=== PATIENT | female | born 1950 | race Caucasian/White ===

== ENCOUNTER 2019-04-30 22:06 | Emergency (ER) | payer MEDICARE, SELFPAY ==
--- NOTE | ~2019-04-30 | XR_ITS ---
EXAMINATION: XR chest 2V DATE: 04/30/2019 23:22 INDICATION: Cough, cold and chills. TECHNIQUE: PA and lateral views of the chest were obtained. COMPARISON: None FINDINGS: The lungs are clear with no focal airspace opacities, pulmonary edema, pleural effusion or pneumothor ax. The cardiomediastinal silhouette is normal. Cholecystectomy clips in right upper quadrant. Severe lower thoracic spondylosis. IMPRESSION: 1. No acute cardiopulmonary disease. Reviewed, dictated and finalized at location A. R MENDER
--- NOTE | 2019-04-30 22:17 | ED.GENADULT ---
HPI - General Adult General Chief complaint: Unspecified Stated complaint: Multiple complaints Time Seen by Provider: 04/30/19 22:08 Source: patient and RN notes reviewed Mode of arrival: ambulatory Limitations: no limitations History of Present Illness HPI narrative: Pt is a 69 y/o female who presents to the ED with c/o chills starting several days ago. She notes that she has a Hx of a bladder stimulator and recurrent UTI's. Pt states that she has had a cough and intermittent rhinorrhea for the past 2 weeks. She notes that she then developed bilateral lower ABD pain, hot flashes, chills, and fever several days ago. Pt states that her ABD pain radiates into her bilateral lower back. She notes that she was seen in the ED at [facility] for her symptoms yesterday, and notes that she was diagnosed with bronchitis and a UTI. She states that she received a negative flu swab while in the ED yesterday. Pt notes that she was initially prescribed Ampicillin, but was eventually placed on Augmentin, which she has only taken one dose of thus far. She notes that she had a follow-up appointment with her urologist earlier today, stating that she had urine cultures sent off for testing. She notes that she wanted to be evaluated in the ED this evening due to her hot flashes and chills making her unable to sleep. Pt also reports intermittent nausea, but denies any CP or SOB. complaint: Chills Onset (ago): day(s) (several) Associated symptoms: cough, fever/chills, nausea/vomiting (nausea) and other (hot flashes; bilateral lower ABD pain radiating into bilateral low back; rhinorrhea) Related Data Home Medications Medication Instructions Recorded Confirmed Calcium 1500mg 02/21/19 Imitrex 02/21/19 Nature-Throid 02/21/19 Slow Release Iron 02/21/19 Ultram 02/21/19 Vitamin D 6000 02/21/19 albuterol sulfate 02/21/19 amlodipine 02/21/19 aspirin [Aspirin Low Dose] 81 mg PO DAILY 02/21/19 02/21/19 atorvastatin 02/21/19 cetirizine 02/21/19 cyclobenzaprine mg 02/21/19 diclofenac-misoprostol [Arthrotec tablet PO 02/21/19 75] methscopolamine 02/21/19 montelukast [Singulair] mg 02/21/19 sertraline [Zoloft] mg 02/21/19 tramadol 02/21/19 Allergies Allergy/AdvReac Type Severity Reaction Status Date / Time cephalexin Allergy Severe RASH, Verified 02/21/19 03:02 ITCHING morphine Allergy Severe RASH Verified 02/21/19 03:02 levofloxacin Allergy Mild Rash Verified 02/21/19 03:02 CORTICOSTEROIDS Allergy Intermediate SWELLING Uncoded 02/21/19 03:02 Review of Systems Review of Systems: All systems reviewed & are unremarkable except as noted in HPI and below Constitutional: Constitutional: Reports chills, Reports fever(s) and Reports other (hot flashes) ENT: Reports nasal discharge Cardiovascular: Cardiovascular: Denies chest pain Respiratory: Respiratory: Reports cough and Denies dyspnea Gastrointestinal: Gastrointestinal: Reports abdominal pain (bilateral lower ABD pain radiating into bilateral low back) and Reports nausea PMFSH Past Medical History Medical History (Updated 05/01/19 @ 00:49 by Virgil Borrego MD) Anemia Ankle fracture, right Arthritis Asthma Depression Early cataracts, bilateral Falls GERD (gastroesophageal reflux disease) Headache Hemorrhoids History of recurrent UTIs HTN (hypertension) Hyperlipidemia Hypothyroid IBS (irritable bowel syndrome) Inguinal hernia Kidney stone on left side Migraines Parotid tumor left Pyelonephritis Rectal fistula Seasonal allergies TIA (transient ischemic attack) TMJ (dislocation of temporomandibular joint) Surgical History Surgical History (Updated 04/30/19 @ 22:59 by Yvan Mendez) H/O arthroscopy of shoulder right H/O colonoscopy H/O hemorrhoidectomy H/O inguinal hernia repair History of ankle surgery right History of bladder suspension procedure with InterStim bladder stimulator placement History of hysterectomy Hx of appendectomy S
[2019-04-30 22:19] VITALS: BP 112/74; PULSE 106; RESP 21; TEMP 38.2; O2SAT 98
[2019-04-30] MEDS: ACETAMINOPHEN 500 MG TABLET 1000 MG PO (23:02)
[2019-04-30 23:04] LABS: Basophils Percent Auto 0.3 % (0.2-1.2); Eosinophils Percent Auto 0.2 % (0-4.4); Hematocrit 35.1 % (37.0-47.0); Hemoglobin 11.7 g/dL (12.0-15.0); Immature Granulocyte Absolute 0.05 K/mm3 (0.00-0.031); Immature Granulocyte Percent A 0.3 % (0-0.5); Lymphocytes Absolute Auto 2.07 K/mm3 (0.9-3.2); Lymphocytes Percent Auto 14.2 % (18.3-44.2); Mean Corpuscular HGB Conc 33.3 g/dl (32-36); Mean Corpuscular Hemoglobin 29.8 pg (26-34); Mean Corpuscular Volume 89.5 fl (80-100); Mean Platelet Volume 8.9 fl (7.4-10.4); Monocytes Absolute Auto 1.3 K/mm3 (0.1-0.6); Monocytes Percent Auto 8.8 % (2.6-8.5); Neutrophils Absolute Auto 11.2 K/mm3 (1.3-6.7); Neutrophils Percent Auto 76.2 % (45.5-73.1); Platelet Count Result 270 k/mm3 (150-375); Red Blood Count 3.92 M/mm3 (4.2-5.4); Red Cell Distribution Width 12.3 % (11.5-14.5); White Blood Count 14.6 K/mm3 (4.5-10.0)
[2019-04-30] MEDS: ALBUTEROL SULFATE NEB 2.5 MG/0.5 ML INH 5 MG INHALATION (23:08)
[2019-04-30 23:09] VITALS: PULSE 92; RESP 18
[2019-04-30] MEDS: IPRATROPIUM BR 0.02% INH SOLN 0.5 MG/2.5 ML VIAL INHALATION (23:09)
[2019-04-30 23:16] VITALS: PULSE 94
[2019-04-30 23:16] LABS: Blood Urea Nitrogen 21 mg/dL (7-17); Calcium 8.9 mg/dL (8.4-10.2); Carbon Dioxide 24 mmol/L (22-30); Chloride 100 mmol/L (98-107); Estimated Glomerular Filt Rate > 60; Glucose 140 mg/dL (65-105); Potassium 3.9 mmol/L (3.4-5.0); Sodium 134 mmol/L (137-145)
[2019-04-30 23:30] VITALS: TEMP 36.7
[2019-04-30 23:50] LABS: Add Urine Microscopic? YES; Appearance Urine Clear (Clear); Bilirubin Urine Negative (Negative); Blood Urine 1+ (Negative); Color Urine Yellow (Yellow); Glucose Urine UA Negative (Negative); Ketones Urine Negative (Negative); Leukocyte Esterase Ur 2+ LEU/UL (Negative); Mucus Urine Rare /lpf; Nitrate Urine Negative (Negative); Protein Urine 2+ mg/dL (Negative); RBC Urine 0-2 /hpf (0-2); Specific Grav Ur 1.019 (1.001-1.035); Squamous Epithelial Cell Urine Occasional /hpf (Few); WBC Urine 51-75 /hpf
[2019-05-01 00:02] VITALS: BP 107/58; PULSE 92; RESP 16; TEMP 36.7; O2SAT 98
[2019-05-01 01:23] VITALS: BP 100/58; PULSE 66; RESP 16; TEMP 36.9; O2SAT 97
== END 2019-05-01 00:55 | disposition home or self-care (01) ==
PROVIDERS: Emergency Provider Emergency Medicine
DX: J45.909 Unspecified asthma, uncomplicated (principal); N39.0 Urinary tract infection, site not specified; D64.9 Anemia, unspecified; M19.90 Unspecified osteoarthritis, unspecified site; F32.9 Major depressive disorder, single episode, unspecified; K21.9 Gastro-esophageal reflux disease without esophagitis; I10 Essential (primary) hypertension; E78.5 Hyperlipidemia, unspecified; E03.9 Hypothyroidism, unspecified; K58.9 Irritable bowel syndrome, unspecified; Z87.442 Personal history of urinary calculi; Z86.73 Personal history of transient ischemic attack (TIA), and cerebral infarction without residual deficits; H26.9 Unspecified cataract
CPT/HCPCS: 36415; 71046; 80048; 81001; 85025; 87086; 87088; 94640; 99283; A9270

== ENCOUNTER 2019-08-26 13:27 | Outpatient (CLI) | payer MEDICARE, SELFPAY ==
--- NOTE | ~2019-08-26 | XR_ITS ---
EXAMINATION: XR abdomen/kub 1V EXAM DATE: 08/26/2019 13:50 INDICATION: History kidney stones. TECHNIQUE: Frontal projection(s) of the abdomen for interpretation. Comparison is made to prior exami nation from 06/04/2018. FINDINGS: There is expected amount of colonic stool and gas. No small bowel dilation, nonobstructiv e bowel gas pattern. There are no suspicious calcifications identified. There is no organomegaly suspected. The bones are unremarkable. Sacral neural stimulator. IMPRESSION: No suspicious calcifications identified. Reviewed, dictated and finalized at location A.
== END 2019-08-26 13:28 | disposition home or self-care (01) ==
PROVIDERS: Visit Provider Urology
DX: Z87.442 Personal history of urinary calculi (principal)
CPT/HCPCS: 74018

== ENCOUNTER 2019-10-10 07:48 | Outpatient (CLI) | payer MEDICARE, SELFPAY ==
--- NOTE | ~2019-10-10 | CT_ITS ---
EXAMINATION: CT thoracic lumbar wo con DATE: 10/10/2019 08:26 INDICATION: Back pain with radiculopathy. TECHNIQUE: Computed tomography (CT) of the thoracic and lumbar spine was performed without intravenou s contrast. Automated exposure control and iterative reconstruction technique were employed. The dose -length product was 821.97 mGy-cm. COMPARISON: None FINDINGS: THORACIC SPINE CT: There is 5 degrees levocurvature of thoracic spine. There is mild chronic height l oss of T8-T12 vertebral bodies. There is mildly decreased disc height from T3-T4 through T5-T6, moder ately decreased disc height at T6-T7, and severely decreased disc height from T7-T8 through T11-T12. There is multilevel facet joint osteoarthritis, severe bilaterally at T9-T10 and T10-T11. On the left , there is mild neural foraminal stenosis at T9-T10 and T11-T12. There is mild central canal stenosis at T4-T5, T5-T6, T6-T7, T8-T9, and T11-T12. LUMBAR SPINE CT: There is 7 degrees levocurvature of lumbar spine. There is 5 degrees dextrocurvature of thoracolumbar spine. There is 3 mm anterolisthesis of L4 on L5. Vertebral body heights are normal . Intervertebral disc heights are normal. The following disc levels are specifically discussed: L1-L2: The disc does not extend beyond the endplate margin. There is mild bilateral facet joint osteo arthritis. There is no neural foraminal stenosis. There is no central canal stenosis. L2-L3: The disc is bulging. There is severe bilateral facet joint osteoarthritis. There is mild bilat eral neural foraminal stenosis. There is mild central canal stenosis. L3-L4: The disc is bulging. There is severe bilateral facet joint osteoarthritis. There is mild bilat eral neural foraminal stenosis. There is mild central canal stenosis. L4-L5: The disc is bulging. There is severe bilateral facet joint osteoarthritis. There is moderate b ilateral neural foraminal stenosis. There is mild central canal stenosis. L5-S1: The disc is bulging. There is severe bilateral facet joint osteoarthritis. There is mild bilat eral neural foraminal stenosis. There is mild central canal stenosis. IMPRESSION: 1. Severe thoracic spondylosis and moderate lumbar spondylosis. Reviewed, dictated and finalized at location A.
== END 2019-10-10 07:49 | disposition home or self-care (01) ==
DX: M47.894 Other spondylosis, thoracic region (principal); M47.896 Other spondylosis, lumbar region
CPT/HCPCS: 72128; 72131

== ENCOUNTER 2020-04-13 14:19 | Outpatient (CLI) | payer MEDICARE, SELFPAY ==
--- NOTE | 2020-04-13 14:23 | ECG_ITS ---
Measurements Intervals [place] Rate: 77 P: -14 NC: 291 QRS: 12 QRSD: 78 T: 28 QT: 384 QTc: 435 Interpretive Statements SINUS RHYTHM VOLTAGE CRITERIA FOR LVH MINIMAL Q WAVES- HIGH LATERAL LEADS BASELINE ARTIFACT- I, II, III, AVR, AVL, AVF, V6 BORDERLINE ECG Electronically Signed On 04-13-2020 15:10:41 APPLICATION ANALYST by Adolfo Huizar D.O.
[2020-04-13 14:46] LABS: Hematocrit 36.3 % (37.0-47.0); Hemoglobin 12.7 g/dL (12.0-15.0)
== END 2020-04-13 14:20 | disposition home or self-care (01) ==
PROVIDERS: Anesthesiology; PCP Family Medicine; Visit Provider Urology
DX: Z01.818 Encounter for other preprocedural examination (principal); D64.9 Anemia, unspecified; I10 Essential (primary) hypertension; R94.31 Abnormal electrocardiogram [ECG] [EKG]
CPT/HCPCS: 36415; 85014; 85018; 93005

== ENCOUNTER 2020-04-20 01:53 | Outpatient (CLI) | payer MEDICARE, SELFPAY ==
[2020-04-20 18:13] LABS: SARS-CoV-2 RNA PCR Negative
== END 2020-04-20 01:54 | disposition home or self-care (01) ==
LOC: ANHCOVIDDT 01:53
PROVIDERS: Visit Provider Urology
DX: Z01.812 Encounter for preprocedural laboratory examination (principal); Z20.822 Contact with and (suspected) exposure to COVID-19
CPT/HCPCS: C9803; U0003; U0005

== ENCOUNTER 2020-04-23 02:40 | Day surgery (SDC) | payer MEDICARE, SELFPAY ==
[2020-04-12 15:23] VITALS: BMI 24.4
--- NOTE | 2020-04-18 15:49 | PM.IMHP ---
H&P: HPI History of Present Illness Date/Time: 04/18/20 15:49 Chief Complaint: OAB Narrative: Massiel Jordan is a 70 year old female with OAB well controlled with InterStim. Needs a MRI Review of Systems Review of Systems: All systems reviewed & are unremarkable except as noted in HPI and below PMFSH Past Medical History Medical History (Updated 04/18/20 @ 15:50 by Baldev Page MD) Anemia Ankle fracture, right Arthritis Asthma Depression Early cataracts, bilateral Falls GERD (gastroesophageal reflux disease) Headache Hemorrhoids History of recurrent UTIs HTN (hypertension) Hyperlipidemia Hypothyroid IBS (irritable bowel syndrome) Inguinal hernia Kidney stone on left side Migraines Parotid tumor left Pyelonephritis Rectal fistula Seasonal allergies TIA (transient ischemic attack) TMJ (dislocation of temporomandibular joint) Surgical History Surgical History (Updated 04/30/19 @ 22:59 by Yvan Mendez) H/O arthroscopy of shoulder right H/O colonoscopy H/O hemorrhoidectomy H/O inguinal hernia repair History of ankle surgery right History of bladder suspension procedure with InterStim bladder stimulator placement History of hysterectomy Hx of appendectomy S/P left knee arthroscopy S/P right knee arthroscopy Status post ORIF of fracture of ankle right Social History Social History Smoking status: Never smoker Second hand tobacco smoke exposure: No Alcohol intake: never Substance use: never Substance use type: does not use Gender identity (if verbalized by the patient): Female Spiritual care concerns: No Meds Home Medications and Allergies Home Medications Medication Instructions Recorded Confirmed Type Calcium 1500mg 1,500 mg DAILY 02/21/19 04/12/20 History Imitrex 100 mg PRN 02/21/19 04/12/20 History Slow Release Iron 25 mg DAILY 02/21/19 04/12/20 History amlodipine 5 mg DAILY 02/21/19 04/12/20 History aspirin [Aspirin Low Dose] 81 mg PO DAILY 02/21/19 04/12/20 History atorvastatin 20 mg DAILY 02/21/19 04/12/20 History cetirizine 10 mg HS 02/21/19 04/12/20 History cyclobenzaprine 10 mg BID PRN 02/21/19 04/12/20 History diclofenac-misoprostol [Arthrotec 1 tablet PO DAILY 02/21/19 04/12/20 History 75] methscopolamine 5 mg DAILY 02/21/19 04/12/20 History montelukast [Singulair] 10 mg DAILY 02/21/19 04/12/20 History sertraline [Zoloft] 100 mg DAILY 02/21/19 04/12/20 History albuterol 90 mcg INHALATION PRN PRN 04/12/20 04/12/20 History cholecalciferol (vitamin D3) 125 mcg PO DAILY 04/12/20 04/12/20 History folic acid 1 mg PO DAILY 04/12/20 04/12/20 History golimumab [Simponi ARIA] 100 mg IV ONCE 04/12/20 04/12/20 History hydrocodone-acetaminophen 1 tablet PO Q8H PRN 04/12/20 04/12/20 History methocarbamol 750 mg PO TID PRN 04/12/20 04/12/20 History methotrexate sodium [Methotrexate 2.5 mg PO WEEKLY 04/12/20 04/12/20 History (Anti-Rheumatic)] thyroid 90 mg PO DAILY 04/12/20 04/12/20 History vitamin E 400 unit PO DAILY 04/12/20 04/12/20 History Allergies Allergy/AdvReac Type Severity Reaction Status Date / Time cephalexin Allergy Severe RASH, Verified 04/12/20 15:08 ITCHING morphine Allergy Severe RASH Verified 04/12/20 15:08 levofloxacin Allergy Mild Rash Verified 04/12/20 15:08 CORTICOSTEROIDS Allergy Intermediate SWELLING Uncoded 04/12/20 15:08 Exam Const: General: cooperative, healthy appearing and comfortable HENMT: Head: normal to inspection Eyes: General: appearance normal, both eyes and all related structures Resp: Effort & Inspection: normal respiratory effort and able to speak in complete sentences Skin: General skin exam: normal color Assessment and Plan Assessment and plan (1) Overactive bladder: Code(s): N32.81 - Overactive bladder Status: Acute Assessment and Plan: revision to MRI compatable InterStim. Incomplete removal and inferior efficacy discussed
--- NOTE | 2020-04-22 14:32 | WPDANESEPPF ---
Anes - Initial Pre Proc Eval Procedure: Operation Date: 04/23/20 11:15 Proposed Procedures p Remove And Replace Neurostimulator Implant - Baldev Page MD Date/Time: 04/22/20 14:32 Surgeon: Baldev Page MD Pre Op Diagnosis: Stress Incontinence, Over Active Bladder Patient Data Age: 70 Gender: F Height: 1.63 m Weight: 64.54 kg Allergies Allergy/AdvReac Type Severity Reaction Status Date / Time cephalexin Allergy Severe RASH, Verified 04/23/20 09:51 ITCHING morphine Allergy Severe RASH Verified 04/23/20 09:51 levofloxacin Allergy Mild Rash Verified 04/23/20 09:51 CORTICOSTEROIDS Allergy Intermediate SWELLING Uncoded 04/23/20 09:51 Home Medications Medication Instructions Recorded Confirmed Type Calcium 1500mg 1,500 mg DAILY 02/21/19 04/12/20 History Imitrex 100 mg PRN 02/21/19 04/12/20 History Slow Release Iron 25 mg DAILY 02/21/19 04/12/20 History amlodipine 5 mg DAILY 02/21/19 04/12/20 History aspirin [Aspirin Low Dose] 81 mg PO DAILY 02/21/19 04/12/20 History atorvastatin 20 mg DAILY 02/21/19 04/12/20 History cetirizine 10 mg HS 02/21/19 04/12/20 History cyclobenzaprine 10 mg BID PRN 02/21/19 04/12/20 History diclofenac-misoprostol [Arthrotec 1 tablet PO DAILY 02/21/19 04/12/20 History 75] methscopolamine 5 mg DAILY 02/21/19 04/12/20 History montelukast [Singulair] 10 mg DAILY 02/21/19 04/12/20 History sertraline [Zoloft] 100 mg DAILY 02/21/19 04/12/20 History albuterol 90 mcg INHALATION PRN PRN 04/12/20 04/12/20 History cholecalciferol (vitamin D3) 125 mcg PO DAILY 04/12/20 04/12/20 History folic acid 1 mg PO DAILY 04/12/20 04/12/20 History golimumab [Simponi ARIA] 100 mg IV ONCE 04/12/20 04/12/20 History hydrocodone-acetaminophen 1 tablet PO Q8H PRN 04/12/20 04/12/20 History methocarbamol 750 mg PO TID PRN 04/12/20 04/12/20 History methotrexate sodium [Methotrexate 2.5 mg PO WEEKLY 04/12/20 04/12/20 History (Anti-Rheumatic)] thyroid 90 mg PO DAILY 04/12/20 04/12/20 History vitamin E 400 unit PO DAILY 04/12/20 04/12/20 History Patient hx anesthesia problems: none Family hx anesthesia problems: none PMFSH Past Medical History Medical History (Updated 04/18/20 @ 15:50 by Baldev Page MD) Anemia Ankle fracture, right Arthritis Asthma Depression Early cataracts, bilateral Falls GERD (gastroesophageal reflux disease) Headache Hemorrhoids History of recurrent UTIs HTN (hypertension) Hyperlipidemia Hypothyroid IBS (irritable bowel syndrome) Inguinal hernia Kidney stone on left side Migraines Parotid tumor left Pyelonephritis Rectal fistula Seasonal allergies TIA (transient ischemic attack) TMJ (dislocation of temporomandibular joint) Surgical History Surgical History (Updated 04/30/19 @ 22:59 by Yvan Mendez) H/O arthroscopy of shoulder right H/O colonoscopy H/O hemorrhoidectomy H/O inguinal hernia repair History of ankle surgery right History of bladder suspension procedure with InterStim bladder stimulator placement History of hysterectomy Hx of appendectomy S/P left knee arthroscopy S/P right knee arthroscopy Status post ORIF of fracture of ankle right Social History Social History Smoking status: Never smoker Second hand tobacco smoke exposure: No Alcohol intake: never Substance use: never Substance use type: does not use Living arrangements: with family Gender identity (if verbalized by the patient): Female Spiritual care concerns: No Anes - Eval Final PreProcedure Day of Procedure 04/22/20 14:32 Patient weight: normal Heart: regular rate and rhythm Lungs: clear to auscultation and normal air movement Airway: Mallampati scale class II Neurological: alert and oriented Last oral intake: >/= 8 hours ASA classification: III Emergent: no Anesthetic plan: proceed Anesthesia type and monitoring: general GIVS and LMA Informed Consent: The patient's anesthetic plan and it
--- NOTE | ~2020-04-23 | XR_ITS ---
EXAMINATION: FLUORO NEUROSTIM INSERT < 1HR DATE: 04/23/2020 11:54 INDICATION: Remove and replace neurostimulator InterStim 2 TECHNIQUE: Single frontal fluoroscopic image of the sacrum was obtained during procedure performed by Dr. Page. The amount of fluoroscopy time used during this procedure was 1.9 minutes. Radiologist was not present for the procedure or imaging. COMPARISON: None. FINDINGS/IMPRESSION: An Interstim lead extends projects over the sacrum, unclear which side as marker s are not included on the image. See procedure note for further detail. Reviewed, dictated and finalized at location B. HER CLERK
--- NOTE | 2020-04-23 04:59 | WPDHPUPDATE1 ---
History and Physical Update Update Date/Time: 04/23/20 04:59 History and Physical has been reviewed, including an updated exam of the patient. There are NO changes in the patient's condition. Risks, benefits, and alternatives have been discussed and questions answered. Patient agrees to proceed with procedure.
[2020-04-23] MEDS: LACTATED RINGERS 1,000 ML 30 ML IV CONT ×2 (09:45→12:00)
[2020-04-23] MEDS: CLINDAMYCIN 900 MG/D5W 50 ML 900 MG/50 ML PIGGYBACK 50 MG IVPB (10:39)
[2020-04-23] MEDS: LIDO 1%/EPINEPHRINE 1:100,000 50 ML VIAL 25 ML INFILTRATE (11:50)
--- NOTE | 2020-04-23 11:58 | PM.PROC ---
Procedure Note - Detailed Date of procedure: 04/23/20 Pre-op diagnosis: Stress Incontinence, Over Active Bladder Procedure performed: Postop diagnosis: Same Removal of sacral lead Placement of sacral Fluoroscopic guidance for needle placement Placement of implantable pulse generator Complex neurostimulator programming and impedance check Description of procedure: Anesthesia: Mac, local This patient has undergone a successful InterStim trial. She has a functioning device in place. She needs an MRI. We are are here to remove and replace a new device. She understands risks of bleeding, infection, worse efficacy, incomplete removal. She agrees to proceed He presents today for placement of a permanent device. correctly identified and informed consent was obtained. There brought to the operating room. Placed in the prone position. There given appropriate anesthesia. There prepped and draped in a sterile fashion. A time-out performed. I anesthetized the skin over the pulse generator. I incised the skin. I explained the pulse generator. I then identified my sacral lead. I incised the skin after anesthetizing it. I removed the sacral lead in its entirety. I used fluoroscopy to identify my sacral landmarks in the AP and lateral orientation. I anesthetized the skin. I into the sacral foramen on the left and the right. I monitored the needle fluoroscopy. I entered right and left S3 foramen. I stimulated the needle and got appropriate response at low thresholds. I made a skin lex. I placed a stylet and the lead introducer sheath. I then placed and deployed by lead again under fluoroscopy. I marked out the site of the future pulse generator. I anesthetized the skin. I made an incision. I created a subcutaneous pocket. I obtained hemostasis. I irrigated out the wound. I then tunneled the lead towards this pocket. Appropriate connections were made between the lead and battery. The battery was programmed. It was placed in the pocket. Impedances were checked and found to be normal. I once again assured hemostasis. I irrigated out all wounds. I closed the subcu with 2 0 Vicryl. Skin with 4 0 Vicryl. Glue was applied. They were then awakened and transferred to the PACU in stable condition. Implants: Neuromodulation device Anesthesia: MAC and local Surgeon: Baldev Page MD Drains: No Packing: No Pathology: none sent Complications: No immediate complications Condition: stable Disposition: PACU
[2020-04-23 12:00] VITALS: BP 95/57; PULSE 87; RESP 14; O2SAT 100
[2020-04-23] MEDS: ONDANSETRON INJ 4 MG/2 ML VIAL IV PUSH (12:21)
[2020-04-23] MEDS: fentaNYL CITRATE INJ (*CRX) 100 MCG/2 ML VIAL 25 MCG IV PUSH ×3 (12:22→12:46)
[2020-04-23 12:30] VITALS: BP 110/61; PULSE 81; RESP 14; O2SAT 95
[2020-04-23] MEDS: oxyCODONE HCL (*CRX) 5 MG TAB IR PO (12:47)
[2020-04-23 13:00] VITALS: BP 113/59; PULSE 80; RESP 14; O2SAT 93
[2020-04-23 13:30] VITALS: BP 100/50; PULSE 83; RESP 14; O2SAT 95
[2020-04-23 13:45] VITALS: BP 101/53; PULSE 83; RESP 14; O2SAT 93
== END 2020-04-23 14:03 | disposition home or self-care (01) ==
PROVIDERS: Visit Provider Urology
PROC: (CPT 64590; principal; 2020-04-23 11:15)
DX: Z45.42 Encounter for adjustment and management of neurostimulator (principal); N32.81 Overactive bladder; N39.3 Stress incontinence (female) (male); N39.41 Urge incontinence; R15.9 Full incontinence of feces; D64.9 Anemia, unspecified; J45.909 Unspecified asthma, uncomplicated; F32.9 Major depressive disorder, single episode, unspecified; K21.9 Gastro-esophageal reflux disease without esophagitis; I10 Essential (primary) hypertension; Z87.440 Personal history of urinary (tract) infections; Z91.81 History of falling; E78.5 Hyperlipidemia, unspecified; E03.9 Hypothyroidism, unspecified; K58.9 Irritable bowel syndrome, unspecified; K40.90 Unilateral inguinal hernia, without obstruction or gangrene, not specified as recurrent; Z87.442 Personal history of urinary calculi; N12 Tubulo-interstitial nephritis, not specified as acute or chronic; M26.609 Unspecified temporomandibular joint disorder, unspecified side; Z86.73 Personal history of transient ischemic attack (TIA), and cerebral infarction without residual deficits; Z79.82 Long term (current) use of aspirin
CPT/HCPCS: 64590; 64561; A9270; C1767; C1778; C1787; J2405; J2704; J3010; J7120

== ENCOUNTER 2020-05-27 13:15 | Outpatient (CLI) | payer MEDICARE, SELFPAY | END 2020-05-27 13:16 | disposition home or self-care (01) | LOC: ANHCOVIDVC 13:15 | PROVIDERS: PCP Urology | DX: Z23 Encounter for immunization (principal) | CPT/HCPCS: 0001A; 91300 ==

== ENCOUNTER 2020-06-17 13:16 | Outpatient (CLI) | payer MEDICARE, SELFPAY | END 2020-06-17 13:17 | disposition home or self-care (01) | LOC: ANHCOVIDVC 13:16 | PROVIDERS: PCP Urology | DX: Z23 Encounter for immunization (principal) | CPT/HCPCS: 0002A; 91300 ==

== ENCOUNTER 2021-04-03 16:16 | Emergency (ER) | payer MEDICARE, SELFPAY ==
[2021-04-03] VITALS (10 sets, daily range): BP systolic 113–138; BP diastolic 67–113; PULSE 63–85; RESP 13–20; TEMP 36.7; O2SAT 95–100
--- NOTE | ~2021-04-03 | XR_ITS ---
EXAMINATION: XR chest 2V DATE: 04/03/2021 16:56 INDICATION: Right-sided chest pain TECHNIQUE: PA and lateral views of the chest are obtained. COMPARISON: 04/30/2019 FINDINGS: The lungs are free of acute opacities. There is no pleural effusion or pneumothorax. The ca rdiomediastinal silhouette is normal. There is severe thoracic spondylosis. IMPRESSION: 1. No acute cardiopulmonary abnormality. Reviewed, dictated and finalized at location F. L SPRAY OPERATOR
--- NOTE | ~2021-04-03 | CT_ITS ---
EXAMINATION: CTA chest PE protocol DATE: 04/03/2021 22:58 INDICATION: Shortness of breath. TECHNIQUE: Computed tomography angiography (CTA) of the chest was performed with 100 mL Omnipaque-350 intravenous contrast timed to evaluate the pulmonary arteries. Coronal maximum intensity projection 3D-reconstructions were created by the technologist. Automated exposure control and iterative reconst ruction technique were employed. The dose-length product was 191.48 mGy-cm. COMPARISON: CT abdomen and pelvis 02/21/2019 FINDINGS: The lungs demonstrate mild atelectasis. No pleural effusion. The heart size is normal. No p ericardial effusion. There is no pulmonary embolus. There are surgical clips in the upper abdomen. Th ere is severe thoracic spondylosis. There is mild chronic anterior wedging of multiple thoracic verte bral bodies. IMPRESSION: 1. No pulmonary embolus. Reviewed, dictated and finalized at location B. [employer] IMPRESSION: 1. No pulmonary embolus.
--- NOTE | 2021-04-03 16:17 | ECG_ITS ---
Measurements Intervals [place] Rate: 85 P: 53 DC: 147 QRS: 12 QRSD: 82 T: 11 QT: 381 QTc: 455 Interpretive Statements SINUS RHYTHM MINIMAL Q WAVES- HIGH LATERAL LEADS BORDERLINE ST-T WAVE ABNORMALITY- ANT/INF LEADS BASELINE ARTIFACT- I, II, III, AVR, AVL, AVF, V1-V2, V5-V6 BORDERLINE ECG Electronically Signed On 04-03-2021 19:57:23 SENIOR BUSINESS BROKER by Adolfo Huizar D.O.
[2021-04-03 16:33] LABS: Basophils Percent Auto 0.6 % (0.2-1.2); Eosinophils Absolute Auto 0.3 K/mm3 (0-0.3); Hematocrit 35.2 % (37.0-47.0); Hemoglobin 11.8 g/dL (12.0-15.0); Immature Granulocyte Absolute 0.01 K/mm3 (0.00-0.031); Immature Granulocyte Percent A 0.1 % (0-0.5); Lymphocytes Absolute Auto 3.15 K/mm3 (0.9-3.2); Lymphocytes Percent Auto 46.5 % (18.3-44.2); Mean Corpuscular HGB Conc 33.5 g/dl (32-36); Mean Corpuscular Hemoglobin 32.3 pg (26-34); Mean Corpuscular Volume 96.4 fl (80-100); Monocytes Absolute Auto 0.6 K/mm3 (0.1-0.6); Monocytes Percent Auto 8.7 % (2.6-8.5); Neutrophils Absolute Auto 2.7 K/mm3 (1.3-6.7); Neutrophils Percent Auto 40.1 % (45.5-73.1); Platelet Count Result 238 k/mm3 (150-375); Red Blood Count 3.65 M/mm3 (4.2-5.4); White Blood Count 6.8 K/mm3 (4.5-10.0)
[2021-04-03 16:44] LABS: INR 0.9; Prothrombin Time 12.3 Seconds (11.1-14.7)
[2021-04-03 16:45] LABS: Partial Thromboplastin Time 26.9 SECONDS (22.3-36.8)
[2021-04-03 16:49] LABS: Alanine Aminotransferase 26 U/L (4-35); Albumin Level 4.6 g/dL (3.5-5.1); Alkaline Phosphatase 54 U/L (38-126); Anion Gap 9 mmol/L (8-16); Aspartate Amino Transferase 34 U/L (14-36); Bilirubin,Total 0.3 mg/dL (0.2-1.3); Blood Urea Nitrogen 21 mg/dL (7-17); Calcium 9.1 mg/dL (8.4-10.2); Carbon Dioxide 24 mmol/L (22-30); Chloride 105 mmol/L (98-107); Estimated CRCL calculation 42 ml/min; Estimated Glomerular Filt Rate > 60; Glucose 123 mg/dL (65-110); Lipase 161 U/L (23-300); Potassium 3.9 mmol/L (3.4-5.0); Sodium 138 mmol/L (137-145)
[2021-04-03 17:01] LABS: Troponin I < 0.012 ng/mL (0.000-0.034)
--- NOTE | 2021-04-03 18:32 | ED.CHESTPAIN ---
HPI - Chest Pain General Chief Complaint: Chest Pain Stated Complaint: chest pain Time Seen by Provider: 04/03/21 18:26 Source: patient Mode of arrival: ambulatory Limitations: no limitations History of Present Illness HPI narrative: Patient is a 71-year-old female complaining of chest pain, right-sided, sharp, radiating to back worse with deep inspiration, rates the pain 6 out of 10, started 2 hours prior to arrival. Patient denies any shortness of breath, abdominal pain, nausea, vomiting, diaphoresis, fever or chills. Related Data Home Medications Medication Instructions Recorded Confirmed Calcium 1500mg 1,500 mg DAILY 02/21/19 04/12/20 Imitrex 100 mg PRN 02/21/19 04/12/20 Slow Release Iron 25 mg DAILY 02/21/19 04/23/20 amlodipine 5 mg DAILY 02/21/19 04/12/20 aspirin [Aspirin Low Dose] 81 mg PO DAILY 02/21/19 04/12/20 atorvastatin 20 mg DAILY 02/21/19 04/12/20 cetirizine 10 mg HS 02/21/19 04/12/20 cyclobenzaprine 10 mg BID PRN 02/21/19 04/12/20 diclofenac-misoprostol [Arthrotec 1 tablet PO DAILY 02/21/19 04/12/20 75] methscopolamine 5 mg DAILY 02/21/19 04/23/20 montelukast [Singulair] 10 mg DAILY 02/21/19 04/23/20 sertraline [Zoloft] 100 mg DAILY 02/21/19 04/23/20 Simponi ARIA 100 mg IV ONCE 04/12/20 04/23/20 albuterol 90 mcg INHALATION PRN PRN 04/12/20 04/12/20 cholecalciferol (vitamin D3) 125 mcg PO DAILY 04/12/20 04/12/20 folic acid 1 mg PO DAILY 04/12/20 04/12/20 hydrocodone-acetaminophen 1 tablet PO Q8H PRN 04/12/20 04/12/20 methocarbamol 750 mg PO TID PRN 04/12/20 04/23/20 methotrexate sodium 2.5 mg PO WEEKLY 04/12/20 04/12/20 thyroid 90 mg PO DAILY 04/12/20 04/23/20 vitamin E 400 unit PO DAILY 04/12/20 04/23/20 Allergies Allergy/AdvReac Type Severity Reaction Status Date / Time cephalexin Allergy Severe RASH, Verified 04/23/20 09:51 ITCHING morphine Allergy Severe RASH Verified 04/23/20 09:51 levofloxacin Allergy Mild Rash Verified 04/23/20 09:51 CORTICOSTEROIDS Allergy Intermediate SWELLING Uncoded 04/23/20 09:51 Review of Systems Review of Systems: All systems reviewed & are unremarkable except as noted in HPI and below Constitutional: Constitutional: Denies body ache(s), Denies chills, Denies excessive sweating, Denies fatigue, Denies fever(s), Denies headache(s), Denies lethargy, Denies malaise, Denies weakness and Denies weight loss Eyes: Eyes: Denies blurry vision, Denies change in vision and Denies loss of vision ENT: Denies dizziness, Denies ear discharge, Denies headache(s), Denies lip swelling, Denies epistaxis, Denies nasal congestion, Denies neck pain, Denies throat swelling and Denies tongue swelling Cardiovascular: Cardiovascular: Denies diaphoresis, Denies rapid heart rate, Denies edema, Denies irregular heart rhythm, Denies lightheadedness, Denies palpitations, Denies dyspnea and Denies dyspnea on exertion Respiratory: Respiratory: Denies chest congestion, Denies cough, Denies hemoptysis, Denies dyspnea and Denies dyspnea on exertion Gastrointestinal: Gastrointestinal: Denies abdominal pain, Denies melena, Denies hematochezia, Denies diarrhea, Denies nausea, Denies vomiting and Denies hematemesis Musculoskeletal: Musculoskeletal: Denies abnormal gait, Denies deformity, Denies joint swelling, Denies limited range of motion, Denies neck pain and Denies numbness Neurologic: Denies Abnormal speech present, Denies abnormal gait, Denies confusion, Denies dizziness, Denies headache(s), Denies focal weakness, Denies loss of vision, Denies numbness, Denies Other visual disturbances, Denies Sensory deficit (Neuro) and Denies weakness Psychiatric: Psychiatric: Denies confusion, Denies depression, Denies auditory hallucinations, Denies homicidal ideation and Denies suicidal ideation Endocrine: Endocrine: Denies cold intolerance, Denies excessive sweating, Denies fatigue, Denies heat intolerance and Denies palpitations Hematologic/Lymphatic: Hematologic/Lymphatic: Denies easy bleeding and Denies easy bruisi
[2021-04-03 19:33] LABS: D Dimer 0.66 ug/mL (<0.48)
[2021-04-03 19:43] LABS: Troponin I < 0.012 ng/mL (0.000-0.034)
[2021-04-03] MEDS: HYDROmorphone HCL INJ (*CRX) 1 MG/ML SYR 0.5 MG IV PUSH (19:45)
== END 2021-04-03 23:14 | disposition home or self-care (01) ==
PROVIDERS: Emergency Medicine; Emergency Provider Emergency Medicine
DX: R07.89 Other chest pain (principal); R09.1 Pleurisy; J45.909 Unspecified asthma, uncomplicated; E78.5 Hyperlipidemia, unspecified; I10 Essential (primary) hypertension; E03.9 Hypothyroidism, unspecified; D64.9 Anemia, unspecified; M19.90 Unspecified osteoarthritis, unspecified site; F32.A Depression, unspecified; Z87.442 Personal history of urinary calculi; Z86.73 Personal history of transient ischemic attack (TIA), and cerebral infarction without residual deficits; R94.31 Abnormal electrocardiogram [ECG] [EKG]
CPT/HCPCS: 36415; 71046; 71275; 80053; 83690; 84484; 85025; 85380; 85610; 85730; 93005; 96374; 99284; J1170; Q9967

== ENCOUNTER 2021-04-10 20:56 | Inpatient (IN) | payer MEDICARE, SELFPAY ==
[2021-04-10] VITALS (13 sets, daily range): BP systolic 89–100; BP diastolic 52–63; PULSE 83–98; RESP 14–24; TEMP 36.6–38.5; O2SAT 92–98
--- NOTE | ~2021-04-10 | CT_ITS ---
EXAMINATION: CT abdomen pelvis wo con DATE: 04/11/2021 06:14 INDICATION: Sepsis. Urinary tract infection. History of kidney stones TECHNIQUE: Computed tomography (CT) of the abdomen and pelvis was performed without intravenous contr ast. Automated exposure control and iterative reconstruction technique were employed. Exam dose: 277 .43 mGy-cm total exam DLP. COMPARISON: 08/26/2019 KUB 02/21/2019 CT abdomen pelvis FINDINGS: There is mild discoid atelectasis or scarring at the lung bases. Normal heart size. No tessy cardial or pleural effusion. Sludge is noted in the dependent aspect of the gallbladder. No pericholecystic fluid or fat stranding . No bile duct or pancreatic duct dilatation. No hepatic, splenic, pancreatic, and adrenal or renal space-occupying mass lesion is evident on this limited noncontrast examination. No urinary tract calculus is evident. There is mild perinephric stranding and mild asymmetric thicken ing of the posterior pararenal fascia on the right, suggesting right pyelonephritis. The urinary trac ts are otherwise unremarkable, including the urinary bladder. Status post hysterectomy. There is atherosclerotic calcification of the abdominal aorta but no aneurysm. There is atherosclerot ic calcification at the origins of the celiac and superior mesenteric and renal arteries. No intraper itoneal or retroperitoneal or pelvic mass lesion or adenopathy or ascites is evident. Minimal sigmoid diverticulosis. No bowel obstruction, bowel wall thickening, pneumatosis or intraperi toneal free air is detected. Prominent degenerative change in the lower thoracic spine. Degenerative change at the lumbar and lumb osacral apophyseal joints with minimal grade 1 anterolisthesis at L5-S1. IMPRESSION: Right pyelonephritis Gallbladder sludge Minimal sigmoid diverticulosis Reviewed, dictated and finalized at Location A. Reviewed, dictated and finalized at location A. 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
--- NOTE | ~2021-04-10 | XR_ITS ---
XR chest 1V portable DATE: 04/10/2021 23:17 INDICATION: Fever. Fall today. TECHNIQUE: Portable upright AP chest on 04/10/2021 at 2312 hours COMPARISON: 04/13/2021 2 view chest 129 CTA chest FINDINGS: Heart size appears normal. There is mild aortic unfolding. No hilar or mediastinal enlargem ent. No pulmonary infiltrate or consolidation, pleural effusion or pulmonary vascular congestion or p neumothorax is detected. IMPRESSION: No active cardiopulmonary disease Reviewed, dictated and finalized at location A. 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
--- NOTE | ~2021-04-10 | XR_ITS ---
XR chest 2V DATE: 04/14/2021 13:37 INDICATION: Cough, shortness of breath TECHNIQUE: PA and lateral views COMPARISON: 04/10/2021 portable AP chest FINDINGS: Normal heart size. There is mild aortic calcification and unfolding. No pulmonary infiltr ate or consolidation, pulmonary vascular congestion or pleural effusion or pneumothorax. Status post cholecystectomy. IMPRESSION: No active cardiopulmonary disease Reviewed, dictated and finalized at location A. PHONE ENGINEER
--- NOTE | ~2021-04-10 | XR_ITS ---
EXAMINATION: XR knee LT 2V DATE: 04/11/2021 10:31 INDICATION: Left knee pain post fall TECHNIQUE: AP and crosstable lateral views of the left knee were obtained. COMPARISON: None. FINDINGS: Left total knee arthroplasty without patellar resurfacing which appears well seated in near-anatomic alignment. No fracture. Small enthesophyte at the proximal pole of the patella. Small to moderate-siz ed left knee joint effusion without evident layering lipohemarthrosis. IMPRESSION: 1. Expected appearance of a left total knee arthroplasty without evident acute osseous abnormality. 2. Small to moderate left knee joint effusion. Reviewed, dictated and finalized at location A. S CLERK FOOD
--- NOTE | 2021-04-10 22:42 | PC.NURSE ---
Pt's vital signs repeated in wr while awaiting ED bed availability. Pt now febrile @ 101.3F , BP 89/55. Pt currently sitting in wc. No s/s of distress. Reading a book.
[2021-04-10 23:23] LABS: Basophils Percent Auto 0.3 % (0.2-1.2); Hematocrit 34.2 % (37.0-47.0); Hemoglobin 11.5 g/dL (12.0-15.0); Immature Granulocyte Absolute 0.03 K/mm3 (0.00-0.031); Immature Granulocyte Percent A 0.3 % (0-0.5); Lymphocytes Absolute Auto 1.59 K/mm3 (0.9-3.2); Lymphocytes Percent Auto 13.8 % (18.3-44.2); Mean Corpuscular HGB Conc 33.6 g/dl (32-36); Mean Corpuscular Hemoglobin 32.3 pg (26-34); Mean Corpuscular Volume 96.1 fl (80-100); Mean Platelet Volume 9.1 fl (7.4-10.4); Monocytes Absolute Auto 1.2 K/mm3 (0.1-0.6); Monocytes Percent Auto 10.7 % (2.6-8.5); Neutrophils Absolute Auto 8.7 K/mm3 (1.3-6.7); Neutrophils Percent Auto 74.9 % (45.5-73.1); Platelet Count Result 169 k/mm3 (150-375); Red Blood Count 3.56 M/mm3 (4.2-5.4); Red Cell Distribution Width 13.2 % (11.5-14.5); White Blood Count 11.5 K/mm3 (4.5-10.0)
[2021-04-10 23:32] LABS: Partial Thromboplastin Time 26.9 SECONDS (22.3-36.8)
[2021-04-10 23:33] LABS: Lactic Acid Reflex 0.7 mmol/L (0.7-2.1)
[2021-04-10 23:35] LABS: Alanine Aminotransferase 17 U/L (4-35); Albumin Level 4.4 g/dL (3.5-5.1); Alkaline Phosphatase 56 U/L (38-126); Anion Gap 10 mmol/L (8-16); Aspartate Amino Transferase 27 U/L (14-36); Bilirubin,Total 0.9 mg/dL (0.2-1.3); Blood Urea Nitrogen 18 mg/dL (7-17); CRP 6.9 mg/dL (<1.0); Calcium 9.1 mg/dL (8.4-10.2); Carbon Dioxide 23 mmol/L (22-30); Chloride 100 mmol/L (98-107); Estimated CRCL calculation 38 ml/min; Estimated Glomerular Filt Rate 54; Glucose 125 mg/dL (65-110); Potassium 4.1 mmol/L (3.4-5.0); Sodium 133 mmol/L (137-145)
[2021-04-11] VITALS (19 sets, daily range): BP systolic 96–112; BP diastolic 52–94; PULSE 75–113; RESP 14–24; TEMP 36.8–38.7; O2SAT 92–100
[2021-04-11] MEDS: SODIUM CHLORIDE 0.9% IV 1,000 ML 999 ML IV CONT ×3 (00:39→15:29)
[2021-04-11 01:25] LABS: SARS-CoV-2 RNA PCR Negative
[2021-04-11 01:58] LABS: Add Urine Microscopic? YES; Appearance Urine Clear (Clear); Bacteria Urine Trace /hpf; Bilirubin Urine Negative (Negative); Blood Urine 1+ (Negative); Color Urine Yellow (Yellow); Glucose Urine UA Negative (Negative); Ketones Urine Trace mg/dL (Negative); Leukocyte Esterase Ur 2+ LEU/UL (Negative); Mucus Urine Few /lpf; Nitrate Urine Positive (Negative); Protein Urine 1+ mg/dL (Negative); Specific Grav Ur 1.012 (1.001-1.035); Squamous Epithelial Cell Urine Rare /hpf (Few); Urobilinogen Urine Negative mg/dL (<2.0); WBC Urine >75 /hpf
--- NOTE | 2021-04-11 03:42 | ED.FEVER ---
HPI - Fever General Chief Complaint: Fever Stated Complaint: fever, fall knee pain Time Seen by Provider: 04/10/21 23:03 History of Present Illness HPI Narrative: Patient is a 71-year-old female who presents ER with weakness and fever. Worsening over the last 2 days. Was so weak she fell while getting out of bed and developed pain in her knees. She has been able to ambulate. She has body aches. She has some mild pain in her back on the right side laterally over the chest wall without bruising. Denies urinary frequency urgency or dysuria. No runny nose or sore throat or productive cough. No loss of taste or smell. Without dyspnea. No known sick contacts. Reports she has not been eating or drinking due to fatigue and fever. Related Data Home Medications Medication Instructions Recorded Confirmed Calcium 1500mg 1,500 mg DAILY 02/21/19 04/12/20 Imitrex 100 mg PRN 02/21/19 04/12/20 Slow Release Iron 25 mg DAILY 02/21/19 04/23/20 amlodipine 5 mg DAILY 02/21/19 04/12/20 aspirin [Aspirin Low Dose] 81 mg PO DAILY 02/21/19 04/12/20 atorvastatin 20 mg DAILY 02/21/19 04/12/20 cetirizine 10 mg HS 02/21/19 04/12/20 cyclobenzaprine 10 mg BID PRN 02/21/19 04/12/20 diclofenac-misoprostol [Arthrotec 1 tablet PO DAILY 02/21/19 04/12/20 75] methscopolamine 5 mg DAILY 02/21/19 04/23/20 montelukast [Singulair] 10 mg DAILY 02/21/19 04/23/20 sertraline [Zoloft] 100 mg DAILY 02/21/19 04/23/20 Simponi ARIA 100 mg IV ONCE 04/12/20 04/23/20 albuterol 90 mcg INHALATION PRN PRN 04/12/20 04/12/20 cholecalciferol (vitamin D3) 125 mcg PO DAILY 04/12/20 04/12/20 folic acid 1 mg PO DAILY 04/12/20 04/12/20 hydrocodone-acetaminophen 1 tablet PO Q8H PRN 04/12/20 04/12/20 methocarbamol 750 mg PO TID PRN 04/12/20 04/23/20 methotrexate sodium 2.5 mg PO WEEKLY 04/12/20 04/12/20 thyroid 90 mg PO DAILY 04/12/20 04/23/20 vitamin E 400 unit PO DAILY 04/12/20 04/23/20 Allergies Allergy/AdvReac Type Severity Reaction Status Date / Time cephalexin Allergy Severe RASH, Verified 04/10/21 21:37 ITCHING morphine Allergy Severe RASH Verified 04/10/21 21:37 levofloxacin Allergy Mild Rash Verified 04/10/21 21:37 CORTICOSTEROIDS Allergy Intermediate SWELLING Uncoded 04/10/21 21:37 Review of Systems Review of Systems: All systems reviewed & are unremarkable except as noted in HPI and below Constitutional: Constitutional: Reports fatigue and Reports fever(s) ENT: Denies nasal congestion and Denies sore throat Respiratory: Respiratory: Denies cough, Denies dyspnea and Denies wheezing Gastrointestinal: Gastrointestinal: Denies abdominal pain, Denies diarrhea, Denies nausea and Denies vomiting Genitourinary: Genitourinary: Denies hematuria, Denies nocturia, Denies dysuria and Denies flank pain PMFSH Past Medical History Medical History Anemia Ankle fracture, right Arthritis Asthma Depression Early cataracts, bilateral Falls GERD (gastroesophageal reflux disease) Headache Hemorrhoids History of recurrent UTIs HTN (hypertension) Hyperlipidemia Hypothyroid IBS (irritable bowel syndrome) Inguinal hernia Kidney stone on left side Migraines Parotid tumor left Pyelonephritis Rectal fistula Seasonal allergies TIA (transient ischemic attack) TMJ (dislocation of temporomandibular joint) Surgical History Surgical History H/O arthroscopy of shoulder right H/O colonoscopy H/O hemorrhoidectomy H/O inguinal hernia repair History of ankle surgery right History of bladder suspension procedure with InterStim bladder stimulator placement History of hysterectomy Hx of appendectomy S/P left knee arthroscopy S/P right knee arthroscopy Status post ORIF of fracture of ankle right Social History Social History (System 04/05/21 @ 08:20 by Cecilia Rosado) Smoking status: Never smoker Second hand tobacco smoke exposure: No Alcohol intake: n
--- NOTE | 2021-04-11 05:57 | PM.IMHP ---
H&P: HPI History of Present Illness Date/Time: 04/11/21 05:20 Chief Complaint: Fever Narrative: 71-year-old female with a past medical history of rheumatoid arthritis on immunosuppressive therapy, urge urinary incontinence, bladder stimulator, frequent urinary tract infections and kidney stones who presented to the ER with 2 days of fever. In hindsight she realizes that the increased urinary frequency and incontinence that she has been having over the last week is not due to malfunctioning of her bladder stimulator but is likely due to urinary tract infection. She reports that she would have immediate urge to go to the bathroom and S initially was stand up she would not make it to the bathroom. She has also been having associated dysuria. The for the last couple of days she has been having occasional dry heaves without emesis. She has had persistent nausea. She has been having rigors and fevers up to 101.5. She denies any flank pain. She has not noticed any hematuria. Her urologist is Dr. Page. She had come to the ER a few days ago due to chest pain. She reports that she has been under increased stress. Her mother who is 93 years old fell recently and had a hip fracture. Following the hip fracture she was discharged to a skilled nursing and has stopped eating and drinking. She is trying to decide what to do with her mother's care. She thinks that this was causing her significant distress. Her cardiac evaluation in the ER several days ago was negative. She has not had a recurrence of chest pain. She denies any shortness of breath. Her she is vaccinated against COVID-19 and received her booster. Her COVID PCR in the ER was negative. Review of Systems Review of Systems: 12 systems were reviewed with pertinent positives and negatives per HPI. Except as documented in the HPI, all other systems were reviewed and are negative. [facility] Past Medical History Medical History (Updated 04/11/21 @ 08:23 by Alice Patrick DO) Anemia Ankle fracture, right Arthritis Asthma Depression Early cataracts, bilateral Falls GERD (gastroesophageal reflux disease) Headache Hemorrhoids History of recurrent UTIs HTN (hypertension) Hyperlipidemia Hypothyroid IBS (irritable bowel syndrome) Inguinal hernia Kidney stone on left side Migraines Parotid tumor left Pyelonephritis Rectal fistula Seasonal allergies TIA (transient ischemic attack) TMJ (dislocation of temporomandibular joint) Surgical History Surgical History (Updated 04/11/21 @ 08:12 by Alice Patrick DO) H/O arthroscopy of shoulder (~2014) right H/O colonoscopy H/O hemorrhoidectomy (~2007) H/O meniscectomy of right knee History of arthroscopy of left shoulder History of bladder suspension procedure with InterStim bladder stimulator placement July 2016 with subsequent removal and replacement with a MRI safe device March 2020 History of carpal tunnel release (~2013) Right History of hysterectomy (~1976) History of mandibular surgery (~1977) History of meniscectomy of left knee (~05/2015) History of Ofelia fundoplication (~2014) History of sinus surgery (~2015) History of uvulopalatopharyngoplasty (~2013) Hx of appendectomy (~1974) Hx of LASIK (~2005) S/P cubital tunnel release (~2013) S/P right knee arthroscopy S/P ureteral stent placement 11/2017 Status post cataract extraction of both eyes with insertion of intraocular lens (~12/2020) Status post ORIF of fracture of ankle (~06/2015) right with initial surgery in 2008 and additional surgery 2012 surgeries in 2014 and 2015 Family History Family History Mother Age older than 80 years Social History Social History (Updated 04/11/21 @ 08:15 by Alice Patrick DO) Social History: Patient is . Primary care physician: Dr. Harrison, [facility] Code status: Code status and advanced directives were discussed with the patien
[2021-04-11] MEDS: ACETAMINOPHEN 325 MG TABLET 650 MG PO (06:00)
--- NOTE | 2021-04-11 06:45 | ADMGEN ---
This patient, Massiel Jordan, was admitted to 3 [facility] Surg Room 319-01. Patient/family oriented to hospital policies and general routines including ID bracelet, bed and alarms, visiting hours, pain management, procedures, bathroom and other care routines, personal items, smoking policy, room service/diet, and visiting hours. Information on how to activate the Rapid Response Team has been discussed. Patient/Family are encouraged to report perceived risks to care and to ask questions if they do not understand what they are told or what they should do.
[2021-04-11] MEDS: SODIUM CHLORIDE 0.9% IV 1,000 ML 125 ML IV CONT ×2 (08:30→15:30)
--- NOTE | 2021-04-11 09:31 | PM.IMPN ---
Progress Note: A&P Assessment and Plan (1) Acute UTI: Code(s): N39.0 - Urinary tract infection, site not specified Status: Acute Assessment and Plan: Current on IV Zosyn follow culture results may need urology eval pending culture results (2) Sepsis: Qualifiers: Sepsis acute organ dysfunction status: without acute organ dysfunction Sepsis type: sepsis due to unspecified organism Qualified Code(s): A41.9 - Sepsis, unspecified organism Code(s): A41.9 - Sepsis, unspecified organism Status: Acute Assessment and Plan: IV fluid IV antibiotics (3) Overactive bladder: Code(s): N32.81 - Overactive bladder Status: Acute Assessment and Plan: Continue home medication (4) Arthritis: Code(s): M19.90 - Unspecified osteoarthritis, unspecified site Status: Acute Assessment and Plan: Patient has history of rheumatoid arthritis on methotrexate patient methotrexate currently is on hold last dose as recorded on the chart was 04/04/2021 highly recommend to restart methotrexate once infection is under control and culture is finalized (5) Asthma: Code(s): J45.909 - Unspecified asthma, uncomplicated Status: Acute Assessment and Plan: Stable monitor (6) Falls: Code(s): W19.XXXA - Unspecified fall, initial encounter Status: Acute Assessment and Plan: Most likely related to chronic deconditioning PT OT (7) HTN (hypertension): Code(s): I10 - Essential (primary) hypertension Status: Acute Assessment and Plan: Monitor Subjective Date/time seen: 04/11/21 09:31 Interval history: Chief Complaint: Fever Narrative: 71-year-old female with a past medical history of rheumatoid arthritis on immunosuppressive therapy, urge urinary incontinence, bladder stimulator, frequent urinary tract infections and kidney stones who presented to the ER with [address] scan of the abdomen shows diverticulosis and gallbladder sludge, patient was treated with IV Zosyn, patient at home on methotrexate which held as patient has active infection once infection is controlled and final culture is identified highly consider to resume methotrexat. Patient also recently had a fall and complaining of left knee pain Patient feels weak Patient denies fever headache chest pain shortness of breath I am seeing the patient for UTI Exam Narrative: Alert Chest no wheeze crackles Abdomen nontender nondistended CVS S1 + S2 Positive left knee tenderness no redness or hotness Lower negative extremity edema Objective Data Vital Signs Vital Signs: Vital Signs - 24 hr 04/10/21 21:29 04/10/21 22:43 04/10/21 22:52 Temperature 97.8 F 101.3 F H Pulse Rate 98 96 88 Respiratory Rate 14 20 19 Blood Pressure 94/52 L 89/55 L Pulse Oximetry 96 96 95 04/10/21 22:53 04/10/21 22:54 04/10/21 23:00 Temperature Pulse Rate 88 86 85 Respiratory Rate 17 24 H 24 H Blood Pressure 100/62 100/62 97/58 L Pulse Oximetry 94 95 94 04/10/21 23:01 04/10/21 23:15 04/10/21 23:16 Temperature Pulse Rate 86 89 87 Respiratory Rate 18 23 H 20 Blood Pressure 94/54 L Pulse Oximetry 95 96 97 04/10/21 23:30 04/10/21 23:31 04/10/21 23:45 Temperature Pulse Rate 83 86 83 Respiratory Rate 23 H 19 21 H Blood Pressure 95/60 L 93/63 L Pulse Oximetry 97 98 92 04/10/21 23:46 04/11/21 00:00 04/11/21 00:01 Temperature Pulse Rate 85 83 83 Respiratory Rate 21 H 20 20 Blood Pressure 98/62 L Pulse Oximetry 92 92 93 04/11/21 02:03 04/11/21 02:23 04/11/21 02:30 Temperature Pulse Rate 81 83 84 Respiratory Rate 17 15 15 Blood Pressure Pulse Oximetry 95 96 95 04/11/21 02:51 04/11/21 03:19 04/11/21 03:32 Temperature Pulse Rate 78 81 86 Respiratory Rate 14 17 16 Blood Pressure Pulse Oximetry 97 97 100 04/11/21 03:45 04/11/21 04:00 04/11/21 04:15 Temperature Pulse Rate 83 91 88 Respiratory Rate 20 1
[2021-04-11] MEDS: CHOLECALCIFEROL 1,000 UNITS TABLET 5000 UNITS PO (09:50)
[2021-04-11] MEDS: FERROUS SULFATE DRIED 142 MG TABCR PO (09:51)
[2021-04-11] MEDS: THYROID 30 MG TABLET 90 MG PO (09:51)
[2021-04-11] MEDS: SERTRALINE HCL 50 MG TABLET 100 MG PO (09:51)
[2021-04-11] MEDS: ASPIRIN 81 MG ENTERIC TABLET PO (09:51)
[2021-04-11] MEDS: ATORVASTATIN 20 MG TABLET BY MOUTH (09:51)
[2021-04-11] MEDS: FOLIC ACID 1 MG TABLET PO (09:52)
[2021-04-11] MEDS: CALCIUM CARBONATE (OSCAL) 500 MG TABLET 1500 MG PO (09:52)
[2021-04-11] MEDS: MONTELUKAST SODIUM 10 MG TABLET PO (09:52)
[2021-04-11] MEDS: ENOXAPARIN 40 MG/0.4 ML SYRINGE SUB-Q (10:01)
--- NOTE | 2021-04-11 13:21 | PHAR ---
HOME MED VERIFIED METHSCOPOLAMINE 5MG TABLET TAKE 1 TABLET 30 MINUTES BEFORE MEALS AND AT BEDTIME
--- NOTE | 2021-04-11 15:12 | PCNWS ---
Weekly nutritional screen. Pt screened in for MST 3. Per EMR, pt has had unintentional wt loss of 14-23lb and a decreased appetite. Spoke to pt who reports that she has lost about 20lb over the last few months. Pt associated wt loss with eating less and giving up candy. Per EMR, pt weighed approximately 142lb reported on 04/12/2020, current weight is approximately 134lb reported on 04/10/2021, showing an approximately weight loss of 8lbs over the last year. Patient is tolerating current diet with adequate intake. No nutritional needs at this time.
[2021-04-11] MEDS: LORATADINE 10 MG TABLET PO (20:47)
[2021-04-11] MEDS: clonazePAM (*CRX) 0.5 MG TABLET PO (20:48)
[2021-04-11 20:52] LABS: Glucose Point of Care 128 mg/dl (65-105)
[2021-04-11] MEDS: HYDROcodone/acetaminophen (*CRX) 5-325 MG TABLET 1 TAB PO (21:50)
[2021-04-11] MEDS: MAGNESIUM OXIDE 200 MG TABLET PO (21:51)
[2021-04-12 05:05] VITALS: BP 99/54; PULSE 69; RESP 16; TEMP 36; O2SAT 97
[2021-04-12] MEDS: THYROID 30 MG TABLET 90 MG PO (05:42)
[2021-04-12 07:33] LABS: Hematocrit 28.9 % (37.0-47.0); Hemoglobin 9.5 g/dL (12.0-15.0); Mean Corpuscular HGB Conc 32.9 g/dl (32-36); Mean Corpuscular Hemoglobin 31.8 pg (26-34); Mean Corpuscular Volume 96.7 fl (80-100); Mean Platelet Volume 9.5 fl (7.4-10.4); Platelet Count Result 142 k/mm3 (150-375); Red Blood Count 2.99 M/mm3 (4.2-5.4); Red Cell Distribution Width 13.2 % (11.5-14.5); White Blood Count 7.4 K/mm3 (4.5-10.0)
[2021-04-12 07:54] LABS: Alanine Aminotransferase 20 U/L (4-35); Albumin Level 3.2 g/dL (3.5-5.1); Alkaline Phosphatase 47 U/L (38-126); Anion Gap 6 mmol/L (8-16); Aspartate Amino Transferase 29 U/L (14-36); Bilirubin,Total 0.5 mg/dL (0.2-1.3); Blood Urea Nitrogen 14 mg/dL (7-17); Calcium 7.9 mg/dL (8.4-10.2); Carbon Dioxide 23 mmol/L (22-30); Chloride 109 mmol/L (98-107); Estimated CRCL calculation 47 ml/min; Estimated Glomerular Filt Rate > 60; Glucose 95 mg/dL (65-110); Sodium 138 mmol/L (137-145)
[2021-04-12 08:00] VITALS: O2SAT 97
[2021-04-12] MEDS: FERROUS SULFATE DRIED 142 MG TABCR PO (08:02)
[2021-04-12] MEDS: ATORVASTATIN 20 MG TABLET BY MOUTH (08:02)
[2021-04-12] MEDS: SERTRALINE HCL 50 MG TABLET 100 MG PO (08:02)
[2021-04-12] MEDS: CALCIUM CARBONATE (OSCAL) 500 MG TABLET 1500 MG PO (08:02)
[2021-04-12] MEDS: ASPIRIN 81 MG ENTERIC TABLET PO (08:03)
[2021-04-12] MEDS: CHOLECALCIFEROL 1,000 UNITS TABLET 5000 UNITS PO (08:03)
[2021-04-12] MEDS: ENOXAPARIN 40 MG/0.4 ML SYRINGE SUB-Q (08:03)
[2021-04-12] MEDS: FOLIC ACID 1 MG TABLET PO (08:03)
[2021-04-12] MEDS: MONTELUKAST SODIUM 10 MG TABLET PO (08:04)
--- NOTE | 2021-04-12 12:45 | PM.IMPN ---
Progress Note: A&P Assessment and Plan (1) Acute UTI: Code(s): N39.0 - Urinary tract infection, site not specified Status: Acute Assessment and Plan: Current on IV Zosyn follow culture results may need urology eval pending culture results 04/12/2021 interval history: patient with history of recurrent nephrolithiasis and UTI presented emergency depart the fever and suprapubic pain suspicious for UTI to further evaluate patient had a CT scan of the abdomen did not show any kidney stone patient does have a pyelonephritis, patient started on Zosyn, urine culture is growing E coli will follow-up and sensitivity and further recommendation to follow, currently patient states the pain is persisting but no fever, will continue to monitor have a PT OT evaluate the patient. (2) Sepsis: Qualifiers: Sepsis acute organ dysfunction status: without acute organ dysfunction Sepsis type: sepsis due to unspecified organism Qualified Code(s): A41.9 - Sepsis, unspecified organism Code(s): A41.9 - Sepsis, unspecified organism Status: Acute Assessment and Plan: IV fluid IV antibiotics (3) Overactive bladder: Code(s): N32.81 - Overactive bladder Status: Acute Assessment and Plan: Continue home medication (4) Arthritis: Code(s): M19.90 - Unspecified osteoarthritis, unspecified site Status: Acute Assessment and Plan: Patient has history of rheumatoid arthritis on methotrexate patient methotrexate currently is on hold last dose as recorded on the chart was 04/04/2021 highly recommend to restart methotrexate once infection is under control and culture is finalized (5) Asthma: Code(s): J45.909 - Unspecified asthma, uncomplicated Status: Acute Assessment and Plan: Stable monitor (6) Falls: Code(s): W19.XXXA - Unspecified fall, initial encounter Status: Acute Assessment and Plan: Most likely related to chronic deconditioning PT OT (7) HTN (hypertension): Code(s): I10 - Essential (primary) hypertension Status: Acute Assessment and Plan: Monitor Additional Plan Given the patient's history of multiple kidney stones in the past and some microscopic hematuria will check CT to rule out possible infected kidney stone. Will continue empiric antibiotic therapy with Zosyn. Patient received 2 L normal saline bolus in the ER will resume maintenance fluids at 150 mL an hour. Will monitor urine output closely. Will check postvoid residual to ensure patient is not having significant urinary retention. Patient reports she is not post of Tylenol due to her use of methotrexate at home. Given her acute sepsis her methotrexate will be held. I have told the patient that she can have Tylenol as needed for the short term but it should be a medication that she uses long-term given her chronic methotrexate use. Will monitor liver function with a.m. labs. Blood culture and urine culture pending. Ibuprofen has been ordered for intractable fever. Patient was having borderline low blood pressures in the ER. Will hold her home antihypertensive medications. Patient has been admitted as observation status. Subjective Date/time seen: 04/12/21 12:45 Interval history: Chief Complaint: Fever HPI: Narrative: 71-year-old female with a past medical history of rheumatoid arthritis on immunosuppressive therapy, urge urinary incontinence, bladder stimulator, frequent urinary tract infections and kidney stones who presented to the ER with [address] scan of the abdomen shows diverticulosis and gallbladder sludge, patient was treated with IV Zosyn, patient at home on methotrexate which held as patient has active infection once infection is controlled and final culture is identified highly consider to resume methotrexat. Patient also recently had a fall and complaining of left knee pain Patient feels weak Patient denies fever headache chest pa
[2021-04-12] MEDS: VITAMIN E 400 UNIT CAPSULE PO (13:21)
[2021-04-12 14:03] VITALS: BP 110/66; PULSE 87; RESP 24; TEMP 36.5; O2SAT 95
[2021-04-12] MEDS: SODIUM CHLORIDE 0.9% IV 1,000 ML 125 ML IV CONT (16:27)
[2021-04-12 20:00] VITALS: PULSE 87; RESP 24; O2SAT 95
[2021-04-12] MEDS: clonazePAM (*CRX) 0.5 MG TABLET PO (20:50)
[2021-04-12] MEDS: HYDROcodone/acetaminophen (*CRX) 5-325 MG TABLET 1 TAB PO (20:50)
[2021-04-12] MEDS: LORATADINE 10 MG TABLET PO (20:51)
[2021-04-12] MEDS: MAGNESIUM OXIDE 200 MG TABLET PO (20:51)
[2021-04-12 22:00] VITALS: BP 127/71; PULSE 84; RESP 18; TEMP 37.4; O2SAT 94
--- NOTE | 2021-04-13 00:33 | ECG_ITS ---
Measurements Intervals [place] Rate: 71 P: 228 KS: 209 QRS: 22 QRSD: 86 T: 19 QT: 406 QTc: 442 Interpretive Statements SINUS RHYTHM MINIMAL Q WAVES- HIGH LATERAL LEADS BASELINE ARTIFACT- II, III, AVR, AVL, AVF, V1-V3 BORDERLINE ECG Electronically Signed On 04-13-2021 6:44:38 ASSISTANT FACILITY MANAGER by Adolfo Huizar D.O.
[2021-04-13] MEDS: fentaNYL CITRATE INJ (*CRX) 100 MCG/2 ML VIAL 50 MCG IV PUSH (00:55)
[2021-04-13 01:29] LABS: Troponin I < 0.012 ng/mL (0.000-0.034)
[2021-04-13] MEDS: SODIUM CHLORIDE 0.9% IV 1,000 ML 125 ML IV CONT ×2 (03:40→14:41)
--- NOTE | 2021-04-13 03:54 | PC.NURSE ---
[address] Gamino, informed that patient c/o midsternal chest pressure that started yesterday after noon. Pt said she did not tell anyone. Denies chest pain but uncomfortable chest pressure. New orders received
[2021-04-13 05:50] VITALS: BP 120/62; PULSE 70; RESP 18; TEMP 36.4; O2SAT 95
[2021-04-13] MEDS: THYROID 30 MG TABLET 90 MG PO (05:54)
[2021-04-13 07:39] LABS: Troponin I < 0.012 ng/mL (0.000-0.034)
[2021-04-13] MEDS: ASPIRIN 81 MG ENTERIC TABLET PO (07:45)
[2021-04-13] MEDS: ATORVASTATIN 20 MG TABLET BY MOUTH (07:45)
[2021-04-13] MEDS: CALCIUM CARBONATE (OSCAL) 500 MG TABLET 1500 MG PO (07:45)
[2021-04-13] MEDS: CHOLECALCIFEROL 1,000 UNITS TABLET 5000 UNITS PO (07:45)
[2021-04-13] MEDS: FERROUS SULFATE DRIED 142 MG TABCR PO (07:45)
[2021-04-13] MEDS: ENOXAPARIN 40 MG/0.4 ML SYRINGE SUB-Q (07:46)
[2021-04-13] MEDS: SERTRALINE HCL 50 MG TABLET 100 MG PO (07:46)
[2021-04-13] MEDS: MONTELUKAST SODIUM 10 MG TABLET PO (07:46)
[2021-04-13] MEDS: VITAMIN E 400 UNIT CAPSULE PO (07:46)
[2021-04-13] MEDS: FOLIC ACID 1 MG TABLET PO (07:46)
[2021-04-13 13:05] LABS: Troponin I < 0.012 ng/mL (0.000-0.034)
[2021-04-13 14:00] VITALS: BP 123/63; PULSE 76; RESP 14; TEMP 36.6; O2SAT 97
--- NOTE | 2021-04-13 15:35 | PM.IMPN ---
Progress Note: A&P Assessment and Plan (1) Acute UTI: Code(s): N39.0 - Urinary tract infection, site not specified Status: Acute Assessment and Plan: Current on IV Zosyn follow culture results may need urology eval pending culture results 04/12/2021 interval history: patient with history of recurrent nephrolithiasis and UTI presented emergency depart the fever and suprapubic pain suspicious for UTI to further evaluate patient had a CT scan of the abdomen did not show any kidney stone patient does have a pyelonephritis, patient started on Zosyn, urine culture is growing E coli will follow-up and sensitivity and further recommendation to follow, currently patient states the pain is persisting but no fever, will continue to monitor have a PT OT evaluate the patient. 04/13/2021 Interval history: patient with pyelonephritis urine culture is growing E coli sensitive to Rocephin currently patient is on Zosyn will switch, patient with history of recurrent UTI and pyelonephritis will need IV antibiotics total of 7 days, patient remains clinically stable will continue to monitor, will have a PT OT evaluate the patient and further recommendation to follow. (2) Sepsis: Qualifiers: Sepsis acute organ dysfunction status: without acute organ dysfunction Sepsis type: sepsis due to unspecified organism Qualified Code(s): A41.9 - Sepsis, unspecified organism Code(s): A41.9 - Sepsis, unspecified organism Status: Acute Assessment and Plan: IV fluid IV antibiotics (3) Overactive bladder: Code(s): N32.81 - Overactive bladder Status: Acute Assessment and Plan: Continue home medication (4) Arthritis: Code(s): M19.90 - Unspecified osteoarthritis, unspecified site Status: Acute Assessment and Plan: Patient has history of rheumatoid arthritis on methotrexate patient methotrexate currently is on hold last dose as recorded on the chart was 04/04/2021 highly recommend to restart methotrexate once infection is under control and culture is finalized (5) Asthma: Code(s): J45.909 - Unspecified asthma, uncomplicated Status: Acute Assessment and Plan: Stable monitor (6) Falls: Code(s): W19.XXXA - Unspecified fall, initial encounter Status: Acute Assessment and Plan: Most likely related to chronic deconditioning PT OT (7) HTN (hypertension): Code(s): I10 - Essential (primary) hypertension Status: Acute Assessment and Plan: Monitor Additional Plan Given the patient's history of multiple kidney stones in the past and some microscopic hematuria will check CT to rule out possible infected kidney stone. Will continue empiric antibiotic therapy with Zosyn. Patient received 2 L normal saline bolus in the ER will resume maintenance fluids at 150 mL an hour. Will monitor urine output closely. Will check postvoid residual to ensure patient is not having significant urinary retention. Patient reports she is not post of Tylenol due to her use of methotrexate at home. Given her acute sepsis her methotrexate will be held. I have told the patient that she can have Tylenol as needed for the short term but it should be a medication that she uses long-term given her chronic methotrexate use. Will monitor liver function with a.m. labs. Blood culture and urine culture pending. Ibuprofen has been ordered for intractable fever. Patient was having borderline low blood pressures in the ER. Will hold her home antihypertensive medications. Patient has been admitted as observation status. Subjective Date/time seen: 04/13/21 15:35 Interval history: Chief Complaint: Fever HPI: Narrative: 71-year-old female with a past medical history of rheumatoid arthritis on immunosuppressive therapy, urge urinary incontinence, bladder stimulator, frequent urinary tract infections and kidney stones who presented to the ER with [address] scan of
--- NOTE | 2021-04-13 15:57 | PCOTNOTE ---
Canceling orders for OT evaluation, with Dr. Hoffman confirmation. Pt. is Independent in room, and is not appropriate for therapy services at this time.
[2021-04-13] MEDS: cefTRIAXone 2 GM in SODIUM CHLORIDE 0.9% IV 100 ML 200 ML IVPB (16:43)
[2021-04-13 20:10] VITALS: PULSE 77; RESP 16; O2SAT 97
[2021-04-13] MEDS: HYDROcodone/acetaminophen (*CRX) 5-325 MG TABLET 1 TAB PO (21:19)
[2021-04-13] MEDS: clonazePAM (*CRX) 0.5 MG TABLET PO ×2 (21:20→21:21)
[2021-04-13] MEDS: LORATADINE 10 MG TABLET PO (21:25)
[2021-04-13 21:26] VITALS: BP 141/72; PULSE 77; RESP 16; TEMP 37.2; O2SAT 97
[2021-04-13] MEDS: MAGNESIUM OXIDE 200 MG TABLET PO (21:28)
[2021-04-14] VITALS (7 sets, daily range): BP systolic 115–150; BP diastolic 61–72; PULSE 66–84; RESP 16–22; TEMP 36.2–37.1; O2SAT 95–98
[2021-04-14] MEDS: SODIUM CHLORIDE 0.9% IV 1,000 ML 125 ML IV CONT ×2 (02:56→16:29)
[2021-04-14] MEDS: THYROID 30 MG TABLET 90 MG PO (06:47)
[2021-04-14 07:55] LABS: Hematocrit 29.2 % (37.0-47.0); Hemoglobin 9.6 g/dL (12.0-15.0); Mean Corpuscular HGB Conc 32.9 g/dl (32-36); Mean Corpuscular Volume 97.3 fl (80-100); Mean Platelet Volume 9.8 fl (7.4-10.4); Platelet Count Result 180 k/mm3 (150-375); Red Cell Distribution Width 13.2 % (11.5-14.5); White Blood Count 6.1 K/mm3 (4.5-10.0)
[2021-04-14 08:02] LABS: Anion Gap 8 mmol/L (8-16); Blood Urea Nitrogen 6 mg/dL (7-17); Calcium 8.5 mg/dL (8.4-10.2); Carbon Dioxide 23 mmol/L (22-30); Chloride 108 mmol/L (98-107); Estimated CRCL calculation 47 ml/min; Estimated Glomerular Filt Rate > 60; Glucose 91 mg/dL (65-110); Potassium 3.8 mmol/L (3.4-5.0); Sodium 139 mmol/L (137-145)
[2021-04-14] MEDS: ATORVASTATIN 20 MG TABLET BY MOUTH (09:03)
[2021-04-14] MEDS: CHOLECALCIFEROL 1,000 UNITS TABLET 5000 UNITS PO (09:03)
[2021-04-14] MEDS: MONTELUKAST SODIUM 10 MG TABLET PO (09:03)
[2021-04-14] MEDS: FERROUS SULFATE DRIED 142 MG TABCR PO (09:03)
[2021-04-14] MEDS: VITAMIN E 400 UNIT CAPSULE PO (09:03)
[2021-04-14] MEDS: methocarbamoL 750 MG TABLET PO (09:03)
[2021-04-14] MEDS: ASPIRIN 81 MG ENTERIC TABLET PO (09:03)
[2021-04-14] MEDS: FOLIC ACID 1 MG TABLET PO (09:03)
[2021-04-14] MEDS: SERTRALINE HCL 50 MG TABLET 100 MG PO (09:04)
[2021-04-14] MEDS: CALCIUM CARBONATE (OSCAL) 500 MG TABLET 1500 MG PO (09:04)
[2021-04-14] MEDS: ENOXAPARIN 40 MG/0.4 ML SYRINGE SUB-Q (09:04)
[2021-04-14] MEDS: cefTRIAXone 2 GM in SODIUM CHLORIDE 0.9% IV 100 ML 200 ML IVPB (13:11)
--- NOTE | 2021-04-14 14:11 | PM.IMPN ---
Progress Note: A&P Assessment and Plan (1) Acute UTI: Code(s): N39.0 - Urinary tract infection, site not specified Status: Acute Assessment and Plan: Current on IV Zosyn follow culture results may need urology eval pending culture results 04/12/2021 interval history: patient with history of recurrent nephrolithiasis and UTI presented emergency depart the fever and suprapubic pain suspicious for UTI to further evaluate patient had a CT scan of the abdomen did not show any kidney stone patient does have a pyelonephritis, patient started on Zosyn, urine culture is growing E coli will follow-up and sensitivity and further recommendation to follow, currently patient states the pain is persisting but no fever, will continue to monitor have a PT OT evaluate the patient. 04/13/2021 Interval history: patient with pyelonephritis urine culture is growing E coli sensitive to Rocephin currently patient is on Zosyn will switch, patient with history of recurrent UTI and pyelonephritis will need IV antibiotics total of 7 days, patient remains clinically stable will continue to monitor, will have a PT OT evaluate the patient and further recommendation to follow. 04/14/2021 Interval history: patient with pyelonephritis urine culture is growing E coli sensitive to Rocephin was on Zosyn, switched ceftriaxone, patient with history of recurrent UTI and pyelonephritis will need IV antibiotics total of 7 days 06/30, patient with history of asthma states of cough and wheezing, will give the patient neb treat and do the chest x-ray to further evaluate, patient remains clinically stable will continue to monitor, will have a PT OT evaluate the patient and further recommendation to follow (2) Sepsis: Qualifiers: Sepsis acute organ dysfunction status: without acute organ dysfunction Sepsis type: sepsis due to unspecified organism Qualified Code(s): A41.9 - Sepsis, unspecified organism Code(s): A41.9 - Sepsis, unspecified organism Status: Acute Assessment and Plan: IV fluid IV antibiotics (3) Overactive bladder: Code(s): N32.81 - Overactive bladder Status: Acute Assessment and Plan: Continue home medication (4) Arthritis: Code(s): M19.90 - Unspecified osteoarthritis, unspecified site Status: Acute Assessment and Plan: Patient has history of rheumatoid arthritis on methotrexate patient methotrexate currently is on hold last dose as recorded on the chart was 04/04/2021 highly recommend to restart methotrexate once infection is under control and culture is finalized (5) Asthma: Code(s): J45.909 - Unspecified asthma, uncomplicated Status: Acute Assessment and Plan: Stable monitor (6) Falls: Code(s): W19.XXXA - Unspecified fall, initial encounter Status: Acute Assessment and Plan: Most likely related to chronic deconditioning PT OT (7) HTN (hypertension): Code(s): I10 - Essential (primary) hypertension Status: Acute Assessment and Plan: Monitor Additional Plan Given the patient's history of multiple kidney stones in the past and some microscopic hematuria will check CT to rule out possible infected kidney stone. Will continue empiric antibiotic therapy with Zosyn. Patient received 2 L normal saline bolus in the ER will resume maintenance fluids at 150 mL an hour. Will monitor urine output closely. Will check postvoid residual to ensure patient is not having significant urinary retention. Patient reports she is not post of Tylenol due to her use of methotrexate at home. Given her acute sepsis her methotrexate will be held. I have told the patient that she can have Tylenol as needed for the short term but it should be a medication that she uses long-term given her chronic methotrexate use. Will monitor liver function with a.m. labs. Blood culture and urine culture pending. Ibuprofen has been ordered for intractable fev
[2021-04-14] MEDS: HYDROcodone/acetaminophen (*CRX) 5-325 MG TABLET 1 TAB PO (20:49)
[2021-04-14] MEDS: MAGNESIUM OXIDE 200 MG TABLET PO (20:49)
[2021-04-14] MEDS: LORATADINE 10 MG TABLET PO (20:50)
[2021-04-14] MEDS: clonazePAM (*CRX) 0.5 MG TABLET PO (20:54)
[2021-04-15] MEDS: SODIUM CHLORIDE 0.9% IV 1,000 ML 125 ML IV CONT ×4 (02:43→20:39)
[2021-04-15] MEDS: ACETAMINOPHEN 325 MG TABLET 650 MG PO (05:02)
[2021-04-15 05:37] VITALS: PULSE 74; RESP 18
[2021-04-15] MEDS: ALBUTEROL SULFATE NEB 2.5 MG/0.5 ML INH INHALATION (05:37)
[2021-04-15] MEDS: IPRATROPIUM BR 0.02% INH SOLN 0.5 MG/2.5 ML VIAL INHALATION (05:37)
[2021-04-15 05:40] VITALS: BP 139/70; PULSE 57; RESP 16; TEMP 36.6; O2SAT 99
[2021-04-15] MEDS: THYROID 30 MG TABLET 90 MG PO (05:42)
[2021-04-15 05:45] VITALS: PULSE 78; RESP 20
[2021-04-15 06:53] LABS: Hematocrit 29.3 % (37.0-47.0); Hemoglobin 9.9 g/dL (12.0-15.0); Mean Corpuscular HGB Conc 33.8 g/dl (32-36); Mean Corpuscular Volume 94.8 fl (80-100); Mean Platelet Volume 9.5 fl (7.4-10.4); Platelet Count Result 204 k/mm3 (150-375); Red Blood Count 3.09 M/mm3 (4.2-5.4); Red Cell Distribution Width 12.9 % (11.5-14.5); White Blood Count 6.5 K/mm3 (4.5-10.0)
[2021-04-15 07:02] LABS: Anion Gap 8 mmol/L (8-16); Blood Urea Nitrogen 6 mg/dL (7-17); Calcium 8.7 mg/dL (8.4-10.2); Carbon Dioxide 23 mmol/L (22-30); Chloride 107 mmol/L (98-107); Estimated CRCL calculation 53 ml/min; Estimated Glomerular Filt Rate > 60; Glucose 97 mg/dL (65-110); Potassium 3.2 mmol/L (3.4-5.0); Sodium 138 mmol/L (137-145)
[2021-04-15] MEDS: HYDROcodone/acetaminophen (*CRX) 5-325 MG TABLET 1 TAB PO (08:28)
[2021-04-15] MEDS: CHOLECALCIFEROL 1,000 UNITS TABLET 5000 UNITS PO (08:36)
[2021-04-15] MEDS: ENOXAPARIN 40 MG/0.4 ML SYRINGE SUB-Q (08:36)
[2021-04-15] MEDS: SERTRALINE HCL 50 MG TABLET 100 MG PO (08:37)
[2021-04-15] MEDS: ATORVASTATIN 20 MG TABLET BY MOUTH (08:37)
[2021-04-15] MEDS: MONTELUKAST SODIUM 10 MG TABLET PO (08:37)
[2021-04-15] MEDS: ASPIRIN 81 MG ENTERIC TABLET PO (08:37)
[2021-04-15] MEDS: FOLIC ACID 1 MG TABLET PO (08:37)
[2021-04-15] MEDS: VITAMIN E 400 UNIT CAPSULE PO (08:37)
[2021-04-15] MEDS: FERROUS SULFATE DRIED 142 MG TABCR PO (08:37)
[2021-04-15] MEDS: CALCIUM CARBONATE (OSCAL) 500 MG TABLET 1500 MG PO (08:38)
[2021-04-15] MEDS: POTASSIUM CHLORIDE 20 MEQ TABLET 40 MEQ PO (12:38)
[2021-04-15 14:00] VITALS: BP 143/72; PULSE 68; RESP 18; TEMP 36.5; O2SAT 99
--- NOTE | 2021-04-15 14:12 | PM.IMPN ---
Progress Note: A&P Assessment and Plan (1) Acute UTI: Code(s): N39.0 - Urinary tract infection, site not specified Status: Acute Assessment and Plan: Current on IV Zosyn follow culture results may need urology eval pending culture results 04/12/2021 interval history: patient with history of recurrent nephrolithiasis and UTI presented emergency depart the fever and suprapubic pain suspicious for UTI to further evaluate patient had a CT scan of the abdomen did not show any kidney stone patient does have a pyelonephritis, patient started on Zosyn, urine culture is growing E coli will follow-up and sensitivity and further recommendation to follow, currently patient states the pain is persisting but no fever, will continue to monitor have a PT OT evaluate the patient. 04/13/2021 Interval history: patient with pyelonephritis urine culture is growing E coli sensitive to Rocephin currently patient is on Zosyn will switch, patient with history of recurrent UTI and pyelonephritis will need IV antibiotics total of 7 days, patient remains clinically stable will continue to monitor, will have a PT OT evaluate the patient and further recommendation to follow. 04/14/2021 Interval history: patient with pyelonephritis urine culture is growing E coli sensitive to Rocephin was on Zosyn, switched ceftriaxone, patient with history of recurrent UTI and pyelonephritis will need IV antibiotics total of 7 days 06/30, patient with history of asthma states of cough and wheezing, will give the patient neb treat and do the chest x-ray to further evaluate, patient remains clinically stable will continue to monitor, will have a PT OT evaluate the patient and further recommendation to follow 04/15/2021 Interval history: patient with pyelonephritis urine culture is growing E coli sensitive to Rocephin was on Zosyn, switched ceftriaxone, patient with history of recurrent UTI and pyelonephritis will need IV antibiotics total of 7 days 07/30, patient with history of asthma on 04/14 complained of cough and wheezing, started the patient on neb treat and chest x-ray did not show any infiltrate, today patient states feeling better in nebulized treatment, patient remains clinically stable will continue to monitor, will have a PT OT evaluate the patient and further recommendation to follow (2) Sepsis: Qualifiers: Sepsis acute organ dysfunction status: without acute organ dysfunction Sepsis type: sepsis due to unspecified organism Qualified Code(s): A41.9 - Sepsis, unspecified organism Code(s): A41.9 - Sepsis, unspecified organism Status: Acute Assessment and Plan: IV fluid IV antibiotics (3) Overactive bladder: Code(s): N32.81 - Overactive bladder Status: Acute Assessment and Plan: Continue home medication (4) Arthritis: Code(s): M19.90 - Unspecified osteoarthritis, unspecified site Status: Acute Assessment and Plan: Patient has history of rheumatoid arthritis on methotrexate patient methotrexate currently is on hold last dose as recorded on the chart was 04/04/2021 highly recommend to restart methotrexate once infection is under control and culture is finalized (5) Asthma: Code(s): J45.909 - Unspecified asthma, uncomplicated Status: Acute Assessment and Plan: Stable monitor (6) Falls: Code(s): W19.XXXA - Unspecified fall, initial encounter Status: Acute Assessment and Plan: Most likely related to chronic deconditioning PT OT (7) HTN (hypertension): Code(s): I10 - Essential (primary) hypertension Status: Acute Assessment and Plan: Monitor Additional Plan Given the patient's history of multiple kidney stones in the past and some microscopic hematuria will check CT to rule out possible infected kidney stone. Will continue empiric antibiotic therapy with Zosyn. Patient received 2 L normal saline bolus in the ER will resume
[2021-04-15] MEDS: cefTRIAXone 2 GM in SODIUM CHLORIDE 0.9% IV 100 ML 200 ML IVPB (16:00)
[2021-04-15 20:00] VITALS: PULSE 60; RESP 16; O2SAT 98
[2021-04-15] MEDS: MAGNESIUM OXIDE 200 MG TABLET PO (20:37)
[2021-04-15] MEDS: LORATADINE 10 MG TABLET PO (20:37)
[2021-04-15] MEDS: clonazePAM (*CRX) 0.5 MG TABLET PO ×2 (20:37)
[2021-04-15 22:00] VITALS: BP 155/67; PULSE 60; RESP 16; TEMP 36.5; O2SAT 98
[2021-04-16] MEDS: ALBUTEROL SULFATE NEB 2.5 MG/0.5 ML INH INHALATION (01:56)
[2021-04-16] MEDS: IPRATROPIUM BR 0.02% INH SOLN 0.5 MG/2.5 ML VIAL INHALATION (01:56)
[2021-04-16] MEDS: THYROID 30 MG TABLET 90 MG PO (05:32)
[2021-04-16 06:00] VITALS: BP 143/74; PULSE 75; RESP 16; TEMP 36.6; O2SAT 100
[2021-04-16 07:50] LABS: Hematocrit 31.6 % (37.0-47.0); Hemoglobin 10.3 g/dL (12.0-15.0); Mean Corpuscular HGB Conc 32.6 g/dl (32-36); Mean Corpuscular Hemoglobin 31.6 pg (26-34); Mean Corpuscular Volume 96.9 fl (80-100); Mean Platelet Volume 9.6 fl (7.4-10.4); Platelet Count Result 242 k/mm3 (150-375); Red Blood Count 3.26 M/mm3 (4.2-5.4); Red Cell Distribution Width 12.9 % (11.5-14.5); White Blood Count 6.8 K/mm3 (4.5-10.0)
[2021-04-16 07:59] LABS: Anion Gap 11 mmol/L (8-16); Blood Urea Nitrogen 7 mg/dL (7-17); Calcium 9.2 mg/dL (8.4-10.2); Carbon Dioxide 21 mmol/L (22-30); Chloride 108 mmol/L (98-107); Estimated CRCL calculation 53 ml/min; Estimated Glomerular Filt Rate > 60; Glucose 94 mg/dL (65-110); Potassium 3.9 mmol/L (3.4-5.0); Sodium 140 mmol/L (137-145)
[2021-04-16 08:00] VITALS: PULSE 75; RESP 16; O2SAT 100
[2021-04-16] MEDS: SODIUM CHLORIDE 0.9% IV 1,000 ML 125 ML IV CONT ×2 (08:36→17:16)
[2021-04-16] MEDS: HYDROcodone/acetaminophen (*CRX) 5-325 MG TABLET 1 TAB PO (08:37)
[2021-04-16] MEDS: ENOXAPARIN 40 MG/0.4 ML SYRINGE SUB-Q (08:38)
[2021-04-16] MEDS: CHOLECALCIFEROL 1,000 UNITS TABLET 5000 UNITS PO (08:39)
[2021-04-16] MEDS: SERTRALINE HCL 50 MG TABLET 100 MG PO (08:39)
[2021-04-16] MEDS: VITAMIN E 400 UNIT CAPSULE PO (08:39)
[2021-04-16] MEDS: ATORVASTATIN 20 MG TABLET BY MOUTH (08:40)
[2021-04-16] MEDS: FERROUS SULFATE DRIED 142 MG TABCR PO (08:40)
[2021-04-16] MEDS: CALCIUM CARBONATE (OSCAL) 500 MG TABLET 1500 MG PO (08:40)
[2021-04-16] MEDS: ASPIRIN 81 MG ENTERIC TABLET PO (08:41)
[2021-04-16] MEDS: FOLIC ACID 1 MG TABLET PO (08:42)
[2021-04-16] MEDS: MONTELUKAST SODIUM 10 MG TABLET PO (08:42)
--- NOTE | 2021-04-16 10:48 | P.PNIM_ITS ---
Progress Note: A&P Assessment and Plan (1) Acute UTI: Code(s): N39.0 - Urinary tract infection, site not specified Status: Acute Assessment and Plan: Current on IV Zosyn follow culture results may need urology eval pending culture results 04/12/2021 interval history: patient with history of recurrent nephrolithiasis and UTI presented emergency depart the fever and suprapubic pain suspicious for UTI to further evaluate patient had a CT scan of the abdomen did not show any kidney stone patient does have a pyelonephritis, patient started on Zosyn, urine culture is growing E coli will follow-up and sensitivity and further recommendation to follow, currently patient states the pain is persisting but no fever, will continue to monitor have a PT OT evaluate the patient. 04/13/2021 Interval history: patient with pyelonephritis urine culture is growing E coli sensitive to Rocephin currently patient is on Zosyn will switch, patient with history of recurrent UTI and pyelonephritis will need IV antibiotics total of 7 days, patient remains clinically stable will continue to monitor, will have a PT OT evaluate the patient and further recommendation to follow. 04/14/2021 Interval history: patient with pyelonephritis urine culture is growing E coli sensitive to Rocephin was on Zosyn, switched ceftriaxone, patient with history of recurrent UTI and pyelonephritis will need IV antibiotics total of 7 days 06/30, patient with history of asthma states of cough and wheezing, will give the patient neb treat and do the chest x-ray to further evaluate, patient remains clinically stable will continue to monitor, will have a PT OT evaluate the patient and further recommendation to follow 04/15/2021 Interval history: patient with pyelonephritis urine culture is growing E coli sensitive to Rocephin was on Zosyn, switched ceftriaxone, patient with history of recurrent UTI and pyelonephritis will need IV antibiotics total of 7 days 07/30, patient with history of asthma on 04/14 complained of cough and wheezing, started the patient on neb treat and chest x-ray did not show any infiltrate, today patient states feeling better in nebulized treatment, patient remains clinically stable will continue to monitor, will have a PT OT evaluate the patient and further recommendation to follow. 04/16/2021 Interval history: patient remains clinically stable, still complains of cough and wheeze and being treated with DuoNeb, patient is unable to take steroids had severe allergic reaction, patient will complete her IV antibiotics tomorrow and will discharge the patient on 5 days of cefdinir (2) Sepsis: Qualifiers: Sepsis acute organ dysfunction status: without acute organ dysfunction Sepsis type: sepsis due to unspecified organism Qualified Code(s): A41.9 - Sepsis, unspecified organism Code(s): A41.9 - Sepsis, unspecified organism Status: Acute Assessment and Plan: IV fluid IV antibiotics (3) Overactive bladder: Code(s): N32.81 - Overactive bladder Status: Acute Assessment and Plan: Continue home medication (4) Arthritis: Code(s): M19.90 - Unspecified osteoarthritis, unspecified site Status: Acute Assessment and Plan: Patient has history of rheumatoid arthritis on methotrexate patient methotrexate currently is on hold last dose as recorded on the chart was 04/04/2021 highly recommend to restart methotrexate once infection is under control and culture is finalized (5) Asthma: Code(s): J45.909 - Unspecified asthma, uncomplicated Status: Acute Assessment and Plan: Stable monitor (6) Falls:
[2021-04-16 11:50] VITALS: O2SAT 100
[2021-04-16 14:00] VITALS: BP 122/70; PULSE 77; RESP 14; TEMP 36.9; O2SAT 98
[2021-04-16] MEDS: cefTRIAXone 2 GM in SODIUM CHLORIDE 0.9% IV 100 ML 200 ML IVPB (14:48)
[2021-04-16 20:00] VITALS: PULSE 77; RESP 14; O2SAT 98
[2021-04-16] MEDS: clonazePAM (*CRX) 0.5 MG TABLET PO ×2 (20:27)
[2021-04-16] MEDS: MAGNESIUM OXIDE 200 MG TABLET PO (20:28)
[2021-04-16] MEDS: LORATADINE 10 MG TABLET PO (20:28)
[2021-04-16 22:00] VITALS: BP 147/72; PULSE 78; RESP 20; TEMP 37.1; O2SAT 92
[2021-04-17 01:56] VITALS: O2SAT 94
[2021-04-17] MEDS: SODIUM CHLORIDE 0.9% IV 1,000 ML 125 ML IV CONT ×2 (02:40→04:11)
[2021-04-17 06:00] VITALS: BP 145/70; PULSE 71; RESP 16; TEMP 37; O2SAT 97
[2021-04-17] MEDS: THYROID 30 MG TABLET 90 MG PO (06:20)
[2021-04-17] MEDS: CHOLECALCIFEROL 1,000 UNITS TABLET 5000 UNITS PO (07:44)
[2021-04-17] MEDS: VITAMIN E 400 UNIT CAPSULE PO (07:44)
[2021-04-17] MEDS: ENOXAPARIN 40 MG/0.4 ML SYRINGE SUB-Q (07:44)
[2021-04-17] MEDS: MONTELUKAST SODIUM 10 MG TABLET PO (07:45)
[2021-04-17] MEDS: CALCIUM CARBONATE (OSCAL) 500 MG TABLET 1500 MG PO (07:45)
[2021-04-17] MEDS: methocarbamoL 750 MG TABLET PO (07:45)
[2021-04-17] MEDS: SERTRALINE HCL 50 MG TABLET 100 MG PO (07:46)
[2021-04-17] MEDS: ASPIRIN 81 MG ENTERIC TABLET PO (07:46)
[2021-04-17] MEDS: ATORVASTATIN 20 MG TABLET BY MOUTH (07:46)
[2021-04-17] MEDS: FOLIC ACID 1 MG TABLET PO (07:46)
[2021-04-17] MEDS: FERROUS SULFATE DRIED 142 MG TABCR PO (07:46)
[2021-04-17 08:00] VITALS: PULSE 71; RESP 16; O2SAT 97
[2021-04-17 08:08] LABS: Hematocrit 36.6 % (37.0-47.0); Mean Corpuscular HGB Conc 32.8 g/dl (32-36); Mean Corpuscular Hemoglobin 31.5 pg (26-34); Mean Corpuscular Volume 96.1 fl (80-100); Mean Platelet Volume 9.6 fl (7.4-10.4); Platelet Count Result 313 k/mm3 (150-375); Red Blood Count 3.81 M/mm3 (4.2-5.4); Red Cell Distribution Width 12.9 % (11.5-14.5); White Blood Count 6.5 K/mm3 (4.5-10.0)
[2021-04-17 08:26] LABS: Anion Gap 7 mmol/L (8-16); Blood Urea Nitrogen 6 mg/dL (7-17); Calcium 9.4 mg/dL (8.4-10.2); Carbon Dioxide 26 mmol/L (22-30); Chloride 108 mmol/L (98-107); Estimated CRCL calculation 53 ml/min; Estimated Glomerular Filt Rate > 60; Glucose 93 mg/dL (65-110); Potassium 3.9 mmol/L (3.4-5.0); Sodium 141 mmol/L (137-145)
--- NOTE | 2021-04-17 09:33 | PM.DS ---
DS: Admitting Diagnosis Discharge Date 04/17/2022 Admitting Diagnosis Fever DS: Discharge Diagnosis Discharge Diagnosis (1) Acute UTI: Code(s): N39.0 - Urinary tract infection, site not specified Status: Acute Assessment and Plan: Current on IV Zosyn follow culture results may need urology eval pending culture results 04/12/2021 interval history: patient with history of recurrent nephrolithiasis and UTI presented emergency depart the fever and suprapubic pain suspicious for UTI to further evaluate patient had a CT scan of the abdomen did not show any kidney stone patient does have a pyelonephritis, patient started on Zosyn, urine culture is growing E coli will follow-up and sensitivity and further recommendation to follow, currently patient states the pain is persisting but no fever, will continue to monitor have a PT OT evaluate the patient. 04/13/2021 Interval history: patient with pyelonephritis urine culture is growing E coli sensitive to Rocephin currently patient is on Zosyn will switch, patient with history of recurrent UTI and pyelonephritis will need IV antibiotics total of 7 days, patient remains clinically stable will continue to monitor, will have a PT OT evaluate the patient and further recommendation to follow. 04/14/2021 Interval history: patient with pyelonephritis urine culture is growing E coli sensitive to Rocephin was on Zosyn, switched ceftriaxone, patient with history of recurrent UTI and pyelonephritis will need IV antibiotics total of 7 days 06/30, patient with history of asthma states of cough and wheezing, will give the patient neb treat and do the chest x-ray to further evaluate, patient remains clinically stable will continue to monitor, will have a PT OT evaluate the patient and further recommendation to follow 04/15/2021 Interval history: patient with pyelonephritis urine culture is growing E coli sensitive to Rocephin was on Zosyn, switched ceftriaxone, patient with history of recurrent UTI and pyelonephritis will need IV antibiotics total of 7 days 07/30, patient with history of asthma on 04/14 complained of cough and wheezing, started the patient on neb treat and chest x-ray did not show any infiltrate, today patient states feeling better in nebulized treatment, patient remains clinically stable will continue to monitor, will have a PT OT evaluate the patient and further recommendation to follow. 04/16/2021 Interval history: patient remains clinically stable, still complains of cough and wheeze and being treated with DuoNeb, patient is unable to take steroids had severe allergic reaction, patient will complete her IV antibiotics tomorrow and will discharge the patient on 5 days of cefdinir (2) Sepsis: Qualifiers: Sepsis acute organ dysfunction status: without acute organ dysfunction Sepsis type: sepsis due to unspecified organism Qualified Code(s): A41.9 - Sepsis, unspecified organism Code(s): A41.9 - Sepsis, unspecified organism Status: Acute Assessment and Plan: IV fluid IV antibiotics (3) Overactive bladder: Code(s): N32.81 - Overactive bladder Status: Acute Assessment and Plan: Continue home medication (4) Arthritis: Code(s): M19.90 - Unspecified osteoarthritis, unspecified site Status: Acute Assessment and Plan: Patient has history of rheumatoid arthritis on methotrexate patient methotrexate currently is on hold last dose as recorded on the chart was 04/04/2021 highly recommend to restart methotrexate once infection is under control and culture is finalized (5) Asthma: Code(s): J45.909 - Unspecified asthma, uncomplicated Status: Acute Assessment and Plan: Stable monitor (6) Falls: Code(s): W19.XXXA - Unspecified fall, initial encounter Status: Acute Assessment and Plan: Most likely related to chronic deconditioning PT OT (7) HTN (hypertension): Code(
== END 2021-04-17 10:15 | disposition home or self-care (01) | DRG 872 ==
LOC: ANHED 04-11 04:56 → ANH3MEDSUR 04-11 05:53
PROVIDERS: Internal Medicine; Admitting Provider Internal Medicine; Emergency Provider Emergency Medicine; Visit Provider Family Medicine
DX: A41.9 Sepsis, unspecified organism (principal); N10 Acute pyelonephritis; B96.20 Unspecified Escherichia coli [E. coli] as the cause of diseases classified elsewhere; Z20.822 Contact with and (suspected) exposure to COVID-19; N32.81 Overactive bladder; D64.9 Anemia, unspecified; E03.9 Hypothyroidism, unspecified; E78.5 Hyperlipidemia, unspecified; K58.9 Irritable bowel syndrome, unspecified; K21.9 Gastro-esophageal reflux disease without esophagitis; J45.909 Unspecified asthma, uncomplicated; M06.9 Rheumatoid arthritis, unspecified; F32.A Depression, unspecified; N39.41 Urge incontinence; Z86.73 Personal history of transient ischemic attack (TIA), and cerebral infarction without residual deficits; Z90.49 Acquired absence of other specified parts of digestive tract; Z90.710 Acquired absence of both cervix and uterus; Z87.442 Personal history of urinary calculi; W19.XXXA Unspecified fall, initial encounter
CPT/HCPCS: 36415; 71045; 71046; 73560; 74176; 80048; 80053; 81001; 82948; 83605; 84484; 85025; 85027; 85610; 85730; 86140; 87040; 87077; 87086; 87088; 87186; 87804; 93005; 94640; 96361; 96365; 96372; 96376; 99285; A9270; C9803; G0378; J0696; J1650; J2543; J3010; J7030; U0003; U0005

== ENCOUNTER 2021-08-04 14:31 | Outpatient (CLI) | payer MEDICARE, SELFPAY ==
--- NOTE | ~2021-08-04 | CT_ITS ---
EXAMINATION: CT brain wo/w & sinus wo con DATE: 08/04/2021 15:08 INDICATION: Headache, generalized TECHNIQUE: Computed tomography (CT) of the head and sinuses was performed without and subsequently wi th 100 CC Omnipaque 300 intravenous contrast. The mA was adjusted according to patient size. Iterativ e reconstruction technique was employed. Exam dose: 1366.90 mGy-cm total exam DLP. COMPARISON: 04/15/2011 CT brain FINDINGS: Status post bilateral nasal antral windows and partial ethmoidectomies. Resection of both u ncinate processes. Midline nasal septum. The nasal turbinates are moderately prominent in size, right inferior nasal turbinate greater than le ft. Slight mucoperiosteal thickening of right frontal sinus and left sphenoid sinus, minimal soft tissue thickening of right ethmoid air cells. The mastoid air cells are normally developed and aerated. Middle and inner ear apparatus appear sandra l bilaterally. No orbital mass lesion. No intracranial mass lesion or hemorrhage or cerebrovascular accident is detected. The cerebral vascu lature appears unremarkable. There is no midline shift or mass effect. There is mild to moderate cerebral volume loss. No subdural or epidural hematoma. No fracture or bone destruction of the cranial vault.. IMPRESSION: Status post bilateral nasal antral windows and partial ethmoidectomies Midline nasal septum Soft tissue swelling of right inferior nasal turbinate No air-fluid levels or significant mucoperiosteal thickening or mass lesion of the paranasal sinuses. No significant intracranial abnormality Reviewed, dictated and finalized at [facility]. Reviewed, dictated and finalized at [facility]. IMPRESSION: Status post bilateral nasal antral windows and partial ethmoidectom ies Midline nasal septum Soft tissue swelling of right inferior nasal turbinate No air-fluid levels or significant mucoperiosteal thickening or mass lesion of the paranasal sinuses. No significant intracranial abnormality
[2021-08-04 14:56] LABS: Estimated Glomerular Filt Rate > 60
== END 2021-08-04 14:32 | disposition home or self-care (01) ==
DX: R51.9 Headache, unspecified (principal)
CPT/HCPCS: 70470; 70486; Q9967

== ENCOUNTER 2021-10-26 11:36 | Outpatient (CLI) | payer MEDICARE, SELFPAY ==
--- NOTE | ~2021-10-26 | XR_ITS ---
EXAM: XR abdomen/kub 1V DATE: 10/26/2021 12:10 HISTORY: HX OF KIDNEY STONES; no c/o presently . COMPARISON: 08/26/2019. CT abdomen and pelvis 04/11/2021. FINDINGS: Surgical clips over the GE junction. Right lower stimulator pack, lead terminating over the left sacrum. Clear lung bases. Normal bowel gas pattern. No organomegaly. Pelvic phleboliths. Degene rative lumbar change. IMPRESSION: No radiographic evidence of nephrolithiasis. Reviewed, dictated and finalized at [facility].
== END 2021-10-26 11:37 | disposition home or self-care (01) ==
LOC: ANHIMG 11:45
PROVIDERS: Visit Provider Nurse Practitioner Family
DX: Z87.442 Personal history of urinary calculi (principal); M47.816 Spondylosis without myelopathy or radiculopathy, lumbar region
CPT/HCPCS: 74018

== ENCOUNTER 2022-01-24 14:49 | Outpatient (CLI) | payer MEDICARE, SELFPAY ==
--- NOTE | ~2022-01-24 | DEXA_ITS ---
Bone Density Report Name: ASHWINI GONZALEZ Age: 71 Sex: Female Ethnicity: White Date of : 1950 Indication: postmenopausal; screening for osteoporosis; parental hip fracture; height loss; asthma or emphysema; hysterectomy; rheumatoid arthritis; Referring Provider: LANCE ALICIA Study: Bone densitometry was performed. Exam Date: January 24, 2022 Accession number: [id number] Bone Density: Region BMD T-score Z-score Classification AP Spine(L1-L4) 0.980 -0.6 1.7 Normal Femoral Neck (Left) 0.602 -2.2 -0.2 Osteopenia Total Hip (Left) 0.765 -1.5 0.3 Osteopenia Femoral Neck (Right) 0.629 -2.0 0.0 Osteopenia Total Hip (Right) 0.749 -1.6 0.1 Osteopenia Total Hip Mean 0.757 -1.6 0.2 Osteopenia World Health Organization criteria for BMD impression classify patients as: Normal (T-score at or above -1.0), Osteopenia (T-score between -1.0 and -2.5), or Osteoporosis (T-score at or below -2.5). 10-year Fracture Risk(1): Major Osteoporotic Fracture 31% Hip Fracture 17% Reported Risk Factors: [place] (), Neck BMD=0.602, BMI=25.5, parental fracture, rheumatoid arthritis (1) FRAX(R) Version 3.08. Fracture probability calculated for an untreated patient. Fracture probability may be lower if the patient has received treatment. Clinical Information Provided by Patient: Parent has had a hip fracture Has rheumatoid arthritis Has used the following medications: Vitamin D, Calcium Has the following medical conditions: Asthma or Emphysema, Hysterectomy Patient maximum height was 64 Menopause Age: 26 Does not regularly consume dairy products Onset of menses at age 10 Number of children 0 Impression: The patient has low bone mass, based on the Left Femoral Neck T-score. The patient has an estimated ten-year risk of hip fracture of 17% and an estimated ten-year risk of major fracture of 31%, based on the WHO FRAX algorithm. The patient has risk factors, including: parental hip fracture. Discussion: BONE DENSITY IS LOW AT ONE OR MORE SKELETAL SITES. THE PATIENT'S BMD AND CLINICAL RISK FACTORS CONTRIBUTE TO THIS PATIENT'S HIGH RISK OF FRACTURE. This patient's lowest T-score is low at one or more skeletal sites. It meets the World Health Organization's (WHO) criteria for ?low bone mass? (T-score between -1.0 and -2.5). The patient's 10-year risk of hip fracture and 10 year risk of a major osteoporotic fracture as calculated by FRAX exceeds the threshold where pharmacological therapy is recommended by the National Osteoporosis Foundation (NOF). However, all treatment decisions require clinical judgment and consideration of individual patient factors, including patient preferences, comorbidities, previous drug use, risk factors not captured in the FRAX model (e.g., frailty, falls, vitamin D defi
== END 2022-01-24 14:50 | disposition home or self-care (01) ==
DX: M81.0 Age-related osteoporosis without current pathological fracture (principal)
CPT/HCPCS: 77080

== ENCOUNTER 2022-03-13 15:28 | Observation (INO) | payer MEDICARE, SELFPAY ==
[2022-03-13] VITALS (27 sets, daily range): BP systolic 110–138; BP diastolic 63–111; PULSE 59–81; RESP 12–22; TEMP 37.6; O2SAT 92–100
--- NOTE | ~2022-03-13 | CT_ITS ---
EXAMINATION: CT brain wo con DATE: 03/13/2022 17:34 INDICATION: Headache, dizziness. Falls. TECHNIQUE: Computed tomography (CT) of the head was performed without intravenous contrast. The mA wa s adjusted according to patient size. Iterative reconstruction technique was employed. Exam dose: 60 5.33 mGy-cm total exam DLP. COMPARISON: 08/04/2021 CT brain FINDINGS: Mild cerebral artery calcification. There is nonspecific diminished attenuation of the cere bral white matter, likely due to chronic small vessel ischemic changes. No intracranial mass lesion or hemorrhage or cerebrovascular accident is detected. No midline shift o r mass effect effect. No subdural or epidural hematoma. Bilateral nasal antral windows and partial ethmoidectomies. The paranasal sinuses and mastoid air guero ls are normally developed and well aerated with exception of some focal soft tissue swelling in the r ight anterior ethmoid region. No skull fracture or bone destruction is detected. IMPRESSION: Cerebral atherosclerosis and chronic small vessel ischemic changes of the cerebral white matter No acute intracranial abnormality Reviewed, dictated and finalized at [facility]. Reviewed, dictated and finalized at [facility]. TRIC DISTRIBUTION CHECKER
--- NOTE | ~2022-03-13 | CT_ITS ---
EXAMINATION: CTA brain carotid DATE: 03/13/2022 19:49 INDICATION: Dizziness. Headache. Pronator drift. TECHNIQUE: Computed tomographic angiography (CTA) of the head was performed with 100 mL Omnipaque-350 intravenous contrast. CTA of the neck was performed with intravenous contrast. Automated exposure co ntrol and iterative reconstruction technique were employed. The dose-length product was 940.92 mGy-cm . Maximum intensity projection and volume rendered 3D-reconstructions were created by the [employer] t on a separate workstation. COMPARISON: Head CT 03/13/2022 FINDINGS: HEAD CTA: There are scattered areas of low attenuation in the cerebral white matter. There is no intr acranial hemorrhage, acute infarction, or abnormal intracranial mass lesion. The ventricles are sandra l in size. There are likely changes of ocular lens replacement surgeries. There is mild mucosal thick ening in the paranasal sinuses. The mastoid air cells are normal. Right vertebral artery is dominant. There is no significant stenosis of basilar artery or the posterior cerebral arteries. There is no s ignificant stenosis of the intracranial internal carotid arteries or anterior or middle cerebral [place]. Anterior communicating artery is normal. The posterior communicating arteries are normal. There is no aneurysm. NECK CTA: There are no pathologically enlarged lymph nodes. There is no significant stenosis of the v ertebral arteries. There is mild plaque in the proximal internal carotid arteries. There is 0% stenos is of the proximal right internal carotid artery relative to normal distal artery lumen diameter (TAYLOR CET criteria). There is 0% stenosis of the proximal left internal carotid artery relative to normal d istal artery lumen diameter. There is moderate cervical spondylosis. IMPRESSION: 1. Moderate nonspecific cerebral white matter disease, which likely represents chronic small vessel i schemic disease. 2. No aneurysm or significant intracranial internal stenosis. 3. 0% stenosis of the proximal internal carotid arteries relative to normal distal artery lumen diame ters (NASCET criteria). Reviewed, dictated and finalized at [facility]. BILLING CLERK IMPRESSION: 1. Moderate nonspecific cerebral white matter disease, which likely represents chronic small vessel ischemic disease. 2. No aneurysm or significant intracranial internal stenosis. 3. 0% stenosis of the proximal internal carotid arteries relative to normal dis kira artery lumen diameters (NASCET criteria).
--- NOTE | 2022-03-13 15:45 | ECG_ITS ---
Measurements Intervals [place] Rate: 80 P: 48 NH: 139 QRS: 3 QRSD: 78 T: 13 QT: 368 QTc: 426 Interpretive Statements SINUS RHYTHM POSSIBLE LEFT VENTRICULAR HYPERTROPHY [VOLTAGE CRITERIA PLUS LAE OR QRS WIDENING] LOW QRS VOLTAGE IN THE PRECORDIAL COMPARED TO ECG 04/13/2021 00:52:24 LOW VOLTAGE NOTED NO OTHER DIFFERENCE Electronically Signed On 03-13-2022 17:21:09 CAMPAIGN ANALYST by Asif Felder M.D.
[2022-03-13 16:03] LABS: Basophils Percent Auto 0.3 % (0.2-1.2); Eosinophils Absolute Auto 0.3 K/mm3 (0-0.3); Eosinophils Percent Auto 4.2 % (0-4.4); Hematocrit 36.4 % (37.0-47.0); Hemoglobin 12.4 g/dL (12.0-15.0); Immature Granulocyte Absolute 0.01 K/mm3 (0.00-0.031); Immature Granulocyte Percent A 0.2 % (0-0.5); Lymphocytes Absolute Auto 2.53 K/mm3 (0.9-3.2); Lymphocytes Percent Auto 39.8 % (18.3-44.2); Mean Corpuscular HGB Conc 34.1 g/dl (32-36); Mean Corpuscular Hemoglobin 32.5 pg (26-34); Mean Corpuscular Volume 95.3 fl (80-100); Mean Platelet Volume 9.4 fl (7.4-10.4); Monocytes Absolute Auto 0.7 K/mm3 (0.1-0.6); Monocytes Percent Auto 10.2 % (2.6-8.5); Neutrophils Absolute Auto 2.9 K/mm3 (1.3-6.7); Neutrophils Percent Auto 45.3 % (45.5-73.1); Platelet Count Result 230 k/mm3 (150-375); Red Blood Count 3.82 M/mm3 (4.2-5.4); Red Cell Distribution Width 13.2 % (11.5-14.5); White Blood Count 6.4 K/mm3 (4.5-10.0)
[2022-03-13 16:17] LABS: Alanine Aminotransferase 30 U/L (6-35); Albumin Level 4.3 g/dL (3.5-5.1); Alkaline Phosphatase 61 U/L (38-126); Anion Gap 4 mmol/L (8-16); Aspartate Amino Transferase 34 U/L (14-36); Bilirubin,Total 0.4 mg/dL (0.2-1.3); Blood Urea Nitrogen 20 mg/dL (7-17); Calcium 8.3 mg/dL (8.4-10.2); Carbon Dioxide 27 mmol/L (22-30); Chloride 104 mmol/L (98-107); Estimated CRCL calculation 46 ml/min; Estimated Glomerular Filt Rate > 60; Glucose 104 mg/dL (65-110); Potassium 4.2 mmol/L (3.4-5.0); Sodium 135 mmol/L (137-145)
--- NOTE | 2022-03-13 17:03 | ED.DIZZY ---
HPI - Dizziness General Chief Complaint: Dizziness <TROY Lou Last Filed: 03/13/22 21:48> Stated Complaint: headache, dizziness, falls <TROY Lou Last Filed: 03/13/22 21:48> Time Seen by Provider: 03/13/22 16:55 <TROY Lou Last Filed: 03/13/22 21:48> Source: patient <TROY Lou Last Filed: 03/13/22 21:48> Mode of arrival: ambulatory <TROY Lou Last Filed: 03/13/22 21:48> Limitations: no limitations <TROY Lou Last Filed: 03/13/22 21:48> History of Present Illness HPI Narrative: Patient is a 72 y/o female who presents to the ED with c/o dizziness. Patient reports she developed a mild headache this afternoon. She developed dizziness around 3 PM. She describes the dizziness as though everything was spinning around her. She states she fell several times at home due to the dizziness. The dizziness seemed to make her headache worse. Dizziness aggravated with sitting upright, moving head. Patient has never had symptoms like this before. She has not taken anything for her headache. She also reports having some midsternal chest pressure since being in the ED. She states the pain has been fairly constant, but does seem to be alleviated slightly currently. Patient denies any fever, cough or cold symptoms, vision changes, nausea, vomiting, trouble breathing, neck pain, weakness in arm or leg, confusion, slurred speech, dysphagia, dysarthria, otalgia, tinnitus. <TROY Lou Last Filed: 03/13/22 21:48> Related Data Home Medications: Home Medications Medication Instructions Recorded Confirmed Calcium 1500mg 1,500 mg DAILY 02/21/19 04/11/21 Imitrex 100 mg PRN PRN Migraine Headache 02/21/19 04/11/21 Slow Release Iron 45 mg DAILY 02/21/19 04/11/21 amlodipine 5 mg tablet 5 mg DAILY 02/21/19 04/11/21 aspirin 81 mg tablet,delayed 81 mg PO DAILY 02/21/19 04/11/21 release (Eduardo Low Dose Aspirin) atorvastatin 20 mg tablet 20 mg DAILY 02/21/19 04/11/21 cetirizine 10 mg HS 02/21/19 04/11/21 cyclobenzaprine 10 mg tablet 10 mg BID PRN Muscle Spasm 02/21/19 04/11/21 diclofenac 75 mg-misoprostol 200 1 tablet PO BID 02/21/19 04/11/21 mcg tablet,immediate,delayed release (Arthrotec) methscopolamine 5 mg tablet 5 mg ACHS 02/21/19 04/11/21 montelukast 10 mg tablet 10 mg DAILY 02/21/19 04/11/21 (Singulair) sertraline 100 mg tablet (Zoloft) 100 mg DAILY 02/21/19 04/11/21 albuterol 90 mcg/actuation aerosol 90 mcg inhalation PRN PRN Wheezing 04/12/20 04/11/21 inhaler cholecalciferol (vitamin D3) 125 125 mcg PO DAILY 04/12/20 04/11/21 mcg (5,000 unit) capsule folic acid 1 mg tablet 1 mg PO DAILY 04/12/20 04/11/21 golimumab 12.5 mg/mL intravenous 100 mg IV ONCE 04/12/20 04/11/21 solution (Simponi ARIA) hydrocodone 5 mg-acetaminophen 325 1 tablet PO BID PRN Pain 04/12/20 04/11/21 mg tablet methocarbamol 750 mg tablet 750 mg PO TID PRN Muscle Spasm 04/12/20 04/11/21 methotrexate sodium 2.5 mg tablet 15 mg PO WEEKLY 04/12/20 04/11/21 vitamin E 268 mg (400 unit) capsule 400 unit PO DAILY 04/12/20 04/11/21 clonazepam 0.5 mg tablet 0.5 mg PO HS 04/11/21 04/11/21 magnesium 250 mg tablet 250 mg PO DAILY 04/11/21 04/11/21 thyroid (pork) 90 mg tablet 90 mg PO DAILY 04/11/21 04/11/21 ([place] Thyroid) <Kellee Benton PA-C - Last Filed: 03/13/22 21:48> Allergies/Adverse Reactions: Allergies Allergy/AdvReac Type Severity Reaction Status Date / Time cephalexin Allergy Severe RASH, Verified 03/13/22 18:03 ITCHING morphine Allergy Severe RASH Verified 03/13/22 18:03 Corticosteroids Allergy Intermediate Swelling Verified 03/13/22 18:03 (Glucocorticoids) levofloxacin Allergy Mild Rash Verified 03/13/22 18:03 <Kellee Benton PA-C - Last Filed: 03/13/22 21:48> Review of Systems Review of Systems: CONSTITUTIONAL: Denies fever, chills, or sweats.
[2022-03-13] MEDS: MECLIZINE HCL 25 MG TABLET PO (18:04)
[2022-03-13] MEDS: ONDANSETRON INJ 4 MG/2 ML VIAL IV PUSH (18:05)
[2022-03-13] MEDS: SODIUM CHLORIDE 0.9% IV 1,000 ML 999 ML IV CONT (18:05)
[2022-03-13 18:28] LABS: Troponin I 0.057 ng/mL (0.000-0.034)
[2022-03-13] MEDS: diazePAM INJ (*CRX) 10 MG/2 ML SYRINGE 2 MG IV PUSH (19:14)
[2022-03-13 19:59] LABS: Troponin I < 0.012 ng/mL (0.000-0.034)
--- NOTE | 2022-03-13 20:41 | PM.IMHP ---
H&P: HPI History of Present Illness Date/Time: 03/13/22 20:41 Chief Complaint: dizziness Narrative: This is a 72-year-old female with past medical history significant for asthma, gastroesophageal reflux disease, hypertension, dyslipidemia, irritable bowel syndrome, migraine headache, Bladder stimulator implanted. patient presents to the emergency room after she had episode of dizziness with swaying to the sides and fell several times at home with no loss of consciousness. Patient has been in her usual state of health up until this point she denies any vision changes, any headaches, any focal weakness, any focal sensory deficit, no fevers, no rigors, no chills, no headaches. patient was brought to the emergency room for evaluation. In emergency room most workup has been low yielding. Patient is been placed in observation for further evaluation management and treatment. preliminary workup was significant for: CT of the head was reported as: IMPRESSION:? Cerebral atherosclerosis and chronic small vessel ischemic changes of the cerebral white matter No acute intracranial abnormality Review of Systems Review of Systems: dizziness, swaying to the sides, falling Constitutional: Constitutional: Denies chills, Denies fatigue, Denies fever(s), Denies malaise, Denies night sweats, Denies poor appetite and Denies weakness Eyes: Eyes: Denies change in vision ENT: Denies dysphagia, Denies vertigo, Reports dizziness, Denies nasal congestion, Denies nasal discharge and Denies sinus pressure Cardiovascular: Cardiovascular: Denies chest pain, Denies syncope, Denies pedal edema, Denies irregular heart rhythm, Denies leg edema and Denies palpitations Respiratory: Respiratory: Denies cough Gastrointestinal: Gastrointestinal: Denies abdominal pain, Denies dyspepsia, Denies heartburn, Denies nausea and Denies vomiting Genitourinary: Genitourinary: Denies dysuria Musculoskeletal: Musculoskeletal: Denies myalgias, Denies limited range of motion, Denies muscle weakness and Denies neck pain Integumentary/Breasts: Skin/Breast: Denies rash Neurologic: Reports dizziness, Denies focal weakness and Denies Sensory deficit (Neuro) Psychiatric: Psychiatric: Reports no additional psychiatric complaints and Reports as per HPI Endocrine: Endocrine: Denies cold intolerance, Denies flushing, Denies heat intolerance, Denies polyphagia, Denies polydipsia and Denies palpitations Hematologic/Lymphatic: Hematologic/Lymphatic: Reports no additional hematologic/lymphatic complaints and Reports as per HPI Allergic/Immunologic: Allergic/Immunologic: Reports no additional allergic/immunologic complaints and Reports as per HPI [facility] Past Medical History Medical History (Updated 03/14/22 @ 02:58 by César Gamino MD) Anemia Ankle fracture, right Arthritis Asthma Depression Early cataracts, bilateral Falls GERD (gastroesophageal reflux disease) Headache Hemorrhoids History of recurrent UTIs HTN (hypertension) Hyperlipidemia Hypothyroid IBS (irritable bowel syndrome) Inguinal hernia Kidney stone on left side Migraines Parotid tumor left Pyelonephritis Rectal fistula Seasonal allergies TIA (transient ischemic attack) TMJ (dislocation of temporomandibular joint) Surgical History Surgical History H/O arthroscopy of shoulder (~2014) right H/O colonoscopy H/O hemorrhoidectomy (~2007) H/O meniscectomy of right knee History of arthroscopy of left shoulder History of bladder suspension procedure with InterStim bladder stimulator placement July 2016 with subsequent removal and replacement with a MRI safe device March 2020 History of carpal tunnel release (~2013) Right History of hysterectomy (~1976) History of mandibular surgery (~1977) History of meniscectomy of left knee (~05/2015) History of Ofelia fundoplication (~2014) History of sinus surgery (~2015) History of uvulopala
[2022-03-13 21:19] LABS: Influenza A QL RT-PCR Negative (Negative); Influenza B QL RT-PCR Negative (Negative); SARS-CoV-2 RNA PCR Negative
[2022-03-13 23:09] LABS: Troponin I < 0.012 ng/mL (0.000-0.034)
[2022-03-14] VITALS (38 sets, daily range): BP systolic 88–147; BP diastolic 46–76; PULSE 55–80; RESP 12–22; TEMP 36.9; O2SAT 93–100; BMI 23.3
--- NOTE | 2022-03-14 | ECHO_ITS ---
Patient Info Name: Massiel Jordan Age: 72 years : 1950 Gender: Female Ht: 64 in Wt: 136 lbs BSA: 1.68 m2 HR: 64 bpm BP: 101 / 69 mmHg Heart Rhythm: Sinus Rhythm Exam Date: 03/14/2022 11:34 AM Exam Location: [facility] Pulmonary Patient Status: Inpatient Admit Date: 03/13/2022 Staff Ordering Physician: Annika Colorado MD (blaine/faviola) Pharmacognosy Teacher: Karthik Cosby, SONIACS, RT Attending Provider: Shravan Pickens MD Referring Physician: Stanislav BOLDEN; Exam Type: CA echo doppler color flow Study Info Indications R42 - Dizziness and giddiness Complete two-dimensional, color flow and Doppler transthoracic echocardiogram is performed. Strain analysis performed. Summary 1. Complete two-dimensional, color flow and Doppler transthoracic echocardiogram is performed. 2. Strain analysis performed. 3. Left ventricular chamber dimension is normal. 4. Left ventricular systolic function is normal, estimated at 65-70%. 5. There is mildly increased left ventricular wall thickness. 6. The left ventricular diastolic function is grade I diastolic dysfunction. 7. Global longitudinal strain is normal at -22 %. 8. Left atrial chamber dimension is mildly enlarged. 9. There is mild to moderate aortic valve regurgitation. 10. There is mild mitral valve regurgitation. 11. There is mild tricuspid valve regurgitation. 12. There is mild pulmonic regurgitation. Left Ventricle Left ventricular chamber dimension is normal. Left ventricular systolic function is normal, estimated at 65-70%. There is mildly increased left ventricular wall thickness. The left ventricular diastolic function is grade I diastolic dysfunction. Global longitudinal strain is normal at -22 %. Right Ventricle Right ventricular chamber dimension is normal. Right ventricular systolic function is normal. Left Atria Left atrial chamber dimension is mildly enlarged. Right Atria Right atrial chamber dimension is normal. Atrial Septum Intact interatrial septum visualized by color flow imaging. Aortic Valve The aortic valve is trileaflet. There is mild aortic valve sclerosis. There is no aortic valve stenosis. There is mild to moderate aortic valve regurgitation. Pulmonic Valve The pulmonic valve is normal. There is no pulmonic valve stenosis. There is mild pulmonic regurgitation. Mitral Valve The mitral valve has normal leaflets. There is no mitral valve stenosis. There is mild mitral valve regurgitation. Tricuspid Valve The tricuspid valve leaflets are normal. There is no significant tricuspid valve stenosis. There is mild tricuspid valve regurgitation. No pulmonary hypertension, estimated pulmonary arterial systolic pressure is 33 mmHg. Pericardium/Pleural The pericardium appears normal. There is trivial pericardial effusion. Inferior Vena Cava Normal inferior vena cava with >50% collapse upon inspiration consistent with normal right atrial pressure, 5 mmHg. Aorta The aortic root size at the sinus of Valsalva is normal. The prox ascending aorta size is normal. Left Ventricular Outflow Tract Name Value Normal LVOT 2D LVOT Diameter 2.0 cm LVOT Doppler
--- NOTE | 2022-03-14 10:03 | ADMGEN ---
This patient, Massiel Jordan, was admitted to Virtual Bed IMU-1, remains boarded in ED 10 at this time. Patient/family oriented to hospital policies and general routines including ID bracelet, bed and alarms, visiting hours, pain management, procedures, bathroom and other care routines, personal items, smoking policy, room service/diet, and visiting hours. Information on how to activate the Rapid Response Team has been discussed. Patient/Family are encouraged to report perceived risks to care and to ask questions if they do not understand what they are told or what they should do.
--- NOTE | 2022-03-14 14:19 | PM.CNCAR ---
Assessment and Plan Assessment and plan (1) Chest pain: Qualifiers: Chest pain type: unspecified Qualified Code(s): R07.9 - Chest pain, unspecified Code(s): R07.9 - Chest pain, unspecified Status: Acute (2) Elevated troponin I level: Code(s): R77.8 - Other specified abnormalities of plasma proteins Status: Acute (3) Dizziness: Code(s): R42 - Dizziness and giddiness Status: Acute Plan EKG on admission did not show ischemic changes. Her initial troponin here was mildly elevated at 0.05, but the repeat next two troponins were negative. She does have a MSK component to her chest pain that is reproducible on exam, however, there is a component that patient reports her chest pain felt slightly different than the MSK pain. Will obtain a TTE. Further recommendations pending results of TTE. Neuro is going to obtain a brain MRI on the patient. History of Present Illness History of Present Illness Consult date/time: 03/14/22 14:19 Requesting physician: Kellee Benton PA-C Consult reason: chest pain Reason For Visit: Intractable dizziness,RUE pronator drift,CP, eleva Narrative: This is a 72-year-old female with a history of asthma, GERD, hypertension, hyperlipidemia, IBS, migraine headaches, bladder stimulator implantation who presented to the ER yesterday with dizziness. Patient states she developed a headache and then developed dizziness to where she would fall back, but did not lose consciousness. Patient states she still kind of feels dizzy. Feeling some chest pain across her chest. No clear association with exertion. Not pleuritic. EKG on admission did not show ischemic changes. Her initial troponin here was mildly elevated at 0.05, but the repeat next two troponins were negative. CT of the head showed chronic small vessel disease; no acute findings. Review of Systems Review of Systems: 12-point ROS obtained. Negative, unless stated in HPI. [facility] Past Medical History Medical History Anemia Ankle fracture, right Arthritis Asthma Depression Early cataracts, bilateral Falls GERD (gastroesophageal reflux disease) Headache Hemorrhoids History of recurrent UTIs HTN (hypertension) Hyperlipidemia Hypothyroid IBS (irritable bowel syndrome) Inguinal hernia Kidney stone on left side Migraines Parotid tumor left Pyelonephritis Rectal fistula Seasonal allergies TIA (transient ischemic attack) TMJ (dislocation of temporomandibular joint) Surgical History Surgical History H/O arthroscopy of shoulder (~2014) right H/O colonoscopy H/O hemorrhoidectomy (~2007) H/O meniscectomy of right knee History of arthroscopy of left shoulder History of bladder suspension procedure with InterStim bladder stimulator placement July 2016 with subsequent removal and replacement with a MRI safe device March 2020 History of carpal tunnel release (~2013) Right History of hysterectomy (~1976) History of mandibular surgery (~1977) History of meniscectomy of left knee (~05/2015) History of Ofelia fundoplication (~2014) History of sinus surgery (~2015) History of uvulopalatopharyngoplasty (~2013) Hx of appendectomy (~1974) Hx of LASIK (~2005) S/P cubital tunnel release (~2013) S/P right knee arthroscopy S/P ureteral stent placement 11/2017 Status post cataract extraction of both eyes with insertion of intraocular lens (~12/2020) Status post ORIF of fracture of ankle (~06/2015) right with initial surgery in 2008 and additional surgery 2012 surgeries in 2014 and 2015 Family History Family History Mother Age older than 80 years Social History Social History Social History: Patient is . Primary care physician: Dr. Harrison, [facility] Code s
--- NOTE | 2022-03-14 14:36 | WPDNEURCNPN ---
Assessment and Plan Assessment and plan (1) Dizziness: Code(s): R42 - Dizziness and giddiness Status: Acute (2) Chest pain: Qualifiers: Chest pain type: unspecified Qualified Code(s): R07.9 - Chest pain, unspecified Code(s): R07.9 - Chest pain, unspecified Status: Acute (3) Elevated troponin I level: Code(s): R77.8 - Other specified abnormalities of plasma proteins Status: Acute (4) Headache: Code(s): R51.9 - Headache, unspecified Status: Acute Plan Ms. Jordan is a 72 year old female with a history of TIA, migraines, IBS, and RA presenting for evaluation of headache and dizziness. Headache does not feet migraine characteristics, seems likely tension headache. Etiology of dizziness is unclear, could be related to headache and hypotension (orthostatic?). - Patient has bladder stimulater that is reportedly MRI compatible; recommend MRI brain - Can try migraine cocktail for headaches - Cardiology following -- planning on surface echocardiogram - If neuro and cardio work-up is negative and having persistent dizziness despite appropriate BPs, refer to vestibular therapy and ENT Consult date: 03/14/22 Time Seen: 14:36 Reason for consult: Dizziness HPI: Massiel Jordan is a 72 year old female with a history of TIA, migraines, IBS, rheumatoid arthritis presenting for evaluation of dizziness. Patient developed band like headache and dizziness yesterday afternoon. She described the headache as pressure like and constant. There was no associated photophobia, phonophobia, nausea, or vomiting. This headache is very different compared to her migraines. She has also had the sensation of the room spinning around her. The dizziness is worse with sitting up and moving her head. She has never had prior episodes of dizziness like this. She did not take anything for the headache. She cannot have Tylenol due to being on MTX. She expressed chest pain on arrival. Her troponin was initially elevated, but subsequent were normal. She denies any acute change in vision or any other new focal neurological symptoms. She had a CT head and CTA brain and carotid that were done and are both negative. Her BP on arrival was appropriate, but today, was down to 80s/40s.. Review of Systems Constitutional: Constitutional: Reports no additional constitutional complaints Eyes: Eyes: Reports no additional eye complaints ENT: Reports system reviewed and no additional complaints, except as documented Cardiovascular: Cardiovascular: Reports chest pain Respiratory: Respiratory: Reports no additional respiratory complaints Gastrointestinal: Gastrointestinal: Reports no additional gastrointestinal complaints Genitourinary: Genitourinary: Reports no additional female genitourinary complaints Musculoskeletal: Musculoskeletal: Reports arthralgias Integumentary/Breasts: Skin/Breast: Reports system reviewed and no additional complaints, except as docu Neurologic: Reports as per HPI, Reports vertigo and Reports headache(s) Psychiatric: Psychiatric: Reports no additional psychiatric complaints PMFSH Past Medical History Medical History Anemia Ankle fracture, right Arthritis Asthma Depression Early cataracts, bilateral Falls GERD (gastroesophageal reflux disease) Headache Hemorrhoids History of recurrent UTIs HTN (hypertension) Hyperlipidemia Hypothyroid IBS (irritable bowel syndrome) Inguinal hernia Kidney stone on left side Migraines Parotid tumor left Pyelonephritis Rectal fistula Seasonal allergies TIA (transient ischemic attack) TMJ (dislocation of temporomandibular joint) Surgical History Surgical History H/O arthroscopy of shoulder (~2014) right H/O colonoscopy H/O hemorrhoidectomy (~2007) H/O meniscectomy of right knee History of arthroscopy of left shoulder History of bladder
--- NOTE | 2022-03-14 15:52 | PC.NURSE ---
This patient, Massiel Jordan, was admitted to IMU Room 205-01. Patient/family oriented to hospital policies and general routines including ID bracelet, bed and alarms, visiting hours, pain management, procedures, bathroom and other care routines, personal items, smoking policy, room service/diet, and visiting hours. Information on how to activate the Rapid Response Team has been discussed. Patient/Family are encouraged to report perceived risks to care and to ask questions if they do not understand what they are told or what they should do.
--- NOTE | 2022-03-14 16:56 | PC.NURSE ---
Confirmed with patient, and spouse, that patient wishes to be a full code at this time.
[2022-03-14] MEDS: KETOROLAC 15 MG/ML VIAL (*BKC) IV PUSH (17:20)
--- NOTE | 2022-03-14 18:31 | PM.IMPN ---
Progress Note: A&P Assessment and Plan (1) Dizziness: Code(s): R42 - Dizziness and giddiness Status: Acute Assessment and Plan: place in observation patient has implanted bladder stimulator , MRI plan after bladder stimulator turned off which is currently in process of evaluation CTA reviewed CT of the head reviewed possible tension headache versus migraine headache related dizziness. Will give Reglan,Toradol she states she is not able to take Tylenol (2) Elevated troponin I level: Code(s): R77.8 - Other specified abnormalities of plasma proteins Status: Acute Assessment and Plan: repeat troponins x3 were undetectable (3) HTN (hypertension): Code(s): I10 - Essential (primary) hypertension Status: Acute Assessment and Plan: blood pressure within normal limits (4) Falls: Code(s): W19.XXXA - Unspecified fall, initial encounter Status: Acute Assessment and Plan: patient should get a tilt-table test in the outpatient setting Multiple falls TT E planned (5) Asthma: Code(s): J45.909 - Unspecified asthma, uncomplicated Status: Acute Assessment and Plan: a stable (6) GERD (gastroesophageal reflux disease): Code(s): K21.9 - Gastro-esophageal reflux disease without esophagitis Status: Acute Assessment and Plan: PPI as needed (7) Chest pain: Qualifiers: Chest pain type: unspecified Qualified Code(s): R07.9 - Chest pain, unspecified Code(s): R07.9 - Chest pain, unspecified Status: Acute Assessment and Plan: resolved Subjective Date/time seen: 03/14/22 18:31 Interval history: ?This is a 72-year-old female with past medical history significant for asthma, gastroesophageal reflux disease, hypertension, dyslipidemia, irritable bowel syndrome, migraine headache,? Bladder stimulator implanted. patient presents to the emergency room after she had episode of dizziness with swaying to the sides and fell several times at home with no loss of consciousness.? Patient has been in her usual state of health up until this point she denies any vision changes, any headaches, any focal weakness, any focal sensory deficit, no fevers, no rigors, no chills, no headaches. patient was brought to the emergency room for evaluation.? In emergency room most workup has been low yielding.? Patient is been placed in observation for further evaluation management and treatment. preliminary workup was significant for: ?CT of the head was reported as: IMPRESSION:? Cerebral atherosclerosis and chronic small vessel ischemic changes of the cerebral white matter No acute intracranial abnormality 03/14/2022 reports headache like a band sensation. No sinus symptoms no fever chills no earaches. No visual symptoms. Review of Systems Review of Systems: All systems reviewed & are unremarkable except as noted in HPI and below Exam Narrative: GENERAL: The patient is well developed, not in acute distress HEENT: Nonicteric sclerae, PERRLA, EOMI. Oropharynx clear. Moist mucous membranes. Conjunctivae appear well perfused. CHEST: Chest wall is nontender. HEART: Regular rate and rhythm without murmur, rubs, or gallops LUNGS: Clear to auscultation bilaterally. no respiratory distress ABDOMEN: Soft, positive bowel sounds, non-tender, no organomegaly. SKIN: No rash, no excessive bruising, petechiae, or purpura. NEUROLOGIC: Cranial nerves II-XII intact, alert and oriented x 3, no gross motor deficits EXTREMITIES: no edema, cyanosis or clubbing Objective Data Vital Signs Vital Signs: Vital Signs - 24 hr 03/13/22 19:50 03/13/22 19:51 03/13/22 20:00 Temperature Pulse Rate 72 73 74 Respiratory Rate 16 14 21 H Blood Pressure 138/73 Pulse Oximetry 100 98 98 Oxygen Delivery 03/13/22 20:01 03/13/22 20:15 03/13/22 20:31 Temperature Pulse Rate 72 70 69 Respiratory Rate 12 17 17 Blood Pressure 110/8
[2022-03-14] MEDS: METOCLOPRAMIDE HCL INJ 10 MG/2 ML VIAL IV PUSH (19:40)
[2022-03-14] MEDS: LORATADINE 10 MG TABLET PO (21:12)
[2022-03-14] MEDS: MAGNESIUM 13.5 MG TABLET (250 MG MAG GLUCONATE) PO (21:12)
[2022-03-14] MEDS: clonazePAM (*CRX) 0.5 MG TABLET PO (21:13)
[2022-03-15] VITALS (7 sets, daily range): BP systolic 112–126; BP diastolic 50–74; PULSE 58–109; RESP 12–20; TEMP 36.3–36.8; O2SAT 95–100
[2022-03-15 05:10] LABS: Basophils Percent Auto 0.4 % (0.2-1.2); Eosinophils Absolute Auto 0.2 K/mm3 (0-0.3); Eosinophils Percent Auto 3.3 % (0-4.4); Hematocrit 36.3 % (37.0-47.0); Hemoglobin 12.1 g/dL (12.0-15.0); Lymphocytes Absolute Auto 2.64 K/mm3 (0.9-3.2); Mean Corpuscular HGB Conc 33.3 g/dl (32-36); Mean Corpuscular Hemoglobin 30.9 pg (26-34); Mean Corpuscular Volume 92.8 fl (80-100); Mean Platelet Volume 9.5 fl (7.4-10.4); Monocytes Absolute Auto 0.5 K/mm3 (0.1-0.6); Monocytes Percent Auto 9.7 % (2.6-8.5); Neutrophils Absolute Auto 1.9 K/mm3 (1.3-6.7); Neutrophils Percent Auto 35.6 % (45.5-73.1); Platelet Count Result 232 k/mm3 (150-375); Red Blood Count 3.91 M/mm3 (4.2-5.4); White Blood Count 5.2 K/mm3 (4.5-10.0)
[2022-03-15 05:20] LABS: Alanine Aminotransferase 29 U/L (6-35); Alkaline Phosphatase 60 U/L (38-126); Anion Gap 5 mmol/L (8-16); Aspartate Amino Transferase 32 U/L (14-36); Bilirubin,Total 0.5 mg/dL (0.2-1.3); Blood Urea Nitrogen 19 mg/dL (7-17); Calcium 8.5 mg/dL (8.4-10.2); Carbon Dioxide 26 mmol/L (22-30); Chloride 106 mmol/L (98-107); Estimated CRCL calculation 46 ml/min; Estimated Glomerular Filt Rate > 60; Glucose 82 mg/dL (65-110); Magnesium 2.1 mg/dL (1.6-2.3); Potassium 3.8 mmol/L (3.4-5.0); Sodium 137 mmol/L (137-145)
[2022-03-15] MEDS: CHOLECALCIFEROL 1,000 UNITS TABLET 5000 UNITS PO (08:06)
[2022-03-15] MEDS: THYROID 30 MG TABLET 90 MG PO (08:07)
[2022-03-15] MEDS: VITAMIN E 400 UNIT CAPSULE PO (08:07)
[2022-03-15] MEDS: SERTRALINE HCL 50 MG TABLET 150 MG PO (08:07)
[2022-03-15] MEDS: FOLIC ACID 1 MG TABLET PO (08:08)
[2022-03-15] MEDS: ATORVASTATIN 40 MG TABLET PO (08:08)
[2022-03-15] MEDS: MONTELUKAST SODIUM 10 MG TABLET PO (08:08)
[2022-03-15] MEDS: FERROUS SULFATE DRIED 142 MG TABCR 45 MG PO (08:08)
[2022-03-15] MEDS: ASPIRIN 81 MG ENTERIC TABLET PO (08:08)
[2022-03-15] MEDS: CALCIUM CARBONATE (OSCAL) 500 MG TABLET 1500 MG PO (08:09)
[2022-03-15] MEDS: HYDROcodone/acetaminophen (*CRX) 10-325 MG TABLET 1 TAB PO (08:17)
[2022-03-15] MEDS: ONDANSETRON INJ 4 MG/2 ML VIAL IV PUSH (10:26)
--- NOTE | 2022-03-15 16:07 | PM.DS ---
DS: Admitting Diagnosis Discharge Date 03/15/22 Admitting Diagnosis Dizziness DS: Discharge Diagnosis Discharge Diagnosis (1) Dizziness: Code(s): R42 - Dizziness and giddiness Status: Acute (2) Elevated troponin I level: Code(s): R77.8 - Other specified abnormalities of plasma proteins Status: Acute (3) HTN (hypertension): Code(s): I10 - Essential (primary) hypertension Status: Acute (4) Falls: Code(s): W19.XXXA - Unspecified fall, initial encounter Status: Acute (5) Asthma: Code(s): J45.909 - Unspecified asthma, uncomplicated Status: Acute (6) GERD (gastroesophageal reflux disease): Code(s): K21.9 - Gastro-esophageal reflux disease without esophagitis Status: Acute (7) Chest pain: Qualifiers: Chest pain type: unspecified Qualified Code(s): R07.9 - Chest pain, unspecified Code(s): R07.9 - Chest pain, unspecified Status: Acute DS: Summary Hospital Course Reason for hospitalization: Dizziness Hospital Course: Patient presents with complaints of dizziness. Laboratory workup was unrevealing. Exception is at her 1st troponin was mildly elevated but repeat troponins were negative. EKG showed possible LVH and low voltage. No significant change from prior. Echocardiogram showed EF of 65-70% with grade 1 diastolic dysfunction and mild -moderate AI. Head CT shows cerebral atherosclerosis and chronic small-vessel ischemic changes but no acute findings. CTA of the head and neck showed moderate nonspecific cerebral white matter disease but no aneurysm or significant intracranial stenosis. We were unable to obtain a brain MRI because patient has a bladder stimulator in place. Patient worked with therapy. Her nausea and vomiting improved. Her dizziness also improved. She was seen by Cardiology and Neurology. She has been up ambulating with a walker. Patient overall did well and was able to be discharged home on 03/15/2022. Status at Discharge Cognitive/behavioral status at discharge: stable Time Spent with Patient Time attestation: Total time spent providing and/or coordinating discharge services: 35 minutes Time spent: Greater than 30 minutes Exam Narrative: AF 98.1 118/58 78 18 95% ra Gen - NARD Chest - CTA bilaterally, nml RR CV - RRR S1/S2. Tele showing no significant dysrhythmias Abd - Soft, NT/ND, Positive BS Ext - No pedal edema Psych - Nml mood and affect Skin - Warm and dry DS: Data Data Completed and Pending Labs on day of discharge: Labs from last 24 hours 03/15/22 03/15/22 04:24 04:24 WBC 5.2 RBC 3.91 L Hgb 12.1 Hct 36.3 L MCV 92.8 MCH 30.9 MCHC 33.3 RDW 13.0 Plt Count 232 MPV 9.5 Immature Gran % (Auto) 0.0 Neut % (Auto) 35.6 L Lymph % (Auto) 51.0 H [place] % (Auto) 9.7 H Eos % (Auto) 3.3 Baso % (Auto) 0.4 Lymph # (Auto) 2.64 [place] # (Auto) 0.5 Eos # (Auto) 0.2 Baso # (Auto) 0.0 Abs Immat Gran (auto) 0.00 Absolute Neuts (auto) 1.9 Absolute Nucleated RBC 0.0 Nucleated RBC % 0.0 Sodium 137 Potassium 3.8 Chloride 106 Carbon Dioxide 26 Anion Gap 5 L BUN 19 H Creatinine 0.80 Estim Creat Clear Calc 46 Estimated GFR > 60 Glucose 82 Calcium 8.5 Magnesium 2.1 Total Bilirubin 0.5 AST 32 ALT 29 Alkaline Phosphatase 60 Total Protein 7.0 Albumin 4.0 Discharge Plan Discharge Attending physician on discharge: Alfredo Zavaleta Consulting providers: Efra Tomas ; Patience Morgan ; Kellee Benton Discharging Clinician: Alfredo Zavaleta Anticipated Discharge Date/Time: 03/15/22 16:15 Patient Disposition: Home, Self-Care Activity: as tolerated and other - see discharge instructions Diet: heart healthy Discharge Instructions: Walk with walker. Take precautions to avoid falls. Rise slowly from a lying or sitting position. Pause before standing
== END 2022-03-15 17:00 | disposition home or self-care (01) ==
LOC: ANHED 20:14 → ANHIMU 03-14 07:48
PROVIDERS: Emergency Medicine; Physician Assistant; Admitting Provider Internal Medicine; Emergency Provider Emergency Medicine; Visit Provider Internal Medicine
DX: R42 Dizziness and giddiness (principal); R77.8 Other specified abnormalities of plasma proteins; I10 Essential (primary) hypertension; W19.XXXA Unspecified fall, initial encounter; J45.909 Unspecified asthma, uncomplicated; K21.9 Gastro-esophageal reflux disease without esophagitis; R07.9 Chest pain, unspecified; D64.9 Anemia, unspecified; M19.90 Unspecified osteoarthritis, unspecified site; F32.A Depression, unspecified; Z87.440 Personal history of urinary (tract) infections; I67.2 Cerebral atherosclerosis; I67.82 Cerebral ischemia; E78.5 Hyperlipidemia, unspecified; E03.9 Hypothyroidism, unspecified; K58.9 Irritable bowel syndrome, unspecified; I08.3 Combined rheumatic disorders of mitral, aortic and tricuspid valves; Z87.442 Personal history of urinary calculi; Z86.73 Personal history of transient ischemic attack (TIA), and cerebral infarction without residual deficits; Z79.82 Long term (current) use of aspirin; Z79.51 Long term (current) use of inhaled steroids; Z79.891 Long term (current) use of opiate analgesic; Z79.899 Other long term (current) drug therapy
CPT/HCPCS: 36415; 70450; 70496; 70498; 80053; 83735; 84484; 85025; 87636; 93005; 93306; 96361; 96374; 96375; 96376; 97161; 99285; A9270; G0378; J1885; J2405; J2765; J3360; J7030; Q9967

== ENCOUNTER 2022-06-05 13:18 | Outpatient (CLI) | payer MEDICARE, SELFPAY ==
--- NOTE | ~2022-06-05 | XR_ITS ---
EXAM: XR foot LT 2V DATE: 06/05/2022 13:48 HISTORY: RHEUMATOID ARTHRITIS OF MULITPLE SITES W NEGATIVE RHEUMATOID . COMPARISON: X-ray right foot, same date. FINDINGS: Decreased mineralization. No fracture or dislocation. No lytic or blastic lesion. Mild laurent lux valgus. Mild degenerative change at the first MTP joint and multiple midfoot joints. No erosion o r periosteal change. Soft tissues within normal limits. IMPRESSION: Osteopenia. Mild polyarticular osteoarthritic changes. Reviewed, dictated and finalized at location K.
--- NOTE | ~2022-06-05 | XR_ITS ---
Right foot Technique: AP, oblique, and lateral views were obtained. Clinical History: Arthritis Findings: No acute fracture or dislocation is seen. There is orthopedic fusion across the first tarso metatarsal joint, 2V screws present. There is additional orthopedic hardware the hindfoot with fusion across the tibiotalar and subtalar joints. There is severe degenerative changes talonavicular articu lation and at the calcaneocuboid articulation. Soft tissues are unremarkable. Impression: Severe degenerative change at the calcaneocuboid and talonavicular articulations. Orthopedic fusion across the tibiotalar and subtalar joints. Additional orthopedic fusion across the first tarsometatarsal joint. Reviewed, dictated and finalized at location M. Impression: Severe degenerative change at the calcaneocuboid and talonavicular articulation s. Orthopedic fusion across the tibiotalar and subtalar joints. Additional orthopedic fusion across the first tarsometatarsal joint.
== END 2022-06-05 13:19 | disposition home or self-care (01) ==
PROVIDERS: Visit Provider Nurse Practitioner
DX: M06.09 Rheumatoid arthritis without rheumatoid factor, multiple sites (principal); R53.81 Other malaise; M25.50 Pain in unspecified joint; M79.10 Myalgia, unspecified site; M85.872 Other specified disorders of bone density and structure, left ankle and foot; M85.871 Other specified disorders of bone density and structure, right ankle and foot
CPT/HCPCS: 73620

== ENCOUNTER 2022-06-05 18:25 | Emergency (ER) | payer MEDICARE, SELFPAY ==
--- NOTE | ~2022-06-05 | XR_ITS ---
Right Shoulder Technique: AP and scapular Y views were obtained. Clinical History: Pain Findings: No fracture or dislocation is seen. Osseous alignment is anatomic. The glenohumeral and acr omioclavicular joint spaces are preserved. Soft tissues are unremarkable. Impression: Unremarkable right shoulder radiographs. Reviewed, dictated and finalized at [facility]. Impression: Unremarkable right shoulder radiographs.
--- NOTE | ~2022-06-05 | XR_ITS ---
EXAM: XR ankle LT min 3V DATE: 06/05/2022 21:42 HISTORY: LATERAL ANKLE PAIN AFTER FALL TODAY . COMPARISON: None available. FINDINGS: Decreased mineralization. No fracture or dislocation. No lytic or blastic lesion. Scattere d degenerative changes. Achilles enthesopathy. No erosion or periosteal change. Soft tissues within n ormal limits. Small ankle joint effusion IMPRESSION: . Reviewed, dictated and finalized at location K. IMPRESSION: .
--- NOTE | ~2022-06-05 | XR_ITS ---
Right foot Technique: AP, oblique, and lateral views were obtained. Clinical History: Pain COMPARISON: 06/05/2022 Findings: No acute fracture or dislocation is seen. Osseous alignment is unchanged from recent prior exam. There is orthopedic fusion across the tibiotalar and subtalar joints. There is also orthopedic fusion across the first tarsometatarsal joint. There is severe degenerative change at the talonavicul ar, calcaneocuboid, and naviculocuneiform articulations. Soft tissues are unremarkable. Impression: No acute fracture or dislocation. Orthopedic fusion across the tibiotalar and subtalar joints, as well as across the first tarsal metat arsal joint. Severe degenerative change at the talonavicular, calcaneocuboid, and naviculocuneiform articulations. Reviewed, dictated and finalized at [facility]. Impression: No acute fracture or dislocation. Orthopedic fusion across the tibiotalar and subtalar joints, as well as across the first tarsal metatarsal joint. Severe degenerative change at the talonavicular, calcaneocuboid, and naviculocu neiform articulations.
--- NOTE | ~2022-06-05 | CT_ITS ---
Non-contrast Head CT History: Head injury COMPARISON: 03/13/2022 Technique: Axial non-contrast imaging of the brain was performed. Dose reduction technique was used on this scan by utilizing automated exposure control and iterative reconstruction technique. The dose -length product (DLP) was 605.33 mGy-cm. Findings: There is no evidence of intracranial hemorrhage, mass lesion, or acute infarct. Brain par enchyma appears normal. The ventricles and subarachnoid spaces are normal in size. The calvarium ap pears normal. The visualized paranasal sinuses and mastoid air cells are clear. Impression: No significant abnormality seen. Reviewed, dictated and finalized at location . Impression: No significant abnormality seen.
--- NOTE | ~2022-06-05 | XR_ITS ---
Left Knee Technique: AP, lateral, and oblique views were obtained. Clinical History: Pain COMPARISON: 04/11/2021 Findings: No fracture or dislocation is seen. Total knee arthroplasty hardware is in place, unchanged . Soft tissues are unremarkable. No joint effusion is seen. Impression: No acute abnormality. Total knee arthroplasty in place. Reviewed, dictated and finalized at location . Impression: No acute abnormality. Total knee arthroplasty in place.
--- NOTE | ~2022-06-05 | CT_ITS ---
Noncontrast CT scan of the cervical spine Technique: Multiple contiguous axial [address] images of the cervical spine were obtained and rec onstructed in 2D sagittal and coronal planes on the acquisition scanner. Dose reduction technique was used on this scan by utilizing automated exposure control, adjustment of the mA and/or kV according to patient size. Clinical History: Pain Findings: No fractures or dislocations. Scattered mild degenerative disc changes are present. There is probable fusion of the bilateral C2-C3 facet joints. There is scattered facet arthropathy througho ut the cervical spine. Probable mild bilateral neural foraminal narrowing at C4-C5. No prevertebral s oft tissue swelling. Impression: No fracture or subluxation of the cervical spine. Mild degenerative spondylosis. Reviewed, dictated and finalized at location . Impression: No fracture or subluxation of the cervical spine. Mild degenerative spondylosis.
--- NOTE | ~2022-06-05 | XR_ITS ---
Right Knee Technique: AP, lateral, and oblique views were obtained. Clinical History: Pain Findings: No fracture or dislocation is seen. Osseous alignment is anatomic. Joint spaces are preserv ed without degenerative or erosive change. Soft tissues are unremarkable. No joint effusion is seen. Impression: Unremarkable right knee radiographs. Reviewed, dictated and finalized at [facility]. Impression: Unremarkable right knee radiographs.
--- NOTE | ~2022-06-05 | XR_ITS ---
Left Shoulder Technique: AP and scapular Y views were obtained. Clinical History: Pain Findings: No fracture or dislocation is seen. Osseous alignment is anatomic. The glenohumeral and acr omioclavicular joint spaces are preserved. There is a small rectangular metallic density projecting o liliana the proximal humeral shaft. Impression: No acute fracture or dislocation. Small rectangular metallic density projecting over the proximal humeral shaft. Reviewed, dictated and finalized at location M. Impression: No acute fracture or dislocation. Small rectangular metallic density projecting over the proximal humeral shaft.
[2022-06-05 18:40] VITALS: BP 161/70; PULSE 74; RESP 16; TEMP 37.3; O2SAT 100
--- NOTE | 2022-06-05 18:51 | ECG_ITS ---
Measurements Intervals [place] Rate: 70 P: 252 NM: 321 QRS: 4 QRSD: 82 T: 11 QT: 393 QTc: 424 Interpretive Statements SINUS RHYTHM LEFT VENTRICULAR HYPERTROPHY MINIMAL Q WAVES- HIGH LATERAL LEADS BORDERLINE ECG COMPARED TO ECG 03/13/2022 15:54:08 NO SIGNIFICANT CHANGES Electronically Signed On 06-06-2022 8:32:27 CDT by Adolfo Huizar D.O.
[2022-06-05 19:11] LABS: Basophils Percent Auto 0.4 % (0.2-1.2); Eosinophils Absolute Auto 0.2 K/mm3 (0-0.3); Eosinophils Percent Auto 2.7 % (0-4.4); Hematocrit 36.8 % (37.0-47.0); Hemoglobin 12.4 g/dL (12.0-15.0); Immature Granulocyte Absolute 0.01 K/mm3 (0.00-0.031); Immature Granulocyte Percent A 0.1 % (0-0.5); Lymphocytes Absolute Auto 2.85 K/mm3 (0.9-3.2); Lymphocytes Percent Auto 38.4 % (18.3-44.2); Mean Corpuscular HGB Conc 33.7 g/dl (32-36); Mean Corpuscular Volume 94.8 fl (80-100); Mean Platelet Volume 9.1 fl (7.4-10.4); Monocytes Absolute Auto 0.7 K/mm3 (0.1-0.6); Neutrophils Absolute Auto 3.6 K/mm3 (1.3-6.7); Neutrophils Percent Auto 48.4 % (45.5-73.1); Platelet Count Result 262 k/mm3 (150-375); Red Blood Count 3.88 M/mm3 (4.2-5.4); Red Cell Distribution Width 13.2 % (11.5-14.5); White Blood Count 7.4 K/mm3 (4.5-10.0)
[2022-06-05 19:23] LABS: Alanine Aminotransferase 34 U/L (6-35); Albumin Level 4.7 g/dL (3.5-5.1); Alkaline Phosphatase 63 U/L (38-126); Anion Gap 4 mmol/L (8-16); Aspartate Amino Transferase 35 U/L (14-36); Bilirubin,Total 0.4 mg/dL (0.2-1.3); Blood Urea Nitrogen 18 mg/dL (7-17); Calcium 9.1 mg/dL (8.4-10.2); Carbon Dioxide 29 mmol/L (22-30); Chloride 103 mmol/L (98-107); Estimated CRCL calculation 52 ml/min; Estimated Glomerular Filt Rate > 60; Glucose 92 mg/dL (65-110); Lipase 98 U/L (23-300); Potassium 3.7 mmol/L (3.4-5.0); Sodium 136 mmol/L (137-145)
[2022-06-05 19:26] LABS: Partial Thromboplastin Time 25.8 SECONDS (22.3-36.8); Prothrombin Time 12.8 Seconds (11.1-14.7)
[2022-06-05 19:33] LABS: Troponin I < 0.012 ng/mL (0.000-0.034)
[2022-06-05 23:48] VITALS: BP 147/87; PULSE 80; RESP 14; O2SAT 98
[2022-06-06 00:30] VITALS: BP 144/105; PULSE 60; RESP 14; O2SAT 97
[2022-06-06 01:30] VITALS: BP 155/58; PULSE 59; RESP 14; O2SAT 98
--- NOTE | 2022-06-06 01:32 | PC.NURSE ---
pt. to ct
[2022-06-06 02:30] VITALS: BP 131/85; PULSE 54; RESP 14; O2SAT 98
[2022-06-06 03:30] VITALS: BP 134/78; PULSE 61; RESP 20; O2SAT 98
--- NOTE | 2022-06-06 04:21 | ED.GENADULT ---
HPI - General Adult General Chief complaint: Extremity Injury, Lower Stated complaint: fall, L ankle pain, no LOC Time Seen by Provider: 06/06/22 00:36 History of Present Illness HPI narrative: Patient is a 72-year-old female who presents the emergency department with chief complaint of fall. Patient reports she was going from her laundry room in the garage and felt she was a ground-level patient reports that she does not believe she passed out reports that she did not get lightheaded but is unsure. The patient states that she has pain in her left ankle both of her knees and also reports pain in her shoulders and head neck. Patient reports now she just generally hurts all over. Related Data Home Medications Medication Instructions Recorded Confirmed Calcium 1500mg 1,500 mg PO DAILY 02/21/19 03/14/22 Imitrex 100 mg PO PRN PRN Migraine Headache 02/21/19 03/14/22 Slow Release Iron 45 mg PO DAILY 02/21/19 03/14/22 aspirin 81 mg tablet,delayed 81 mg PO DAILY 02/21/19 03/14/22 release (Eduardo Low Dose Aspirin) atorvastatin 20 mg tablet 40 mg PO DAILY 02/21/19 03/14/22 cetirizine 10 mg PO HS 02/21/19 03/14/22 diclofenac 75 mg-misoprostol 200 1 tablet PO BID 02/21/19 03/14/22 mcg tablet,immediate,delayed release (Arthrotec) methscopolamine 5 mg tablet 5 mg PO DAILY 02/21/19 03/14/22 montelukast 10 mg tablet 10 mg PO DAILY 02/21/19 03/14/22 (Singulair) sertraline 100 mg tablet (Zoloft) 150 mg PO DAILY 02/21/19 03/14/22 albuterol 90 mcg/actuation aerosol 90 mcg inhalation PRN PRN Wheezing 04/12/20 03/14/22 inhaler cholecalciferol (vitamin D3) 125 125 mcg PO DAILY 04/12/20 03/14/22 mcg (5,000 unit) capsule folic acid 1 mg tablet 1 mg PO DAILY 04/12/20 03/14/22 golimumab 12.5 mg/mL intravenous See Rx Instructions .Route .COMPLEX 04/12/20 03/14/22 solution (Simponi ARIA) methotrexate sodium 2.5 mg tablet 15 mg PO WEEKLY 04/12/20 03/14/22 vitamin E 268 mg (400 unit) capsule 400 unit PO DAILY 04/12/20 03/14/22 clonazepam 0.5 mg tablet 0.5 mg PO HS 04/11/21 03/14/22 magnesium 250 mg tablet 250 mg PO HS 04/11/21 03/14/22 thyroid (pork) 90 mg tablet 90 mg PO DAILY 04/11/21 03/14/22 ([place] Thyroid) hydrocodone 10 mg-acetaminophen 1 tablet PO Q8H PRN Pain 03/14/22 03/14/22 325 mg tablet Allergies Allergy/AdvReac Type Severity Reaction Status Date / Time cephalexin Allergy Severe RASH, Verified 06/05/22 23:48 ITCHING morphine Allergy Severe RASH Verified 06/05/22 23:48 Corticosteroids Allergy Intermediate Swelling Verified 06/05/22 23:48 (Glucocorticoids) levofloxacin Allergy Mild Rash Verified 06/05/22 23:48 Review of Systems Review of Systems: A 10 system review of systems was completed on the patient and is negative except for what is stated in the HPI. Nursing and ancillary documentation was reviewed. [facility] Past Medical History Medical History Anemia Ankle fracture, right Arthritis Asthma Depression Early cataracts, bilateral Falls GERD (gastroesophageal reflux disease) Headache Hemorrhoids History of recurrent UTIs HTN (hypertension) Hyperlipidemia Hypothyroid IBS (irritable bowel syndrome) Inguinal hernia Kidney stone on left side Migraines Parotid tumor left Pyelonephritis Rectal fistula Seasonal allergies TIA (transient ischemic attack) TMJ (dislocation of temporomandibular joint) Surgical History Surgical History H/O arthroscopy of shoulder (~2014) right H/O colonoscopy H/O hemorrhoidectomy (~2007) H/O meniscectomy of right knee History of arthroscopy of left shoulder History of bladder suspension procedure with InterStim bladder stimulator placement July 2016 with subsequent removal and replacement with a MRI safe device March 2020 History of carpal tunnel release (~2013) Right History of hysterectomy (~1976) History of mandibular surgery (~1977)
[2022-06-06] MEDS: HYDROcodone/acetaminophen (*CRX) 5-325 MG TABLET 1 TAB PO (04:31)
== END 2022-06-06 04:40 | disposition home or self-care (01) ==
PROVIDERS: Emergency Medicine; Emergency Provider Emergency Medicine
DX: S09.90XA Unspecified injury of head, initial encounter (principal); S93.402A Sprain of unspecified ligament of left ankle, initial encounter; S16.1XXA Strain of muscle, fascia and tendon at neck level, initial encounter; J45.909 Unspecified asthma, uncomplicated; I10 Essential (primary) hypertension; E78.5 Hyperlipidemia, unspecified; E03.9 Hypothyroidism, unspecified; D64.9 Anemia, unspecified; K21.9 Gastro-esophageal reflux disease without esophagitis; K58.9 Irritable bowel syndrome, unspecified; M19.90 Unspecified osteoarthritis, unspecified site; F32.A Depression, unspecified; Z96.652 Presence of left artificial knee joint; Z87.442 Personal history of urinary calculi; Z86.73 Personal history of transient ischemic attack (TIA), and cerebral infarction without residual deficits; Z90.710 Acquired absence of both cervix and uterus; Z98.42 Cataract extraction status, left eye; Z98.41 Cataract extraction status, right eye; I51.7 Cardiomegaly; Z79.82 Long term (current) use of aspirin; Z66 Do not resuscitate; W18.30XA Fall on same level, unspecified, initial encounter
CPT/HCPCS: 36415; 70450; 72125; 73030; 73562; 73610; 73620; 73630; 80053; 83690; 84484; 85025; 85610; 85730; 93005; 99284; A9270

== ENCOUNTER 2022-08-17 13:19 | Outpatient (CLI) | payer MEDICARE, SELFPAY ==
--- NOTE | ~2022-08-17 | XR_ITS ---
EXAMINATION: XR finger 2nd RT min 2V DATE: 08/17/2022 13:43 INDICATION: Right second finger pain and bruising post fall TECHNIQUE: Dorsal palmar, lateral and 2 oblique views of the second digit were obtained COMPARISON: None FINDINGS: Nondisplaced intra-articular fracture extending obliquely across the ulnar side of the base of the ri ght second proximal phalanx. There is approximately 1 mm lucent fracture gap without evident incongru ity. No other fractures identified. Severe polyarticular osteoarthritis at the first carpometacarpal and multiple proximal and distal interphalangeal joints. Moderate osteoarthritis at the triscaphe and first, second and fifth carpal phalangeal joints and mild osteoarthritis at the remaining metacarpop halangeal joints. Prominent soft tissue swelling dorsal to the second and third metacarpal phalangeal joints. IMPRESSION: 1. Nondisplaced intra-articular fracture at the base of the right second proximal phalanx. 2. Typical distribution of severe polyarticular osteoarthritis at the right hand. Reviewed, dictated and finalized at location A. IMPRESSION: 1. Nondisplaced intra-articular fracture at the base of the right second proxim al phalanx. 2. Typical distribution of severe polyarticular osteoarthritis at the right brown d.
== END 2022-08-17 13:20 | disposition home or self-care (01) ==
DX: S62.640A Nondisplaced fracture of proximal phalanx of right index finger, initial encounter for closed fracture (principal); M19.041 Primary osteoarthritis, right hand; W19.XXXA Unspecified fall, initial encounter
CPT/HCPCS: 73140

== ENCOUNTER 2022-10-31 11:21 | Outpatient (CLI) | payer MEDICARE, SELFPAY ==
--- NOTE | ~2022-10-31 | XR_ITS ---
Supine and upright views of the abdomen Clinical history: Renal stone COMPARISON: 10/26/2021 Findings: Bowel gas pattern is nonspecific. No evidence for obstruction or free air. No abnormal mass lesion or calcification is seen. Osseous structures are intact. Stable neurostimulator device. Impression: No definite renal stones seen. Reviewed, dictated and finalized at [facility]. Impression: No definite renal stones seen.
== END 2022-10-31 11:22 | disposition home or self-care (01) ==
PROVIDERS: Visit Provider Nurse Practitioner Family
DX: Z87.442 Personal history of urinary calculi (principal)
CPT/HCPCS: 74018

== ENCOUNTER 2022-11-20 10:15 | Outpatient (CLI) | payer MEDICARE, SELFPAY ==
--- NOTE | ~2022-11-20 | US_ITS ---
Ultrasound of the lateral right lower leg CLINICAL HISTORY: Pain, swelling TECHNIQUE: Real-time sonographic imaging performed at the area of clinical concern at the lateral rhonda n. FINDINGS: No mass lesion or fluid collection identified. No sonographic abnormality seen in the regio n scanned. Morphologically normal lymph nodes noted. IMPRESSION: No definite pathologic abnormality seen. Consider MR for further evaluation for soft tissue abnormali ty near lower extremity, as indicated. Reviewed, dictated and finalized at location . IMPRESSION: No definite pathologic abnormality seen. Consider MR for further evaluation for soft tissue abnormality near lower extremity, as indicated.
== END 2022-11-20 10:16 | disposition home or self-care (01) ==
LOC: ANHIMG 10:18
DX: M79.604 Pain in right leg (principal)
CPT/HCPCS: 76882

== ENCOUNTER 2023-02-17 00:51 | Emergency (ER) | payer MEDICARE, SELFPAY ==
--- NOTE | ~2023-02-17 | XR_ITS ---
EXAMINATION: XR chest 1V portable INDICATION: Shortness of breath TECHNIQUE: Portable AP chest at 0126 hours COMPARISON: 04/14/2021 FINDINGS: There are subtle airspace opacities of the upper lung zones and left lower lung zone. No pl eural effusion or pneumothorax. The cardiomediastinal silhouette is normal. Surgical clips are noted in the upper abdomen. IMPRESSION: 1. Patchy opacities of the upper lung zones and left lower lung zone, likely pneumonia. Reviewed, dictated and finalized at location F. ET SPECIALIST IMPRESSION: 1. Patchy opacities of the upper lung zones and left lower lung zone, likely pn eumonia.
[2023-02-17 00:54] VITALS: BP 117/90; PULSE 86; RESP 14; TEMP 36.7; O2SAT 99
[2023-02-17 00:58] VITALS: O2SAT 99
--- NOTE | 2023-02-17 01:04 | ECG_ITS ---
Measurements Intervals [place] Rate: 73 P: 226 ID: [id number] QRS: 11 QRSD: 73 T: 27 QT: 390 QTc: 431 Interpretive Statements SINUS RHYTHM MINIMAL Q WAVES- HIGH LATERAL LEADS BASELINE ARTIFACT- I, II, III, AVR, AVL, AVF, V6 BORDERLINE ECG COMPARED TO ECG 06/05/2022 18:56:56 NO SIGNIFICANT CHANGES Electronically Signed On 02-17-2023 8:29:44 WINDING INSPECTOR by Adolfo Huizar D.O.
--- NOTE | 2023-02-17 01:05 | ED.GENADULT ---
HPI - General Adult General Chief complaint: Upper Respiratory Infection Stated complaint: cough Time Seen by Provider: 02/17/23 00:57 History of Present Illness HPI narrative: This is a 72-year-old female with a history of asthma presenting ED with difficulty breathing. She has had 2 days of URI symptoms including a cough. Her breathing has gotten steadily worse and now she is having a cough with some associated chest pain. Chest pain is sharp, nonradiating and center chest and worse when she coughs. She denies fever chills nausea vomiting or diarrhea. She has been taking her albuterol inhaler with minimal relief. Related Data Home Medications Medication Instructions Recorded Confirmed Calcium 1500mg 1,500 mg PO DAILY 02/21/19 03/14/22 Imitrex 100 mg PO PRN PRN Migraine Headache 02/21/19 03/14/22 Slow Release Iron 45 mg PO DAILY 02/21/19 03/14/22 aspirin 81 mg tablet,delayed 81 mg PO DAILY 02/21/19 03/14/22 release (Eduardo Low Dose Aspirin) atorvastatin 20 mg tablet 40 mg PO DAILY 02/21/19 03/14/22 cetirizine 10 mg PO HS 02/21/19 03/14/22 diclofenac 75 mg-misoprostol 200 1 tablet PO BID 02/21/19 03/14/22 mcg tablet,immediate,delayed release (Arthrotec) methscopolamine 5 mg tablet 5 mg PO DAILY 02/21/19 03/14/22 montelukast 10 mg tablet 10 mg PO DAILY 02/21/19 03/14/22 (Singulair) sertraline 100 mg tablet (Zoloft) 150 mg PO DAILY 02/21/19 03/14/22 albuterol 90 mcg/actuation aerosol 90 mcg inhalation PRN PRN Wheezing 04/12/20 03/14/22 inhaler cholecalciferol (vitamin D3) 125 125 mcg PO DAILY 04/12/20 03/14/22 mcg (5,000 unit) capsule folic acid 1 mg tablet 1 mg PO DAILY 04/12/20 03/14/22 golimumab 12.5 mg/mL intravenous See Rx Instructions .Route .COMPLEX 04/12/20 03/14/22 solution (Simponi ARIA) methotrexate sodium 2.5 mg tablet 15 mg PO WEEKLY 04/12/20 03/14/22 vitamin E 268 mg (400 unit) capsule 400 unit PO DAILY 04/12/20 03/14/22 clonazepam 0.5 mg tablet 0.5 mg PO HS 04/11/21 03/14/22 magnesium 250 mg tablet 250 mg PO HS 04/11/21 03/14/22 thyroid (pork) 90 mg tablet 90 mg PO DAILY 04/11/21 03/14/22 ([place] Thyroid) hydrocodone 10 mg-acetaminophen 1 tablet PO Q8H PRN Pain 03/14/22 03/14/22 325 mg tablet Allergies Allergy/AdvReac Type Severity Reaction Status Date / Time cephalexin Allergy Severe RASH, Verified 02/17/23 01:01 ITCHING morphine Allergy Severe RASH Verified 02/17/23 01:01 Corticosteroids Allergy Intermediate Swelling Verified 02/17/23 01:01 (Glucocorticoids) levofloxacin Allergy Mild Rash Verified 02/17/23 01:01 PMFSH Past Medical History Medical History Anemia Ankle fracture, right Arthritis Asthma Depression Early cataracts, bilateral Falls GERD (gastroesophageal reflux disease) Headache Hemorrhoids History of recurrent UTIs HTN (hypertension) Hyperlipidemia Hypothyroid IBS (irritable bowel syndrome) Inguinal hernia Kidney stone on left side Migraines Parotid tumor left Pyelonephritis Rectal fistula Seasonal allergies TIA (transient ischemic attack) TMJ (dislocation of temporomandibular joint) Surgical History Surgical History H/O arthroscopy of shoulder (~2014) right H/O colonoscopy H/O hemorrhoidectomy (~2007) H/O meniscectomy of right knee History of arthroscopy of left shoulder History of bladder suspension procedure with InterStim bladder stimulator placement July 2016 with subsequent removal and replacement with a MRI safe device March 2020 History of carpal tunnel release (~2013) Right History of hysterectomy (~1976) History of mandibular surgery (~1977) History of meniscectomy of left knee (~05/2015) History of Ofelia fundoplication (~2014) History of sinus surgery (~2015) History of uvulopalatopharyngoplasty (~2013) Hx of appendectomy (~1974) Hx of LASIK (~2005) S/P cubital tunnel release (~2013) S/P right knee arthroscopy S/P ure
[2023-02-17] MEDS: ALBUTEROL SULFATE NEB 2.5 MG/3 ML INH 10 MG INHALATION (01:18)
[2023-02-17] MEDS: IPRATROPIUM BR 0.02% INH SOLN 0.5 MG/2.5 ML VIAL 1 MG INHALATION (01:18)
[2023-02-17 01:27] LABS: Basophils Percent Auto 0.2 % (0.2-1.2); Eosinophils Absolute Auto 0.2 K/mm3 (0-0.3); Eosinophils Percent Auto 3.7 % (0-4.4); Hematocrit 35.6 % (37.0-47.0); Hemoglobin 11.4 g/dL (12.0-15.0); Immature Granulocyte Absolute 0.01 K/mm3 (0.00-0.031); Immature Granulocyte Percent A 0.2 % (0-0.5); Lymphocytes Absolute Auto 2.17 K/mm3 (0.9-3.2); Lymphocytes Percent Auto 40.1 % (18.3-44.2); Mean Corpuscular Hemoglobin 31.7 pg (26-34); Mean Corpuscular Volume 98.9 fl (80-100); Mean Platelet Volume 9.7 fl (7.4-10.4); Monocytes Absolute Auto 0.7 K/mm3 (0.1-0.6); Neutrophils Absolute Auto 2.4 K/mm3 (1.3-6.7); Neutrophils Percent Auto 43.8 % (45.5-73.1); Platelet Count Result 206 k/mm3 (150-375); Red Cell Distribution Width 12.6 % (11.5-14.5); White Blood Count 5.4 K/mm3 (4.5-10.0)
[2023-02-17 01:28] VITALS: PULSE 78; RESP 20
[2023-02-17] MEDS: MAGNESIUM SULF 2 GM/WATER 50ML 2 GM/50 ML BAG IVPB (01:32)
[2023-02-17] MEDS: SODIUM CHLORIDE 0.9% IV 1,000 ML 999 ML IV CONT (01:33)
[2023-02-17] MEDS: guaiFENesin/DEXTROMETHORPHAN 10 ML UDC PO (01:39)
[2023-02-17 01:43] VITALS: PULSE 76; RESP 18; O2SAT 100
[2023-02-17 02:05] LABS: Influenza A QL RT-PCR Positive (Negative); Influenza B QL RT-PCR Negative (Negative); RSV RNA, RT-PCR Negative (Negative); SARS-CoV-2 RNA PCR Negative (Negative)
[2023-02-17 02:23] LABS: Anion Gap 7 mmol/L (8-16); Blood Urea Nitrogen 20 mg/dL (7-17); Calcium 8.6 mg/dL (8.4-10.2); Carbon Dioxide 25 mmol/L (22-30); Chloride 107 mmol/L (98-107); Estimated CRCL calculation 34 ml/min; Estimated Glomerular Filt Rate 49; Glucose 82 mg/dL (65-110); Potassium 4.9 mmol/L (3.4-5.0); Sodium 139 mmol/L (137-145)
== END 2023-02-17 04:45 | disposition home or self-care (01) ==
PROVIDERS: Emergency Provider Emergency Medicine
DX: J10.1 Influenza due to other identified influenza virus with other respiratory manifestations (principal); J45.909 Unspecified asthma, uncomplicated; Z20.822 Contact with and (suspected) exposure to COVID-19; I10 Essential (primary) hypertension; E78.5 Hyperlipidemia, unspecified; E03.9 Hypothyroidism, unspecified; D64.9 Anemia, unspecified; M19.90 Unspecified osteoarthritis, unspecified site; K21.9 Gastro-esophageal reflux disease without esophagitis; K58.9 Irritable bowel syndrome, unspecified; F32.A Depression, unspecified; Z66 Do not resuscitate; Z86.73 Personal history of transient ischemic attack (TIA), and cerebral infarction without residual deficits; Z87.442 Personal history of urinary calculi; Z87.440 Personal history of urinary (tract) infections; Z90.710 Acquired absence of both cervix and uterus; Z98.42 Cataract extraction status, left eye; Z98.41 Cataract extraction status, right eye; Z96.1 Presence of intraocular lens
CPT/HCPCS: 36415; 71045; 80048; 85025; 87637; 93005; 94640; 96361; 96365; 99283; 99284; A9270; J3475; J7030

== ENCOUNTER 2023-02-21 16:05 | Outpatient (CLI) | payer MEDICARE, SELFPAY ==
--- NOTE | ~2023-02-21 | XR_ITS ---
EXAMINATION: XR chest 2V 02/21/2023 16:24 INDICATION: Cough, shortness of breath and chest pain PROCEDURE: 2 view chest COMPARISON: Comparison to multiple prior studies sequentially, with oldest reviewed study dated 11/2021. FINDINGS: The lungs are clear. The cardiomediastinal silhouette is within normal limits. There are no pleural effusions. There is no pneumothorax suspected. IMPRESSION: 1: NO ACUTE CARDIOPULMONARY DISEASE. Reviewed, dictated and finalized at location B. RVENTIONIST
== END 2023-02-21 16:06 | disposition home or self-care (01) ==
DX: R05.9 Cough, unspecified (principal)
CPT/HCPCS: 71046

== ENCOUNTER 2024-04-14 14:12 | Outpatient (CLI) | payer MEDICARE, SELFPAY ==
[2024-04-14 15:16] LABS: Parathyroid Intact 42.9 pg/mL (14.5-75.2)
[2024-04-14 15:16] LABS: Alanine Aminotransferase 19 U/L (6-35); Albumin Level 4.1 g/dL (3.5-5.1); Alkaline Phosphatase 63 U/L (38-126); Anion Gap 8 mmol/L (4-12); Aspartate Amino Transferase 29 U/L (14-36); Bilirubin,Total 0.5 mg/dL (0.2-1.3); Blood Urea Nitrogen 15 mg/dL (7-17); Calcium 8.9 mg/dL (8.4-10.2); Carbon Dioxide 27 mmol/L (22-30); Chloride 105 mmol/L (98-107); Estimated Glomerular Filt Rate > 60; Glucose 98 mg/dL (65-110); Potassium 4.3 mmol/L (3.4-5.0); Sodium 140 mmol/L (137-145)
== END 2024-04-14 14:13 | disposition home or self-care (01) ==
DX: M81.0 Age-related osteoporosis without current pathological fracture (principal)
CPT/HCPCS: 36415; 80053; 83970

== ENCOUNTER 2024-05-02 19:14 | Emergency (ER) | payer MEDICARE, SELFPAY ==
--- NOTE | ~2024-05-02 | CT_ITS ---
EXAMINATION: CT abdomen pelvis w con DATE: 05/03/2024 01:08 INDICATION: Abdominal pain. TECHNIQUE: Computed tomography (CT) of the abdomen and pelvis was performed with 100 mL Omnipaque 350 intravenous contrast. Automated exposure control and iterative reconstruction technique were employe d. The dose-length product was 259.25 mGy-cm. COMPARISON: CT abdomen and pelvis 04/11/2021 FINDINGS: The visualized portions of the lung bases demonstrate mild atelectasis. No pleural effusion . The heart size is normal. There are coronary artery calcifications. No pericardial effusion. There are changes of fundoplication of the stomach. The liver, gallbladder, spleen, pancreas, and adrenal g lands are normal. There is cortical thinning of the kidneys. There is a right inguinal hernia contain ing fat. There is diverticulosis of the colon without evidence of diverticulitis. There are no dilate d loops of bowel. The appendix is not visualized. There are no pathologically enlarged lymph nodes. T here is no free intraperitoneal fluid. There is an electrode in left S3 neural foramen with subcutane ous electronic device in right flank. There is severe thoracic spondylosis and mild lumbar spondylosi s. IMPRESSION: 1. Right inguinal hernia containing fat. Reviewed, dictated and finalized at location A. T ANALYST
--- NOTE | ~2024-05-02 | XR_ITS ---
CHEST RADIOGRAPH, PA AND LATERAL CLINICAL HISTORY: cp . COMPARISON: 02/21/2023 TECHNIQUE: PA and lateral views of the chest. FINDINGS The cardiomediastinal silhouette is unremarkable. The lungs are clear. Visualized osseous structures and soft tissues are unremarkable. IMPRESSION: No focal infiltrate or effusion. Reviewed, dictated and finalized at location A. ST FIRE FIGHTER
--- OUTSIDE RECORDS SUMMARY | 2024-05-02 19:17 | XMS_ITS ---
Author Organization [facility] shantal Address [address] [facility] [address] [place] [address] Care Team Providers Care Correctional Supervising Cook Name Role Phone Justus Chi Unavailable [phone] zzzzMigration, zzzzProvider Unavailable Unav ailable Allergies Allergen (clinical drug ingredient) Drug/Non Drug Allergy documented on EMR Reaction Allergy Type Onset Date Status fluticasone / salmeterol Advair Diskus Notes: Throat swelling Drug Allergy 01/02/2006 Active Keflex Notes: Rash, itching-started after Bladder electrode Drug Allergy 08/12/2016 Active triamcinolone Kenalog Notes: local reaction Drug Allergy 01/02/2006 Active morphine Morphine Notes: Redness, Itching Drug Allergy 08/14/2016 Active REASON FOR VISIT EMR-Dick Medications Medication SIG (Take, Route, Frequency, Duration) Notes Start Date End Date Status Clobetasol Propionate 0.05% apply a thin layer to the affected area(s) by topical route 2 times per day External 2 04/15/2020 Active Albuterol Sulfate HFA 108 (90 Base) MCG/ACT inhale 1 - 2 puffs (90 - 180 mcg) by inhalation route every 4-6 hours as needed Inhalation 6 04/18/2021 Active Meloxicam 15 MG take 1 tablet (15 mg ) by oral route once daily Oral 1 Active Encounters Encounter Location Date Provider Diagnosis [facility] [address] [facility] [facility] [address] [place] [address] 01/14/2023 zzzzProvider zzzzMigration Plan Of Treatment No Information Progress Notes * Massiel GONZALEZ ADOB: [birth year] (74 yo F)Acc No.[id number]:01/14/2023 Patient: Massiel GARCIA :1950 A ge:72 Y S ex:Female Address:[address] [place] [address], [id number] Subjective: * Chief Complaints: * E MR-Dick * Medical History: * OB History: M igrated OBHistory P regnancy:: Total Pregnancies: 0, Full Term: 0, . * Surgical History: B ladder Surgery: suspension-1974 with Appy; Bladder electrode placed- 08/11/16; 5065-66-34Sbqlnusgmmlzd; 0153-81-76eupljh: surgery-2007; 2011-02-27T&A: 1958; 2894-63-84ZFB: broke and set in place- 1977; 8767-82-11XPEKPXVTANE: right shoulder capsular release-for adhesive capsulitis-2003; 6363-42-26OHH-BSO: with severe endometriosis, Date of Procedure: 1976; 3190-41-37Whetaq Stones: removed- surgery-05/2008; 0550-89-15Ogsfdwqfokuk: with bladder sling, Date of Procedure: 1974; 1977-07-44Qdierdmern: Cystouretero with stone removal and cystoscopy and treatment, Date of Procedure: 2007; 9375-41-64pfuehm: Severe TMJ and TMJ broken and reset jawFull dental implants, Date of Procedure: 1977, 2018; 0342-83-44Elloz: Unsuccessful, Date of Procedure: 2010; 5377-08-64Nesgohozxtl, Date of Procedure: 2008; 3312-35-69Oboxovcpldllx: Left parotid gland tumor removal, Date of Procedure: 1998; 6778-74-02Ziwvxcpy surgery: Shoulder manipulation under anesthesia and arthroscopic capular release; 05/15/14 -Left shoulder arthroscopic surgery, Date of Procedure: 2003; 9688-44-23Vjfg surgery: Right open knee surgery-menical repair; 06/10/15-Left knee-meniscal repair-; Right knee medial/lateral menical repair-11/10/2020. Left TKR-01/03/2021-, Date of Procedure: December 02 2008; 9419-04-32yfkcww tunnel surgery: Left-05/20/13 and Right 07/07/13 with right elbow nerve repair ; 7207-46-95Zfyzf Surgery: -sinus surgery, nasal septal repair with senior design engineering specialist, UPPP, ablation base of tongue. July 05, 2015--Sinus surgery revision, Date of Procedure: 07/29/13; 3160-08-41Mvblof Fundoplication: for HH, Date of Procedure: 03/17/15; 9929-77-97Tejuziwbpts: Sonna Ivory-back and abd fat removal, Date of Procedure: 06/2017; 5096-01-52Jqgjmixd extraction: Left -12/28/2020; Right-01/07/2021; : Ankle surgery: 1960 Right compound fx; 2007-Right ankle fusion; 09/11/2008-Surgery removed pins from right ankle; 10/31/2011-right ankle addnl fusion, pins inserted, bone taken from right hip and grafted to right ankle; 09/24/2012- Pins removed from right : ankle. 07/14/15-Extensive ankle/foot surgery- Dr.Joshua Jamil; 2013-02-28 * Hospitalization/Major Diagno stic Procedure: * Family History: F ather: Cancer Notes: colon , Father Notes: . illnesses: colon cancer. cause of was a ruptured colon. occured at age 70. also had multiple colon polyps, CABG, lung cancer, chronic lung disease, RA, OA, OP . M igrated Family History: Mother Notes: 93 y/o. 04/25/2021 HTN, hypercholesterolemia, , Colon Polyps, Migraines . M other: hypercholestrolemia , Hypertension . P aternal Grandfather: Grandfather (paternal): Paternal Grandfather Notes: . illnesses: colon cancer, lung cancer. cause of was a ruptured aneurysm. occured in the 70's . P aternal Grandmother: Grandmother (paternal): Paternal Grandmother Notes: . occured in the 80's . M aternal Grandfather: Grandfather (maternal): Maternal Grandfather Notes: . cause of was advanced age. occured at age 87 . M aternal Grandmother: Grandmother (maternal): Maternal Grandmother Notes: . illnesses: CVA, diabetes, HTN, hypercholesterolemia. occured at age 94 . B rother: Sibling-Brother Notes: 1x bro- from colon cancer in his 50's, heart murmur . * Social History: M igrated Social History: M igrated Social History: :: Adopted :: note : 7x children. 2 are adopted, 5 are biological. , :: Carbon monoxide detectors-PRESENT , :: Guns-NONE , :: not currently sexually active , :: Seatbelt-WEARS , :: SEXUALLY ACTIVE , :: Smoke detectors- PRESENT , Exercise :: None Lately , Exercise :: Treadmill , Marital Status :: :: note : - Jeri 01/14/2018 , Marital Status :: Remarried :: note : December 21, 2012 , Occupation :: * Other :: note : Retire 02/2013 , Occupation :: Retired :: note : - Jeri 01/14/2018 , Occupation :: [employer] , Substance Use :: Alcohol :: Never :: note : Use status used: Never , Substance Use :: Caffeine :: Never , Substance Use :: Illicit Drugs :: Never , Substance Use :: Tobacco :: Never. * Medications: T akingClobetasol Propionate 0.05% Cream apply a thin layer to the affected area(s) by topical route 2 times per day External 2 Albuterol Sulfate HFA 108 (90 Base) MCG/ACT Aerosol Solution inhale 1 - 2 puffs (90 - 180 mcg) by inhalation route every 4-6 hours as needed Inhalation 6 Meloxicam 15 MG Tablet take 1 tablet (15 mg) by oral route once daily Oral 1 Taking Clobetasol Propionate 0.05% Cream apply a thin layer to the affected area(s) by topical route 2 times per day External 2 Taking Albuterol Sulfate HFA 108 (90 Base) MCG/ACT Aerosol Solution inhale 1 - 2 puffs (90 - 180 mcg) by inhalation route every 4-6 hours as needed Inhalation 6 Taking Meloxicam 15 MG Tablet take 1 tablet (15 mg) by oral route once daily Oral 1 * Allergies: A dvair Diskus: Notes: Throat swelling - Allergy - Onset Date 01/02/2006Keflex: Notes: Rash, itching-started after Bladder electrode - Allergy - Onset Date 08/12/2016Kenalog: Notes: local reaction - Allergy - Onset Date 01/02/2006Morphine: Notes: Redness, Itching - Allergy - Onset Date 08/14/2016 Objective: * Vitals: * Physical Examination: Assessment: Plan: * Treatment: * Procedure Codes: * * Date:
--- OUTSIDE RECORDS SUMMARY | 2024-05-02 19:17 | XMS_ITS | Clinical Summary ---
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 Gender Identity Not on file Sexual Orientation Not on file Plan of Treatment Health Maintenance Due Date Last Done Comments DEXA Bone Density 1950 Hepatitis C Virus (HCV) Screening 1950 Colonoscopy 02/19/1993 Colorectal Cancer Screening 02/19/1993 Cologuard 02/19/1998 Immunochemical Fecal Occult Blood 02/19/1998 Pneumococcal Immunization (50+ years) (1 of 1 - PCV) 02/19/1998 Respiratory Syncytial Virus (RSV) Immunization (Adult) (1 - 1-dose 75+ series) 02/19/2023 Influenza Immunization (#1) 11/25/202311/25, 12/05/2019, 12/18/2018, Additional history exists SARS-COV-2 Immunization ( season) 2023 03/11/2021, 06/17/2020, 05/27/2020 DTaP/Tdap/Td Immunization Discontinued 08/24/2014 TdaP Immunization Completed 08/24/2014 Zoster Immunization Completed 06/11/2019, 9 Hepatitis B Immunization Aged Out No longer eligible based on patient's age to complete this topic Meningococcal Immunization (ACWY) Aged Out No longer eligible based on patient's age to complete this topic Rotavirus Immunization Aged Out No lo nger eligible based on patient's age to complete this topic
--- OUTSIDE RECORDS SUMMARY | 2024-05-02 19:17 | XMS_ITS | Clinical Summary ---
Author Organization 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 Active amLODIPine (NORVASC) 2.5 mg tablet Take 2.5 mg by mouth daily. Active atorvastatin (LIPITOR) 20 mg tablet Take 20 mg by mouth daily . Active calcium acetate (PHOSLO) 667 mg Capsule Take 1,500 mg by mouth daily. Active SUMAtriptan (IMITREX) 100 mg tablet Take 100 mg by mouth see administration instructions may repeat in 2 hours; max dose 200mg in 24 hours . Active OTHER Take 12.5 mg by mouth every Sunday, Sunday, and Sunday Iodoral . Active thyroid, pork, (NATURE-THROID ) 81.25 mg Tablet Take by mouth daily. Active hydroxychloroq uine (PLAQUENIL) 200 mg tablet Take 400 mg by mouth daily. Active omeprazole (PRILOSEC) 20 mg Capsule, Delayed Release(E.C.) Take 20 mg by mouth daily. Active cycloSPORINE (RESTASIS) 0.05 % emulsion Administer 1 Drop in both eyes 2 times daily. Active montelukast (SINGULAIR) 10 mg tablet Take 10 mg by mouth daily at bedtime. Active FERROUS SULFATE, DRIED (SLOW REL IRON ORAL) Take 45 mg by mouth daily. Active sulfaSALAzine (AZULFIDINE) 500 mg tablet Take 1,000 mg by mouth 2 times daily. Active fesoterodine SR 24 hour (TOVIAZ) 8 mg tablet Take 8 mg by mouth daily. Active VITAMIN E, DL,TOCOPHERYL ACET, (VITAMIN E, DL,ACETATE,) 400 unit Capsule Take by mouth daily. Active cholecalcifero l, Vitamin D3, (VITAMIN D3) 1,000 unit Capsule Take by mouth daily. Active diclofenac sodium (VOLTAREN) 1 % gel Apply 2 Gram to affected area 4 times daily. Active sertraline (ZOLOFT) 100 mg tablet Take 100 mg by mouth daily. Active oxyCODONE (ROXICODONE) 5 mg tablet Take 1-2 tabs po q 3-4 hours prn pain. 40 Tablet 0 6 Active hydrOXYzine pamoate (VISTARIL) 25 mg capsule Take 1-2 caps po q 6 hours prn nausea. 40 Capsule 1 6 Active Active Problems Problem Noted Date Diagnosed Date Arthritis of foot, right 07/14/2015 Encounters Date Type Department Care Team Description 05/02/2024 2:45 PM CENTRIFUGAL DRIER OPERATOR Ancillary Procedure [address] [address] Jaret Jaramillo MD Foot and ankle pain 05/02/2024 2:15 PM CENTRIFUGAL DRIER OPERATOR Ancillary Procedure [address] [address] Jaret Jaramillo MD Right foot pain from Last 3 Months Immunizations Immunization Administration Dates Next Due (PREVNAR 13)(6 WKS UP) PNEUM OCOCCAL CONJUGATE (PCV13) 0.5 ML, IM 07/15/2015 Influenza Seasonal Unspecified Formulation IM Pneumococcal conjugate, unspecified formulation 07/13/2013 Social History Tobacco Use Types Packs/Day Years Used Date Smoking Tobacco: Never Smokeless Tobacco: Never Alcohol Use Standard Drinks/Week Comments No 0 (1 standard drink = 0.6 oz pur e alcohol) Comments No Sex and Gender Information Value Date Recorded Sex Assigned at Not on file Legal Sex Female 4:45 AM CENTRIFUGAL DRIER OPERATOR Gender Identity Not on file Sexual Orientation Not on file Last Filed Vital Signs Vital Sign Reading Time Taken Comments Blood Pressure 95/50 07/15/2015 1:04 PM CDT Pulse 73 07/15/2015 1:04 PM CDT Temperature 36.9 C (98.4 F) 07/15/2015 1:04 PM CDT Respiratory Rate 16 07/15/2015 1:04 PM CDT Oxygen Saturation 94% 07/15/2015 1:04 PM CDT Inhaled Oxygen Concentration - - Weight 63.5 kg (140 lb) 07/14/2015 8:48 AM CDT Height 162.6 cm (5' 4 ) 07/02/2015 12:05 PM CDT Body Mass Index 24.03 07/02/2015 12:05 PM CDT Plan of Treatment Health Maintenance Due Date Last Done Comments DTAP/TDAP/TD VACCINES (1 - Tdap) 02/19/1967 08/25/19 15 ZOSTER VACCINE (1 of 2) 02/19/1967 06/11/2019, 12/18 OSTEOPOROSIS SCREENING 02/19/2013 4, 02/05/2024, 01/31/2023 PNEUMOCOCCAL VACCINE 65+ YEA RS (2 of 2 - PPSV23) 09/09/2015 07/15/2015, 07/13/2013 RSV VACCINE (60+ or ) (1 - 1-dose 75+ series) 02/19/2023 INFLUENZA VACCINE (#1) 2023 2, 12/18/2018, 12/11/2016, Additional history exists Medical Devices Implanted Type Area 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 Right: Foot [employer] 08/02/2015 [id number] / [id number] / Description:req#[id number] Ankle Locking Nail 10 X 150 Mm Implanted:Qty : 1 on 07/14/2015 by Jaret Jaramillo MD at [facility] N[place] Right: Foot [employer] 10/24/2023 [id number] / / [id number] Description:All Biomet traum a components are processed on requisition, Stimublast Dbm Putty 5cc Implanted:Qty : 1 on 07/14/2015 by Jaret Jaramillo MD at [facility] Putty Right: Ankle [employer] 11/11/2016 ABS-2003-0 5 / / [id number] Description:All [employer] ankl e components are processed on requisition,[id number]. Stimublast Dbm Putty 5cc Implanted:Qty : 1 on 07/14/2015 by Jaret Jaramillo MD at [facility] [place] Right: Ankle [employer] 02/11/2017 ABS-2003-0 5 / / [id number] 4.0 X 26 Mm Cannulated Screw Implanted:Qty : 1 on 07/14/2015 by Jaret Jaramillo MD at [facility] Screw Right: Foot [employer] AR-8740-26 PTS / / [id number] 4.0 X 32 Mm Cannulated Screw Implanted:Qty : 1 on 07/14/2015 by Jaret Jaramillo MD at [facility] Screw Right: Foot [employer] AR-8740-32 PTS / / [id number] Screw Dbl Lead 5.0x24mm [id number] - [id number] Implanted:Qty : 1 on 07/14/2015 by Jaret Jaramillo MD at [facility] Screw Right: Foot [employer] 03/25/2024 [id number] / / [id number] Screw Dbl Lead 5.0x22mm [id number] - [id number] Implanted:Qty : 1 on 07/14/2015 by Jaret Jaramillo MD at [facility] Screw Right: Foot [employer] 01/23/2022 [id number] / / [id number] Screw Dbl Lead 5.0x46mm [id number] - [id number] Implanted:Qty : 1 on 07/14/2015 by Jaret Jaramillo MD at [facility] Screw Right: Foot [id number] 12/19/2024 [id number] / / [id number] Screw Dbl Lead 5.0x65mm [id number] - [id number] Implanted:Qty : 1 on 07/14/2015 by Jaret Jaramillo MD at [facility] Screw Right: Foot [employer] [id number] 05/30/2025 [id number] / / [id number] Procedures Procedure Name Priority Date/Time Associated Diagnosis Comments CT ANKLE WO CONTRAST RIGHT Routine 05/02/2024 2:02 PM CENTRIFUGAL DRIER OPERATOR Foot and ankle pain CT FOOT WO CONTRAST RIGHT Routine 05/02/2024 2:02 PM CENTRIFUGAL DRIER OPERATOR Right foot pain from Last 3 Months Results * CT ANKLE WO CONTRAST RIGHT (05/02/2024 2:02 PM CENTRIFUGAL DRIER OPERATOR) Anatomical Region Laterality Modality Ankle / Foot Computed Tomogra phy 05/02/2024 2:02 PM CENTRIFUGAL DRIER OPERATOR Impressions 05/02/2024 3:52 PM CENTRIFUGAL DRIER OPERATOR IMPRESSION: 1. Complete bridging bony trabeculae across the right tibiotalar and subtalar joint fusion sites. 2. Complete bridging bony trabeculae across the right 1st tarsometatarsal joint fusion site. 3. Partial bridging bony trabeculae between the right medial and intermediate cuneiforms. 4. 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 5. Mild chronic right plantar fascitis with small associated heel spur. 6. Mild to moderate right Achilles tendinopathy without definite associated tear. Narrative 05/02/2024 3:52 PM CENTRIFUGAL DRIER OPERATOR EXAM: CT ANKLE WO CONTRAST RIGHT, CT FOOT WO CONTRAST RIGHT DATE: 05/02/2024 CLINICAL HISTORY: Right foot and ankle pain, history of prior surgical fusions TECHNIQUE: Computed tomographic images of the right ankle were obtained in the axial plane in both bone and soft tissue windows without the administration of contrast. Coronal and sagittal reformatted images were performed in both bone and soft tissue windows. Computed tomographic images of the right foot were obtained in the axial plane in both bone and soft tissue windows. Coronal and sagittal reformatted images were performed in both bone and soft tissue windows. Comparison was made to right foot and right ankle radiographs performed July 31, 2019 and a prior right ankle CT performed June 10, 2015. FINDINGS: Right ankle: There is mild to moderate dorsal subluxation of the navicular in relation to the talus. No acute or healing fracture is identified. Tibiotalar and subtalar arthrodesis is transfixed with an intramedullary chip extending from the calcaneus through the talus into the tibia with one proximal and 2 distal locking screws. The more distal locking screw extends to the level of the calcaneocuboid joint. There is complete bridging bony trabeculae across the tibiotalar and subtalar joints. There is severe talonavicular and calcaneocuboid osteoarthritis. Fusion procedure of the 1st tarsometatarsal joint is transfixed with 2 partially threaded screws and there is complete ridging bony trabeculae across the 1st tarsometatarsal joint. There is partial bridging bony trabeculae across the joint between the medial and intermediate cuneiforms. There is mild 2nd and 3rd tarsometatarsal joint, mild to moderate 4th tarsometatarsal joint and moderate 5th tarsometatarsal joint osteoarthritis. Focal heterotopic ossification is present at the insertion of the peroneus brevis tendon of the 5th metatarsal base. Focal heterotopic ossification is also present at the insertion of the Achilles tendon on the calcaneus. An os perineum is present. The medial, lateral and anterior ankle tendons all appear to be intact, though evaluation is limited on CT compared to MRI. There is mild to moderate Achilles tendinopathy without definite associated tear. There is mild thickening of the proximal aspect of the medial bundle of the plantar fascia with a small associated heel spur. There is [id number]. Patchy fatty atrophy of the visible intrathoracic muscles, particularly the abductor digiti minimi muscle belly. The subcutaneous tissues are normal. Right foot: There is mild to moderate dorsal subluxation of the navicular in relation to the talus. No acute or healing fracture is identified. Tibiotalar and subtalar arthrodesis is transfixed with an intramedullary chip extending from the calcaneus through the talus into the tibia with 2 distal locking screws. The more distal locking screw extends to the level of the calcaneocuboid joint. There is complete bridging bony trabeculae across the tibiotalar and subtalar joints. There is severe talonavicular and calcaneocuboid osteoarthritis. Fusion procedure of the 1st tarsometatarsal joint is transfixed with 2 partially threaded screws and there is complete ridging bony trabeculae across the 1st tarsometatarsal joint. There is partial bridging bony trabeculae across the joint between the medial and intermediate cuneiforms. There is mild 2nd and 3rd tarsometatarsal joint, mild to moderate 4th tarsometatarsal joint and moderate 5th tarsometatarsal joint osteoarthritis. There is mild 1st metatarsophalangeal and [id number]-[id number] sesamoidometatarsal osteoarthritis. There is mild great toe interphalangeal joint and minimal 2nd through 5th metatarsophalangeal joint osteoarthritis and mild osteoarthritis of the interphalangeal joints of the lesser toes. Focal heterotopic ossification is present at the insertion of the peroneus brevis tendon on the 5th metatarsal base. Focal heterotopic ossification is also present at the insertion of the Achilles tendon on the calcaneus. An os peroneum is present. There is moderate patchy fatty atrophy of the visible muscles. The flexor and extensor tendons appear to be intact, though evaluation is limited on CT compared to MRI. There is mild to moderate Achilles tendinopathy without definite associated tear. There is mild thickening of the proximal aspect of the medial bundle of the plantar fascia with a small associated heel spur. The subcutaneous tissues are normal. Procedure Note Mallorie Ladd MD - 05/02/2024 EXAM: CT ANKLE WO CONTRAST RIGHT, CT FOOT WO CONTRAST RIGHT DATE: 05/02/2024 CLINICAL HISTORY: Right foot and ankle pain, history of prior surgical fusions TECHNIQUE: Computed tomographic images of the right ankle were obtained in the axial plane in both bone and soft tissue windows without the administration of contrast. Coronal and sagittal reformatted images were performed in both bone and soft tissue windows. Computed tomographic images of the right foot were obtained in the axial plane in both bone and soft tissue windows. Coronal and sagittal reformatted images were performed in both bone and soft tissue windows. Comparison was made to right foot and right ankle radiographs performed July 31, 2019 and a prior right ankle CT performed June 10, 2015. FINDINGS: Right ankle: There is mild to moderate dorsal subluxation of the navicular in relation to the talus. No acute or healing fracture is identified. Tibiotalar and subtalar arthrodesis is transfixed with an intramedullary chip extending from the calcaneus through the talus into the tibia with one proximal and 2 distal locking screws. The more distal locking screw extends to the level of the calcaneocuboid joint. There is complete bridging bony trabeculae across the tibiotalar and subtalar joints. There is severe talonavicular and calcaneocuboid osteoarthritis. Fusion procedure of the 1st tarsometatarsal joint is transfixed with 2 partially threaded screws and there is complete ridging bony trabeculae across the 1st tarsometatarsal joint. There is partial bridging bony trabeculae across the joint between the medial and intermediate cuneiforms. There is mild 2nd and 3rd tarsometatarsal joint, mild to moderate 4th tarsometatarsal joint and moderate 5th tarsometatarsal joint osteoarthritis. Focal heterotopic ossification is present at the insertion of the peroneus brevis tendon of the 5th metatarsal base. Focal heterotopic ossification is also present at the insertion of the Achilles tendon on the calcaneus. An os perineum is present. The medial, lateral and anterior ankle tendons all appear to be intact, though evaluation is limited on CT compared to MRI. There is mild to moderate Achilles tendinopathy without definite associated tear. There is mild thickening of the proximal aspect of the medial bundle of the plantar fascia with a small associated heel spur. There is [id number]. Patchy fatty atrophy of the visible intrathoracic muscles, particularly the abductor digiti minimi muscle belly. The subcutaneous tissues are normal. Right foot: There is mild to moderate dorsal subluxation of the navicular in relation to the talus. No acute or healing fracture is identified. Tibiotalar and subtalar arthrodesis is transfixed with an intramedullary chip extending from the calcaneus through the talus into the tibia with 2 distal locking screws. The more distal locking screw extends to the level of the calcaneocuboid joint. There is complete bridging bony trabeculae across the tibiotalar and subtalar joints. There is severe talonavicular and calcaneocuboid osteoarthritis. Fusion procedure of the 1st tarsometatarsal joint is transfixed with 2 partially threaded screws and there is complete ridging bony trabeculae across the 1st tarsometatarsal joint. There is partial bridging bony trabeculae across the joint between the medial and intermediate cuneiforms. There is mild 2nd and 3rd tarsometatarsal joint, mild to moderate 4th tarsometatarsal joint and moderate 5th tarsometatarsal joint osteoarthritis. There is mild 1st metatarsophalangeal and ykcz-fk-zfgrqrat sesamoidometatarsal osteoarthritis. There is mild great toe interphalangeal joint and minimal 2nd through 5th metatarsophalangeal joint osteoarthritis and mild osteoarthritis of the interphalangeal joints of the lesser toes. Focal heterotopic ossification is present at the insertion of the peroneus brevis tendon on the 5th metatarsal base. Focal heterotopic ossification is also present at the insertion of the Achilles tendon on the calcaneus. An os peroneum is present. There is moderate patchy fatty atrophy of the visible muscles. The flexor and extensor tendons appear to be intact, though evaluation is limited on CT compared to MRI. There is mild to moderate Achilles tendinopathy without definite associated tear. There is mild thickening of the proximal aspect of the medial bundle of the plantar fascia with a small associated heel spur. The subcutaneous tissues are normal. IMPRESSION: 1. Complete bridging bony trabeculae across the right tibiotalar and subtalar joint fusion sites. 2. Complete bridging bony trabeculae across the right 1st tarsometatarsal joint fusion site. 3. Partial bridging bony trabeculae between the right medial and intermediate cuneiforms. 4. 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 5. Mild chronic right plantar fascitis with small associated heel spur. 6. Mild to moderate right Achilles tendinopathy without definite associated tear. us Jaret Jaramillo MD CT ORDERABLES Final Result * CT FOOT WO CONTRAST RIGHT (05/02/2024 2:02 PM CENTRIFUGAL DRIER OPERATOR) Anatomical Region Laterality Modality Ankle / Foot Computed Tomogra phy 05/02/2024 1:51 PM CENTRIFUGAL DRIER OPERATOR Impressions 05/02/2024 3:52 PM CENTRIFUGAL DRIER OPERATOR IMPRESSION: 1. Complete bridging bony trabeculae across the right tibiotalar and subtalar joint fusion sites. 2. Complete bridging bony trabeculae across the right 1st tarsometatarsal joint fusion site. 3. Partial bridging bony trabeculae between the right medial and intermediate cuneiforms. 4. 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 5. Mild chronic right plantar fascitis with small associated heel spur. 6. Mild to moderate right Achilles tendinopathy without definite associated tear. Narrative 05/02/2024 3:52 PM CENTRIFUGAL DRIER OPERATOR EXAM: CT ANKLE WO CONTRAST RIGHT, CT FOOT WO CONTRAST RIGHT DATE: 05/02/2024 CLINICAL HISTORY: Right foot and ankle pain, history of prior surgical fusions TECHNIQUE: Computed tomographic images of the right ankle were obtained in the axial plane in both bone and soft tissue windows without the administration of contrast. Coronal and sagittal reformatted images were performed in both bone and soft tissue windows. Computed tomographic images of the right foot were obtained in the axial plane in both bone and soft tissue windows. Coronal and sagittal reformatted images were performed in both bone and soft tissue windows. Comparison was made to right foot and right ankle radiographs performed July 31, 2019 and a prior right ankle CT performed June 10, 2015. FINDINGS: Right ankle: There is mild to moderate dorsal subluxation of the navicular in relation to the talus. No acute or healing fracture is identified. Tibiotalar and subtalar arthrodesis is transfixed with an intramedullary chip extending from the calcaneus through the talus into the tibia with one proximal and 2 distal locking screws. The more distal locking screw extends to the level of the calcaneocuboid joint. There is complete bridging bony trabeculae across the tibiotalar and subtalar joints. There is severe talonavicular and calcaneocuboid osteoarthritis. Fusion procedure of the 1st tarsometatarsal joint is transfixed with 2 partially threaded screws and there is complete ridging bony trabeculae across the 1st tarsometatarsal joint. There is partial bridging bony trabeculae across the joint between the medial and intermediate cuneiforms. There is mild 2nd and 3rd tarsometatarsal joint, mild to moderate 4th tarsometatarsal joint and moderate 5th tarsometatarsal joint osteoarthritis. Focal heterotopic ossification is present at the insertion of the peroneus brevis tendon of the 5th metatarsal base. Focal heterotopic ossification is also present at the insertion of the Achilles tendon on the calcaneus. An os perineum is present. The medial, lateral and anterior ankle tendons all appear to be intact, though evaluation is limited on CT compared to MRI. There is mild to moderate Achilles tendinopathy without definite associated tear. There is mild thickening of the proximal aspect of the medial bundle of the plantar fascia with a small associated heel spur. There is [id number]. Patchy fatty atrophy of the visible intrathoracic muscles, particularly the abductor digiti minimi muscle belly. The subcutaneous tissues are normal. Right foot: There is mild to moderate dorsal subluxation of the navicular in relation to the talus. No acute or healing fracture is identified. Tibiotalar and subtalar arthrodesis is transfixed with an intramedullary chip extending from the calcaneus through the talus into the tibia with 2 distal locking screws. The more distal locking screw extends to the level of the calcaneocuboid joint. There is complete bridging bony trabeculae across the tibiotalar and subtalar joints. There is severe talonavicular and calcaneocuboid osteoarthritis. Fusion procedure of the 1st tarsometatarsal joint is transfixed with 2 partially threaded screws and there is complete ridging bony trabeculae across the 1st tarsometatarsal joint. There is partial bridging bony trabeculae across the joint between the medial and intermediate cuneiforms. There is mild 2nd and 3rd tarsometatarsal joint, mild to moderate 4th tarsometatarsal joint and moderate 5th tarsometatarsal joint osteoarthritis. There is mild 1st metatarsophalangeal and esgk-fv-opdvprgz sesamoidometatarsal osteoarthritis. There is mild great toe interphalangeal joint and minimal 2nd through 5th metatarsophalangeal joint osteoarthritis and mild osteoarthritis of the interphalangeal joints of the lesser toes. Focal heterotopic ossification is present at the insertion of the peroneus brevis tendon on the 5th metatarsal base. Focal heterotopic ossification is also present at the insertion of the Achilles tendon on the calcaneus. An os peroneum is present. There is moderate patchy fatty atrophy of the visible muscles. The flexor and extensor tendons appear to be intact, though evaluation is limited on CT compared to MRI. There is mild to moderate Achilles tendinopathy without definite associated tear. There is mild thickening of the proximal aspect of the medial bundle of the plantar fascia with a small associated heel spur. The subcutaneous tissues are normal. Procedure Note Mallorie Ladd MD - 05/02/2024 EXAM: CT ANKLE WO CONTRAST RIGHT, CT FOOT WO CONTRAST RIGHT DATE: 05/02/2024 CLINICAL HISTORY: Right foot and ankle pain, history of prior surgical fusions TECHNIQUE: Computed tomographic images of the right ankle were obtained in the axial plane in both bone and soft tissue windows without the administration of contrast. Coronal and sagittal reformatted images were performed in both bone and soft tissue windows. Computed tomographic images of the right foot were obtained in the axial plane in both bone and soft tissue windows. Coronal and sagittal reformatted images were performed in both bone and soft tissue windows. Comparison was made to right foot and right ankle radiographs performed July 31, 2019 and a prior right ankle CT performed June 10, 2015. FINDINGS: Right ankle: There is mild to moderate dorsal subluxation of the navicular in relation to the talus. No acute or healing fracture is identified. Tibiotalar and subtalar arthrodesis is transfixed with an intramedullary chip extending from the calcaneus through the talus into the tibia with one proximal and 2 distal locking screws. The more distal locking screw extends to the level of the calcaneocuboid joint. There is complete bridging bony trabeculae across the tibiotalar and subtalar joints. There is severe talonavicular and calcaneocuboid osteoarthritis. Fusion procedure of the 1st tarsometatarsal joint is transfixed with 2 partially threaded screws and there is complete ridging bony trabeculae across the 1st tarsometatarsal joint. There is partial bridging bony trabeculae across the joint between the medial and intermediate cuneiforms. There is mild 2nd and 3rd tarsometatarsal joint, mild to moderate 4th tarsometatarsal joint and moderate 5th tarsometatarsal joint osteoarthritis. Focal heterotopic ossification is present at the insertion of the peroneus brevis tendon of the 5th metatarsal base. Focal heterotopic ossification is also present at the insertion of the Achilles tendon on the calcaneus. An os perineum is present. The medial, lateral and anterior ankle tendons all appear to be intact, though evaluation is limited on CT compared to MRI. There is mild to moderate Achilles tendinopathy without definite associated tear. There is mild thickening of the proximal aspect of the medial bundle of the plantar fascia with a small associated heel spur. There is wrth-da-ycndvaag. Patchy fatty atrophy of the visible intrathoracic muscles, particularly the abductor digiti minimi muscle belly. The subcutaneous tissues are normal. Right foot: There is mild to moderate dorsal subluxation of the navicular in relation to the talus. No acute or healing fracture is identified. Tibiotalar and subtalar arthrodesis is transfixed with an intramedullary chip extending from the calcaneus through the talus into the tibia with 2 distal locking screws. The more distal locking screw extends to the level of the calcaneocuboid joint. There is complete bridging bony trabeculae across the tibiotalar and subtalar joints. There is severe talonavicular and calcaneocuboid osteoarthritis. Fusion procedure of the 1st tarsometatarsal joint is transfixed with 2 partially threaded screws and there is complete ridging bony trabeculae across the 1st tarsometatarsal joint. There is partial bridging bony trabeculae across the joint between the medial and intermediate cuneiforms. There is mild 2nd and 3rd tarsometatarsal joint, mild to moderate 4th tarsometatarsal joint and moderate 5th tarsometatarsal joint osteoarthritis. There is mild 1st metatarsophalangeal and kxwg-kr-tyvdvizl sesamoidometatarsal osteoarthritis. There is mild great toe interphalangeal joint and minimal 2nd through 5th metatarsophalangeal joint osteoarthritis and mild osteoarthritis of the interphalangeal joints of the lesser toes. Focal heterotopic ossification is present at the insertion of the peroneus brevis tendon on the 5th metatarsal base. Focal heterotopic ossification is also present at the insertion of the Achilles tendon on the calcaneus. An os peroneum is present. There is moderate patchy fatty atrophy of the visible muscles. The flexor and extensor tendons appear to be intact, though evaluation is limited on CT compared to MRI. There is mild to moderate Achilles tendinopathy without definite associated tear. There is mild thickening of the proximal aspect of the medial bundle of the plantar fascia with a small associated heel spur. The subcutaneous tissues are normal. IMPRESSION: 1. Complete bridging bony trabeculae across the right tibiotalar and subtalar joint fusion sites. 2. Complete bridging bony trabeculae across the right 1st tarsometatarsal joint fusion site. 3. Partial bridging bony trabeculae between the right medial and intermediate cuneiforms. 4. 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 5. Mild chronic right plantar fascitis with small associated heel spur. 6. Mild to moderate right Achilles tendinopathy without definite associated tear. Jaret Jaramillo MD CT ORDERABLES Final Result from Last 3 Months Insurance MEDICARE PART A AND B Advance Directives For more information, please contact: [phone] * Full Code (Latest Code Status on File) Date Activated Date Inactivated Comments 07/14/2015 3:50 PM 07/15/2015 8:42 PM * Full Code Date Activated Date Inactivated Comments 07/14/2015 8:34 AM 07/14/2015 3:50 PM * Full Code Date Activated Date Inactivated Comments 05/15/2014 9:36 AM 05/15/2014 4:53 PM * Full Code Date Activated Date Inactivated Comments 05/15/2014 8:23 AM 05/15/2014 9:36 AM Care Teams Char Filter Tank Tender Head Relationship Specialty Start Date End Date Sravani Harrison MD PCP - General Internal Medicine 05/13/14
--- OUTSIDE RECORDS SUMMARY | 2024-05-02 19:17 | XMS_ITS | Encounter Summary ---
Author Organization [facility] Healthcare Address [address] [place] [address] Care Team Providers Care Falsework Builder Name Role Phone Sravani Harrison MD Primary Care Provider [phone] Horace Mack MD Unavailable Sravani Harrison MD Primary Care Provider [phone] Encounter Details Date Type Department Care Team (Late st Contact Info) Description 04/26/2021 Telephone [facility] Radiology [address] [place] [address] Liz Ventura, ALESSANDRA [address] [facility] [place] [address] Social History Tobacco Use Types Packs/Day Years Used Date Smoking Tobacco: Never Smokeless Tobacco: Never Alcohol Use Standard Drinks/Week Comments No 0 (1 standard drink = 0.6 oz pur e alcohol) Social Connection and Isolat ion Panel [NHANES] Answer Date Recorded In a typical week, how many times do you talk on the phone with family, friends, or neighbors? More than three times a week 01/04/2021 How often do you get togethe r with friends or relatives? More than three times a week 01/04/2021 How often do you attend chur or alevism services? 1 to 4 times per year 01/04/2021 Do you belong to any clubs o r organizations such as adventism groups, unions, fraternal or athletic groups, or school groups? Yes 01/04/2021 How often do you attend meet ings of the clubs or organizations you belong to? 1 to 4 times per year 01/04/2021 Are you , , di vorced, , never , or living with a partner? 01/04/2021 AUDIT-C Answer Date Recorded Q1: How often do you have a drink containing alc ohol? Never 02/24/2021 Average Number of Drinks Not on file 021 Q3: How often do you have si x or more drinks on one occasion? Never 02/24/2021 Overall Financial Resource Strain (CARDIA) Answe r Date Recorded How hard is it for you to pa y for the very basics like food, housing, medical care, and heating? Not hard at all 01/04/2021 PRAPARE - Transportation Answer Date Re corded In the past 12 months, has l ack of transportation kept you from medical appointments or from getting medications? No 12/24 In the past 12 months, has l ack of transportation kept you from meetings, work, or from getting things needed for daily living? 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 Author CCM Chronic Pain Care Plan Chronic Care Management Yes Flaquita Salas RN Note: Problem: Chronic Pain Goals: 1. Minimize further functional decline 2. Maximize quality of life 3. Control pain Strategies: - Activity/exercise program recommendation - Conservative stepwise pain medicine strategy with multi-disciplinary approach - Recommend healthy lifestyle strategies and compensatory methods as needed Reduce the likelihood of falling Lifestyle No Flaquita Salas RN Note: Below are four things you can do to prevent falls: Begin an exercise program to improve your leg strength & balance Ask your doctor or pharmacist to review your medicines Get annual eye check-ups & update your eyeglasses Make your home safer by: Removing clutter & tripping hazards Putting railings on all stairs & adding grab bars in the bathroom Having good lighting, especially on stairs Contact your local community or [facility] for information on exercise, fall prevention programs, or options for improving home safety. documented as of this encounter Visit Diagnoses Not on filedocumented in this encounter Additional Health Concerns Infection Onset Date Last Indicated Resolved Time Rhino/Enterovirus 05/14/2023 05/14/2023 05/21/2023 3:05 AM TENONER OPERATOR documented as of this encounter Care Teams Falsework Builder Relationship Specialty Start Date End Date Sravani Harrison MD PCP - General 05/28/08 08/01/21 [place] [address] [facility] [address] [place] [address] PCP - General Family Medicine 08/02/21 Horace Mack MD [address] [place] [address] Consulting Physician Orthopedic Surgery 01/04/21 documented as of this encounter
--- OUTSIDE RECORDS SUMMARY | 2024-05-02 19:17 | XMS_ITS ---
Author Organization [facility] Address [address] [place] [address] Care Team Providers Care Communication Lecturer Name Role Phone LANCE ALICIA Unavailable [phone] REASON FOR VISIT Stomach Pain Encounters Encounter Location Date Provider Diagnosis [facility] [address] [place] [address] 04/28/2024 LANCE ALICIA Plan Of Treatment Next Appt Details Provider Name:LANCE QUIÑONEZ, 06/09/2024 12:30:00 PM, [address], [place], [address], Progress Notes * Massiel GONZALEZDOB: [birth year] (74 yo F)Acc No.[id number]:04/28/2024 Patient: Massiel GARCIA :1950 A ge:74 Y S ex:Female Address:[address] [place] [id number] * true * Date: Generated for Printi ng/Faneidag/eTransmitting on: 0 05/02/2024 01:28 PM HUB ASSOCIATE
--- OUTSIDE RECORDS SUMMARY | 2024-05-02 19:17 | XMS_ITS | Encounter Summary ---
Author Organization [facility] Healthcare Address [address] [place] [address] Care Team Providers Care Environmental Adviser Name Role Phone Sravani Harrison MD Primary Care Provider [phone] Horace Mack MD Unavailable Sravani Harrison MD Primary Care Provider [phone] Encounter Details Date Type Department Care Team (Late st Contact Info) Description 12/24/2019 Telephone [facility] - Imaging [address] [place] [address] Transcribed Order, Provider Social History Tobacco Use Types Packs/Day Years Used Date Smoking Tobacco: Never Smokeless Tobacco: Never Alcohol Use Standard Drinks/Week Comments No 0 (1 standard drink = 0.6 oz pur e alcohol) Comments Unknown Sex and Gender Information Value Date Recorded Sex Assigned at Not on file Legal Sex Female 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 Gender Identity Female 12/31/2020 9:01 AM CDT Sexual Orientation Straight 12/31/2020 9: 01 AM CDT documented as of this encounter Plan of Treatment Not on file documented as of this encounter Visit Diagnoses Not on filedocumented in this encounter Additional Health Concerns Infection Onset Date Last Indicated Resolved Time Rhino/Enterovirus 05/14/2023 05/14/2023 05/21/2023 3:05 AM DETAILER FURNITURE documented as of this encounter Care Teams Environmental Adviser Relationship Specialty Start Date End Date Sravani Harrison MD PCP - General 05/28/08 08/01/21 [place] [address] [facility] [address] [place] [address] PCP - General Family Medicine 08/02/21 Horace Mack MD [address] [facility] [address] [place] [address] Consulting Physician Orthopedic Surgery 01/04/21 documented as of this encounter
--- OUTSIDE RECORDS SUMMARY | 2024-05-02 19:18 | XMS_ITS | Clinical Summary ---
Author Organization [facility] Address [address] [place] [address] Care Team Providers Care Abrasives Sales Representative Name Role Phone Horace Mack MD Unavailable Sravani Harrison MD Primary Care Provider Allergies Active Allergy Reactions Criticality Noted Date Comments Cortisone Swelling,Fever,Redn ess Medium Fluticasone Propion-Salmeterol Other (See comments) Low 01/31/2023 Hydrocortisone Swelling,Fever,Redn ess Medium Cephalexin Rash Medium 04/29/2019 Last dose unlnown Levofloxacin Rash Medium 04/29/2019 Morphine Itching Low Prednisone Fever Medium 01/04/2024 Swelling, throat irritation Medications atorvastatin (LIPITOR) 20 mg tablet Take 2 tablets (40 mg total) by mouth every morning 0 Active cetirizine (ZyrTEC) 10 mg tablet Take 1 tablet (10 mg total) by mouth nightly Active SUMAtriptan (IMITREX) 100 mg tablet Take 1 tablet (100 mg total) by mouth once as needed Active montelukast (SINGULAIR) 10 mg tablet Take 1 tablet (10 mg total) by mouth every morning Active vitamin E (AQUASOL E) 400 unit capsule Take 1 capsule (400 Units total) by mouth daily Active folic acid (FOLVITE) 1 mg tablet Take 1 tablet (1 mg total) by mouth every morning 0 Active sertraline (ZOLOFT) 100 mg tablet Take 1.5 tablets (150 mg total) by mouth every morning Active albuterol HFA (PROVENTIL HFA,VENTOLIN HFA,PROAIR HFA) 90 mcg/actuation inhaler Inhale 2 puffs every 6 (six) hours as needed for wheezing Active cholecalciferol (VITAMIN D-3) 5,000 unit tablet Take 1 tablet (5,000 Units total) by mouth daily Active ferrous sulfate ER (SLOW IRON) 140 mg (45 mg of elemental iron) tabletIndicatio ns:Iron Deficiency Anemia Take 1 tablet (140 mg total) by mouth daily with breakfast Active methotrexate 2.5 mg tablet Take 6 tablets (15 mg total) by mouth every 7 days Takes on Mondays Active magnesium gluconate 200 mg tabletIndicatio ns:hypomagnesem ia Take 1 tablet (200 mg total) by mouth nightly Active clonazePAM (KlonoPIN) 0.5 mg tablet Take 1 tablet (0.5 mg total) by mouth nightly at bedtime 1 Active calcium citrate 250 mg calcium tablet tablet Take 2 tablets (500 mg total) by mouth daily Active Advair Diskus 250-50 mcg/dose diskus inhaler Inhale 1 puff 2 (two) times a day as needed 3 Active levothyroxine (SYNTHROID) 88 mcg tablet Take 1 tablet (88 mcg total) by mouth waterproofer helper before breakfast Active famotidine (PEPCID) 20 mg tablet Take 1 tablet (20 mg total) by mouth 2 (two) times a day 30 tablet 4 07/30/19 25 Active meloxicam (MOBIC) 15 mg tablet Take 1 tablet (15 mg total) by mouth daily 30 tablet 4 03/07/20 25 Active aspirin 81 mg enteric coated tabletIndicatio ns:Deep Vein Thrombosis Prevention Take 1 tablet (81 mg total) by mouth 2 (two) times a day 4 Active docusate sodium (COLACE) 100 mg capsuleIndicati ons:constipatio n Take 1 capsule (100 mg total) by mouth 2 (two) times a day 4 Active HYDROcodone-kulwinder taminophen (NORCO) 10-325 mg per tabletIndicatio ns:Pain Take 1 tablet by mouth 2 (two) times a day as needed for pain 45 tablet Active Active Problems Problem Noted Date Diagnosed Date Arthritis of right knee 03/07/2024 Primary osteoarthritis of right knee 01/25/2024 Age-related osteoporosis wit hout current pathological fracture 01/31/2023 Chronic use of opiate drug for therapeutic purpo se 06/14/2022 DDD (degenerative disc disease), lumbar 12/30/19 DDD (degenerative disc disease), cervical 2021 Primary osteoarthritis of left knee 01/03/2021 Recurrent urinary tract infection 08/22/2018 Encounters Date Type Department Care Team Description 04/30/2024 10:00 AM [facility] Infusion [facility] [address] [place] [phone] Age-related osteoporosis without current pathological fracture (Primary Dx) 04/15/[address] [facility] [address] [place] [phone] Saskia Sprague MD 04/14/2024 Telephone [facility] at [address], [address] [place] [address] Nikolai Nesbitt MD [place] refill 04/02/2024 11:45 AM [facility] - 04/02/2024 11:59 PM [facility] Hospital Encounter [facility] at [address], [address] [place] [address] Nikolai Nesbitt MD Degeneration of intervertebral disc of lumbar region with discogenic back pain (Primary Dx); Chronic use of opiate drug for therapeutic purpose Discharge Disposition: Discharge to home or self care 03/07/2024 7:15 AM [facility]ARM [facility] - 03/07/2024 10:15 AM [facility] Surgery [facility] Operating Room [address] [place] [phone] Horace Mack MD Right Total Knee Arthroplasty 03/07/2024 7:13 AM [facility] Anesthesia Event [facility] [address] [place] [phone] Kwadwo Walker DO Grither, Christine D., NP 03/07/2024 5:35 AM [facility] - 03/08/2024 12:40 PM [facility] Hospital Encounter [facility] [address] [place] [phone] Horace Mack MD Discharge Disposition: Discharge to home or self care 02/26/2024 Telephone [facility] at [facility] [address] [facility] [address] [place] [address] Nikolai Nesbitt MD schedule appointment 02/18/2024 12:00 PM [facility] Pre-Admission Testing [facility] Pre Anesthesia Testing [address] [place] [phone] Preoperative evaluation to rule out surgical contraindication (Primary Dx) 02/05/2024 2:20 PM [facility] Office Visit [address] [place] [address] Saskia Sprague MD Age-related osteoporosis without current pathological fracture (Primary Dx) 02/05/2024 1:50 PM [facility] Clinical Support [address] [place] [phone] Age-related osteoporosis without current pathological fracture (Primary Dx) 02/05/[address] Medical Office [address] [place] [phone] Saskia Sprague MD Treatment Plan Update from Last 3 Months Immunizations Name Administration Dates Next Due Flucelvax Influenza Quad 03/31/2016 Influenza, Quadrivalent, Hig h Dose, Preservative Free, Intrr 12/27/2021 Influenza, Trivalent, High D ose, Split, Preservative Free, Intramuscular 12/18/2018,12/11/2016 Influenza, Trivalent, IM (MDV) 03/14/2015 Influenza, Unspecified 12/25/2023 Pneumococcal Conjugate PCV 13 07/15/2015 Pneumococcal Conjugate, Unspecified 07/13/2013 Tdap 08/24/2014 ZOSTER Recombinant 06/11/2019,12/18/2018 Surgical History Surgery Date Site/Laterality Comments TONSILLECTOMY APPENDECTOMY PAROTIDECTOMY ANKLE FUSION and removal of hardware (MULTIPLE surgeries) SHOULDER ARTHROSCOPY SINUS SURGERY CATARACT EXTRACTION HYSTERECTOMY LASIK FLUORO GUIDED ASPIRATION OR INJECTION INTERMEDIATE JOINT RIGHT 08/23/2023 Right FLUORO GUIDED INJECTION SHOU LDER RIGHT 08/23/2023 Right CARPAL TUNNEL RELEASE UVULOPALATOPHARYNGOPLASTY ANAL FISSURECTOMY KIARA FUNDOPLICATION BLADDER SUSPENSION BLADDER SURGERY 03/26/2016 - 03/25/2017 bladder stimulator (still in place) TOTAL KNEE ARTHROPLASTY 03/26/2020 - 03/25/2021 Left Medical History Medical History Date Comments Asthma Depression GERD (gastroesophageal reflux disease) Hiatal hernia Osteoporosis Rheumatoid arthritis (HCC) Hypothyroidism HLD (hyperlipidemia) Migraine ocular migraines HTN (hypertension) Kidney stone Chronic pain disorder TIA (transient ischemic attack) 1998 OAB (overactive bladder) Raynaud phenomenon Delayed emergence from general anesthesia Family History Medical History Relation Name Comments Asthma Father Cancer Father Heart disease Father Osteoporosis Father Stroke Father Clotting disorder Mother Hypertension Mother Relation Name Status Comments Father Mother Other 1 Other 2 Other 3 Other 4 Other 5 Other 6 Other 7 Other 8 Other 9 Other 10 Social History Tobacco Use Types Packs/Day Years Used Date Smoking Tobacco: Never Smokeless Tobacco: Never Tobacco Cessation:Counseling Given: Not Answered Alcohol Use Standard Drinks/Week Comments No 0 [...] 01/04/2021 How often do you attend chur ch or zoroastrian services? 1 to 4 times per year 01/04/2021 Do you belong to any clubs o r organizations such as jainism groups, unions, fraternal or athletic groups, or school groups? Yes 01/04/2021 How often do you attend meet ings of the clubs or organizations you belong to? 1 to 4 times per year 01/04/2021 Are you , , di vorced, , never , or living with a partner? 01/04/2021 AUDIT-C Answer Date Recorded Q1: How often do you have a drink containing alcohol? Never 02/18/2024 Q2: How many drinks containi ng alcohol do you have on a typical day when you are drinking? Patient does not drink Q3: How often do you have si x or more drinks on one occasion? Never 02/18/2024 Overall Financial Resource Strain (CARDIA) Answe r [...] things needed for daily living? No 01/04/2021 Personal Safety Answer Date Recorded Have you ever been in or are you currently in a harmful physical or emotional relationship or is someone making you feel afraid or unsafe? Denies 03/07/2024 Comments No Sex and Gender Information Value Date Recorded Sex Assigned at Not on file Legal Sex Female 12:50 AM [facility]ARM [facility] Gender Identity Female 12/31/2020 9:01 AM CDT Sexual Orientation Straight 12/31/2020 9: 01 AM CDT Obstetrics History Last Filed Vital Signs Vital Sign Reading Time Taken Comments Blood Pressure 149/73 04/30/2024 10:25 AM [facility] Pulse 86 04/30/2024 10:25 AM [facility] Temperature 37.2 C (98.9 F) 04/30/2024 10:25 AM [facility] Respiratory Rate 16 04/30/2024 10:2 5 AM [facility]ARM [facility] Oxygen Saturation 95% 03/08/2024 11: 00 AM [facility] Inhaled Oxygen Concentration - - Weight 63.4 kg (139 lb 12.8 oz) 025 10:04 AM [facility]ARM [facility] Height 154.9 cm (5' 1 ) 03/07/2024 6:23 AM [facility]ARM [facility] Body Mass Index 26.41 03/07/2024 6:23 AM [facility]ARM [facility] Plan of Treatment Health Maintenance Due Date Last Done Comments Depression Screening 1950 Hepatitis C Screening 1950 Hepatitis B Screening 02/19/1966 Well Visit 65+ 02/19/2013 Pneumococcal vaccine 65+ (2 of 2 - PPSV23 or PCV20) 09/09/2015 07/15/2015, 07/13/2013, 07/13/2013, Additional history exists DTaP/Tdap/Td Vaccine (2 - Td or Tdap) 08/24/2024 08/24/2014 Fall Risk Assessment 04/30/2025 04/30/2024, 04/02/2024, 03/08/2024, Additional history exists Osteoporosis Screening-Bone Density Scan 02/04/2026 02/05/2024, 01/31/2023 Zoster Vaccine Completed 06/11/2019, 12/18/2018 Breast Cancer Screening-Mammogram Discontinued 05/21/2023, 05/17/2022, 03/28/2021, Additional history exists Influenza Vaccine Completed 12/25/2023, , 12/18/2018, Additional history exists Goals Goal Patient Goal Type Associated Problems [...] on stairs Contact your local community or senior center for information on exercise, fall prevention programs, or options for improving home safety. Medical Devices Implanted Type Area State Game Warden Device Identifier Shelf Expiration Date Model / Serial / Lot Neurostimulator Bladder- 1 Implanted:2020 by Baldev Page MD (Quantity not on file) Neurostimulator Pelvis Medtronic Neuro [id number] / [id number] / Neurostimulator Bladder (Lead)-04/23/2020 Implanted:2020 by Baldev Page MD (Quantity not on file) Neurostimulator Pelvis Medtronic Neuro 978B1 / / [employer] 6191-1-010 Simplex P Radiopaque Full Dose Cement Bone Sterile - [id number] Implanted:Qty: 1 on 01/03/2021 by Horace Mack MD at [facility] Left: Knee [employer] 03/25/2022 6191-1- 010 / / [id number] [employer] [id number] Ascent Maxim 71mm 1 Piece Cruciate Fin Knee Tray Tibial Interlok - [id number] Implanted:Qty: 1 on 01/03/2021 by Horace Mack MD at [facility] Left: Knee [employer] [id number] 08/02/2030 [id number] / / [id number] [employer] [id number] Vanguard 67.5mm Cruciate Retaining Primary Knee Left Component - [id number] Implanted:Qty: 1 on 01/03/2021 by Horace Mack MD at [facility] Left: Knee [employer] [id number] 09/01/2030 [id number] / / [id number] [employer] [id number] Vanguard 71/38ctv20ct Cruciate Retaining Inlay Direct Compression - [id number] Implanted:Qty: 1 on 01/03/2021 by Horace Mack MD at [facility] Left: Knee [employer] [id number] 07/26/2025 [id number] / / [id number] [employer] Vanguard 71/84ybn30oq Cruciate Retain Direct Compression Mold [id number] - [id number] Implanted:Qty: 1 on 03/07/2024 by Horace Mack MD at [facility] Right: Knee [employer] [id number] 12/03/2028 [id number] / / [id number] [employer] Vanguard 67.5mm Cruciate Retaining Primary Knee Right Component [id number] - [id number] Implanted:Qty: 1 on 03/07/2024 by Horace aMck MD at [facility] Right: Knee [employer] [id number] 10/14/2032 [id number] / / [id number] [employer] Ascent Maxim 71mm 1 Piece Cruciate Fin Knee Tray Tibial Interlok [id number] - [id number] Implanted:Qty: 1 on 03/07/2024 by Horace Mack MD at [facility] Right: Knee [employer] 10/30/2033 [id number] / / [id number] [employer] Simplex P Radiopaque Full Dose Cement Bone Sterile 6191-1-010 - [id number] Implanted:Qty: 1 on 03/07/2024 by Horace Mack MD at [facility] Right: Knee [employer] 01/23/2026 6191-1- 010 / / [id number] Procedures Procedure Name Priority Date/Time Associated Diagnosis Comments SCAN - LABS Routine 04/14/2024 12:25 PM [facility] EGFR Routine 03/08/2024 6:35 AM [facility] BASIC METABOLIC PANEL Routine 03/08/2024 6:35 AM [facility] CBC WITHOUT DIFFERENTIAL Routine 03/08/2024 6:35 AM [facility] POCT GLUCOSE DEVICE Routine 03/07/2024 4 :16 PM [facility] POCT GLUCOSE DEVICE Routine 03/07/2024 12:57 PM [facility] EGFR Routine 03/07/2024 12:50 PM [facility] COMPREHENSIVE METABOLIC PANEL Routine 03/07/2024 12:50 PM [facility] CBC WITHOUT DIFFERENTIAL Routine 03/07/2024 12:50 PM [facility] OK AN PROCEDURE PLACEHOLDER Routine 03/07/2024 7:35 AM [facility]ARM [facility]ER OK AN PROCEDURE PLACEHOLDER Routine 03/07/2024 7:18 AM [facility] ARTHROPLASTY TOTAL KNEE 03/07/2024 7:16 AM [facility] Primary osteoarthritis of right knee DIFFERENTIAL AUTO Routine 02/18/2024 2:0 8 PM [facility] Preoperative evaluation to rule out surgical contraindication CBC WITH AUTO DIFFERENTIAL Routine 02/18/2024 2:08 PM [facility] Preoperative evaluation to rule out surgical contraindication HEMOGLOBIN A1C Routine 02/18/2024 2:08 PM [facility] Preoperative evaluation to rule out surgical contraindication EGFR Routine 02/18/2024 2:07 PM [facility] Preoperative evaluation to rule out surgical contraindication COMPREHENSIVE METABOLIC PANEL Routine 02/18/2024 2:07 PM [facility] Preoperative evaluation to rule out surgical contraindication DEXA TBS AXIAL SKELETON BONE DENSITY 1 OR MORE SITES Schedule Routine, Read Routine (OP Routine) 02/05/2024 2:18 PM [facility] Age-related osteoporosis without current pathological fracture SCREENING MAMMOGRAM BILATERAL W [place] Schedule Routine, Read Routine (OP Routine) 05/21/2023 11:04 AM [facility] Screening mammogram, encounter for from Last 3 Months or Most Recently Relevant to Health Maintenance Results * SCAN - LABS (04/14/2024 12:25 PM FARM [facility]ER) us Saskia Sprague MD Final Result EXTERNAL LAB * eGFR (03/08/2024 6:35 AM [facility]) eGFR 88 >=60 mL/min/1. 73 m2 Comment: Interpretive Data Reference Interval Normal >/= 90 mL/min/1.73m2 Mildly decreased* 60 - 89 mL/min/1.73m2 Mildly to moderately decreased 45 - 59 mL/min/1.73m2 Moderately to severely decreased 30 - 44 mL/min/1.73m2 Severely decreased 15 - 29 mL/min/1.73m2 Kidney Failure < 15 mL/min/1.73m2 *Relative to young adult level Estimated glomerular filtration rate is determined by the 2020 CKD-EPI equation recommended by the National Kidney Foundation (A Unifying Approach to GFR Estimation: Recommendations of the NKF-ASK Task Force on Reassessing the Inclusion of Race in Diagnosing Kidney Disease, JASN 2020). The CKD-EPI equation should not be used for patients with unstable renal function and has not been validated in children and those over 70. Current interpretive data was last reviewed 2021. Blood 03/08/2024 6:35 AM [facility]ARM [facility] 03/08/2024 6:39 AM [facility] us Horace Mack MD LAB BLOOD ORDERABLES Final R esult [facility] [address] Department [place] [address] * (ABNORMAL) CBC without differential (03/08/2024 6:35 AM [facility]) WBC 9.5 3.8 - 9.9 K/cumm Hgb 10.8(L) 11.9 - 15.5 g/dL [facility] Hct 33.2(L) 35.6 - 45.5 % [facility] Plt 154 150 - 400 K/cumm [facility] MPV 9.5 9.1 - 12.3 fL [facility] RBC 3.29(L) 3.90 - 5.20 M/cumm [facility] MCV 100.9(H) 81.3 - 96.4 fL [facility] MCH 32.8 27.1 - 33.3 pg [facility] MCHC 32.5 32.3 - 35.7 g/dL [facility] RDW CV 12.0 11.1 - 14.9 % [facility] RDW SD 44.8 35.7 - 48.1 fL [facility] NRBC abs 0.00 0.00 - 0.01 K/cumm [facility] Blood 03/08/2024 6:35 AM [facility] 03/08/2024 6:42 AM [facility] Horace Mack MD LAB BLOOD ORDERABLES Final R esult Performing Organization Address City/[facility] Co de Phone Number [facility] [address] [employer] [place] [address] * (ABNORMAL) Basic metabolic panel (03/08/2024 6:35 AM [facility]) Sodium 138 135 - 145 mmol/L Potassium, pl 4.3 3.3 - 4.9 mmol/L [facility] Chloride 108 97 - 110 mmol/L [facility] CO2 18(L) 22 - 32 mmol/L [facility] Anion gap 12 2 - 15 mmol/L [facility] BUN 13 6 - 25 mg/dL [facility] Creatinine 0.71 0.60 - 1.10 mg/dL [facility] Glucose 109 70 - 199 mg/dL [facility] Comment: Interpretive Data Fasting glucose >/= 126 mg/dl is diagnostic for diabetes. Fasting is defined as no caloric intake for at least 8 hours. Fasting glucose between 100 mg/dl to 125 mg/dl is diagnostic of prediabetes. In a patient with classic symptoms of hyperglycemia or hyperglycemic crisis, a random glucose >/= 200 mg/dl is diagnostic for diabetes. In the absence of unequivocal hyperglycemia, results should be confirmed by repeat testing. The classification and Diagnosis of Diabetes Diabetes Care 202; 46: S19-S40. Current interpretive data was last revised 2022. Calcium 7.8(L) 8.5 - 10.3 mg/dL [facility] Blood 03/08/2024 6:35 AM [facility] 03/08/2024 6:39 AM [facility] Horace Mack MD LAB BLOOD ORDERABLES Final R esult Performing Organization Address City/[facility]/ZIP Co de Phone Number [facility] [address] [employer] [place] [address] * POCT glucose (03/07/2024 4:16 PM [facility]) Glucose, POC 77 70 - 199 mg/dL Comment: For Glucose values <35 mg/dl when Hematocrit is >60 mg/dl,the test may not accurately detect significant hypoglycemia,and testing in the Laboratory should be considered if clinically indicated. Blood 03/07/2024 4:16 PM [facility] 03/07/2024 4:16 PM [facility] Horace Mack MD LAB POCT ORDERABLES - DEVICE Final Result [facility] [address] [facility] [place] [address] * POCT glucose (03/07/2024 12:57 PM [facility]) Glucose, POC 86 70 - 199 mg/dL Comment: For Glucose values <35 mg/dl when Hematocrit is >60 mg/dl,the test may not accurately detect significant hypoglycemia,and testing in the Laboratory should be considered if clinically indicated. Blood 03/07/2024 12:5 7 PM [facility] 03/07/2024 12:57 PM [facility] Horace Mack MD LAB POCT ORDERABLES - DEVICE Final Result Performing Organization Address City/[facility]/ZIP Co de Phone Number [facility] [address] Department [place] [address] * eGFR (03/07/2024 12:50 PM [facility]) eGFR 85 >=60 mL/min/1. 73 m2 Comment: Interpretive Data Reference Interval Normal >/= 90 mL/min/1.73m2 Mildly decreased* 60 - 89 mL/min/1.73m2 Mildly to moderately decreased 45 - 59 mL/min/1.73m2 Moderately to severely decreased 30 - 44 mL/min/1.73m2 Severely decreased 15 - 29 mL/min/1.73m2 Kidney Failure < 15 mL/min/1.73m2 *Relative to young adult level Estimated glomerular filtration rate is determined by the 2020 CKD-EPI equation recommended by the National Kidney Foundation (A Unifying Approach to GFR Estimation: Recommendations of the NKF-ASK Task Force on Reassessing the Inclusion of Race in Diagnosing Kidney Disease, JASN 2020). The CKD-EPI equation should not be used for patients with unstable renal function and has not been validated in children and those over 70. Current interpretive data was last reviewed 2021. Blood 03/07/2024 12:5 0 PM [facility] 03/07/2024 1:00 PM [facility] us Kwadwo Walker DO LAB BLOOD ORDERABLES Fin al Result [facility] [address] Department [place] [address] * (ABNORMAL) CBC without differential (03/07/2024 12:50 PM [facility]) WBC 8.1 3.8 - 9.9 K/cumm Hgb 10.5(L) 11.9 - 15.5 g/dL [facility] Hct 32.2(L) 35.6 - 45.5 % [facility] Plt 185 150 - 400 K/cumm [facility] MPV 8.9(L) 9.1 - 12.3 fL [facility] RBC 3.22(L) 3.90 - 5.20 M/cumm [facility] MCV 100.0(H) 81.3 - 96.4 fL [facility] MCH 32.6 27.1 - 33.3 pg [facility] MCHC 32.6 32.3 - 35.7 g/dL [facility] RDW CV 11.9 11.1 - 14.9 % [facility] RDW SD 43.9 35.7 - 48.1 fL [facility] NRBC abs 0.00 0.00 - 0.01 K/cumm [facility] Blood 03/07/2024 12:5 0 PM [facility] 03/07/2024 1:00 PM [facility] Kwadwo Walker DO LAB BLOOD ORDERABLES Fin al Result [facility] [address] Department [place] [address] * (ABNORMAL) Comprehensive metabolic panel (03/07/2024 12:50 PM [facility]) Sodium 143 135 - 145 mmol/L Potassium, pl 4.1 3.3 - 4.9 mmol/L [facility] Chloride 112(H) 97 - 110 mmol/L [facility] CO2 22 22 - 32 mmol/L [facility] Anion gap 9 2 - 15 mmol/L [facility] BUN 16 6 - 25 mg/dL [facility] Creatinine 0.73 0.60 - 1.10 mg/dL [facility] Glucose 88 70 - 199 mg/dL [facility] Comment: Interpretive Data Fasting glucose >/= 126 mg/dl is diagnostic for diabetes. Fasting is defined as no caloric intake for at least 8 hours. Fasting glucose between 100 mg/dl to 125 mg/dl is diagnostic of prediabetes. In a patient with classic symptoms of hyperglycemia or hyperglycemic crisis, a random glucose >/= 200 mg/dl is diagnostic for diabetes. In the absence of unequivocal hyperglycemia, results should be confirmed by repeat testing. The classification and Diagnosis of Diabetes Diabetes Care 2021; 46: S19-S40. Current interpretive data was last revised 2022. Calcium 7.6(L) 8.5 - 10.3 mg/dL [facility] Bilirubin, total 0.2 0.1 - 1.2 mg/dL [facility] Protein, pl 5.7(L) 6.5 - 8.5 g/dL [facility] Albumin 3.9 3.5 - 5.0 g/dL [facility] Alk phos 41 40 - 130 Units/L [facility] ALT 20 7 - 45 Units/L [facility] AST 23 10 - 45 Units/L [facility] Blood 03/07/2024 12:5 0 PM [facility] 03/07/2024 1:00 PM [facility] Kwadwo Walker DO LAB BLOOD ORDERABLES Fin al Result [facility] [address] Department [place] [address] * [place] AN PROCEDURE PLACEHOLDER (03/07/2024 7:35 AM [facility]) Alexandra Redmond CRNA - 03/07/2024 7:35 AM [facility] Alexandra Taylor CRNA 03/07/2024 7:35 AM Spinal Block Patient location: pre-op holding Reason for block: primary anesthetic Staff: Placed by: FIELD NATURALIST:Alexandra Taylor CRNA Procedure prep: Preprocedure checklist: patient identified, procedure contraindications assessed, site marked, procedure consent, surgical consent, IV checked, risks, benefits and alternatives discussed, monitors and equipment checked and timeout performed Patient position: sitting Procedure performed while patient: sedate with meaningful contact Monitoring: oximetry and blood pressure Supplemental O2: nasal cannula Prep solution: chlorhexadine/alcohol PPE: sterile gloves, provider hat/mask and sterile drape Skin infiltrated with lidocaine 1%: yes Spinal: Approach: midline Introducer used: yes Location: L2-3 Spinal injection: CSF demonstrated, no aspiration of heme and no paresthesias noted Number of attempts: 1 Spinal Needle: Needle type: pencil-tip (Pencan) Needle gauge: 25 G Needle length: 9 cm Assessment: Sensory deficit - left: full eval pending Sensory deficit - right: full eval pending Events: patient tolerated procedure well with no complications Kwadwo Walker DO ANESTHESIA ORDERABLES Fi nal Result * OK AN PROCEDURE PLACEHOLDER (03/07/2024 7:18 AM FARM BUTCHER) Kwadwo Brown DO - 03/07/2024 7:18 AM FARM [facility]CHER Kwadwo Walker DO 03/07/2024 7:18 AM Peripheral Block Patient location during procedure: pre-op holding End time: 03/07/2024 7:05 AM Reason for block: post-op pain management per surgeon request Ultrasound image in chart or stored: yes Block type: single shot Laterality: right Block type: saphenous nerve block - subsartorial approach Staff: Placed by: Anesthesiologist: Kwadwo Walker DO Procedure prep: Preprocedure checklist: patient identified, procedure contraindications assessed, site marked, procedure consent, surgical consent, IV checked, risks, benefits and alternatives discussed, monitors and equipment checked and timeout performed Patient position: supine Procedure performed while patient: sedate with meaningful contact Monitoring: ECG, oximetry and blood pressure Supplemental O2: nasal cannula Prep solution: chlorhexidine/alcohol PPE: provider hat/mask and sterile gloves Skin infiltrated with lidocaine 1%: yes Peripheral nerve block: Technique: ultrasound guided (ultrasound used for needle guidance and for active visualization of local anesthetic placement) Needle type: echogenic Needle gauge: 21 G Needle length: 100 mm Injection assessment: injection made incrementally with constant monitoring, local visualized surrounding nerve on ultrasound, negative aspiration for heme, no paresthesias noted, normal resistance to injection and see flowsheet for medication details (sedation meds documented in anesthetic record) Assessment: Block success: full evaluation pending Events: patient tolerated procedure well with no complications Kwadwo Walker DO ANESTHESIA ORDERABLES Fi nal Result * Differential, auto (02/18/2024 2:08 PM FARM BUTCHER) Neutrophil abs 2.8 1.5 - 6.5 K/cumm Imm gran abs 0.0 0.0 - 0.1 K/cumm [facility] Lymphocyte abs 2.4 0.8 - 3.3 K/cumm [facility] Monocyte abs 0.5 0.2 - 0.8 K/cumm [facility] Eosinophil abs 0.2 0.0 - 0.5 K/cumm [facility] Basophil abs 0.0 0.0 - 0.1 K/cumm [facility] Neutrophil pct 47.5 % [facility] Comment: Interpretive Data Percent cell count reference ranges are not reported, since discordance with absolute values may lead to misinterpretation of CBC data. Current Interpretive Data was last revised on 2017. Imm gran pct 0.2 % [facility] Comment: Interpretive Data Percent cell count reference ranges are not reported, since discordance with absolute values may lead to misinterpretation of CBC data. Current Interpretive Data was last revised on 2017. Lymphocyte pct 39.9 % [facility] Comment: Interpretive Data Percent cell count reference ranges are not reported, since discordance with absolute values may lead to misinterpretation of CBC data. Current Interpretive Data was last revised on 2017. Monocyte pct 8.4 % [facility] Comment: Interpretive Data Percent cell count reference ranges are not reported, since discordance with absolute values may lead to misinterpretation of CBC data. Current Interpretive Data was last revised on 2017. Eosinophil pct 3.5 % [facility] Comment: Interpretive Data Percent cell count reference ranges are not reported, since discordance with absolute values may lead to misinterpretation of CBC data. Current Interpretive Data was last revised on 2017. Basophil pct 0.5 % [facility] Comment: Interpretive Data Percent cell count reference ranges are not reported, since discordance with absolute values may lead to misinterpretation of CBC data. Current Interpretive Data was last revised on 2017. Blood 02/18/2024 2:08 PM FARM [facility]CHER 02/18/2024 2:08 PM FARM [facility]ER Sirena Tellez DOPE DRY HOUSE OPERATOR LAB BLOOD ORDERABLES Fin al Result [facility] [address] Department [place] [address] * (ABNORMAL) CBC with auto differential (02/18/2024 2:08 PM FARM BUTCHER) WBC 6.0 3.8 - 9.9 K/cumm Hgb 12.9 11.9 - 15.5 g/dL [facility] Hct 39.6 35.6 - 45.5 % [facility] Plt 232 150 - 400 K/cumm [facility] MPV 9.8 9.1 - 12.3 fL [facility] RBC 3.96 3.90 - 5.20 M/cumm [facility] MCV 100.0(H) 81.3 - 96.4 fL [facility] MCH 32.6 27.1 - 33.3 pg [facility] MCHC 32.6 32.3 - 35.7 g/dL [facility] RDW CV 12.8 11.1 - 14.9 % [facility] RDW SD 46.3 35.7 - 48.1 fL [facility] NRBC abs 0.00 0.00 - 0.01 K/cumm [facility] Blood 02/18/2024 2:08 PM FARM [facility]CHER 02/18/2024 2:08 PM FARM [employer]CHER Sirena Tellez NP LAB BLOOD ORDERABLES Fin al Result Performing Organization Address [facility] de Phone Number [facility] [address] Department [place] [address] * Hemoglobin A1c (02/18/2024 2:08 PM FARM BUTCHER) [facility] Hgb A1C 5.3 4.0 - 5.6 % Estimated Average Glucose 105 mg/dL [facility] Comment: The ADA recommends reporting an estimated Average Glucose (eAG) with all Hemoglobin A1c results using the equation derived from a study of 507 normal and diabetic adults. Minority populations were underrepresented and children were not included. (Diabetes Care 31:2653-9807, 2008). The eAG is not equivalent to a fasting glucose. Blood 02/18/2024 2:08 PM FARM BUTCHER 02/18/2024 2:08 PM FARM [facility]ER Sirena Tellez NP LAB BLOOD ORDERABLES Fin al Result Performing Organization Address [facility] de Phone Number [facility] [address] Department [place] [address] * eGFR (02/18/2024 2:07 PM FARM BUTCHER) Pathologist [facility] eGFR 84 >=60 mL/min/1. 73 m2 Comment: Interpretive Data Reference Interval Normal >/= 90 mL/min/1.73m2 Mildly decreased* 60 - 89 mL/min/1.73m2 Mildly to moderately decreased 45 - 59 mL/min/1.73m2 Moderately to severely decreased 30 - 44 mL/min/1.73m2 Severely decreased 15 - 29 mL/min/1.73m2 Kidney Failure < 15 mL/min/1.73m2 *Relative to young adult level Estimated glomerular filtration rate is determined by the 2020 CKD-EPI equation recommended by the National Kidney Foundation (A Unifying Approach to GFR Estimation: Recommendations of the NKF-ASK Task Force on Reassessing the Inclusion of Race in Diagnosing Kidney Disease, JASN 202). The CKD-EPI equation should not be used for patients with unstable renal function and has not been validated in children and those over 70. Current interpretive data was last reviewed 2021. Blood 02/18/2024 2:07 PM FARM BUTCHER 02/18/2024 2:07 PM FARM BUTCHER us Sirena Tellez DOPE DRY HOUSE OPERATOR LAB BLOOD ORDERABLES Fin al Result [facility] [address] Department [place] [address] * Comprehensive metabolic panel (02/18/2024 2:07 PM FARM BUTCHER) Sodium 144 135 - 145 mmol/L Potassium, pl 4.0 3.3 - 4.9 mmol/L [facility] Chloride 109 97 - 110 mmol/L [facility] CO2 23 22 - 32 mmol/L [facility] Anion gap 12 2 - 15 mmol/L [facility] BUN 18 6 - 25 mg/dL [facility] Creatinine 0.74 0.60 - 1.10 mg/dL [facility] Glucose 88 70 - 199 mg/dL [facility] Comment: Interpretive Data Fasting glucose >/= 126 mg/dl is diagnostic for diabetes. Fasting is defined as no caloric intake for at least 8 hours. Fasting glucose between 100 mg/dl to 125 mg/dl is diagnostic of prediabetes. In a patient with classic symptoms of hyperglycemia or hyperglycemic crisis, a random glucose >/= 200 mg/dl is diagnostic for diabetes. In the absence of unequivocal hyperglycemia, results should be confirmed by repeat testing. The classification and Diagnosis of Diabetes Diabetes Care 202; 46: S19-S40. Current interpretive data was last revised 2022. Calcium 9.1 8.5 - 10.3 mg/dL [facility] Bilirubin, total 0.5 0.1 - 1.2 mg/dL [facility] Protein, pl 6.5 6.5 - 8.5 g/dL [facility] Albumin 4.2 3.5 - 5.0 g/dL [facility] Alk phos 50 40 - 130 Units/L [facility] ALT 29 7 - 45 Units/L [facility] AST 26 10 - 45 Units/L [facility] Blood 02/18/2024 2:07 PM FARM BUTCHER 02/18/2024 2:07 PM FARM BUTCHER us Sirena Tellez NP LAB BLOOD ORDERABLES Fin al Result [facility] [address] Department [place] [address] * Dexa TBS Axial Skeleton Bone Density 1 or more sites (02/05/2024 2:18 PM FARM BUTCHER) Anatomical Region Laterality Modality Wrist, Body N/A Radiographic Karissa ging Narrative 02/05/2024 9:50 PM FARM BUTCHER Patient Name: Massiel Jordan Date of : 1950 Date of scan: 02/05/2024 Bone mineral density was performed on a [employer] Discovery Densitometer. Based on machine cross-calibration and precision studies the least significant changes of this densitometer is 0.024 g/cm2 at the spine, 0.020 g/cm2 at the total proximal femur, and 0.014g/cm2 at the forearm. HISTORY: This is a 73 y.o. postmenopausal female with a history of asthma, osteoporosis, rheumatoid arthritis, and thyroid disease. She reports that she has never smoked. She has never used smokeless tobacco. Currently on treatment with calcium, vitamin D, zoledronic acid (Reclast), and thyroid hormone, previously treated with alendronate (Fosamax) and hormone replacement therapy, and current complaint of arm pain, back pain, neck pain, and leg pain. INDICATIONS: Menopause status, treatment monitoring, and history of osteoporosis. FINDINGS: BONE MINERAL DENSITY OF THE LUMBAR SPINE Bone Mineral Density (BMD) of the lumbar spine was measured from L1-L4 and the average density was calculated to be 1.003 gm/cm2. This corresponds to a T-score (standard deviations from the mean of young adults) of -0.4. When compared to the previous study of 01/31/2023 there has been a 0.082 gm/cm (8.9%) increase in bone density that is considered significant. BONE MINERAL DENSITY OF THE PROXIMAL FEMUR Bone Mineral Density (BMD) of the left hip total was found to be 0.791 gm/cm2. This corresponds to a T-score standard deviations from the mean of young adults of -1.2. Femoral neck is 0.576 gm/cm2 with a T-score (standard deviations from the mean of young adults) of -2.5. When compared to the previous study of 01/31/2023 there has been no significant changes in bone density. SUMMARY: Bone mineral density shows evidence of osteoporosis and marked increase risk of fracture. There has been a significant increase in bone density since previous measurement. The lumbar spine Trabecular Bone Score is 1.240 which suggests partially degraded bone microarchitecture compared to the general population. Final decisions regarding diagnostic or therapeutic recommendations should include BMD, TBS, additional clinical risk factors as well the clinical context of the patient. Please see attached TBS results for further details. ADDITIONAL COMMENTS: Postmenopausal Women and Men Over 50: Diagnostic criteria: Osteoporosis: BMD at or below -2.5 T-score; Osteopenia (low bone mass): BMD between -1.0 and -2.5 T-score. If the patient has a history of a fragility fracture, a fracture that occurred with trauma equivalent to a fall from a standing position or less, then the diagnosis is osteoporosis regardless of bone density. The history and data sections of the bone mineral density scan were prepared by Althea Rubio(Yen) KARTHIK who is accredited by the International Society of Clinical Densitometry. The overall patient assessment and scan interpretation were performed by Saskia Sprague M.D. who is certified by the International Society of Clinical Densitometry. [id number] Saskia Sprague MD [facility] [place] Final Resu lt * Screening Mammogram Bilateral W Kingsley (05/21/2023 11:04 AM FARM BUTCHER) Anatomical Region Laterality Modality Breast Bilateral Mammography Narrative 05/22/2023 1:22 PM FARM BUTCHER Mammogram Technique: Bilateral Digital Breast Tomosynthesis, Bilateral C-view 2D Screening mammogram. Views obtained: bilateral craniocaudal and bilateral mediolateral oblique. Computer Aided Detection was performed. Mammogram Findings: The present examination has been compared to prior imaging studies performed at [facility] on 01/09/2020, 03/28/2021 and 05/17/2022. There are scattered areas of fibroglandular density. There is no suspicious abnormality in either breast. Impression: There is no mammographic evidence of malignancy. Annual screening mammography is recommended. OVERALL FINAL ASSESSMENT: BI-RADS CATEGORY 1: Negative. Procedure Note Martha Zamarripa MD - 05/22/2023 Mammogram Technique: Bilateral Digital Breast Tomosynthesis, Bilateral C-view 2D Screening mammogram. Views obtained: bilateral craniocaudal and bilateral mediolateral oblique. Computer Aided Detection was performed. Mammogram Findings: The present examination has been compared to prior imaging studies performed at [facility] on 01/09/2020, 03/28/2021 and 05/17/2022. There are scattered areas of fibroglandular density. There is no suspicious abnormality in either breast. Impression: There is no mammographic evidence of malignancy. Annual screening mammography is recommended. OVERALL FINAL ASSESSMENT: BI-RADS CATEGORY 1: Negative. us Self Screening Mammogram IMG MAMMO PROCEDURES Fi nal Result from Last 3 Months or Most Recently Relevant to Health Maintenance Insurance MEDICARE [facility] MEDICARE [facility] MEDICARE [facility] Advance Directives For more information, please contact: [phone] * Full Code (Latest Code Status on File) Date Activated Date Inactivated Comments 03/07/2024 3:35 PM 03/08/2024 4:40 PM * Full Code Date Activated Date Inactivated Comments 01/03/2021 2:26 PM 01/04/2021 4:18 PM Care Teams Abrasives Sales Representative Relationship Specialty Start [place] [id number] [facility] [address] [place] [address] PCP - General Family Medicine 08/02/21 Horace Mack MD [address] [facility] [address] [place] [address] Consulting Physician Orthopedic Surgery 01/04/21
--- OUTSIDE RECORDS SUMMARY | 2024-05-02 19:18 | XMS_ITS ---
Author Organization [facility] Address [address] [facility] [address] [place] [address] Care Team Providers Care Manager Call Center Name Role Phone Justus Chi Unavailable [phone] zzzzMigration, zzzzProvider Unavailable Unav ailable REASON FOR VISIT EMR-Dick Encounters Encounter Location Date Provider Diagnosis [facility] [address] [facility] [address] [place] [address] 01/13/2023 zzzzProvider zzzzMigration Plan Of Treatment Medication Medication Name Sig Start Date Stop Date Notes Toviaz 8 MG TAKE 1 TABLET (8 MG) BY ORAL ROUTE ONCE DAILY FOR 90 DAYS for 90 days Oral for 90 03/31/2016 03/26/2017 Vit D 6000 units daily *Reorder from [employer] for eRx and Interaction Alerts* Guaiatussin AC 100-10 MG/5ML take 10 milliliters by oral route every 4 hours as needed for 7 days Oral 6 for 7 01/09/2013 01/16/2013 Amoxicillin 875 MG take 1 tablet (875 mg) by oral route every 12 hours for 14 days Oral 2 for 14 10/05/2014 10/19/2014 Percocet 5-325 MG take 1 tablet by oral route every 6 hours as needed Oral 4 02/08/2016 sulfaSALAzine 500 MG take 2 tablets by oral route 2 times a day for 30 days Oral 2 for 30 03/31/2014 05/30/2014 Calcium Antacid 500 MG 1 Three Times A D ay Oral 07/30/2006 TRACK ANNOUNCER Thyroid 90 MG take 1 tablet (90 mg) by oral route once daily . Please fill [facility] MFG only Oral 1 for 03/28/2018 10/24/2018 Restasis 1 gtt each eye b.i.d. *Pick strength-form from [employer] for eRX* Clobetasol Cream 0.1 % Apply to affected area BID 04/14/2020 *Reorder from [employer] for eRx and Interaction Alerts* Estrace 1 MG 1 Every Day Oral for 12/21/2010 12/16/2011 Aspirin 81 MG chew 1 tablet (81 mg) by oral route once daily Oral 1 06/20/2018 PriLOSEC OTC 20 MG 1 Every Day for reflux Oral 04/27/2009 Azithromycin 250 MG 2x po x 1 day. 1x po q day x 4 days Oral for 5 05/08/2019 07/07/2019 Topamax 100 MG 2x am and 2x pm Oral 06/19/2008 Atorvastatin Calcium 20 MG TAKE 1 TABLET(20 MG) BY MOUTH EVERY DAY Oral for 07/12/2020 07/07/2021 Lidoderm 5 % apply 1 patch by transdermal route once daily (May wear up to 12hours.) for 30 days External 1 for 30 10/07/2014 01/28/2015 Albuterol inhaler Use as needed 06/20/2018 *Reo rder from [employer] for eRx and Interaction Alerts* Norvasc 2.5 MG take 1 tablet (2.5 mg) by oral route once daily for 90 days Oral 1 for 10/07/2014 06/27/2015 Macrobid 100 MG take 1 capsule (100 mg) by oral route every 12 hours with food for 90 days Oral 2 for 06/24/2019 06/18/2020 Zoloft 100 MG take 1.5 tablets (150 mg) by oral route once daily for 90 days Oral 1 for 05/17/2021 05/12/2022 traMADol HCl 50 MG take 1 tablet (50 mg) by oral route every 6 hours as needed for 90 days Oral 4 for 11/04/2018 10/30/2019 predniSONE 20 MG take 2 tablets by oral route daily Take for 1 week then call MD for further dosing instructions Oral 1 02/29/2016 Diclofenac-miSOPROStol 75-0.2 MG TAKE 1 TABLET BY MOUTH TWICE DAILY Oral 07/30/2015 amLODIPine Besylate 2.5 MG TAKE 1 TABLET BY MOUTH EVERY DAY Oral 07/25/2015 Iodoral IODINE 12.5 mg topical *R eorder from [employer] for eRx and Interaction Alerts* Arthrotec 75-0.2 MG take 1 tablet by oral route 2 times per day for 90 days Oral 2 for 06/24/2019 06/18/2020 Albuterol Sulfate HFA 108 (90 Base) MCG/ACT inhale 2 puffs by inhalation route every 4 hours as needed for 90 days Inhalation 6 for 07/11/2013 07/06/2014 METHSCOPOLAMINE BR 5MG TABLETS TAKE 1 TABLET BY MOUTH 30 MINUTES BEFORE MEALS AND AT BEDTIME for 02/23/2020 02/17/2021 *Reorder from [employer] for eRx and Interaction Alerts* Iodoral 12.5 mg Sunday -Sunday - Sunday *Reorder from [employer] for eRx and Interaction Alerts* Aspirin 81 81 MG Oral Toviaz Oral *Pick strength -form from [employer] for eRX* Percocet 7.5-325 MG take 1 tablet by oral route every 6 hours as needed for 30 days Oral 4 for 02/28/2019 03/30/2019 cetirizine hydrochloride 10 mg daily at bedtime for allergies 06/20/2018 *Reorder from [employer] for eRx and Interaction Alerts* ARTHROTEC 75 MG 1 BID 08/11/2010 *Reorder from [facility] for eRx and Interaction Alerts* Zocor 20 MG 1 Every Day for cholesterol Oral for 12/21/2010 12/16/2011 Estrace 0.1 MG/GM 1 Every Day Vaginal 10/21/2008 Benzonatate 100 MG take 1 capsule (100 mg) by oral route 3 times per day for 30 days Oral 3 for 01/18/2015 05/18/2015 Imitrex 50 MG 1 PO QD PRN Oral 09/09/2010 Methocarbamol 750 MG take 1 tablet (750 mg) by oral route 3 times per day for 30 days Oral 3 for 08/14/2019 12/12/2019 Cyclobenzaprine HCl 5 MG take 1 tablet ( 5 mg) by oral route 3 times per day as needed for pain Oral 3 04/17/2011 Arthrotec 75 75-200 mg-mcg take 1 tablet by oral route 2 times per day for 90 days Oral 2 for 04/21/2013 04/13/2014 *Reorder from [facility] for eRx and Interaction Alerts* Cyclobenzaprine HCl 10 MG take 1 tablet (10 mg) by oral route 2 times per day for 90 days Oral 2 for 03/31/2016 03/26/2017 Diclofenac-miSOPROStol 50-0.2 MG 1 B.I.D., WITH FOOD Oral 06/30/2008 Etodolac 400 MG Oral DICLOFENAC/MISOPROSTOL 75-0.2MG TAB TAKE 1 TABLET BY MOUTH TWICE DAILY for 07/12/2020 07/07/2021 *Reorder from [facility] for eRx and Interaction Alerts* Calcium 1500 mg daily *Pick str ength-form from [employer] for eRX* Restasis 0.4 mg Use BID PRN migraines 06/20/2018 *Pick strength-form from [employer] for eRX* Actonel 150 MG 1 Q WEEK Oral 06/30/2008 Omeprazole 20 MG take 1 tablet by oral route daily for 90 days Oral 1 for 05/17/2021 05/12/2022 Lisinopril 10 MG take 1 tablet by oral route daily for 90 days Oral 1 for 04/18/2013 04/13/2014 TRIAMCINOLONE OINTMENT 0.5 % Apply BID to affected areas 08/15/2016 *Reorder from [facility] for eRx and Interaction Alerts* Norvasc 5 MG take 1 tablet (5 mg) by oral route once daily for 90 days Oral 1 for 06/24/2019 06/18/2020 Methscopolamine [place] 5 mg take 1 tablet by oral route 2 times a day for 90 days Oral 2 for 06/24/2019 06/18/2020 LDN 1 mg One po q day x 1 week. Increase 2x tablets 2nd week. Increase 3x tablets 3rd week. for 06/03/2020 12/30/2020 *Reorder from [facility] for eRx and Interaction Alerts* HYDROcodone-Acetaminophe n 5-325 MG take 1 tablet by oral route every 6 hours as needed for pain for 30 days Oral 4 for 05/08/2017 06/07/2017 Estradiol 1 mg TAKE ONE TABLET BY MOUTH ONE TIME DAILY Oral 12/01/2010 Vitamin D (Cholecalciferol) 25 MCG (1000 UT) Oral Thyroid 90 MG take 1 tablet by oral route daily for 90 days Oral 1 for 05/08/2017 05/03/2018 Sertraline HCl 100 MG TAKE 1 TABLET(100 MG) BY MOUTH EVERY DAY Oral for 05/08/2021 05/03/2022 Elidel 1 % apply to affected area(s) by topical route 2 times a day eyelids External 2 for 04/26/2020 05/26/2020 Clobetasol Propionate 0.05% apply a thin layer to the affected area(s) by topical route 2 times per day External 2 04/15/2020 Ciprofloxacin HCl 500 MG take 1 tablet ( 500 mg) by oral route every 12 hours for 14 days Oral 2 for 14 11/21/2016 Ocuflox 0.3 % instill 1 drop into both eyes by ophthalmic route 4 times per day for 5 days Ophthalmic 4 for 07/26/2012 07/31/2012 TRACK ANNOUNCER Thyroid 60 MG take 1 tablet (65 mg) by oral route once daily for 90 days Oral 1 for 05/17/2015 05/11/2016 Montelukast Sodium 10 MG TAKE 1 TABLET B Y MOUTH EVERY DAY Oral for 08/16/2020 08/11/2021 Vitamin D 6000 IU Take 1 daily by oral route 06/20/2018 *Pick strength-form from [employer] for eRX* Vit E daily *Reorder from [employer] for eRx and Interaction Alerts* Bactrim DS 800-160 MG take 1 tablet by oral route every 12 hours for 7 days Oral 2 for 7 04/30/2019 05/07/2019 Scopolamine 1 MG/3DAYS one patch behind ear before trip and change q 72 years Transdermal 07/22/2009 Voltaren 1% apply 2 gram to the affected area(s) by topical route 4 times per day for 30 days Transdermal 4 for 11/19/2013 03/19/2014 Singulair 10 MG take 1 tablet (10 mg) by oral route once daily in the evening for 90 days Oral 1 for 06/24/2019 06/18/2020 Omeprazole Magnesium 20 MG take 1 capsule (20 mg) by oral route once daily before a meal for 90 days Oral 1 for 05/24/2015 05/18/2016 Zithromax Z-Hermilo 250 MG take 2 tablets (5 00 mg) by oral route once daily for 1 day then 1 tablet (250 mg) by oral route once daily for 4 days Oral 1 for 5 04/29/2019 05/04/2019 guaiFENesin AC 100-10 MG/5ML take 10 milliliters by oral route every 4 hours as needed Oral 6 01/09/2013 Amoxicillin-Pot Clavulanate 875-125 MG take 1 tablet by oral route every 12 hours for 10 days Oral 2 for 10 04/18/2021 05/28/2021 amLODIPine Besylate 5 MG TAKE 1 TABLET(5 MG) BY MOUTH EVERY DAY Oral for 03/10/2021 03/05/2022 Slow Release Iron 45 mg 1 daily by oral route 06/20/2018 *Pick strength-form from [facility] for eRX* Lipitor 40 MG take 1 tablet (40 mg) by oral route once daily Oral 1 10/01/2020 Nitrofurantoin 100 mg Take 1 by oral rou te daily Oral *Pick strength-form from [facility] for eRX* Plaquenil 200 MG take 2 tablets (400 mg) by oral route once daily for 90 days Oral 1 for 11/19/2013 11/14/2014 Nature-Throid 81.25 MG take 1 tablet by oral route daily for 90 days Oral 1 for 10/07/2014 06/27/2015 *Reorder from [facility] for eRx and Interaction Alerts* Sanctura XR 1 Every Day 08/11/2010 *Reorder fro m [facility] for eRx and Interaction Alerts* Crestor 20 MG 1 Every Day for cholesterol Oral 12/21/2010 Atorvastatin Calcium 40 MG take 1 tablet by oral route daily for 90 days Oral 1 for 12/29/2020 12/24/2021 Medrol 4 MG take as directed for 6 days Oral for 05/08/2019 07/19/2019 Cipro 250 MG take 1 tablet (250 mg) by oral route every 12 hours for 7 days Oral 2 for 7 09/05/2013 09/12/2013 Vit D 6 ,000UT *Reorder f rom [facility] for eRx and Interaction Alerts* Aciphex 20 MG take 1 tablet (20 mg) by oral route every 12 hours Oral 2 for 09/03/2014 08/29/2015 Diflucan 150 MG take 1 tablet (150 mg) by oral route once Oral 0 11/11/2015 Ondansetron HCl 8 MG take 1 tablet (8 mg ) by oral route 3 times per day for 30 days Oral 3 for 02/28/2019 06/28/2019 Sanctura XR 60 mg 1 Every Day Oral for 12/21/2010 04/20/2011 *Reorder from [facility] for eRx and Interaction Alerts* Meloxicam 15 MG take 1 tablet (15 mg) by oral route once daily for 90 days Oral 1 for 05/16/2013 05/11/2014 Asmanex (30 Metered Doses) 220 MCG/ACT inhale 2 puffs (220 mcg) by inhalation route once daily in the evening Inhalation 1 for 05/31/2012 09/28/2012 Vitamin E 1000 UNIT Take 1 daily by oral route Oral 06/20/2018 Florence Thyroid 90 MG take 1 tablet (90 mg) by oral route once daily for 90 days Oral 1 for 03/29/2021 03/24/2022 KlonoPIN 0.5 MG take 1 tablet by oral route once a day (at bedtime) for 90 days Oral 1 for 05/17/2021 05/12/2022 Hydrocortisone 2.50% apply to affected area(s) by topical route 2 times a day eyelids External 2 for 04/29/2020 05/29/2020 hydrOXYzine HCl 10 MG take 1 tablet by oral route 2 times a day for 30 days Oral 2 for 08/14/2016 Hyoscyamine Sulfate 0.125 MG take 1 tablet (0.125 mg) by oral route 4 times per day for 30 days Oral 4 for 11/21/2016 Methotrexate Sodium 2.5 MG take 6 tablets by oral route weekly for 90 days Oral for 10/06/2019 09/30/2020 levoFLOXacin 500 MG take 1 tablet (500 mg) by oral route once daily for 14 days Oral 1 for 14 01/18/2015 02/15/2015 Imitrex 100 MG take 1 tablet (100 mg) by oral route after onset of migraine; may repeat after 2 hours if headache returns, not to exceed 200mg in 24hrs Oral 0 for 06/24/2019 06/18/2020 Cipro 500 MG take 1 tablet (500 mg) by oral route every 12 hours for 5 days Oral 2 for 08/30/2020 09/19/2020 Zoloft 50 MG 1 Every Day Oral 08/11/2010 guaiFENesin-Codeine 100-10 MG/5ML take 10 milliliters by oral route every 4 hours as needed for 30 days Oral 6 for 30 01/18/2015 03/19/2015 Progress Notes * Massiel JORDAN ADOB: [birth year] (74 yo F)Acc No.[id number]:01/13/2023 Patient: Massiel GARCIA :1950 A ge:72 Y S ex:Female Address:[address] [place] [address] * Refills Stop Atorvastatin Calcium Tablet, 20 MG, Oral, 90, TAKE 1 TABLET BY MOUTH EVERY DAY Stop Cipro Tablet, 500 MG, Oral, 14, take 1 tablet (500 mg) by oral route every 12 hours for 7 days, 2, 7 Stop guaiFENesin AC Syrup, 100-10 MG/5ML, Oral, 240, take 10 milliliters by oral route every 4 hours as needed, 6 Stop Imitrex Tablet, 100 MG, Oral, 27, 1 PO QD PRN, 90 Stop Imitrex Tablet, 100 MG, Oral, 27, take 1 tablet (100 mg) by oral route after onset of migraine; may repeat after 2 hours if headache returns, not to exceed 200mg in 24hrs, 0, 90 Stop Lisinopril Tablet, 10 MG, Oral, 30, take 1 tablet by oral route daily, 1, 90 Stop Montelukast Sodium Tablet, 10 MG, Oral, 90, TAKE 1 TABLET BY MOUTH EVERY DAY, 90 Stop Nature-Throid Tablet, 81.25 MG, Oral, 30, TAKE 1 TABLET BY MOUTH DAILY Stop Norvasc Tablet, 2.5 MG, Oral, 30, TAKE 1 TABLET (2.5 MG) BY ORAL ROUTE ONCE DAILY FOR 30 DAYS Stop Norvasc Tablet, 5 MG, Oral, 90, take 1 tablet (5 mg) by oral route once daily for 90 days, 1, 90 Stop Ocuflox Solution, 0.3 %, Ophthalmic, 1, instill 1 drop into both eyes by ophthalmic route 4 times per day for 5 days, 4, 5 Stop Omeprazole Magnesium Tablet Delayed Release, 20 MG, Oral, 90, take 1 capsule by oral route daily for 90 days, , 90 Stop Sertraline HCl Tablet, 100 MG, Oral, 90, TAKE 1 TABLET(100 MG) BY MOUTH EVERY DAY, 90 Stop Thyroid Tablet, 90 MG, Oral, 90, take 1 tablet by oral route daily for 90 days, 1, 90 Stop LDN, 1 mg, 90, One po q day x 1 week. Increase 2x tablets 2nd week. Increase 3x tablets 3rd week., 30 Stop Florence Thyroid Tablet, 90 MG, Oral, 30, TAKE 1 TABLET (90 MG) BY ORAL ROUTE ONCE DAILY FOR 30 DAYS Stop Arthrotec 75 tablet,IR & delay rel,mphase, 75-200 mg-mcg, Oral, 180, take 1 tablet by oral route 2 times per day for 90 days, 2, 90 Stop Atorvastatin Calcium Tablet, 20 MG, Oral, 90, TAKE 1 TABLET BY MOUTH EVERY DAY Stop Atorvastatin Calcium Tablet, 20 MG, Oral, 90, TAKE 1 TABLET(20 MG) BY MOUTH EVERY DAY Stop Atorvastatin Calcium Tablet, 20 MG, Oral, 90, take 1 tablet (20 mg) by oral route once daily for 90 days, 1, 90 Stop Calcium, 1500 mg, 0, daily Stop Cyclobenzaprine HCl Tablet, 10 MG, Oral, 180, take 1 tablet (10 mg) by oral route 2 times per day for 90 days, 2, 90 Stop Diclofenac-miSOPROStol Tablet Delayed Release, 50-0.2 MG, Oral, 180.00, 1 B.I.D., WITH FOOD Stop Etodolac Tablet, 400 MG, Oral, 0 Stop Lisinopril Tablet, 10 MG, Oral, 30, take 1 tablet by oral route daily, 1, 30 Stop Methocarbamol Tablet, 750 MG, Oral, 90, take 1 tablet (750 mg) by oral route 3 times per day for 30 days, 3, 30 Stop Sertraline HCl Tablet, 100 MG, Oral, 90, TAKE 1 TABLET(100 MG) BY MOUTH EVERY DAY, 90 Stop Singulair Tablet, 10 MG, Oral, 90, 1 Every Day, 90 Stop sulfaSALAzine Tablet, 500 MG, Oral, 120, TAKE 2 TABLETS BY MOUTH TWICE DAILY Stop Zocor Tablet, 20 MG, Oral, 90.00, 1 Every Day for cholesterol, 90 Stop Albuterol Sulfate HFA Aerosol Solution, 108 (90 Base) MCG/ACT, Inhalation, 3.00, 2 PUFFS 4 TIMES A DAY Stop Toviaz, Oral, 0 Stop Arthrotec Tablet Delayed Release, 75-0.2 MG, Oral, 180, take 1 tablet by oral route 2 times per day for 90 days, 2, 90 Stop cetirizine hydrochloride, 10 mg, 90, daily at bedtime for allergies Stop Atorvastatin Calcium Tablet, 20 MG, Oral, 90, take 1 tablet (20 mg) by oral route once daily for 90 days, , 90 Stop Diclofenac-miSOPROStol Tablet Delayed Release, 75-0.2 MG, Oral, 180, TAKE 1 TABLET BY MOUTH TWICE DAILY Stop Medrol Tablet Therapy Pack, 4 MG, Oral, 1, take as directed Stop Omeprazole Magnesium Tablet Delayed Release, 20 MG, Oral, 180, one capsule by oral route twice daily, 90 Stop predniSONE Tablet, 20 MG, Oral, 28, take 2 tablets by oral route daily Take for 1 week then call MD for further dosing instructions, 1 Stop Singulair Tablet, 10 MG, Oral, 90, 1 Every Day, 90 Stop traMADol HCl Tablet, 50 MG, Oral, 0 Stop traMADol HCl Tablet, 50 MG, Oral, 360, take 1 tablet (50 mg) by oral route every 6 hours as needed for 90 days, 4, 90 Stop Zoloft Tablet, 100 MG, Oral, 90, take 1 tablet (100 mg) by oral route once daily for 90 days, , Stop Zoloft Tablet, 100 MG, Oral, 135, take 1.5 tablets (150 mg) by oral route once daily for 90 days, , Stop Albuterol Sulfate HFA Aerosol Solution, 108 (90 Base) MCG/ACT, Inhalation, 3, inhale 2 puffs by inhalation route every 4 hours as needed for 90 days, 6, 90 Stop Toviaz Tablet Extended Release 24 Hour, 8 MG, Oral, 90, TAKE 1 TABLET (8 MG) BY ORAL ROUTE ONCE DAILY FOR 90 DAYS Stop Asmanex (30 Metered Doses) Aerosol Powder Breath Activated, 220 MCG/ACT, Inhalation, 1, inhale 2 puffs (220 mcg) by inhalation route once daily in the evening, 1 Stop Amoxicillin Tablet, 875 MG, Oral, 28, take 1 tablet (875 mg) by oral route every 12 hours for 14 days, 2, 14 Stop Atorvastatin Calcium Tablet, 20 MG, Oral, 90, take 1 tablet (20 mg) by oral route once daily for 90 days, Stop Atorvastatin Calcium Tablet, 40 MG, Oral, 90, take 1 tablet by oral route daily for 90 days, 1, 90 Stop Benzonatate Capsule, 100 MG, Oral, 60, take 1 capsule (100 mg) by oral route 3 times per day, 3 Stop guaiFENesin-Codeine Solution, 100-10 MG/5ML, Oral, 8, take 10 milliliters by oral route every 4 hours as needed for 30 days, 6, 30 Stop Imitrex Tablet, 100 MG, Oral, 27, take 1 tablet (100 mg) by oral route after onset of migraine; may repeat after 2 hours if headache returns, not to exceed 200mg in 24hrs, 0, 90 Stop levoFLOXacin Tablet, 500 MG, Oral, 14, take 1 tablet (500 mg) by oral route once daily for 14 days, 1, 14 Stop Plaquenil Tablet, 200 MG, Oral, 180, TAKE 2 TABLETS (400 MG) BY ORAL ROUTE ONCE DAILY FOR 90 DAYS Stop Sertraline HCl Tablet, 100 MG, Oral, 90, TAKE 1 TABLET BY MOUTH EVERY DAY Stop Sertraline HCl Tablet, 100 MG, Oral, 90, TAKE 1 TABLET(100 MG) BY MOUTH EVERY DAY, 90 Stop traMADol HCl Tablet, 50 MG, Oral, 360, take 1 tablet (50 mg) by oral route every 6 hours as needed for 90 days, 4, 90 Stop Zithromax Z-Hermilo Tablet, 250 MG, Oral, 6, take 2 tablets (500 mg) by oral route once daily for 1 day then 1 tablet (250 mg) by oral route once daily for 4 days, 1, 5 Stop Zoloft Tablet, 100 MG, Oral, 90, take 1 tablet (100 mg) by oral route once daily for 90 days, , 90 Stop Florence Thyroid Tablet, 90 MG, Oral, 90, take 1 tablet (90 mg) by oral route once daily for 90 days, , 90 Stop Azithromycin Tablet, 250 MG, Oral, 6, take 2 tablets (500 mg) by oral route once daily for 1 day then 1 tablet (250 mg) by oral route once daily for 4 days, 1, 5 Stop Hydrocortisone Cream, 2.50%, External, 15, apply to affected area(s) by topical route 2 times a day eyelids, 2, 30 Stop hydrOXYzine HCl Tablet, 10 MG, Oral, 60, take 1 tablet by oral route 2 times a day for 30 days, 2, 30 Stop Hyoscyamine Sulfate Tablet Disintegrating, 0.125 MG, Oral, 120, take 1 tablet (0.125 mg) by oral route 4 times per day for 30 days, 4, 30 Stop KlonoPIN Tablet, 0.5 MG, Oral, 90, take 1 tablet by oral route once a day (at bedtime) for 90 days, , 90 Stop Lisinopril Tablet, 10 MG, Oral, 90, take 1 tablet by oral route daily for 90 days, Stop Meloxicam Tablet, 15 MG, Oral, 90, take 1 tablet (15 mg) by oral route once daily for 90 days, , Stop Montelukast Sodium Tablet, 10 MG, Oral, 90, TAKE 1 TABLET BY MOUTH EVERY DAY Stop Nature-Throid Tablet, 81.25 MG, Oral, 30, TAKE 1 TABLET BY MOUTH DAILY Stop Ondansetron HCl Tablet, 8 MG, Oral, 90, take 1 tablet (8 mg) by oral route 3 times per day for 30 days, 3, 30 Stop Sanctura XR Capsule, Ext Release 24 hr, 60 mg, Oral, 90.00, 1 Every Day, 30 Stop Sertraline HCl Tablet, 100 MG, Oral, 90, take 1 tablet by oral route daily, 1 Stop traMADol HCl Tablet, 50 MG, Oral, 360, take 1 tablet (50 mg) by oral route every 6 hours as needed for 90 days, , 90 Stop Vitamin E Capsule, 1000 UNIT, Oral, 30, Take 1 daily by oral route Stop Arthrotec Tablet Delayed Release, 75-0.2 MG, Oral, 180, take 1 tablet by oral route 2 times per day for 90 days, Stop Asmanex (30 Metered Doses) Aerosol Powder Breath Activated, 220 MCG/ACT, Inhalation, 60, inhale 2 puffs (220 mcg) by inhalation route once daily in the evening, 1, 30 Stop Atorvastatin Calcium Tablet, 20 MG, Oral, 90, take 1 tablet (20 mg) by oral route once daily for 90 days, Stop Bactrim DS Tablet, 800-160 MG, Oral, 7, take 1 tablet by oral route every 12 hours for 7 days, 2, 7 Stop Ciprofloxacin HCl Tablet, 500 MG, Oral, 28, take 1 tablet (500 mg) by oral route every 12 hours for 14 days, 2, 14 Stop Clobetasol Propionate Cream, 0.05%, External, 1, apply a thin layer to the affected area(s) by topical route 2 times per day, 2 Stop Elidel Cream, 1 %, External, 1, apply to affected area(s) by topical route 2 times a day eyelids, 2, 30 Stop Estradiol Tablet, 1 mg, Oral, 90, TAKE ONE TABLET BY MOUTH ONE TIME DAILY Stop HYDROcodone-Acetaminophen Tablet, 5-325 MG, Oral, 45, take 1 tablet by oral route every 6 hours as needed for pain for 30 days, 4, 30 Stop Imitrex Tablet, 100 MG, Oral, 27, take 1 tablet (100 mg) by oral route once with fluids as early as possible after the onset of a migraine attack;may repeat after 2 hours if headache returns, not to exceed 200mg in 24hrs, 0, 90 Stop Lisinopril Tablet, 10 MG, Oral, 90, take 1 tablet by oral route daily for 90 days, 1, 90 Stop Methscopolamine [place] Tablet, 5 mg, Oral, 180, take 1 tablet by oral route 2 times a day for 90 days, 2, 90 Stop Montelukast Sodium Tablet, 10 MG, Oral, 90, TAKE 1 TABLET BY MOUTH EVERY DAY Stop Norvasc Tablet, 5 MG, Oral, 90, take 1 tablet (5 mg) by oral route once daily for 90 days, 1, 90 Stop Omeprazole Tablet Delayed Release, 20 MG, Oral, 90, take 1 tablet by oral route daily for 90 days, 1, 90 Stop Omeprazole Magnesium Tablet Delayed Release, 20 MG, Oral, 90, 1 Every Day, 90 Stop Restasis, 0.4 mg, 1, Use BID PRN migraines Stop Singulair Tablet, 10 MG, Oral, 90, 1 Every Day, 90 Stop Thyroid Tablet, 90 MG, Oral, 30, take 1 tablet by oral route daily, 1 Stop traMADol HCl Tablet, 50 MG, Oral, 360, take 1 tablet (50 mg) by oral route every 6 hours as needed for 90 days, 4, 90 Stop DICLOFENAC/MISOPROSTOL 75-0.2MG TAB, 180, TAKE 1 TABLET BY MOUTH TWICE DAILY, 90 Stop Actonel Tablet, 150 MG, Oral, 12.00, 1 Q WEEK Stop [place] Thyroid Tablet, 90 MG, Oral, 30, take 1 tablet (90 mg) by oral route once daily for 30 days, 1, 30 Stop Arthrotec 75 tablet,IR & delay rel,mphase, 75-200 mg-mcg, Oral, 180, take 1 tablet by oral route 2 times per day for 90 days, , 90 Stop Atorvastatin Calcium Tablet, 20 MG, Oral, 90, take 1 tablet (20 mg) by oral route once daily for 90 days, , Stop Cyclobenzaprine HCl Tablet, 5 MG, Oral, 20, take 1 tablet (5 mg) by oral route 3 times per day as needed for pain, 3 Stop Imitrex Tablet, 50 MG, Oral, 27.00, 1 PO QD PRN Stop Medrol Tablet Therapy Pack, 4 MG, Oral, 1, take as directed for 6 days, 6 Stop Montelukast Sodium Tablet, 10 MG, Oral, 90, TAKE 1 TABLET BY MOUTH EVERY DAY Stop Nature-Throid Tablet, 81.25 MG, Oral, 90, TAKE 1 TABLET BY MOUTH DAILY Stop Norvasc Tablet, 5 MG, Oral, 90, take 1 tablet (5 mg) by oral route once daily for 90 days, , 90 Stop Singulair Tablet, 10 MG, Oral, 90, 1 Every Day, 90 Stop Thyroid Tablet, 90 MG, Oral, 90, take 1 tablet by oral route daily for 90 days, , Stop Thyroid Tablet, 90 MG, Oral, 90, take 1 tablet by oral route daily for 90 days, Stop Zocor Tablet, 20 MG, Oral, 30.00, 1 Every Day for cholesterol Stop Arthrotec Tablet Delayed Release, 75-0.2 MG, Oral, 60, take 1 tablet by oral route 2 times per day for 30 days, 2, 30 Stop TRACK ANNOUNCER Thyroid Tablet, 60 MG, Oral, 90, take 1 tablet (65 mg) by oral route once daily for 90 days, , 90 Stop Aspirin 81 Tablet Delayed Release, 81 MG, Oral, 0 Stop ARTHROTEC 75 MG, 180.00, 1 BID Stop METHSCOPOLAMINE BR 5MG TABLETS, 360, TAKE 1 TABLET BY MOUTH 30 MINUTES BEFORE MEALS AND AT BEDTIME, 90 Stop Iodoral, 12.5 mg, 0, Sunday -Sunday - Sunday Stop Aciphex Tablet Delayed Release, 20 MG, Oral, 90.00, 1 Every Day Stop amLODIPine Besylate Tablet, 2.5 MG, Oral, 90, TAKE 1 TABLET BY MOUTH EVERY DAY Stop Amoxicillin-Pot Clavulanate Tablet, 875-125 MG, Oral, 28, take 1 tablet by oral route 2 times a day for 14 days, 2, 14 Stop Arthrotec 75 tablet,IR & delay rel,mphase, 75-200 mg-mcg, Oral, 180, take 1 tablet by oral route 2 times per day for 90 days, 2, 90 Stop Atorvastatin Calcium Tablet, 20 MG, Oral, 90, TAKE 1 TABLET(20 MG) BY MOUTH EVERY DAY, 90 Stop Azithromycin Tablet, 250 MG, Oral, 6, 2x po x 1 day. 1x po q day x 4 days, 5 Stop Hyoscyamine Sulfate Tablet Disintegrating, 0.125 MG, Oral, 120, take 1 tablet (0.125 mg) by oral route 4 times per day for 30 days, 4, 30 Stop Lidoderm Patch, 5 %, External, 30, apply 1 patch by transdermal route once daily (May wear up to 12hours.) for 30 days, 1, 30 Stop Lisinopril Tablet, 10 MG, Oral, 90, take 1 tablet (10 mg) by oral route once daily, 1 Stop Macrobid Capsule, 100 MG, Oral, 180, take 1 capsule (100 mg) by oral route every 12 hours with food for 90 days, 2, 90 Stop Norvasc Tablet, 2.5 MG, Oral, 30, take 1 tablet (2.5 mg) by oral route once daily for 30 days, 1, 30 Stop Norvasc Tablet, 2.5 MG, Oral, 90, take 1 tablet (2.5 mg) by oral route once daily for 90 days, 1, 90 Stop Norvasc Tablet, 2.5 MG, Oral, 90, TAKE 1 TABLET (2.5 MG) BY ORAL ROUTE ONCE DAILY FOR 30 DAYS Stop Norvasc Tablet, 5 MG, Oral, 90, TAKE 1 TABLET (5 MG) BY ORAL ROUTE ONCE DAILY FOR 90 DAYS Stop Norvasc Tablet, 5 MG, Oral, 90, TAKE 1 TABLET (5 MG) BY ORAL ROUTE ONCE DAILY FOR 90 DAYS Stop PriLOSEC OTC Tablet Delayed Release, 20 MG, Oral, 30.00, 1 Every Day for reflux Stop Topamax Tablet, 100 MG, Oral, 360.00, 2x am and 2x pm Stop Zoloft Tablet, 100 MG, Oral, 90, take 1 tablet (100 mg) by oral route once daily for 90 days, Stop Arthrotec Tablet Delayed Release, 75-0.2 MG, Oral, 180, take 1 tablet by oral route 2 times per day for 90 days, Stop TRACK ANNOUNCER Thyroid Tablet, 90 MG, Oral, 30, take 1 tablet (90 mg) by oral route once daily . Please fill [facility] only, , 30 Stop Clobetasol Cream, 0.1 %, 1, Apply to affected area BID Stop Aciphex Tablet Delayed Release, 20 MG, Oral, 180, take 1 tablet (20 mg) by oral route every 12 hours, , 90 Stop Amoxicillin-Pot Clavulanate Tablet, 875-125 MG, Oral, 28, take 1 tablet by oral route every 12 hours for 14 days, , 14 Stop Florence Thyroid Tablet, 90 MG, Oral, 90, take 1 tablet (90 mg) by oral route once daily for 90 days, Stop Atorvastatin Calcium Tablet, 20 MG, Oral, 30, take 1 tablet (20 mg) by oral route once daily for 30 days, Stop Atorvastatin Calcium Tablet, 20 MG, Oral, 90, take 1 tablet (20 mg) by oral route once daily for 90 days, Stop Atorvastatin Calcium Tablet, 40 MG, Oral, 90, take 1 tablet by oral route daily for 90 days, Stop Crestor Tablet, 20 MG, Oral, 930.00, 1 Every Day for cholesterol Stop Diclofenac-miSOPROStol Tablet Delayed Release, 75-0.2 MG, Oral, 180, TAKE 1 TABLET BY MOUTH TWICE DAILY Stop Imitrex Tablet, 100 MG, Oral, 27, take 1 tablet (100 mg) by oral route after onset of migraine; may repeat after 2 hours if headache returns, not to exceed 200mg in 24hrs, 0, 90 Stop Lipitor Tablet, 40 MG, Oral, 30, take 1 tablet (40 mg) by oral route once daily, 1 Stop Lisinopril Tablet, 10 MG, Oral, 30, take 1 tablet by oral route daily, , 30 Stop Norvasc Tablet, 5 MG, Oral, 90, take 1 tablet (5 mg) by oral route once daily for 90 days, Stop Omeprazole Magnesium Tablet Delayed Release, 20 MG, Oral, 0 Stop Omeprazole Magnesium Tablet Delayed Release, 20 MG, Oral, 90, take 1 capsule by oral route daily for 90 days, 1, 90 Stop Singulair Tablet, 10 MG, Oral, 90, take 1 tablet (10 mg) by oral route once daily in the evening for 90 days, , 90 Stop Voltaren Gel, 1%, Transdermal, 1, apply 2 gram to the affected area(s) by topical route 4 times per day for 30 days, 4, 30 Stop Zithromax Z-Hermilo Tablet, 250 MG, Oral, 6, take 2 tablets (500 mg) by oral route once daily for 1 day then 1 tablet (250 mg) by oral route once daily for 4 days, 1, 5 Stop Albuterol Sulfate HFA Aerosol Solution, 108 (90 Base) MCG/ACT, Inhalation, 1, inhale 2 puffs by inhalation route every 4 hours as needed, 6 Stop Arthrotec Tablet Delayed Release, 75-0.2 MG, Oral, 180, take 1 tablet by oral route 2 times per day for 90 days, 2, 90 Stop Scopolamine Patch 72 Hour, 1 MG/3DAYS, Transdermal, 1.00, one patch behind ear before trip and change q 72 years Stop ARTHROTEC 75 MG, 180.00, 1 BID prn Stop Vit E, 0, daily Stop Vit D, 6000 units, 0, daily Stop amLODIPine Besylate Tablet, 5 MG, Oral, 90, TAKE 1 TABLET(5 MG) BY MOUTH EVERY DAY, 90 Stop Benzonatate Capsule, 100 MG, Oral, 30, take 1 capsule (100 mg) by oral route 3 times per day for 30 days, 30 Stop Crestor Tablet, 20 MG, Oral, 30.00, 1 Every Day for cholesterol Stop Imitrex Tablet, 100 MG, Oral, 27.00, 1 PO QD PRN Stop KlonoPIN Tablet, 0.5 MG, Oral, 30, take 1 tablet by oral route once a day (at bedtime) for 30 days, 1, 30 Stop Lisinopril Tablet, 10 MG, Oral, 30, take 1 tablet by oral route daily, 1, 30 Stop Lisinopril Tablet, 10 MG, Oral, 90, take 1 tablet (10 mg) by oral route once daily, 1 Stop Montelukast Sodium Tablet, 10 MG, Oral, 90, TAKE 1 TABLET BY MOUTH EVERY DAY Stop Percocet Tablet, 5-325 MG, Oral, 120, take 1 tablet by oral route every 6 hours as needed, 4 Stop Singulair Tablet, 10 MG, Oral, 90.00, 1 Every Day, 90 Stop Singulair Tablet, 10 MG, Oral, 90, 1 Every Day, 90 Stop Zoloft Tablet, 50 MG, Oral, 90.00, 1 Every Day Stop Zoloft Tablet, 100 MG, Oral, 90, take 1 tablet (100 mg) by oral route once daily for 90 days, , Stop Toviaz Tablet Extended Release 24 Hour, 8 MG, Oral, 90, TAKE 1 TABLET (8 MG) BY ORAL ROUTE ONCE DAILY FOR 90 DAYS for 90 days, 90 Stop amLODIPine Besylate Tablet, 5 MG, Oral, 90, TAKE 1 TABLET(5 MG) BY MOUTH EVERY DAY, 90 Stop Amoxicillin-Pot Clavulanate Tablet, 875-125 MG, Oral, 20, take 1 tablet by oral route every 12 hours for 10 days, 2, 10 Stop [place] Thyroid Tablet, 90 MG, Oral, 90, take 1 tablet (90 mg) by oral route once daily for 90 days, , Stop Atorvastatin Calcium Tablet, 20 MG, Oral, 90, take 1 tablet (20 mg) by oral route once daily for 90 days, , Stop Azithromycin tablet, 250 mg, Oral, 6, take 2 tablets (500 mg) by oral route once daily for 1 day then 1 tablet (250 mg) by oral route once daily for 4 days, 5 Stop Nitrofurantoin, 100 mg, Oral, 0, Take 1 by oral route daily Stop Norvasc Tablet, 5 MG, Oral, 90, take 1 tablet (5 mg) by oral route once daily for 90 days, Stop Omeprazole Magnesium Tablet Delayed Release, 20 MG, Oral, 90, TAKE ONE CAPSULE BY MOUTH DAILY Stop Omeprazole Magnesium Tablet Delayed Release, 20 MG, Oral, 90, take 1 capsule (20 mg) by oral route once daily before a meal for 90 days, Stop Ondansetron HCl Tablet, 8 MG, Oral, 90, take 1 tablet (8 mg) by oral route 3 times per day for 30 days, 3, 30 Stop Singulair Tablet, 10 MG, Oral, 90, 1 Every Day, 90 Stop Thyroid Tablet, 90 MG, Oral, 90, take 1 tablet by oral route daily for 90 days, 1, 90 Stop traMADol HCl Tablet, 50 MG, Oral, 720.00, 1-2 tid prn Stop Vitamin D, 6000 IU, 30, Take 1 daily by oral route Stop Zoloft Tablet, 100 MG, Oral, 90, TAKE 1 TABLET (100 MG) BY ORAL ROUTE ONCE DAILY FOR 90 DAYS Stop TRACK ANNOUNCER Thyroid Tablet, 60 MG, Oral, 30, take 1 tablet (65 mg) by oral route once daily for 30 days, 1, 30 Stop TRACK ANNOUNCER Thyroid Tablet, 60 MG, Oral, 90, take 1 tablet (65 mg) by oral route once daily for 90 days, Stop Vitamin D (Cholecalciferol) Capsule, 25 MCG (1000 UT), Oral, 0 Stop Aspirin 81 Tablet Delayed Release, 81 MG, Oral, 90.00, 1 Every Day Stop TRIAMCINOLONE OINTMENT, 0.5 %, 1, Apply BID to affected areas Stop Aspirin Tablet Chewable, 81 MG, Oral, 90, chew 1 tablet (81 mg) by oral route once daily, 1 Stop Estrace Tablet, 1 MG, Oral, 90.00, 1 Every Day, 90 Stop Imitrex Tablet, 100 MG, Oral, 27, take 1 tablet (100 mg) by oral route after onset of migraine; may repeat after 2 hours if headache returns, not to exceed 200mg in 24hrs, 0, 90 Stop Omeprazole Magnesium Tablet Delayed Release, 20 MG, Oral, 90, take 1 capsule by oral route daily for 90 days, Stop Restasis, 1 gtt, 0, each eye b.i.d. Stop sulfaSALAzine Tablet, 500 MG, Oral, 90, take 1 tablet by oral route 3 times a day for 30 days, 3, 30 Stop sulfaSALAzine Tablet, 500 MG, Oral, 120, take 2 tablets by oral route 2 times a day for 30 days, 2, 30 Stop Zithromax Z-Hermilo Tablet, 250 MG, Oral, 6, take 2 tablets (500 mg) by oral route once daily for 1 day then 1 tablet (250 mg) by oral route once daily for 4 days, 1, 5 Stop Zoloft Tablet, 100 MG, Oral, 90, take 1 tablet (100 mg) by oral route once daily for 90 days, Stop Toviaz Tablet Extended Release 24 Hour, 8 MG, Oral, 90, TAKE 1 TABLET (8 MG) BY ORAL ROUTE ONCE DAILY FOR 90 DAYS for 90 days, 90 Stop Arthrotec Tablet Delayed Release, 75-0.2 MG, Oral, 60, TAKE ONE(1) TABLET BY MOUTH TWICE A DAY. Stop Arthrotec Tablet Delayed Release, 75-0.2 MG, Oral, 180, take 1 tablet by oral route 2 times per day for 90 days, 2, 90 Stop Guaiatussin AC Syrup, 100-10 MG/5ML, Oral, 200, take 10 milliliters by oral route every 4 hours as needed for 7 days, 6, 7 Stop Vit D, 6 ,000UT, 0 Stop Benzonatate Capsule, 100 MG, Oral, 90, take 1 capsule (100 mg) by oral route 3 times per day for 30 days, 3, 30 Stop Cipro Tablet, 250 MG, Oral, 14, take 1 tablet (250 mg) by oral route every 12 hours for 7 days, 2, 7 Stop Cyclobenzaprine HCl Tablet, 10 MG, Oral, 60, take 1 tablet (10 mg) by oral route 2 times per day for 30 days, 2, 30 Stop Diflucan Tablet, 150 MG, Oral, 1, take 1 tablet (150 mg) by oral route once, 0 Stop Imitrex Tablet, 100 MG, Oral, 27, take 1 tablet (100 mg) by oral route once with fluids as early as possible after the onset of a migraine attack;may repeat after 2 hours if headache returns, not to exceed 200mg in 24hrs, 0, 90 Stop Medrol Tablet Therapy Pack, 4 MG, Oral, 1, take as directed for 6 days, 6 Stop Nature-Throid Tablet, 81.25 MG, Oral, 90, take 1 tablet by oral route daily for 90 days, , 90 Stop Percocet Tablet, 5-325 MG, Oral, 120, take 1 tablet by oral route every 6 hours as needed, 4 Stop Plaquenil Tablet, 200 MG, Oral, 180, take 2 tablets (400 mg) by oral route once daily for 90 days, 1, 90 Stop [place] XR, 90.00, 1 Every Day Stop Sertraline HCl Tablet, 100 MG, Oral, 90, TAKE ONE TABLET BY MOUTH ONE TIME DAILY Stop Singulair Tablet, 10 MG, Oral, 90, 1 Every Day, 90 Stop Slow Release Iron, 45 mg, 30, 1 daily by oral route Stop sulfaSALAzine Tablet, 500 MG, Oral, 60, TAKE 1 TABLET BY MOUTH TWICE DAILY Stop traMADol HCl Tablet, 50 MG, Oral, 360, take 1 tablet (50 mg) by oral route every 6 hours as needed for 90 days, , Stop Vitamin E Capsule, 1000 UNIT, Oral, 0 Stop Zithromax Z-Hermilo Tablet, 250 MG, Oral, 6, take 2 tablets (500 mg) by oral route once daily for 1 day then 1 tablet (250 mg) by oral route once daily for 4 days, 1, 5 Stop Zoloft Tablet, 100 MG, Oral, 90, take 1 tablet (100 mg) by oral route once daily for 90 days, Stop Albuterol Sulfate HFA Aerosol Solution, 108 (90 Base) MCG/ACT, Inhalation, 3.00, 2 PUFFS 4 TIMES A DAY Stop Toviaz Tablet Extended Release 24 Hour, 8 MG, Oral, 90, take 1 tablet (8 mg) by oral route once daily for 90 days, Stop Arthrotec Tablet Delayed Release, 75-0.2 MG, Oral, 180, take 1 tablet by oral route 2 times per day for 90 days, 2, 90 Stop Benzonatate Capsule, 100 MG, Oral, 90, take 1 capsule (100 mg) by oral route 3 times per day for 30 days, 3, 30 Stop Estrace Cream, 0.1 MG/GM, Vaginal, 90.00, 1 Every Day Stop levoFLOXacin Tablet, 500 MG, Oral, 10, take 1 tablet (500 mg) by oral route once daily for 10 days, 1, 10 Stop Lisinopril Tablet, 10 MG, Oral, 30, take 1 tablet by oral route daily, 90 Stop Lisinopril Tablet, 10 MG, Oral, 30, take 1 tablet by oral route daily, , 30 Stop Nature-Throid Tablet, 81.25 MG, Oral, 30, take 1 tablet by oral route daily for 30 days, , 30 Stop Norvasc Tablet, 5 MG, Oral, 90, take 1 tablet (5 mg) by oral route once daily for 90 days, 90 Stop Percocet Tablet, 5-325 MG, Oral, 120, take 1 tablet by oral route every 6 hours as needed, 4 Stop Percocet Tablet, 7.5-325 MG, Oral, 90, take 1 tablet by oral route every 6 hours as needed for 30 days, 4, 30 Stop Singulair Tablet, 10 MG, Oral, 90, 1 Every Day, 90 Stop Singulair Tablet, 10 MG, Oral, 90, 1 EVERY DAY Stop sulfaSALAzine Tablet, 500 MG, Oral, 60, take 1 tablet by oral route 2 times a day for 30 days, 2, 30 Stop Zithromax Z-Hermilo Tablet, 250 MG, Oral, 6, take 2 tablets (500 mg) by oral route once daily for 1 day then 1 tablet (250 mg) by oral route once daily for 4 days, 1, 5 Stop Zoloft Tablet, 100 MG, Oral, 90, take 1 tablet (100 mg) by oral route once daily for 90 days, , 90 Stop Albuterol Sulfate HFA Aerosol Solution, 108 (90 Base) MCG/ACT, Inhalation, 3, inhale 2 puffs by inhalation route every 4 hours as needed for 90 days, 6, 90 Stop Arthrotec Tablet Delayed Release, 75-0.2 MG, Oral, 180, TAKE 1 TABLET BY ORAL ROUTE 2 TIMES PER DAY FOR 90 DAYS Stop Arthrotec Tablet Delayed Release, 75-0.2 MG, Oral, 180, take 1 tablet by oral route 2 times per day for 90 days, 2, 90 Stop Iodoral IODINE, 12.5 mg, topical, 0 Stop Albuterol inhaler, 1, Use as needed Stop Atorvastatin Calcium Tablet, 20 MG, Oral, 90, take 1 tablet (20 mg) by oral route once daily for 90 days, Stop Azithromycin Tablet, 250 MG, Oral, 6, 2x po x 1 day. 1x po q day x 4 days, 5 Stop Benzonatate Capsule, 100 MG, Oral, 30, take 1 capsule (100 mg) by oral route 3 times per day for 30 days, 3, 30 Stop Benzonatate Capsule, 100 MG, Oral, 30, take 1 capsule (100 mg) by oral route 3 times per day for 10 days, 3, 10 Stop Calcium Antacid Tablet Chewable, 500 MG, Oral, 0.00, 1 Three Times A Day Stop Diflucan Tablet, 150 MG, Oral, 1, take 1 tablet (150 mg) by oral route once, 0 Stop levoFLOXacin Tablet, 500 MG, Oral, 14, TAKE 1 TABLET BY MOUTH EVERY DAY FOR 14 DAYS Stop Lisinopril Tablet, 10 MG, Oral, 90, take 1 tablet (10 mg) by oral route once daily, 1 Stop Macrobid Capsule, 100 MG, Oral, 14, take 1 capsule (100 mg) by oral route every 12 hours with food for 7 days, 2, 7 Stop Methscopolamine [place] Tablet, 5 mg, Oral, 360, take 1 tablet (5 mg) 30 minutes before meals and at bedtime by oral route 4 times per day for 90 days, , Stop Omeprazole Magnesium Tablet Delayed Release, 20 MG, Oral, 90, take 1 capsule by oral route daily for 90 days, , Stop Zocor Tablet, 20 MG, Oral, 90.00, 1 Every Day Stop Toviaz Tablet Extended Release 24 Hour, 8 MG, Oral, 90, take 1 tablet (8 mg) by oral route once daily for 90 days, Stop Toviaz Tablet Extended Release 24 Hour, 8 MG, Oral, 90, TAKE 1 TABLET (8 MG) BY ORAL ROUTE ONCE DAILY FOR 90 DAYS Stop Atorvastatin Calcium Tablet, 20 MG, Oral, 90, TAKE 1 TABLET (20 MG) BY ORAL ROUTE ONCE DAILY FOR 90 DAYS Stop Calcium, 1500 mg, 30, Take daily for arthritis Stop Cipro Tablet, 500 MG, Oral, 10, take 1 tablet (500 mg) by oral route every 12 hours for 5 days, 2, 5 Stop Medrol Tablet Therapy Pack, 4 MG, Oral, 1, take as directed Stop Methotrexate Sodium Tablet, 2.5 MG, Oral, 72, take 6 tablets by oral route weekly for 90 days, 90 Stop Methscopolamine [place] Tablet, 5 mg, Oral, 360, take 1 tablet (5 mg) 30 minutes before meals and at bedtime by oral route 4 times per day for 90 days, , Stop Omeprazole Magnesium Tablet Delayed Release, 20 MG, Oral, 180, one capsule by oral route twice daily, 90 Stop predniSONE Tablet, 20 MG, Oral, 28, take 2 tablets by oral route daily Take for 1 week then call MD for further dosing instructions, 1 Stop Sertraline HCl Tablet, 100 MG, Oral, 90, TAKE 1 TABLET(100 MG) BY MOUTH EVERY DAY Stop Singulair Tablet, 10 MG, Oral, 90.00, 1 Every Day Stop Zithromax Z-Hermilo Tablet, 250 MG, Oral, 6, take 2 tablets (500 mg) by oral route once daily for 1 day then 1 tablet (250 mg) by oral route once daily for 4 days, 1, 5 Stop Zoloft Tablet, 100 MG, Oral, 90, take 1 tablet (100 mg) by oral route once daily for 90 days, Subjective: * Chief Complaints: * E MR-Dick * Medical History: * Surgical History: * Hospitalization/Major Diagno stic Procedure: * Medications: Objective: * Vitals: * Physical Examination: Assessment: Plan: * Treatment: * Procedure Codes: * * Date:
--- OUTSIDE RECORDS SUMMARY | 2024-05-02 19:18 | XMS_ITS | Encounter Summary ---
Author Organization [facility] Address [address] [facility] [place] [address] Care Team Providers Care Building Analyst/Supervisor Name Role Phone Sravani Harrison MD Primary Care Provider [phone] Reason for Visit * CT Scan (Routine) - Closed Specialty Diagnoses / Procedures Referred By Contac t Referred To Contact Radiology Diagnoses Foot and ankle pain Procedures CT ANKLE WO CONTRAST RIGHT Jaret Jaramillo MD [address] [place] [address] Phone: tel: [facility]: [facility] [address] [address] Phone: tel: fax: Referral ID Status Reason Start Date Expiration Date Visits Re quested Visits Authorized [id number] Closed 04/28/2024 05/28/2024 1 1 Encounter Details Date Type Department Care Team (Latest Contact Info) Description 05/02/2024 2:45 PM COMMUNICATIONS OPERATOR Ancillary Procedure [address] [address] Jaret Jaramillo MD [address] [place] [address] Foot and ankle pain Social History Tobacco Use Types Packs/Day Years Used Date Smoking Tobacco: Never Smokeless Tobacco: Never Alcohol Use Standard Drinks/Week Comments No 0 (1 standard drink = 0.6 oz pur e alcohol) Comments No Sex and Gender Information Value Date Recorded Sex Assigned at Not on file Legal Sex Female 4:45 AM COMMUNICATIONS OPERATOR Gender Identity Not on file Sexual Orientation Not on file documented as of this encounter Plan of Treatment Not on file documented as of this encounter Procedures Procedure Name Priority Date/Time Associated Diagnosis Comments CT ANKLE WO CONTRAST RIGHT Routine 05/02/2024 2:02 PM COMMUNICATIONS OPERATOR Foot and ankle pain documented in this encounter Results * CT ANKLE WO CONTRAST RIGHT (05/02/2024 2:02 PM COMMUNICATIONS OPERATOR) Anatomical Region Laterality Modality Ankle / Foot Computed Tomogra phy 05/02/2024 2:02 PM COMMUNICATIONS OPERATOR Impressions 05/02/2024 3:52 PM COMMUNICATIONS OPERATOR IMPRESSION: 1. Complete bridging bony trabeculae [...] definite associated tear. Narrative 05/02/2024 3:52 PM COMMUNICATIONS OPERATOR EXAM: CT ANKLE WO CONTRAST RIGHT, [...] a small associated heel spur. There is [id number]. Patchy fatty atrophy of the visible intrathoracic [...] osteoarthritis. 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 There is mild great toe [...] a small associated heel spur. There is [id number]. Patchy fatty atrophy of the visible intrathoracic [...] osteoarthritis. There is mild 1st metatarsophalangeal and [id number]-it-xoagyuks sesamoidometatarsal osteoarthritis. There is mild great toe [...] FOOT WO CONTRAST RIGHT (05/02/2024 2:02 PM COMMUNICATIONS OPERATOR) Anatomical Region Laterality Modality Ankle / Foot Computed Tomogra phy 05/02/2024 1:51 PM COMMUNICATIONS OPERATOR Impressions 05/02/2024 3:52 PM COMMUNICATIONS OPERATOR IMPRESSION: 1. Complete bridging bony trabeculae [...] definite associated tear. Narrative 05/02/2024 3:52 PM COMMUNICATIONS OPERATOR EXAM: CT ANKLE WO CONTRAST RIGHT, [...] a small associated heel spur. There is [id number]. Patchy fatty atrophy of the visible intrathoracic [...] osteoarthritis. 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 There is mild great toe [...] a small associated heel spur. There is [id number]. Patchy fatty atrophy of the visible intrathoracic [...] osteoarthritis. There is mild 1st metatarsophalangeal and yspx-cs-zehxgdgo sesamoidometatarsal osteoarthritis. There is mild great toe [...] Jaret Jaramillo MD CT ORDERABLES Final Result documented in this encounter Visit Diagnoses Diagnosis Foot and ankle pain Right foot pain Pain in limb documented in this encounter Care Teams Building Analyst/Supervisor Relationship Specialty Start Date End Date Sravani Harrison MD PCP - General Internal Medicine 05/13/14 documented as of this encounter
--- OUTSIDE RECORDS SUMMARY | 2024-05-02 19:18 | XMS_ITS | Referral Summary ---
Author Organization [facility] Address [facility] [place] [address] Care Team Providers Care Grinder Set Up Operator Name Role Phone Horace Mack MD Unavailable Sravani Harrison MD Primary Care Provider [phone] Encounters Date Type Department Care Team Description 04/30/2024 10:00 AM ENTRY LEVEL MANUFACTURING ENGINEER Infusion [facility] [address] [place] [address] Age-related osteoporosis without current pathological fracture (Primary Dx) 04/15/2024 Orders Only [facility] [address] [facility] Medical Office Building [address] [place] [address] Saskia Sprague MD 04/14/2024 Telephone [facility] at [address], [address] [place] [address] Nikolai Nesbitt MD [place] refill 04/02/2024 11:45 AM ENTRY LEVEL MANUFACTURING ENGINEER - 04/02/2024 11:59 PM ENTRY LEVEL MANUFACTURING ENGINEER Hospital Encounter [facility] at [address], [address] [place] [address] Nikolai Nesbitt MD Degeneration of intervertebral disc of lumbar region with discogenic back pain (Primary Dx); Chronic use of opiate drug for therapeutic purpose Discharge Disposition: Discharge to home or self care 03/07/2024 5:35 AM ENTRY LEVEL MANUFACTURING ENGINEER - 03/08/2024 12:40 PM ENTRY LEVEL MANUFACTURING ENGINEER Hospital Encounter [facility] [address] [place] [phone] Horace Mack MD Discharge Disposition: Discharge to home or self care 03/07/2024 7:15 AM ENTRY LEVEL MANUFACTURING ENGINEER - 03/07/2024 10:15 AM ENTRY LEVEL MANUFACTURING ENGINEER Surgery [facility] Operating Room [address] [place] [phone] Horace Mack MD Right Total Knee Arthroplasty 03/07/2024 7:13 AM ENTRY LEVEL MANUFACTURING ENGINEER Anesthesia Event [facility] [address] [place] [phone] Kwadwo Walker DO Grither, Christine D., NP 02/26/2024 Telephone [facility] at [facility] [address] [address], [address] [place] [address] Nikolai Nesbitt MD schedule appointment 02/18/2024 12:00 PM ENTRY LEVEL MANUFACTURING ENGINEER Pre-Admission Testing [facility] Pre Anesthesia Testing [address] [place] [phone] Preoperative evaluation to rule out surgical contraindication (Primary Dx) 02/05/[address] Office [facility] [address] [place] [phone] Saskia Sprague MD Treatment Plan Update 02/05/2024 1:50 PM ENTRY LEVEL MANUFACTURING ENGINEER Clinical Support [address] Building [address] [place] [phone] Age-related osteoporosis without current pathological fracture (Primary Dx) 02/05/2024 2:20 PM ENTRY LEVEL MANUFACTURING ENGINEER Office Visit [address] [place] [phone] Saskia Sprague MD Age-related osteoporosis without current pathological fracture (Primary Dx) from Last 3 Months Allergies Active Allergy Reactions Criticality Noted Date [...] 1 tablet (88 mcg total) by mouth assistant designer before breakfast Active famotidine (PEPCID) 20 mg tablet Take 1 tablet (20 mg total) by mouth 2 (two) times a day 30 tablet 4 07/30/19 25 Active meloxicam (MOBIC) 15 mg tablet Take 1 tablet (15 mg total) by mouth daily 30 tablet 11 4 03/07/20 25 Active aspirin 81 mg [...] day as needed for pain 45 tablet 5 Active Active Problems Problem Noted Date Diagnosed Date Arthritis of right knee 03/07/2024 Primary osteoarthritis of right knee 01/25/2024 Age-related osteoporosis wit hout current pathological fracture 01/31/2023 Chronic use of opiate drug for therapeutic purpo se 06/14/2022 DDD (degenerative disc disease), lumbar 12/30/19 DDD (degenerative disc disease), cervical 2021 Primary osteoarthritis of left knee 01/03/2021 Recurrent urinary tract infection 08/22/2018 Immunizations Name Administration Dates Next Due Flucelvax Influenza Quad 03/31/2016 Influenza, Quadrivalent, Hig h Dose, Preservative Free, Intrr 12/27/2021 Influenza, Trivalent, High D ose, Split, Preservative Free, Intramuscular 12/18/2018,12/11/2016 Influenza, Trivalent, IM (MDV) 03/14/2015 Influenza, Unspecified 12/25/2023 Pneumococcal Conjugate PCV 13 07/15/2015 Pneumococcal Conjugate, Unspecified 07/13/2013 Tdap 08/24/2014 ZOSTER Recombinant 06/11/2019,12/18/2018 Social History Tobacco Use Types Packs/Day Years [...] often do you attend chur ch or tenriism services? 1 to 4 times per year 01/04/2021 Do you belong to any clubs o r organizations such as denominational groups, unions, fraternal or athletic groups, or [...] on file Legal Sex Female 12:50 AM ENTRY LEVEL MANUFACTURING ENGINEER Gender Identity Female 12/31/2020 9:01 AM CDT Sexual Orientation Straight 12/31/2020 9: 01 AM CDT Last Filed Vital Signs Vital Sign Reading Time Taken Comments Blood Pressure 149/73 04/30/2024 10:25 AM ENTRY LEVEL MANUFACTURING ENGINEER Pulse 86 04/30/2024 10:25 AM ENTRY LEVEL MANUFACTURING ENGINEER Temperature 37.2 C (98.9 F) 04/30/2024 10:25 AM ENTRY LEVEL MANUFACTURING ENGINEER Respiratory Rate 16 04/30/2024 10:2 5 AM ENTRY LEVEL MANUFACTURING ENGINEER Oxygen Saturation 95% 03/08/2024 11: 00 AM ENTRY LEVEL MANUFACTURING ENGINEER Inhaled Oxygen Concentration - - Weight 63.4 kg (139 lb 12.8 oz) 025 10:04 AM ENTRY LEVEL MANUFACTURING ENGINEER Height 154.9 cm (5' 1 ) 03/07/2024 6:23 AM ENTRY LEVEL MANUFACTURING ENGINEER Body Mass Index 26.41 03/07/2024 6:23 AM ENTRY LEVEL MANUFACTURING ENGINEER Plan of Treatment Not on file Goals Goal Patient Goal Type Associated Problems [...] home safety. Medical Devices Implanted Type Area Lumber Sales Supervisor Device Identifier Shelf Expiration Date Model / Serial / Lot Neurostimulator Bladder- Implanted:2020 by Baldev Page MD (Quantity not on file) Neurostimulator Pelvis Medtronic Neuro [id number] / [id number] / Neurostimulator Bladder (Lead)-04/23/2020 Implanted:2020 by Baldev Page MD (Quantity not on file) Neurostimulator Pelvis Medtronic Neuro [id number] / / [employer] 6191-1-010 Simplex P Radiopaque Full Dose Cement Bone Sterile - [id number] Implanted:Qty: 1 on 01/03/2021 by Horace Mack MD at [facility] Left: Knee [employer] 03/25/2022 6191-1- 010 / / [id number] [employer] [id number] Ascent Maxim 71mm 1 Piece Cruciate Fin Knee Tray Tibial Interlok - [id number] Implanted:Qty: 1 on 01/03/2021 by Horace Mack MD at [facility] Left: Knee [employer] [id number] 08/02/2030 [id number] / / [id number] [employer] [id number] Vanguard 67.5mm Cruciate Retaining Primary Knee Left Component - [id number] Implanted:Qty: 1 on 01/03/2021 by Horace Mack MD at [facility] Left: Knee [employer] [id number] 09/01/2030 [id number] / / [id number] [employer] [id number] Vanguard 71/00lfy21li Cruciate Retaining Inlay Direct Compression - [id number] Implanted:Qty: 1 on 01/03/2021 by Horace Mack MD at [facility] Left: Knee [employer] [id number] 07/26/2025 [id number] / / [id number] [employer] Vanguard 71/84ret42kr Cruciate Retain Direct Compression Mold [id number] - [id number] Implanted:Qty: 1 on 03/07/2024 by Horace Mack MD at [facility] Right: Knee [employer] [id number] 12/03/2028 [id number] / / [id number] [employer] Vanguard 67.5mm Cruciate Retaining Primary Knee Right Component [id number] - [id number] Implanted:Qty: 1 on 03/07/2024 by Horace Mack MD at [facility] Right: Knee [employer] [id number] 10/14/2032 [id number] / / [id number] [employer] Ascent Maxim 71mm 1 Piece Cruciate Fin Knee Tray Tibial Interlok [id number] - [id number] Implanted:Qty: 1 on 03/07/2024 by Horace Mack MD at [facility] Right: Knee [employer] 10/30/2033 [id number] / / [id number] [employer] Simplex P Radiopaque Full Dose Cement Bone Sterile 6191-1-010 - [id number] Implanted:Qty: 1 on 03/07/2024 by Horace Mack MD at [facility] Right: Knee [employer] 01/23/2026 6191-1- 010 / / [id number] Procedures Procedure Name Priority Date/Time Associated Diagnosis Comments SCAN - LABS Routine 04/14/2024 12:25 PM ENTRY LEVEL MANUFACTURING ENGINEER EGFR Routine 03/08/2024 6:35 AM ENTRY LEVEL MANUFACTURING ENGINEER BASIC METABOLIC PANEL Routine 03/08/2024 6:35 AM ENTRY LEVEL MANUFACTURING ENGINEER CBC WITHOUT DIFFERENTIAL Routine 03/08/2024 6:35 AM ENTRY LEVEL MANUFACTURING ENGINEER POCT GLUCOSE DEVICE Routine 03/07/2024 4 :16 PM ENTRY LEVEL MANUFACTURING ENGINEER POCT GLUCOSE DEVICE Routine 03/07/2024 12:57 PM ENTRY LEVEL MANUFACTURING ENGINEER EGFR Routine 03/07/2024 12:50 PM ENTRY LEVEL MANUFACTURING ENGINEER COMPREHENSIVE METABOLIC PANEL Routine 03/07/2024 12:50 PM ENTRY LEVEL MANUFACTURING ENGINEER CBC WITHOUT DIFFERENTIAL Routine 03/07/2024 12:50 PM ENTRY LEVEL MANUFACTURING ENGINEER VA AN PROCEDURE PLACEHOLDER Routine 03/07/2024 7:35 AM ENTRY LEVEL MANUFACTURING ENGINEER VA AN PROCEDURE PLACEHOLDER Routine 03/07/2024 7:18 AM ENTRY LEVEL MANUFACTURING ENGINEER ARTHROPLASTY TOTAL KNEE 03/07/2024 7:16 AM ENTRY LEVEL MANUFACTURING ENGINEER Primary osteoarthritis of right knee DIFFERENTIAL AUTO Routine 02/18/2024 2:0 8 PM ENTRY LEVEL MANUFACTURING ENGINEER Preoperative evaluation to rule out surgical contraindication CBC WITH AUTO DIFFERENTIAL Routine 02/18/2024 2:08 PM ENTRY LEVEL MANUFACTURING ENGINEER Preoperative evaluation to rule out surgical contraindication HEMOGLOBIN A1C Routine 02/18/2024 2:08 PM ENTRY LEVEL MANUFACTURING ENGINEER Preoperative evaluation to rule out surgical contraindication EGFR Routine 02/18/2024 2:07 PM ENTRY LEVEL MANUFACTURING ENGINEER Preoperative evaluation to rule out surgical contraindication COMPREHENSIVE METABOLIC PANEL Routine 02/18/2024 2:07 PM ENTRY LEVEL MANUFACTURING ENGINEER Preoperative evaluation to rule out surgical contraindication DEXA TBS AXIAL SKELETON BONE DENSITY 1 OR MORE SITES Schedule Routine, Read Routine (OP Routine) 02/05/2024 2:18 PM ENTRY LEVEL MANUFACTURING ENGINEER Age-related osteoporosis without current pathological fracture SCREENING MAMMOGRAM BILATERAL W [place] Schedule Routine, Read Routine (OP Routine) 05/21/2023 11:04 AM ENTRY LEVEL MANUFACTURING ENGINEER Screening mammogram, encounter for from Last 3 Months or Most Recently Relevant to Health Maintenance Results * SCAN - LABS (04/14/2024 12:25 PM ENTRY LEVEL MANUFACTURING ENGINEER) us Saskia Sprague MD Final Result EXTERNAL LAB * eGFR (03/08/2024 6:35 AM ENTRY LEVEL MANUFACTURING ENGINEER) eGFR 88 >=60 mL/min/1. 73 m2 Comment: [...] last reviewed 2021. Blood 03/08/2024 6:35 AM ENTRY LEVEL MANUFACTURING ENGINEER 03/08/2024 6:39 AM ENTRY LEVEL MANUFACTURING ENGINEER us Horace Mack MD LAB BLOOD ORDERABLES Final R esult [facility] [address] Department [place] [address] * (ABNORMAL) CBC without differential (03/08/2024 6:35 AM ENTRY LEVEL MANUFACTURING ENGINEER) WBC 9.5 3.8 - 9.9 K/cumm Hgb 10.8(L) 11.9 - 15.5 g/dL [facility] Hct 33.2(L) 35.6 - 45.5 % [facility] Plt 154 150 - 400 K/cumm [facility] MPV 9.5 9.1 - 12.3 fL [facility] RBC 3.29(L) 3.90 - 5.20 M/cumm [facility] MCV 100.9(H) 81.3 - 96.4 fL [facility] MCH 32.8 27.1 - 33.3 pg [facility] MCHC 32.5 32.3 - 35.7 g/dL [facility] RDW CV 12.0 11.1 - 14.9 % [facility] RDW SD 44.8 35.7 - 48.1 fL [facility] NRBC abs 0.00 0.00 - 0.01 K/cumm [facility] Blood 03/08/2024 6:35 AM ENTRY LEVEL MANUFACTURING ENGINEER 03/08/2024 6:42 AM ENTRY LEVEL MANUFACTURING ENGINEER Horace Mack MD LAB BLOOD ORDERABLES Final R esult Performing Organization Address City/[facility]/ZIP Co de Phone Number [facility] [address] Department [place] [address] * (ABNORMAL) Basic metabolic panel (03/08/2024 6:35 AM ENTRY LEVEL MANUFACTURING ENGINEER) Sodium 138 135 - 145 mmol/L Potassium, pl 4.3 3.3 - 4.9 mmol/L [facility] Chloride 108 97 - 110 mmol/L [facility] CO2 18(L) 22 - 32 mmol/L [facility] Anion gap 12 2 - 15 mmol/L [facility] BUN 13 6 - 25 mg/dL [facility] Creatinine 0.71 0.60 - 1.10 mg/dL [facility] Glucose 109 70 - 199 mg/dL [facility] Comment: Interpretive Data Fasting glucose >/= 126 [...] 2022. Calcium 7.8(L) 8.5 - 10.3 mg/dL [facility] Blood 03/08/2024 6:35 AM ENTRY LEVEL MANUFACTURING ENGINEER 03/08/2024 6:39 AM ENTRY LEVEL MANUFACTURING ENGINEER Horace Mack MD LAB BLOOD ORDERABLES Final R esult Performing Organization Address City/[facility]/ZIP Co de Phone Number [facility] [address] [facility] [place] [address] * POCT glucose (03/07/2024 4:16 PM ENTRY LEVEL MANUFACTURING ENGINEER) [facility] Glucose, POC 77 70 - 199 mg/dL Comment: For Glucose values <35 mg/dl when Hematocrit is >60 mg/dl,the test may not accurately detect significant hypoglycemia,and testing in the Laboratory should be considered if clinically indicated. Blood 03/07/2024 4:16 PM ENTRY LEVEL MANUFACTURING ENGINEER 03/07/2024 4:16 PM ENTRY LEVEL MANUFACTURING ENGINEER Horace Mack MD LAB POCT ORDERABLES - DEVICE Final Result Performing Organization Address City/[facility]/ZIP Co de Phone Number [facility] [address] [facility] [place] [address] * POCT glucose (03/07/2024 12:57 PM ENTRY LEVEL MANUFACTURING ENGINEER) [facility] Glucose, POC 86 70 - 199 mg/dL Comment: For Glucose values <35 mg/dl when Hematocrit is >60 mg/dl,the test may not accurately detect significant hypoglycemia,and testing in the Laboratory should be considered if clinically indicated. Blood 03/07/2024 12:5 7 PM ENTRY LEVEL MANUFACTURING ENGINEER 03/07/2024 12:57 PM ENTRY LEVEL MANUFACTURING ENGINEER Horace Mack MD LAB POCT ORDERABLES - DEVICE Final Result Performing Organization Address City/[facility] Co de Phone Number [facility] [address] [facility] [email or web address] [place], [place] [phone] * eGFR (03/07/2024 12:50 PM ENTRY LEVEL MANUFACTURING ENGINEER) [facility] eGFR 85 >=60 mL/min/1. 73 m2 Comment: [...] reviewed 2021. Blood 03/07/2024 12:5 0 PM ENTRY LEVEL MANUFACTURING ENGINEER 03/07/2024 1:00 PM ENTRY LEVEL MANUFACTURING ENGINEER us Kwadwo Walker DO LAB BLOOD ORDERABLES Fin al Result [facility] [address] Department [place] [address] * (ABNORMAL) CBC without differential (03/07/2024 12:50 PM ENTRY LEVEL MANUFACTURING ENGINEER) WBC 8.1 3.8 - 9.9 K/cumm Hgb 10.5(L) 11.9 - 15.5 g/dL [facility] Hct 32.2(L) 35.6 - 45.5 % [facility] Plt 185 150 - 400 K/cumm [facility] MPV 8.9(L) 9.1 - 12.3 fL [facility] RBC 3.22(L) 3.90 - 5.20 M/cumm [facility] MCV 100.0(H) 81.3 - 96.4 fL [facility] MCH 32.6 27.1 - 33.3 pg [facility] MCHC 32.6 32.3 - 35.7 g/dL [facility] RDW CV 11.9 11.1 - 14.9 % [facility] RDW SD 43.9 35.7 - 48.1 fL [facility] NRBC abs 0.00 0.00 - 0.01 K/cumm [facility] Blood 03/07/2024 12:5 0 PM ENTRY LEVEL MANUFACTURING ENGINEER 03/07/2024 1:00 PM ENTRY LEVEL MANUFACTURING ENGINEER us Kwadwo Ciriloalka Walker DO LAB BLOOD ORDERABLES Fin al Result [facility] [address] Department [place] [address] * (ABNORMAL) Comprehensive metabolic panel (03/07/2024 12:50 PM ENTRY LEVEL MANUFACTURING ENGINEER) Sodium 143 135 - 145 mmol/L Potassium, pl 4.1 3.3 - 4.9 mmol/L [facility] Chloride 112(H) 97 - 110 mmol/L [facility] CO2 22 22 - 32 mmol/L [facility] Anion gap 9 2 - 15 mmol/L [facility] BUN 16 6 - 25 mg/dL [facility] Creatinine 0.73 0.60 - 1.10 mg/dL [facility] Glucose 88 70 - 199 mg/dL [facility] Comment: Interpretive Data Fasting glucose >/= 126 [...] 2022. Calcium 7.6(L) 8.5 - 10.3 mg/dL [facility] Bilirubin, total 0.2 0.1 - 1.2 mg/dL [facility] Protein, pl 5.7(L) 6.5 - 8.5 g/dL [facility] Albumin 3.9 3.5 - 5.0 g/dL [facility] Alk phos 41 40 - 130 Units/L [facility] ALT 20 7 - 45 Units/L [facility] AST 23 10 - 45 Units/L [facility] Blood 03/07/2024 12:5 0 PM ENTRY LEVEL MANUFACTURING ENGINEER 03/07/2024 1:00 PM ENTRY LEVEL MANUFACTURING ENGINEER Kwadwo Walker DO LAB BLOOD ORDERABLES Fin al Result [facility] [address] Department [place] [address] * VA AN PROCEDURE PLACEHOLDER (03/07/2024 7:35 AM ENTRY LEVEL MANUFACTURING ENGINEER) Narrative Alexandra Taylor CRNA - 03/07/2024 7:35 AM ENTRY LEVEL MANUFACTURING ENGINEER Alexandra Taylor CRNA 03/07/2024 7:35 AM Spinal Block Patient location: pre-op holding Reason for block: primary anesthetic Staff: Placed by: WIND TURBINE ENGINEER:Alexandra Taylor CRNA Procedure prep: Preprocedure checklist: patient [...] DO ANESTHESIA ORDERABLES Fi nal Result * VA AN PROCEDURE PLACEHOLDER (03/07/2024 7:18 AM ENTRY LEVEL MANUFACTURING ENGINEER) Narrative Kwadwo Walker DO - 03/07/2024 7:18 AM ENTRY LEVEL MANUFACTURING ENGINEER Kwadwo Walker DO 03/07/2024 7:18 AM Peripheral [...] no complications Kwadwo Walker DO ANESTHESIA ORDERABLES nal Result * Differential, auto (02/18/2024 2:08 PM ENTRY LEVEL MANUFACTURING ENGINEER) Neutrophil abs 2.8 1.5 - 6.5 K/cumm Imm gran abs 0.0 0.0 - 0.1 K/cumm [facility] Lymphocyte abs 2.4 0.8 - 3.3 K/cumm [facility] Monocyte abs 0.5 0.2 - 0.8 K/cumm [facility] Eosinophil abs 0.2 0.0 - 0.5 K/cumm [facility] Basophil abs 0.0 0.0 - 0.1 K/cumm [facility] Neutrophil pct 47.5 % [facility] Comment: Interpretive Data Percent cell count reference ranges are not reported, since discordance with absolute values may lead to misinterpretation of CBC data. Current Interpretive Data was last revised on 2017. Imm gran pct 0.2 % [facility] Comment: Interpretive Data Percent cell count reference ranges are not reported, since discordance with absolute values may lead to misinterpretation of CBC data. Current Interpretive Data was last revised on 2017. Lymphocyte pct 39.9 % [facility] Comment: Interpretive Data Percent cell count reference ranges are not reported, since discordance with absolute values may lead to misinterpretation of CBC data. Current Interpretive Data was last revised on 2017. Monocyte pct 8.4 % [facility] Comment: Interpretive Data Percent cell count reference ranges are not reported, since discordance with absolute values may lead to misinterpretation of CBC data. Current Interpretive Data was last revised on 2017. Eosinophil pct 3.5 % [facility] Comment: Interpretive Data Percent cell count reference ranges are not reported, since discordance with absolute values may lead to misinterpretation of CBC data. Current Interpretive Data was last revised on 2017. Basophil pct 0.5 % [facility] Comment: Interpretive Data Percent cell count reference ranges are not reported, since discordance with absolute values may lead to misinterpretation of CBC data. Current Interpretive Data was last revised on 2017. Blood 02/18/2024 2:08 PM ENTRY LEVEL MANUFACTURING ENGINEER 02/18/2024 2:08 PM ENTRY LEVEL MANUFACTURING ENGINEER us Sirena Tellez [employer]OVE [employer]TER LAB BLOOD ORDERABLES Fin al Result [facility] [address] Department [place] [address] * (ABNORMAL) CBC with auto differential (02/18/2024 2:08 PM ENTRY LEVEL MANUFACTURING ENGINEER) WBC 6.0 3.8 - 9.9 K/cumm Hgb 12.9 11.9 - 15.5 g/dL [facility] Hct 39.6 35.6 - 45.5 % [facility] Plt 232 150 - 400 K/cumm [facility] MPV 9.8 9.1 - 12.3 fL [facility] RBC 3.96 3.90 - 5.20 M/cumm [facility] MCV 100.0(H) 81.3 - 96.4 fL [facility] MCH 32.6 27.1 - 33.3 pg [facility] MCHC 32.6 32.3 - 35.7 g/dL [facility] RDW CV 12.8 11.1 - 14.9 % [facility] RDW SD 46.3 35.7 - 48.1 fL [facility] NRBC abs 0.00 0.00 - 0.01 K/cumm [facility] Blood 02/18/2024 2:08 PM ENTRY LEVEL MANUFACTURING ENGINEER 02/18/2024 2:08 PM ENTRY LEVEL MANUFACTURING ENGINEER Sirena Tellez NP LAB BLOOD ORDERABLES Fin al Result Performing Organization Address [facility] de Phone Number [facility] [address] Department [employer] [place], [place] [id number] * Hemoglobin A1c (02/18/2024 2:08 PM ENTRY LEVEL MANUFACTURING ENGINEER) [facility] Hgb A1C 5.3 4.0 - 5.6 % Estimated Average Glucose 105 mg/dL [facility] Comment: The ADA recommends reporting an estimated Average Glucose (eAG) with all Hemoglobin A1c results using the equation derived from a study of 507 normal and diabetic adults. Minority populations were underrepresented and children were not included. (Diabetes Care 31:2776-5950, 2008). The eAG is not equivalent to a fasting glucose. Blood 02/18/2024 2:08 PM ENTRY LEVEL MANUFACTURING ENGINEER 02/18/2024 2:08 PM ENTRY LEVEL MANUFACTURING ENGINEER Sirena Tellez NP LAB BLOOD ORDERABLES Fin al Result Performing Organization Address [facility] de Phone Number [facility] [address] Department [place] [place] [address] * eGFR (02/18/2024 2:07 PM ENTRY LEVEL MANUFACTURING ENGINEER) [facility] eGFR 84 >=60 mL/min/1. 73 m2 Comment: [...] last reviewed 2021. Blood 02/18/2024 2:07 PM ENTRY LEVEL MANUFACTURING ENGINEER 02/18/2024 2:07 PM ENTRY LEVEL MANUFACTURING ENGINEER us Sirena Tellez NP LAB BLOOD ORDERABLES Fin al Result [facility] [address] Department [place] [address] * Comprehensive metabolic panel (02/18/2024 2:07 PM ENTRY LEVEL MANUFACTURING ENGINEER) Sodium 144 135 - 145 mmol/L Potassium, pl 4.0 3.3 - 4.9 mmol/L [facility] Chloride 109 97 - 110 mmol/L [facility] CO2 23 22 - 32 mmol/L [facility] Anion gap 12 2 - 15 mmol/L [facility] BUN 18 6 - 25 mg/dL [facility] Creatinine 0.74 0.60 - 1.10 mg/dL [facility] Glucose 88 70 - 199 mg/dL [facility] Comment: Interpretive Data Fasting glucose >/= 126 [...] 2022. Calcium 9.1 8.5 - 10.3 mg/dL [facility] Bilirubin, total 0.5 0.1 - 1.2 mg/dL [facility] Protein, pl 6.5 6.5 - 8.5 g/dL [facility] Albumin 4.2 3.5 - 5.0 g/dL [facility] Alk phos 50 40 - 130 Units/L [facility] ALT 29 7 - 45 Units/L [facility] AST 26 10 - 45 Units/L [facility] Blood 02/18/2024 2:07 PM ENTRY LEVEL MANUFACTURING ENGINEER 02/18/2024 2:07 PM ENTRY LEVEL MANUFACTURING ENGINEER us Sirena Tellez NP LAB BLOOD ORDERABLES Fin al Result [facility] [address] Department [place] [address] * Dexa TBS Axial Skeleton Bone Density 1 or more sites (02/05/2024 2:18 PM ENTRY LEVEL MANUFACTURING ENGINEER) Anatomical Region Laterality Modality Wrist, Body N/A Radiographic Karissa ging Narrative 02/05/2024 9:50 PM ENTRY LEVEL MANUFACTURING ENGINEER Patient Name: Massiel Jordan Date of : 1950 Date of scan: 02/05/2024 Bone mineral density was performed on a [employer] Discovery Densitometer. Based on machine cross-calibration and [...] mineral density scan were prepared by Althea Rubio(R) CBDEvie who is accredited by the International Society of Clinical Densitometry. The overall patient assessment and scan interpretation were performed by Saskia Sprague M.D. who is certified by the International Society of Clinical Densitometry. [id number] Saskia Sprague MD IMG DXA PROCEDURES Final Resu lt * Screening Mammogram Bilateral W Kingsley (05/21/2023 11:04 AM ENTRY LEVEL MANUFACTURING ENGINEER) Anatomical Region Laterality Modality Breast Bilateral Mammography Narrative 05/22/2023 1:22 PM ENTRY LEVEL MANUFACTURING ENGINEER Mammogram Technique: Bilateral Digital Breast Tomosynthesis, Bilateral C-view 2D Screening mammogram. Views obtained: bilateral craniocaudal and bilateral mediolateral oblique. Computer Aided Detection was performed. Mammogram Findings: The present examination has been compared to prior imaging studies performed at [facility] on 01/09/2020, 03/28/2021 and 05/17/2022. There are [...] compared to prior imaging studies performed at [facility] on 01/09/2020, 03/28/2021 and 05/17/2022. There are scattered areas of fibroglandular density. There is no suspicious abnormality in either breast. Impression: There is no mammographic evidence of malignancy. Annual screening mammography is recommended. OVERALL FINAL ASSESSMENT: BI-RADS CATEGORY 1: Negative. us Self Screening Mammogram IMG MAMMO PROCEDURES Fi nal Result from Last 3 Months or Most Recently Relevant to Health Maintenance Insurance MEDICARE [facility] Member Subscriber Plan / Payer ( fective 2018-Present) Name:Massiel Jordan Relation to Subscriber:Self Name:Massiel Jordan Payer ID:[id number] Group ID:[id number] Type:COMMERCIAL Address: [place] [id number] MEDICARE [facility] MEDICARE AARP Advance Directives For more information, please contact: [phone] * Full Code (Latest Code Status on File) Date Activated Date Inactivated Comments 03/07/2024 3:35 PM 03/08/2024 4:40 PM * Full Code Date Activated Date Inactivated Comments 01/03/2021 2:26 PM 01/04/2021 4:18 PM Care Teams Grinder Set Up Operator Relationship Specialty [place] [id number] [facility] [address] [place] [address] PCP - General Family Medicine 08/02/21 Horace Mack MD [address] [facility] [address] [place] [address] Consulting Physician Orthopedic Surgery 01/04/21
--- OUTSIDE RECORDS SUMMARY | 2024-05-02 19:18 | XMS_ITS | Encounter Summary ---
Author Organization [employer] [facility] Address [address] [facility] [place] [address] Care Team Providers Care Insurance And Benefits Clerk Name Role Phone Sravani Harrison MD Primary Care Provider [phone] Reason for Visit * CT Scan (Routine) - Closed Specialty Diagnoses / Procedures Referred By Contac t Referred To Contact Radiology Diagnoses Right foot pain Procedures CT FOOT WO CONTRAST RIGHT Jaret Jaramillo MD [address] [place] [address] Phone: tel: fax: [address] [address] Phone: tel: fax: Referral ID Status Reason Start Date Expiration Date Visits Re quested Visits Authorized [id number] Closed 04/28/2024 05/28/2024 1 1 Encounter Details Date Type Department Care Team (Latest Contact Info) Description 05/02/2024 2:15 PM SECOND SHIFT SUPERVISOR Ancillary Procedure [facility] [address] [address] Jaret Jaramillo MD [address] [place] [address] Right foot pain Social History Tobacco Use Types Packs/Day Years Used Date Smoking Tobacco: Never Smokeless Tobacco: Never Alcohol Use Standard Drinks/Week Comments No 0 (1 standard drink = 0.6 oz pur e alcohol) Comments No Sex and Gender Information Value Date Recorded Sex Assigned at Not on file Legal Sex Female 4:45 AM SECOND SHIFT SUPERVISOR Gender Identity Not on file Sexual Orientation Not on file documented as of this encounter Plan of Treatment Not on file documented as of this encounter Procedures Procedure Name Priority Date/Time Associated Diagnosis Comments CT FOOT WO CONTRAST RIGHT Routine 05/02/2024 2:02 PM SECOND SHIFT SUPERVISOR Right foot pain documented in this encounter Results * CT ANKLE WO CONTRAST RIGHT (05/02/2024 2:02 PM SECOND SHIFT SUPERVISOR) Anatomical Region Laterality Modality Ankle / Foot Computed Tomogra phy 05/02/2024 2:02 PM SECOND SHIFT SUPERVISOR Impressions 05/02/2024 3:52 PM SECOND SHIFT SUPERVISOR IMPRESSION: 1. Complete bridging bony trabeculae across [...] definite associated tear. Narrative 05/02/2024 3:52 PM SECOND SHIFT SUPERVISOR EXAM: CT ANKLE WO CONTRAST RIGHT, CT [...] a small associated heel spur. There is [id number]. Patchy fatty atrophy of the visible intrathoracic [...] osteoarthritis. There is mild 1st metatarsophalangeal and ncuc-ye-snmsjnxw sesamoidometatarsal osteoarthritis. There is mild great toe [...] a small associated heel spur. There is asjr-tx-vyxwlmxt. Patchy fatty atrophy of the visible intrathoracic [...] osteoarthritis. There is mild 1st metatarsophalangeal and vbvb-my-ukguxqtx sesamoidometatarsal osteoarthritis. There is mild great toe [...] FOOT WO CONTRAST RIGHT (05/02/2024 2:02 PM SECOND SHIFT SUPERVISOR) Anatomical Region Laterality Modality Ankle / Foot Computed Tomogra phy 05/02/2024 1:51 PM SECOND SHIFT SUPERVISOR Impressions 05/02/2024 3:52 PM SECOND SHIFT SUPERVISOR IMPRESSION: 1. Complete bridging bony trabeculae across [...] definite associated tear. Narrative 05/02/2024 3:52 PM SECOND SHIFT SUPERVISOR EXAM: CT ANKLE WO CONTRAST RIGHT, CT [...] a small associated heel spur. There is zxqq-my-rztdfnrp. Patchy fatty atrophy of the visible intrathoracic [...] osteoarthritis. There is mild 1st metatarsophalangeal and oofh-gl-wlkdjuln sesamoidometatarsal osteoarthritis. There is mild great toe [...] a small associated heel spur. There is eamx-pa-jdvuqkmb. Patchy fatty atrophy of the visible intrathoracic [...] osteoarthritis. There is mild 1st metatarsophalangeal and rqeg-ka-xpmroyze sesamoidometatarsal osteoarthritis. There is mild great toe [...] limb documented in this encounter Care Teams Insurance And Benefits Clerk Relationship Specialty Start Date End Date Sravani Harrison MD PCP - General Internal Medicine 05/13/14 documented as of this encounter
--- OUTSIDE RECORDS SUMMARY | 2024-05-02 19:18 | XMS_ITS ---
Author Organization [facility] lness Address [address] [place] [address] Care Team Providers Care Gauge And Weigh Machine Adjuster Name Role Phone LANCE ALICIA Unavailable [phone] REASON FOR VISIT Pain Meds Encounters Encounter Location Date Provider Diagnosis [facility] [address] [place] [address] 04/14/2024 LANCE ALICIA Plan Of Treatment Next Appt Details Provider Name:LANCE QUIÑONEZ, 06/09/2024 12:30:00 PM, [address], [place], [address], Progress Notes * CARLOS KendraalyciaDOB: 8 (74 yo F)Acc No.[id number]:04/14/2024 Patient: Massiel GARCIA :1950 A ge:74 Y S ex:Female Address:[address] [place] [address] Subjective: * Chief Complaints: * P ain Meds * Medical History: * Surgical History: * Hospitalization/Major Diagno stic Procedure: * Medications: Objective: * Vitals: * Physical Examination: Assessment: Plan: * Treatment: * Procedure Codes: * true * Date: Generated for Printi ng/Faxing/eTransmitting on: 0 05/02/2024 07:18 PM SLITTER PROCESSED FILM
--- OUTSIDE RECORDS SUMMARY | 2024-05-02 19:18 | XMS_ITS ---
Author Organization [facility] Address [address] [place] [address] Care Team Providers Care Geomorphologist Name Role Phone LANCE ALICIA Unavailable [phone] REASON FOR VISIT Bone Health Update Encounters Encounter Location Date Provider Diagnosis [facility] [address] [place] [address] 04/10/2024 LANCE ALICIA Plan Of Treatment Next Appt Details Provider Name:LANCE QUIÑONEZ, 06/09/2024 12:30:00 PM, [address], [place], [address], Progress Notes * Massiel GONZALEZDOB: 8 (74 yo F)Acc No.[id number]:04/10/2024 Patient: Massiel GARCIA :1950 A ge:74 Y S ex:Female Address:[address] [place] [address] * true * Date: Generated for Printi ng/Faxing/eTransmitting on: 0 05/02/2024 07:18 PM RECOVERY UNIT OPERATOR
[2024-05-02 19:23] VITALS: BP 156/86; PULSE 83; RESP 16; TEMP 36.3; O2SAT 100
--- NOTE | 2024-05-02 19:27 | ECG_ITS ---
Test Date: 2024-05-02 19:30:48 Measurements Intervals Sherman Rate: 84 P: 67 NV: 152 QRS: 16 QRSD: 73 T: 50 QT: 376 QTc: 446 Interpretive Statements SINUS RHYTHM MINIMAL Q WAVES- HIGH LATERAL LEADS BASELINE ARTIFACT- I, III, AVR, AVL, AVF BORDERLINE ECG No previous ECG available for comparison Electronically Signed On 05-03-2024 06:24:02 CHANNEL MACHINE OPERATOR by Adolfo Huizar D.O.
--- NOTE | 2024-05-02 21:31 | ED.NAVMDI ---
HPI - Nausea/Vomiting/Diarrhea General Chief complaint: Nausea/Vomiting/Diarrhea Stated complaint: abd pain Time Seen by Provider: 05/02/24 21:31 Focused HPI: This is a 74 year old female that presents to the ER for epigastric pain/chest pain and nausea. Ongoing over the last couple of weeks. Reports she is having black stools the last week. No anticoagulation. No previous history of GI bleeding. GENERAL: Well-appearing, well-nourished, and in no acute distress. HEAD: Normocephalic, atraumatic. CHEST: Clear to auscultation. ?No respiratory distress. HEART: Regular rate and rhythm.? NEURO: ?Alert and oriented x3. Patient screened in triage and initial orders placed.? ?Additional care and disposition to be based upon?diagnostic testing and treatment. Related Data Home Medications ?Medication ?Instructions ?Recorded ?Confirmed ?Last Taken ?Type Calcium 1500mg 1,500 mg PO DAILY 02/21/19 03/14/22 03/13/22 History Imitrex 100 mg PO PRN PRN Migraine Headache 02/21/19 03/14/22 Unknown History Slow Release Iron 45 mg PO DAILY 02/21/19 03/14/22 03/13/22 History aspirin 81 mg tablet,delayed 81 mg PO DAILY 02/21/19 03/14/22 03/13/22 History release (Eduardo Low Dose Aspirin) atorvastatin 20 mg tablet 40 mg PO DAILY 02/21/19 03/14/22 03/13/22 History cetirizine 10 mg PO HS 02/21/19 03/14/22 03/12/22 History diclofenac 75 mg-misoprostol 200 1 tablet PO BID 02/21/19 03/14/22 03/13/22 History mcg tablet,immediate,delayed release (Arthrotec) methscopolamine 5 mg tablet 5 mg PO DAILY 02/21/19 03/14/22 03/13/22 History montelukast 10 mg tablet 10 mg PO DAILY 02/21/19 03/14/22 03/13/22 History (Singulair) sertraline 100 mg tablet (Zoloft) 150 mg PO DAILY 02/21/19 03/14/22 03/13/22 History albuterol 90 mcg/actuation aerosol 90 mcg inhalation PRN PRN Wheezing 04/12/20 03/14/22 Unknown History inhaler cholecalciferol (vitamin D3) 125 125 mcg PO DAILY 04/12/20 03/14/22 03/13/22 History mcg (5,000 unit) capsule folic acid 1 mg tablet 1 mg PO DAILY 04/12/20 03/14/22 03/13/22 History golimumab 12.5 mg/mL intravenous See Rx Instructions .Route .COMPLEX 04/12/20 03/14/22 04/14/20 History solution (Simponi ARIA) methotrexate sodium 2.5 mg tablet 15 mg PO WEEKLY 04/12/20 03/14/22 03/13/22 History vitamin E 268 mg (400 unit) capsule 400 unit PO DAILY 04/12/20 03/14/22 03/13/22 History clonazepam 0.5 mg tablet 0.5 mg PO HS 04/11/21 03/14/22 03/12/22 History magnesium 250 mg tablet 250 mg PO HS 04/11/21 03/14/22 03/12/22 History thyroid (pork) 90 mg tablet 90 mg PO DAILY 04/11/21 03/14/22 03/13/22 History ([place] Thyroid) hydrocodone 10 mg-acetaminophen 1 tablet PO Q8H PRN Pain 03/14/22 03/14/22 Unknown History 325 mg tablet Allergies Allergy/AdvReac Type Severity Reaction Status Date / Time cephalexin Allergy Severe RASH, Verified 02/17/23 01:01 ITCHING morphine Allergy Severe RASH Verified 02/17/23 01:01 Corticosteroids Allergy Intermediate Swelling Verified 02/17/23 01:01 (Glucocorticoids) levofloxacin Allergy Mild Rash Verified 02/17/23 01:01 Review of Systems Review of Systems: CONSTITUTIONAL: Denies fever CARDIOVASCULAR: Reports chest pain GASTROINTESTINAL: Reports abdominal pain All systems reviewed & are unremarkable except as noted in HPI and below PMFSH Past Medical History Medical History Anemia Ankle fracture, right Arthritis Asthma Depression Early cataracts, bilateral Falls GERD (gastroesophageal reflux disease) Headache Hemorrhoids History of recurrent UTIs HTN (hypertension) Hyperlipidemia Hypothyroid IBS (irritable bowel syndrome) Inguinal hernia Kidney stone on left side Migraines Parotid tumor left Pyelonephritis Rectal fistula Seasonal allergies TIA (transient ischemic attack) TMJ (dislocation of temporomandibular joint) Surgical History Surgical History H/O arthroscopy of shoulder (~2014) right H/O colonoscopy H/O hemorrhoidectomy (~2007) H/O meniscectomy of right knee History of arthroscopy of left shoulder History of bladder suspension procedure with InterStim bladder stimulator placement July 2016 with subsequent removal and replacement with a MRI safe device March 2020 History of carpal tunnel release (~2013) Right History of hysterectomy (~1976) History of mandibular surgery (~1977) History of meniscectomy of left knee (~05/2015) History of Ofelia fundoplication (~2014) History of sinus surgery (~2015) History of uvulopalatopharyngoplasty (~2013) Hx of appendectomy (~1974) Hx of LASIK (~2005) S/P cubital tunnel release (~2013) S/P right knee arthroscopy S/P ureteral stent placement 11/2017 Status post cataract extraction of both eyes with insertion of intraocular lens (~12/2020) Status post ORIF of fracture of ankle (~06/2015) right with initial surgery in 2008 and additional surgery 2012 surgeries in 2014 and 2015 Family History Family History Mother Age older than 80 years Social History Social History Social History: Patient is . Primary care physician: Dr. Harrison, [facility] Code status: Code status and advanced directives were discussed with the patient. The patient verbalized that she would not want to be intubated if she could not breathe. She stated that she would not want CPR or cardiopulmonary resuscitation. She is okay with interventions such as central lines for S support. Subsequently patient's code status is been changed to DNR/DNI. Surrogate decision maker: Smoking status: Never smoker Second hand tobacco smoke exposure: Yes Alcohol intake: never Drinks per week: 0 Substance use: current Substance use type: prescription drug Other substance usage details: uses opiate pain pills as prescribed. hydrocodone/acet. Lack of Transportation: No Lack of Food: Never True Current Housing: I Have Housing Concerned About Future Housing: No Difficulty Paying Gas/Electric Bills: No Difficulty Paying for Meds: No Currently Unemployed: No Education: High School Diploma/GED Difficulty w/ Childcare or Family Care: No Living arrangements: with family Gender identity (if verbalized by the patient): Female Spiritual care concerns: No Exam Narrative: GENERAL: Well-appearing, well-nourished, and in no acute distress. HEAD: Normocephalic, atraumatic. EYES: EOMI. CHEST: Clear to auscultation. No respiratory distress. No wheezes rales or rhonchi HEART: Regular rate and rhythm. No murmur heard. Normal peripheral pulses. ABDOMEN: Soft, nontender, nondistended, normal active bowel sounds. EXTREMITIES: Normal range of motion. No edema. SKIN: Warm, dry, no rash. NEURO: No focal deficits. Alert and oriented x3. PSYCH: Normal mood and affect RECTAL: Hemoccult negative. Course Course Emergency Course: patient updated on her workup and agrees with plan of care Vital Signs Vital signs: Vital Signs Temperature 97.3 F L 05/02/24 19:23 Pulse Rate 83 05/02/24 19:23 Respiratory Rate 16 05/02/24 19:23 Blood Pressure 156/86 H 05/02/24 19:23 Pulse Oximetry 100 05/02/24 19:23 Oxygen Delivery Room Air 05/02/24 19:23 Temperature 97.3 F L 05/02/24 19:23 Pulse Rate 79 05/03/24 00:59 Respiratory Rate 16 05/03/24 00:59 Blood Pressure 139/88 05/03/24 00:59 Pulse Oximetry 98 05/03/24 00:59 Oxygen Delivery Room Air 05/02/24 19:23 MDM - Nausea/Vomiting/Diarrhea MDM Narrative Medical decision making narrative: Patient presents to the emergency department for epigastric abdominal pain. Ongoing over the last several weeks. Reporting some dark stools. She is not on any anticoagulation. Her vitals are stable. Hemoglobin is normal. Metabolic panel without concerning findings. EKG without acute ST changes and her baseline and 3 hour troponin are negative. Patient is Hemoccult negative. CT abdomen and pelvis is without acute findings. Patient updated on her workup and agrees with plan of care. Will be started on PPI and given follow-up with gastroenterology. She was given warnings to return to the ER Differential Diagnosis Differential diagnosis: Likely other (GERD, PUD, gastritis) Lab Data Attestation: I reviewed the patient's lab results. 05/02/24 23:05 05/02/24 23:05 Labs: Lab Results 05/02/24 05/03/24 Range/Units 23:05 00:40 WBC 8.9 (4.5-10.0) K/mm3 RBC 4.28 (4.2-5.4) M/mm3 Hgb 13.3 (12.0-15.0) g/dL Hct 39.9 (37.0-47.0) % MCV 93.2 (80-100) fl MCH 31.1 (26-34) pg MCHC 33.3 (32-36) g/dl RDW 11.7 (11.5-14.5) % Plt Count 244 (150-375) k/mm3 MPV 9.3 (7.4-10.4) fl Immature Gran % (Auto) 0.2 (0-0.5) % Neut % (Auto) 49.0 (45.5-73.1) % Lymph % (Auto) 43.5 (18.3-44.2) % [place] % (Auto) 5.3 (2.6-8.5) % Eos % (Auto) 1.5 (0-4.4) % Baso % (Auto) 0.5 (0.2-1.2) % Lymph # (Auto) 3.85 H (0.9-3.2) K/mm3 [place] # (Auto) 0.5 (0.1-0.6) K/mm3 Eos # (Auto) 0.1 (0-0.3) K/mm3 Baso # (Auto) 0.0 (0.0-0.1) K/mm3 Abs Immat Gran (auto) 0.02 (0.00-0.031) K/mm3 Absolute Neuts (auto) 4.3 (1.3-6.7) K/mm3 Absolute Nucleated RBC 0.000 (0.0-0.012) K/mm3 Nucleated RBC % 0.0 (0.0-0.2) % PT 13.2 (11.1-14.7) Seconds INR 1.0 APTT 26.9 (22.3-36.8) Seconds Sodium 139 (137-145) mmol/L Potassium 4.2 (3.4-5.0) mmol/L Chloride 105 (98-107) mmol/L Carbon Dioxide 22 (22-30) mmol/L Anion Gap 12 (4-12) mmol/L BUN 16 (7-17) mg/dL Creatinine 0.68 L (0.7-1.0) mg/dL Estim Creat Clear Calc 52 ml/min Estimated GFR > 60 (59 - ) Glucose 107 (65-110) mg/dL Calcium 9.2 (8.4-10.2) mg/dL Total Bilirubin 0.7 (0.2-1.3) mg/dL AST 32 (14-36) U/L ALT 24 (6-35) U/L Alkaline Phosphatase 59 (38-126) U/L Troponin I < 0.012 < 0.012 (0.000-0.034) ng/mL Total Protein 7.0 (6.3-8.2) g/dL Albumin 4.4 (3.5-5.1) g/dL Lipase 125 (23-300) U/L Imaging Data Radiologist's impression: CT abdomen and pelvis: No acute findings ECG Data EKG #1: ECG completion date: 05/03/24 EKG Interpretation: normal rate, sinus rhythm, no ST changes and normal QT Critical Care Time Critical Care Time Critical Care Time: No Discharge Plan Discharge Clinical Impression: Epigastric pain Patient Disposition: Home, Self-Care Condition: Stable Instructions: Epigastric Pain (ED) Additional Instructions: Return to the ER if you experience worsening symptoms, or any other concerns Remain well hydrated. Ondansetron as needed for nausea. You may increase your Prilosec to 40mg daily if you are not already taking this dose. Avoid spicy/acidic foods. Avoid anti-inflammatories (Aleve, Ibuprofen, Naproxen, etc). Avoid eating just before bedtime Follow up with gastroenterology and your primary doctor Patient Language: Persian Prescriptions: New ondansetron 4 mg tablet,disintegrating 4 mg PO Q8H PRN (Reason: nausea and vomiting) Qty: 10 0RF No Action hydrocodone-acetaminophen 10-325 mg tablet 1 tablet PO Q8H PRN (Reason: Pain) diclofenac-misoprostol [Arthrotec 75] 75-200 mg-mcg Tablet,Ir,Delayed Rel,Biphasic 1 tablet PO BID atorvastatin 20 mg tablet 40 mg PO DAILY aspirin [Eduardo Low Dose Aspirin] 81 mg Tablet,Delayed Release (Dr/Ec) 81 mg PO DAILY Calcium 1500mg 1,500 mg PO DAILY cetirizine 10 mg PO HS sertraline [Zoloft] 100 mg Tablet 150 mg PO DAILY montelukast [Singulair] 10 mg Tablet 10 mg PO DAILY methscopolamine 5 mg Tablet 5 mg PO DAILY Imitrex 100 mg PO PRN PRN (Reason: Migraine Headache) Slow Release Iron 45 mg PO DAILY methotrexate sodium 2.5 mg Tablet 15 mg PO WEEKLY Rx Instructions: 6 TABLETS ON SUNDAY folic acid 1 mg Tablet 1 mg PO DAILY albuterol 90 mcg/actuation Aerosol 90 mcg INHALATION PRN PRN (Reason: Wheezing) cholecalciferol (vitamin D3) 125 mcg (5,000 unit) Capsule 125 mcg PO DAILY vitamin E 400 unit Capsule 400 unit PO DAILY Simponi ARIA 12.5 mg/mL Solution See Rx Instructions .ROUTE .COMPLEX Rx Instructions: 100 mg intravenously EVERY 8 WEEKS. next due 03/23/22 thyroid (pork) [Pennington Thyroid] 90 mg tablet 90 mg PO DAILY clonazepam 0.5 mg Tablet 0.5 mg PO HS magnesium 250 mg Tablet 250 mg PO HS Follow-up/Referrals: Colin Luna MD [Physician] - UNKNOWN,DOCTOR [Non-Staff] -
[2024-05-02 23:14] LABS: Basophils Percent Auto 0.5 % (0.2-1.2); Eosinophils Absolute Auto 0.1 K/mm3 (0-0.3); Eosinophils Percent Auto 1.5 % (0-4.4); Hematocrit 39.9 % (37.0-47.0); Hemoglobin 13.3 g/dL (12.0-15.0); Immature Granulocyte Absolute 0.02 K/mm3 (0.00-0.031); Immature Granulocyte Percent A 0.2 % (0-0.5); Lymphocytes Absolute Auto 3.85 K/mm3 (0.9-3.2); Lymphocytes Percent Auto 43.5 % (18.3-44.2); Mean Corpuscular HGB Conc 33.3 g/dl (32-36); Mean Corpuscular Hemoglobin 31.1 pg (26-34); Mean Corpuscular Volume 93.2 fl (80-100); Mean Platelet Volume 9.3 fl (7.4-10.4); Monocytes Absolute Auto 0.5 K/mm3 (0.1-0.6); Monocytes Percent Auto 5.3 % (2.6-8.5); Neutrophils Absolute Auto 4.3 K/mm3 (1.3-6.7); Platelet Count Result 244 k/mm3 (150-375); Red Blood Count 4.28 M/mm3 (4.2-5.4); Red Cell Distribution Width 11.7 % (11.5-14.5); White Blood Count 8.9 K/mm3 (4.5-10.0)
[2024-05-02 23:22] LABS: Potassium 4.2 mmol/L (3.4-5.0)
[2024-05-02 23:28] LABS: Alanine Aminotransferase 24 U/L (6-35); Albumin Level 4.4 g/dL (3.5-5.1); Alkaline Phosphatase 59 U/L (38-126); Anion Gap 12 mmol/L (4-12); Aspartate Amino Transferase 32 U/L (14-36); Bilirubin,Total 0.7 mg/dL (0.2-1.3); Blood Urea Nitrogen 16 mg/dL (7-17); Calcium 9.2 mg/dL (8.4-10.2); Carbon Dioxide 22 mmol/L (22-30); Chloride 105 mmol/L (98-107); Estimated CRCL calculation 52 ml/min; Estimated Glomerular Filt Rate > 60; Glucose 107 mg/dL (65-110); Lipase 125 U/L (23-300); Prothrombin Time 13.2 Seconds (11.1-14.7); Sodium 139 mmol/L (137-145)
[2024-05-02 23:29] LABS: Partial Thromboplastin Time 26.9 Seconds (22.3-36.8)
[2024-05-02 23:34] VITALS: BP 157/92; PULSE 73; RESP 18; O2SAT 99
[2024-05-02 23:36] LABS: Troponin I < 0.012 ng/mL (0.000-0.034)
--- OUTSIDE RECORDS SUMMARY | 2024-05-02 23:55 | XMS_ITS | Clinical Summary ---
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 before breakfast Active famotidine (PEPCID) 20 mg [...] Department Care Team Description 04/30/2024 10:00 AM CIVIL ENGINEER IN TRAINING Infusion [facility] [address] [place] [phone] Age-related osteoporosis without current pathological fracture (Primary Dx) 04/15/2024 Orders Only [facility] [address] [facility] Medical Office Building [address] [place] [phone] Saskia Sprague MD 04/14/2024 Telephone [facility] at [address], [address] [place] [address] Nikolai Nesbitt MD [place] refill 04/02/2024 11:45 AM CIVIL ENGINEER IN TRAINING - 04/02/2024 11:59 PM [facility] Hospital Encounter [facility] at [address], [address] [place] [address] Nikolai Nesbitt MD Degeneration of intervertebral disc of lumbar region with discogenic back pain (Primary Dx); Chronic use of opiate drug for therapeutic purpose Discharge Disposition: Discharge to home or self care 03/07/2024 7:15 AM CIVIL ENGINEER IN TRAINING - 03/07/2024 10:15 AM CIVIL ENGINEER IN TRAINING Surgery [facility] Operating Room [address] [place] [phone] Horace Mack MD Right Total Knee Arthroplasty 03/07/2024 7:13 AM CIVIL ENGINEER IN TRAINING Anesthesia Event [facility] Operating Room [address] [place] [phone] Kwadwo Walker DO Grither, Christine D., NP 03/07/2024 5:35 AM CIVIL ENGINEER IN TRAINING - 03/08/2024 12:40 PM CIVIL ENGINEER IN TRAINING Hospital Encounter [facility] [address] [place] [phone] Horace Mack MD Discharge Disposition: Discharge to home or self care 02/26/2024 Telephone [facility] at [facility] [address] [facility] [address], [address] [place] [phone] Nikolai Nesbitt MD schedule appointment 02/18/2024 12:00 PM CIVIL ENGINEER IN TRAINING Pre-Admission Testing [facility] Pre Anesthesia Testing [address] [place] [phone] Preoperative evaluation to rule out surgical contraindication (Primary Dx) 02/05/2024 2:20 PM CIVIL ENGINEER IN TRAINING Office Visit [address] Office Building [address] [place] [address] Saskia Sprague MD Age-related osteoporosis without current pathological fracture (Primary Dx) 02/05/2024 1:50 PM CIVIL ENGINEER IN TRAINING Clinical Support [address] Office Building [address] [place] [phone] Age-related osteoporosis without current pathological fracture (Primary Dx) 02/05/[address] Medical Office Building [address] [place] [address] Saskia Sprague MD Treatment Plan Update from [...] often do you attend chur ch or yarsanism services? 1 to 4 times per year 01/04/2021 Do you belong to any clubs o r organizations such as mandaeism groups, unions, fraternal or athletic groups, or [...] on file Legal Sex Female 12:50 AM CIVIL ENGINEER IN TRAINING Gender Identity Female 12/31/2020 9:01 AM CDT Sexual Orientation Straight 12/31/2020 9: 01 AM CDT Obstetrics History Last Filed Vital Signs Vital Sign Reading Time Taken Comments Blood Pressure 149/73 04/30/2024 10:25 AM CIVIL ENGINEER IN TRAINING Pulse 86 04/30/2024 10:25 AM CIVIL ENGINEER IN TRAINING Temperature 37.2 C (98.9 F) 04/30/2024 10:25 AM CIVIL ENGINEER IN TRAINING Respiratory Rate 16 04/30/2024 10:2 5 AM CIVIL ENGINEER IN TRAINING Oxygen Saturation 95% 03/08/2024 11: 00 AM CIVIL ENGINEER IN TRAINING Inhaled Oxygen Concentration - - Weight 63.4 kg (139 lb 12.8 oz) 025 10:04 AM CIVIL ENGINEER IN TRAINING Height 154.9 cm (5' 1 ) 03/07/2024 6:23 AM CIVIL ENGINEER IN TRAINING Body Mass Index 26.41 03/07/2024 6:23 AM CIVIL ENGINEER IN TRAINING Plan of Treatment Health Maintenance Due Date [...] home safety. Medical Devices Implanted Type Area Oceanographer Physical Device Identifier Shelf Expiration Date Model / Serial / Lot Neurostimulator Bladder- 1 Implanted:2020 by Baldev Page MD (Quantity not on file) Neurostimulator Pelvis Medtronic Neuro 3058 / [id number] / Neurostimulator Bladder (Lead)-04/23/2020 Implanted:2020 by Baldev Page MD (Quantity not on file) Neurostimulator Pelvis Medtronic Neuro [id number] / / [employer] 6191-1-010 Simplex P Radiopaque Full Dose Cement Bone Sterile - [id number] Implanted:Qty: 1 on 01/03/2021 by Horace Mack MD at [facility] Left: Knee [employer] 03/25/2022 6191-1- 010 / / [id number] [employer] [id number] Ascent Maxim 71mm 1 Piece Cruciate Fin Knee Tray Tibial Interlok - [id number] Implanted:Qty: 1 on 01/03/2021 by Horace Mack MD at [facility] Left: Knee [employer] [id number] 08/02/2030 [id number] / / [id number] [employer] [id number] Vanguard 67.5mm Cruciate Retaining Primary Knee Left Component - [id number] Implanted:Qty: 1 on 01/03/2021 by Horace Mack MD at [facility] Left: Knee [employer] [id number] 09/01/2030 [id number] / / [id number] [employer] [id number] Vanguard 71/[id number] Cruciate Retaining Inlay Direct Compression - [id number] Implanted:Qty: 1 on 01/03/2021 by Horace Mack MD at [facility] Left: Knee [employer] [id number] 07/26/2025 [id number] / / [id number] [employer] Vanguard 71/57dug35bi Cruciate Retain Direct Compression Mold [id number] - [id number] Implanted:Qty: 1 on 03/07/2024 by Horace Mack MD at [facility] Right: Knee [employer] [id number] 12/03/2028 [id number] / / [id number] [employer] Vanguard 67.5mm Cruciate Retaining Primary Knee Right Component [id number] - [id number] Implanted:Qty: 1 on 03/07/2024 by Horace Mack MD at [facility] Right: Knee [employer] [id number] 10/14/2032 [id number] / / [id number] [employer] Ascent Maxim 71mm 1 Piece Cruciate Fin Knee Tray Tibial Interlok [id number] - [id number] Implanted:Qty: 1 on 03/07/2024 by Horace Mack MD at [facility] Right: Knee [employer] 10/30/2033 [id number] / / [id number] [employer] Simplex P Radiopaque Full Dose Cement Bone Sterile 6191-1-010 - [id number] Implanted:Qty: 1 on 03/07/2024 by Horace Mack MD at [facility] Right: Knee [employer] 01/23/2026 6191-1- 010 / / [id number] Procedures Procedure Name Priority Date/Time Associated Diagnosis Comments SCAN - LABS Routine 04/14/2024 12:25 PM CIVIL ENGINEER IN TRAINING EGFR Routine 03/08/2024 6:35 AM CIVIL ENGINEER IN TRAINING BASIC METABOLIC PANEL Routine 03/08/2024 6:35 AM CIVIL ENGINEER IN TRAINING CBC WITHOUT DIFFERENTIAL Routine 03/08/2024 6:35 AM CIVIL ENGINEER IN TRAINING POCT GLUCOSE DEVICE Routine 03/07/2024 4 :16 PM CIVIL ENGINEER IN TRAINING POCT GLUCOSE DEVICE Routine 03/07/2024 12:57 PM CIVIL ENGINEER IN TRAINING EGFR Routine 03/07/2024 12:50 PM CIVIL ENGINEER IN TRAINING COMPREHENSIVE METABOLIC PANEL Routine 03/07/2024 12:50 PM CIVIL ENGINEER IN TRAINING CBC WITHOUT DIFFERENTIAL Routine 03/07/2024 12:50 PM CIVIL ENGINEER IN TRAINING CO AN PROCEDURE PLACEHOLDER Routine 03/07/2024 7:35 AM CIVIL ENGINEER IN TRAINING CO AN PROCEDURE PLACEHOLDER Routine 03/07/2024 7:18 AM CIVIL ENGINEER IN TRAINING ARTHROPLASTY TOTAL KNEE 03/07/2024 7:16 AM CIVIL ENGINEER IN TRAINING Primary osteoarthritis of right knee DIFFERENTIAL AUTO Routine 02/18/2024 2:0 8 PM CIVIL ENGINEER IN TRAINING Preoperative evaluation to rule out surgical contraindication CBC WITH AUTO DIFFERENTIAL Routine 02/18/2024 2:08 PM CIVIL ENGINEER IN TRAINING Preoperative evaluation to rule out surgical contraindication HEMOGLOBIN A1C Routine 02/18/2024 2:08 PM CIVIL ENGINEER IN TRAINING Preoperative evaluation to rule out surgical contraindication EGFR Routine 02/18/2024 2:07 PM CIVIL ENGINEER IN TRAINING Preoperative evaluation to rule out surgical contraindication COMPREHENSIVE METABOLIC PANEL Routine 02/18/2024 2:07 PM CIVIL ENGINEER IN TRAINING Preoperative evaluation to rule out surgical contraindication DEXA TBS AXIAL SKELETON BONE DENSITY 1 OR MORE SITES Schedule Routine, Read Routine (OP Routine) 02/05/2024 2:18 PM CIVIL ENGINEER IN TRAINING Age-related osteoporosis without current pathological fracture SCREENING MAMMOGRAM BILATERAL W [place] Schedule Routine, Read Routine (OP Routine) 05/21/2023 11:04 AM CIVIL ENGINEER IN TRAINING Screening mammogram, encounter for from Last 3 Months or Most Recently Relevant to Health Maintenance Results * SCAN - LABS (04/14/2024 12:25 PM CIVIL ENGINEER IN TRAINING) us Saskia Sprague MD Final Result EXTERNAL LAB * eGFR (03/08/2024 6:35 AM CIVIL ENGINEER IN TRAINING) eGFR 88 >=60 mL/min/1. 73 m2 Comment: [...] last reviewed 2021. Blood 03/08/2024 6:35 AM CIVIL ENGINEER IN TRAINING 03/08/2024 6:39 AM CIVIL ENGINEER IN TRAINING us Horace Mack MD LAB BLOOD ORDERABLES Final R esult [facility] [address] Department [place] [address] * (ABNORMAL) CBC without differential (03/08/2024 6:35 AM CIVIL ENGINEER IN TRAINING) WBC 9.5 3.8 - 9.9 K/cumm Hgb 10.8(L) 11.9 - 15.5 g/dL [facility] Hct 33.2(L) 35.6 - 45.5 % [facility] Plt 154 150 - 400 K/cumm [facility] MPV 9.5 9.1 - 12.3 fL [facility] RBC 3.29(L) 3.90 - 5.20 M/cumm [facility] MCV 100.9(H) 81.3 - 96.4 fL [facility] MCH 32.8 27.1 - 33.3 pg [facility] MCHC 32.5 32.3 - 35.7 g/dL [facility] RDW CV 12.0 11.1 - 14.9 % [facility] RDW SD 44.8 35.7 - 48.1 fL [facility] NRBC abs 0.00 0.00 - 0.01 K/cumm [facility] Blood 03/08/2024 6:35 AM CIVIL ENGINEER IN TRAINING 03/08/2024 6:42 AM CIVIL ENGINEER IN TRAINING Horace Mack MD LAB BLOOD ORDERABLES Final R esult Performing Organization Address City/[facility] Co de Phone Number [facility] [address] [employer] [place] [address] * (ABNORMAL) Basic metabolic panel (03/08/2024 6:35 AM CIVIL ENGINEER IN TRAINING) Sodium 138 135 - 145 mmol/L Potassium, pl 4.3 3.3 - 4.9 mmol/L [facility] Chloride 108 97 - 110 mmol/L [facility] CO2 18(L) 22 - 32 mmol/L [facility] Anion gap 12 2 - 15 mmol/L [facility] BUN 13 6 - 25 mg/dL [facility] Creatinine 0.71 0.60 - 1.10 mg/dL [facility] Glucose 109 70 - 199 mg/dL [facility] Comment: Interpretive Data Fasting glucose >/= 126 [...] 2022. Calcium 7.8(L) 8.5 - 10.3 mg/dL [facility] Blood 03/08/2024 6:35 AM CIVIL ENGINEER IN TRAINING 03/08/2024 6:39 AM CIVIL ENGINEER IN TRAINING Horace Mack MD LAB BLOOD ORDERABLES Final R esult Performing Organization Address City/[facility]/ZIP Co de Phone Number [facility] [address] [employer] [place] [address] * POCT glucose (03/07/2024 4:16 PM CIVIL ENGINEER IN TRAINING) Glucose, POC 77 70 - 199 mg/dL Comment: For Glucose values <35 mg/dl when Hematocrit is >60 mg/dl,the test may not accurately detect significant hypoglycemia,and testing in the Laboratory should be considered if clinically indicated. Blood 03/07/2024 4:16 PM CIVIL ENGINEER IN TRAINING 03/07/2024 4:16 PM CIVIL ENGINEER IN TRAINING Horace Mack MD LAB POCT ORDERABLES - DEVICE Final Result [facility] [address] [facility][1] [place] [address] * POCT glucose (03/07/2024 12:57 PM CIVIL ENGINEER IN TRAINING) Glucose, POC 86 70 - 199 mg/dL Comment: For Glucose values <35 mg/dl when Hematocrit is >60 mg/dl,the test may not accurately detect significant hypoglycemia,and testing in the Laboratory should be considered if clinically indicated. Blood 03/07/2024 12:5 7 PM CIVIL ENGINEER IN TRAINING 03/07/2024 12:57 PM CIVIL ENGINEER IN TRAINING Horace Mack MD LAB POCT ORDERABLES - DEVICE Final Result Performing Organization Address City/[facility]/ZIP Co de Phone Number [facility] [address] Department of [place] [address] * eGFR (03/07/2024 12:50 PM CIVIL ENGINEER IN TRAINING) eGFR 85 >=60 mL/min/1. 73 m2 Comment: [...] reviewed 2021. Blood 03/07/2024 12:5 0 PM CIVIL ENGINEER IN TRAINING 03/07/2024 1:00 PM CIVIL ENGINEER IN TRAINING us Kwadwo Walker DO LAB BLOOD ORDERABLES Fin al Result [facility] [address] Department [place] [address] * (ABNORMAL) CBC without differential (03/07/2024 12:50 PM CIVIL ENGINEER IN TRAINING) WBC 8.1 3.8 - 9.9 K/cumm Hgb 10.5(L) 11.9 - 15.5 g/dL [facility] Hct 32.2(L) 35.6 - 45.5 % [facility] Plt 185 150 - 400 K/cumm [facility] MPV 8.9(L) 9.1 - 12.3 fL [facility] RBC 3.22(L) 3.90 - 5.20 M/cumm [facility] MCV 100.0(H) 81.3 - 96.4 fL [facility] MCH 32.6 27.1 - 33.3 pg [facility] MCHC 32.6 32.3 - 35.7 g/dL [facility] RDW CV 11.9 11.1 - 14.9 % [facility] RDW SD 43.9 35.7 - 48.1 fL [facility] NRBC abs 0.00 0.00 - 0.01 K/cumm [facility] Blood 03/07/2024 12:5 0 PM CIVIL ENGINEER IN TRAINING 03/07/2024 1:00 PM CIVIL ENGINEER IN TRAINING Kwadwo Walker DO LAB BLOOD ORDERABLES Fin al Result [facility] [address] Department [place] [address] * (ABNORMAL) Comprehensive metabolic panel (03/07/2024 12:50 PM CIVIL ENGINEER IN TRAINING) Sodium 143 135 - 145 mmol/L Potassium, pl 4.1 3.3 - 4.9 mmol/L [facility] Chloride 112(H) 97 - 110 mmol/L [facility] CO2 22 22 - 32 mmol/L [facility] Anion gap 9 2 - 15 mmol/L [facility] BUN 16 6 - 25 mg/dL [facility] Creatinine 0.73 0.60 - 1.10 mg/dL [facility] Glucose 88 70 - 199 mg/dL [facility] Comment: Interpretive Data Fasting glucose >/= 126 [...] 2022. Calcium 7.6(L) 8.5 - 10.3 mg/dL [facility] Bilirubin, total 0.2 0.1 - 1.2 mg/dL [facility] Protein, pl 5.7(L) 6.5 - 8.5 g/dL [facility] Albumin 3.9 3.5 - 5.0 g/dL [facility] Alk phos 41 40 - 130 Units/L [facility] ALT 20 7 - 45 Units/L [facility] AST 23 10 - 45 Units/L [facility] Blood 03/07/2024 12:5 0 PM CIVIL ENGINEER IN TRAINING 03/07/2024 1:00 PM CIVIL ENGINEER IN TRAINING Kwadwo Walker DO LAB BLOOD ORDERABLES Fin al Result [facility] [address] Department [place] [address] * CO AN PROCEDURE PLACEHOLDER (03/07/2024 7:35 AM CIVIL ENGINEER IN TRAINING) Alexandra Redmond CRNA - 03/07/2024 7:35 AM CIVIL ENGINEER IN TRAINING Alexandra Taylor CRNA 03/07/2024 7:35 AM Spinal Block Patient location: pre-op holding Reason for block: primary anesthetic Staff: Placed by: IV RN:Alexandra Taylor CRNA Procedure prep: Preprocedure checklist: patient [...] DO ANESTHESIA ORDERABLES Fi nal Result * CO AN PROCEDURE PLACEHOLDER (03/07/2024 7:18 AM CIVIL ENGINEER IN TRAINING) Kwadwo Brown DO - 03/07/2024 7:18 AM CIVIL ENGINEER IN TRAINING Kwadwo Walker DO 03/07/2024 7:18 AM Peripheral [...] Result * Differential, auto (02/18/2024 2:08 PM CIVIL ENGINEER IN TRAINING) Neutrophil abs 2.8 1.5 - 6.5 K/cumm Imm gran abs 0.0 0.0 - 0.1 K/cumm [facility] Lymphocyte abs 2.4 0.8 - 3.3 K/cumm [facility] Monocyte abs 0.5 0.2 - 0.8 K/cumm [facility] Eosinophil abs 0.2 0.0 - 0.5 K/cumm [facility] Basophil abs 0.0 0.0 - 0.1 K/cumm [facility] Neutrophil pct 47.5 % [facility] Comment: Interpretive Data Percent cell count reference ranges are not reported, since discordance with absolute values may lead to misinterpretation of CBC data. Current Interpretive Data was last revised on 2017. Imm gran pct 0.2 % [facility] Comment: Interpretive Data Percent cell count reference ranges are not reported, since discordance with absolute values may lead to misinterpretation of CBC data. Current Interpretive Data was last revised on 2017. Lymphocyte pct 39.9 % [facility] Comment: Interpretive Data Percent cell count reference ranges are not reported, since discordance with absolute values may lead to misinterpretation of CBC data. Current Interpretive Data was last revised on 2017. Monocyte pct 8.4 % [facility] Comment: Interpretive Data Percent cell count reference ranges are not reported, since discordance with absolute values may lead to misinterpretation of CBC data. Current Interpretive Data was last revised on 2017. Eosinophil pct 3.5 % [facility] Comment: Interpretive Data Percent cell count reference ranges are not reported, since discordance with absolute values may lead to misinterpretation of CBC data. Current Interpretive Data was last revised on 2017. Basophil pct 0.5 % [facility] Comment: Interpretive Data Percent cell count reference ranges are not reported, since discordance with absolute values may lead to misinterpretation of CBC data. Current Interpretive Data was last revised on 2017. Blood 02/18/2024 2:08 PM CIVIL ENGINEER IN TRAINING 02/18/2024 2:08 PM CIVIL ENGINEER IN TRAINING Sirena Tellez MED SPECIALIST LAB BLOOD ORDERABLES Fin al Result [facility] [address] Department [place] [address] * (ABNORMAL) CBC with auto differential (02/18/2024 2:08 PM CIVIL ENGINEER IN TRAINING) WBC 6.0 3.8 - 9.9 K/cumm Hgb 12.9 11.9 - 15.5 g/dL [facility] Hct 39.6 35.6 - 45.5 % [facility] Plt 232 150 - 400 K/cumm [facility] MPV 9.8 9.1 - 12.3 fL [facility] RBC 3.96 3.90 - 5.20 M/cumm [facility] MCV 100.0(H) 81.3 - 96.4 fL [facility] MCH 32.6 27.1 - 33.3 pg [facility] MCHC 32.6 32.3 - 35.7 g/dL [facility] RDW CV 12.8 11.1 - 14.9 % [facility] RDW SD 46.3 35.7 - 48.1 fL [facility] NRBC abs 0.00 0.00 - 0.01 K/cumm [facility] Blood 02/18/2024 2:08 PM CIVIL ENGINEER IN TRAINING 02/18/2024 2:08 PM CIVIL ENGINEER IN TRAINING Sirena Tellez NP LAB BLOOD ORDERABLES Fin al Result Performing Organization Address [facility] de Phone Number [facility] [address] Department of [place] [address] * Hemoglobin A1c (02/18/2024 2:08 PM CIVIL ENGINEER IN TRAINING) [facility] Hgb A1C 5.3 4.0 - 5.6 % Estimated Average Glucose 105 mg/dL [facility] Comment: The ADA recommends reporting an estimated Average Glucose (eAG) with all Hemoglobin A1c results using the equation derived from a study of 507 normal and diabetic adults. Minority populations were underrepresented and children were not included. (Diabetes Care 31:6320-0626, 2008). The eAG is not equivalent to a fasting glucose. Blood 02/18/2024 2:08 PM CIVIL ENGINEER IN TRAINING 02/18/2024 2:08 PM CIVIL ENGINEER IN TRAINING Sirena Tellez NP LAB BLOOD ORDERABLES Fin al Result Performing Organization Address [facility] de Phone Number [facility] [address] Department [place] [address] * eGFR (02/18/2024 2:07 PM CIVIL ENGINEER IN TRAINING) Pathologist [facility] eGFR 84 >=60 mL/min/1. 73 m2 Comment: [...] last reviewed 2021. Blood 02/18/2024 2:07 PM CIVIL ENGINEER IN TRAINING 02/18/2024 2:07 PM CIVIL ENGINEER IN TRAINING us Sirena Tellez MED SPECIALIST LAB BLOOD ORDERABLES Fin al Result [facility] [address] Department [place] [address] * Comprehensive metabolic panel (02/18/2024 2:07 PM CIVIL ENGINEER IN TRAINING) Sodium 144 135 - 145 mmol/L Potassium, pl 4.0 3.3 - 4.9 mmol/L [facility] Chloride 109 97 - 110 mmol/L [facility] CO2 23 22 - 32 mmol/L [facility] Anion gap 12 2 - 15 mmol/L [facility] BUN 18 6 - 25 mg/dL [facility] Creatinine 0.74 0.60 - 1.10 mg/dL [facility] Glucose 88 70 - 199 mg/dL [facility] Comment: Interpretive Data Fasting glucose >/= 126 [...] 2022. Calcium 9.1 8.5 - 10.3 mg/dL [facility] Bilirubin, total 0.5 0.1 - 1.2 mg/dL [facility] Protein, pl 6.5 6.5 - 8.5 g/dL [facility] Albumin 4.2 3.5 - 5.0 g/dL [facility] Alk phos 50 40 - 130 Units/L [facility] ALT 29 7 - 45 Units/L [facility] AST 26 10 - 45 Units/L [facility] Blood 02/18/2024 2:07 PM CIVIL ENGINEER IN TRAINING 02/18/2024 2:07 PM CIVIL ENGINEER IN TRAINING us Sirena Tellez NP LAB BLOOD ORDERABLES Fin al Result [facility] [address] Department [place] [address] * Dexa TBS Axial Skeleton Bone Density 1 or more sites (02/05/2024 2:18 PM CIVIL ENGINEER IN TRAINING) Anatomical Region Laterality Modality Wrist, Body N/A Radiographic Karissa ging Narrative 02/05/2024 9:50 PM CIVIL ENGINEER IN TRAINING Patient Name: Massiel Jordan Date of : 1950 Date of scan: 02/05/2024 Bone mineral density was performed on a [employer] Discovery Densitometer. Based on machine cross-calibration and [...] by the International Society of Clinical Densitometry. [id number] Saskia Sprague MD [facility] DXA PROCEDURES Final Resu lt * Screening Mammogram Bilateral W Kingsley (05/21/2023 11:04 AM CIVIL ENGINEER IN TRAINING) Anatomical Region Laterality Modality Breast Bilateral Mammography Narrative 05/22/2023 1:22 PM CIVIL ENGINEER IN TRAINING Mammogram Technique: Bilateral Digital Breast Tomosynthesis, Bilateral C-view 2D Screening mammogram. Views obtained: bilateral craniocaudal and bilateral mediolateral oblique. Computer Aided Detection was performed. Mammogram Findings: The present examination has been compared to prior imaging studies performed at [facility] on 01/09/2020, 03/28/2021 and 05/17/2022. There are [...] compared to prior imaging studies performed at [facility] on 01/09/2020, 03/28/2021 and 05/17/2022. There are scattered areas of fibroglandular density. There is no suspicious abnormality in either breast. Impression: There is no mammographic evidence of malignancy. Annual screening mammography is recommended. OVERALL FINAL ASSESSMENT: BI-RADS CATEGORY 1: Negative. us Self Screening Mammogram IMG MAMMO PROCEDURES Fi nal Result from Last 3 Months or Most Recently Relevant to Health Maintenance Insurance MEDICARE [facility]ICARE [facility] Advance Directives For more information, please contact: [phone] * Full Code (Latest Code Status on File) Date Activated Date Inactivated Comments 03/07/2024 3:35 PM 03/08/2024 4:40 PM * Full Code Date Activated Date Inactivated Comments 01/03/2021 2:26 PM 01/04/2021 4:18 PM Care Teams Acoustic Intelligence Specialist Relationship Specialty [place] [address] [facility] [address] [place] [address] PCP - General Family Medicine 08/02/21 Horace Mack MD [address] [address] [place] [address] Consulting Physician Orthopedic Surgery 01/04/21
--- OUTSIDE RECORDS SUMMARY | 2024-05-02 23:55 | XMS_ITS | Patient Health Record ---
Author Organization [facility] shantal Address [address] [facility] [address] [place] [address] Care Team Providers Care Shoulder Boner Name Role Phone Justus Chi Unavailable [phone] Reason For Referral No Information Medications Medication SIG (Take, Route, Frequency, Duration) [...] oral route once daily Oral 1 Active Immunizations Vaccine Route Administration Date Status Comme nts Infuenza, trivalent, recombinant, preservative free Unknown 01/20/2008 Administered migrated LegPatid= [id number] Date=01/02/2006 Vac= Influenza Infuenza, trivalent, recombinant, preservative free IM Intramuscular 01/25/2012 Administered Infuenza, trivalent, recombinant, preservative free IM Intramuscular 01/27/2013 Administered Quadrivalant Flu Vaccine cr Infuenza, trivalent, recombinant, preservative free IM Intramuscular 01/20/2014 Administered Pfizer Biontech Covid-19 Vaccine 2nd dose Unknown 05/27/2020 Administered Pfizer Biontech Covid-19 Vaccine 2nd dose Unknown 06/17/2020 Administered Pneumococcal conjugate PCV 13 IM Intramuscular 01/25/2012 Administered Tdap Unknown 07/24/2007 Administered migrated LegPatid= [id number] Date=07/24/2007 Vac= Tdap Problems Problem Type SNOMED Code ICD Code Onset Dates Problem Status W/U Status Risk Notes Problem Asthma (disorder) (341729864) Asthma, unspecified, unspecified status (493.90) Active confirmed Problem Diverticulosis of colon (finding) (435615824) Diverticulosis of colon (without mention of hemorrhage) (562.10) 2005 Active confirmed Problem Disorder of rotator cuff (551159938) Other specified disorders of rotator cuff syndrome of shoulder and allied disorders (726.19) 2013 Active confirmed Problem Seborrheic keratosis (83254885) Seborrheic keratosis (702.1) 2009 Active confirmed Problem Hypothyroidism (72776535) Hypothyroidism, unspecified (E03.9) Active confirmed Problem Pure hypercholesterolemia (468391613) Pure hypercholesterolemia (E78.0) 2008 Active confirmed Problem Major depression, single episode (33281471) Major depressive disorder, single episode, unspecified (F32.9) Active confirmed Problem Migraine with aura (5899748) Migraine with aura, not intractable, without status migrainosus (G43.109) Active confirmed Problem Obstructive sleep apnea syndrome (disorder) (20069746) Obstructive sleep apnea (adult) (pediatric) (G47.33) 2012 Active confirmed Problem Carpal tunnel syndrome (23476489) Carpal tunnel syndrome, unspecified upper limb (G56.00) 2013 Active confirmed Problem Allergic rhinitis (21513761) Allergic rhinitis, unspecified (J30.9) Active confirmed Problem Gastro-esophageal reflux disease without esophagitis (543393941) Gastro-esophageal reflux disease without esophagitis (K21.9) 2004 Active confirmed Problem Hemorrhoids (01747399) Unspecified hemorrhoids (K64.9) 2005 Active confirmed Problem Acne (41929916) Acne, unspecifie d (L70.9) 2009 Active confirmed Problem Rheumatoid arthritis (85744966) Rheumatoid arthritis, unspecified (M06.9) 2013 Active confirmed Problem Cervicalgia (56059173) Cervicalgia (M54.2) 2012 Active confirmed Problem Backache (243278059) Dorsalgia, unspecified (M54.9) 2015 Active confirmed Problem Synovial cyst of popliteal space [[place]], left knee (M71.22) 2014 Active confirmed Problem Pain in left foot (157666095416895) Pain in left foot (M79.672) 2013 Active confirmed Problem Age-related osteoporosis (335765302) Age-related osteoporosis without current pathological fracture (M81.0) Active confirmed Problem Pyelonephritis (27803874) Tubulo-interstitial nephritis, not specified as acute or chronic (N12) 2018 Active confirmed Problem Calculus of kidney (29587510) Calculus of kidney (N20.0) 2012 Active confirmed Problem Urge incontinence of urine (27937559) Urge incontinence (N39.41) 2008 Active confirmed Problem Fibrocystic breast changes (61341069) Diffuse cystic mastopathy of unspecified breast (N60.19) 2004 Active confirmed Problem Spasm (07634349) Cramp and spasm (R25.2) 2018 Active confirmed Problem Adult health examination (706761118) Encounter for general adult medical examination without abnormal findings (Z00.00) 2015 Active confirmed Problem Family history of malignant neoplasm of gastrointestinal tract (360254354) Family history of malignant neoplasm of digestive organs (Z80.0) 2006 Active confirmed Problem Essential hypertension (82218228) Essential (primary) hypertension (I10) 2013 Active confirmed Problem Depression (137954944) Depression, unspecified (F32.A) 2018 Active confirmed Plan Of Treatment No Information Insurance Providers Payer Name Payer Address Payer Phone Subscriber Number Group Number Insured Name Patient Relationship to Insured Coverage Start Date Coverage End Date DO NOT USE AR [id number] Julian Massiel Self - patient is the insured [facility] [address] [place] [address] [id number] PLAN F Jordan Massiel Self - patient is the insured 3 DO NOT USE AR [id number] Massiel Jordan Self - patient is the insured [facility] [address] [place] [address] [id number] Jordan Massiel Self - patient is the insured [facility] [employer] [place] [address] [place] [address] [id number] Massiel Jordan Self - patient is the insured 4 Medical (General) History Surgical History Surgery Date(Month/Year) Appendectomy: with bladder sling, Date o f Procedure: 1974; 2011-02-27 ARTHROSCOPY: right shoulder capsular release-for adhesive capsulitis-2003; 2011-02-27 Bladder Surgery: suspension- 1974 with Appy; Bladder electrode placed- 08/11/16; 2011-02-27 T&A: 1958; 2011-02-27 ARABELLA-BSO: with severe endometriosis, Date of Procedure: 1976; 2011-02-27 TMJ: broke and set in place- 1977; 02-27 Kidney Stones: removed- surgery-05/2008; 2011-02-27 rectal: surgery-2007; 2011-02-27 Tonsillectomy; 2011-02-27 dental: Severe TMJ and TMJ broken and reset jaw Full dental implants, Date of Procedure: 2018; 2013-02-28 Lithotripsy, Date of Procedure: 07-03-06 Cystoscopy: Cystouretero wit h stone removal and cystoscopy and treatment, Date of Procedure: 2007; 2013-02-28 Parotidectomy: Left parotid gland tumor removal, Date of Procedure: 1998; 2013-02-28 Knee surgery: Right open kne e surgery-menical repair; 06/10/15-Left knee-meniscal repair-; Right knee medial/lateral menical repair-11/10/2020. Left TKR-01/03/2021-, Date of Procedure: December 02 2008; 2013-02-28 Lasik: Unsuccessful, Date of Procedure: 2010; 2013-02-28 Shoulder surgery: Shoulder m anipulation under anesthesia and arthroscopic capular release; 05/15/14 -Left shoulder arthroscopic surgery, Date of Procedure: 2003; 2013-02-28 carpal tunnel surgery: Left- 05/20/13 and Right 07/07/13 with right elbow nerve repair ; 2013-07-14 Sinus Surgery: s surgery, nasal septal repair with engraver jewelry, UPPP, ablation base of tongue. July 05, 2015--Sinus surgery revision, Date of Procedure: 07/29/13; 2013-09-15 Domenico Fundoplication: Dr.Ha oliver-Domenico for HH, Date of Procedure: 03/17/15; 2015-05-24 Liposuction: Antonio Dodson-herberth k and abd fat removal, Date of Procedure: 06/2017; 2017-08-30 Cataract extraction: Left -12/28/2020; Ri ght-01/07/2021; 2021-03-29 1: Ankle surgery: 1960 Right compound fx; 2007-Right ankle fusion; 09/11/2008-Surgery removed pins from right ankle; 10/31/2011-right ankle addnl fusion, pins inserted, bone taken from right hip and grafted to right ankle; 09/24/2012-Pins removed from right 2013-02-28 2: ankle. 07/14/15-Extensive ankle/foot s urgery-Dr.Joshua Jamil; 2013-02-28
--- OUTSIDE RECORDS SUMMARY | 2024-05-02 23:55 | XMS_ITS | Clinical Summary ---
Author Organization [facility] Care Team Providers Care Labor Specialist Name Role Phone Unavailable Primary Care Provider Unavailabl e Social History Tobacco Use Types Packs/Day Years Used Date Smoking Tobacco: Never Assessed Comments Unknown Sex and Gender Information Value Date Recorded Sex Assigned at Not on file Legal Sex Female 11:35 AM [employer] Gender Identity Not on file Sexual Orientation [...]
--- OUTSIDE RECORDS SUMMARY | 2024-05-02 23:55 | XMS_ITS | Referral Summary ---
Author Organization [facility] Address [facility] [place] [address] Care Team Providers Care Dialer Name Role Phone Horace Mack MD Unavailable Sravani Harrison MD Primary Care Provider [phone] Encounters Date Type Department Care Team Description 04/30/2024 10:00 AM SCIENTIFIC SYSTEMS ANALYST Infusion [facility] [address] [place] [address] Age-related osteoporosis without current pathological fracture (Primary Dx) 04/15/2024 Orders Only [facility] [address] [facility] Medical Office Building [address] [place] [address] Saskia Sprague MD 04/14/2024 Telephone [facility] at [address], [address] [place] [address] Nikolai Nesbitt MD [place] refill 04/02/2024 11:45 AM SCIENTIFIC SYSTEMS ANALYST - 04/02/2024 11:59 PM SCIENTIFIC SYSTEMS ANALYST Hospital Encounter [facility] at [address], [address] [place] [address] Nikolai Nesbitt MD Degeneration of intervertebral disc of lumbar region with discogenic back pain (Primary Dx); Chronic use of opiate drug for therapeutic purpose Discharge Disposition: Discharge to home or self care 03/07/2024 5:35 AM SCIENTIFIC SYSTEMS ANALYST - 03/08/2024 12:40 PM SCIENTIFIC SYSTEMS ANALYST Hospital Encounter [facility] [address] [place] [phone] Horace Mack MD Discharge Disposition: Discharge to home or self care 03/07/2024 7:15 AM SCIENTIFIC SYSTEMS ANALYST - 03/07/2024 10:15 AM SCIENTIFIC SYSTEMS ANALYST Surgery [facility] Operating Room [address] [place] [phone] Horace Mack MD Right Total Knee Arthroplasty 03/07/2024 7:13 AM SCIENTIFIC SYSTEMS ANALYST Anesthesia Event [facility] Operating Room [address] [place] [phone] Kwadwo Walker DO Grither, Christine D., NP 02/26/2024 Telephone [facility] at [facility] [address] [address], [address] [place] [address] Nikolai Nesbitt MD schedule appointment 02/18/2024 12:00 PM SCIENTIFIC SYSTEMS ANALYST Pre-Admission Testing [facility] Pre Anesthesia Testing [address] [place] [phone] Preoperative evaluation to rule out surgical contraindication (Primary Dx) 02/05/[address] Office [facility] [address] [place] [phone] Saskia Sprague MD Treatment Plan Update 02/05/2024 1:50 PM SCIENTIFIC SYSTEMS ANALYST Clinical Support [address] Building [address] [place] [phone] Age-related osteoporosis without current pathological fracture (Primary Dx) 02/05/2024 2:20 PM SCIENTIFIC SYSTEMS ANALYST Office Visit [address] Building [address] [place] [phone] Saskia Sprague MD Age-related osteoporosis without current [...] 1 tablet (88 mcg total) by mouth community resource officer before breakfast Active famotidine (PEPCID) 20 mg [...] often do you attend chur ch or synagogue services? 1 to 4 times per year 01/04/2021 Do you belong to any clubs o r organizations such as temple groups, unions, fraternal or athletic groups, or [...] on file Legal Sex Female 12:50 AM SCIENTIFIC SYSTEMS ANALYST Gender Identity Female 12/31/2020 9:01 AM CDT Sexual Orientation Straight 12/31/2020 9: 01 AM CDT Last Filed Vital Signs Vital Sign Reading Time Taken Comments Blood Pressure 149/73 04/30/2024 10:25 AM SCIENTIFIC SYSTEMS ANALYST Pulse 86 04/30/2024 10:25 AM SCIENTIFIC SYSTEMS ANALYST Temperature 37.2 C (98.9 F) 04/30/2024 10:25 AM SCIENTIFIC SYSTEMS ANALYST Respiratory Rate 16 04/30/2024 10:2 5 AM SCIENTIFIC SYSTEMS ANALYST Oxygen Saturation 95% 03/08/2024 11: 00 AM SCIENTIFIC SYSTEMS ANALYST Inhaled Oxygen Concentration - - Weight 63.4 kg (139 lb 12.8 oz) 025 10:04 AM SCIENTIFIC SYSTEMS ANALYST Height 154.9 cm (5' 1 ) 03/07/2024 6:23 AM SCIENTIFIC SYSTEMS ANALYST Body Mass Index 26.41 03/07/2024 6:23 AM SCIENTIFIC SYSTEMS ANALYST Plan of Treatment Not on file Goals [...] home safety. Medical Devices Implanted Type Area Industrial Hygiene Technician Device Identifier Shelf Expiration Date Model / Serial / Lot Neurostimulator Bladder- Implanted:2020 by Baldev Page MD (Quantity not on file) Neurostimulator Pelvis Medtronic Neuro [id number] / [id number] / Neurostimulator Bladder (Lead)-04/23/2020 Implanted:2020 by Baldev Page MD (Quantity not on file) Neurostimulator Pelvis Medtronic Neuro 978B1 / / [employer] 6191-1-010 Simplex P Radiopaque Full Dose Cement Bone Sterile - [id number] Implanted:Qty: 1 on 01/03/2021 by Horace Mack MD at [facility] Left: Knee [employer] 03/25/2022 6191-1- 010 / / [id number] [employer] [id number] Ascent Maxim 71mm 1 Piece Cruciate Fin Knee Tray Tibial Interlok - [id number] Implanted:Qty: 1 on 01/03/2021 by Horace Mack MD at [facility] Left: Knee [employer] [id number] 08/02/2030 [id number] / / [id number] [employer] [id number] Vanguard 67.5mm Cruciate Retaining Primary Knee Left Component - [id number] Implanted:Qty: 1 on 01/03/2021 by Horace Mack MD at [facility] Left: Knee [employer] [id number] 09/01/2030 [id number] / / [id number] [employer] [id number] Vanguard 71/48tdo90rq Cruciate Retaining Inlay Direct Compression - [id number] Implanted:Qty: 1 on 01/03/2021 by Horace Mack MD at [facility] Left: Knee [employer] [id number] 07/26/2025 [id number] / / [id number] [employer] Vanguard 71/28iue40om Cruciate Retain Direct Compression Mold [id number] - [id number] Implanted:Qty: 1 on 03/07/2024 by Horace aMck MD at [facility] Right: Knee [employer] [id number] 12/03/2028 [id number] / / [id number] [employer] Vanguard 67.5mm Cruciate Retaining Primary Knee Right Component [id number] - [id number] Implanted:Qty: 1 on 03/07/2024 by Horace Mack MD at [facility] Right: Knee [employer] [id number] 10/14/2032 [id number] / / [id number] [employer] Ascent Maxim 71mm 1 Piece Cruciate Fin Knee Tray Tibial Interlok [id number] - [id number] Implanted:Qty: 1 on 03/07/2024 by Horace Mack MD at [facility] Right: Knee [employer] 10/30/2033 [id number] / / [id number] [employer] Simplex P Radiopaque Full Dose Cement Bone Sterile 6191-1-010 - [id number] Implanted:Qty: 1 on 03/07/2024 by Horace Mack MD at [facility] Right: Knee [employer] 01/23/2026 6191-1- 010 / / [id number] Procedures Procedure Name Priority Date/Time Associated Diagnosis Comments SCAN - LABS Routine 04/14/2024 12:25 PM SCIENTIFIC SYSTEMS ANALYST EGFR Routine 03/08/2024 6:35 AM SCIENTIFIC SYSTEMS ANALYST BASIC METABOLIC PANEL Routine 03/08/2024 6:35 AM SCIENTIFIC SYSTEMS ANALYST CBC WITHOUT DIFFERENTIAL Routine 03/08/2024 6:35 AM SCIENTIFIC SYSTEMS ANALYST POCT GLUCOSE DEVICE Routine 03/07/2024 4 :16 PM SCIENTIFIC SYSTEMS ANALYST POCT GLUCOSE DEVICE Routine 03/07/2024 12:57 PM SCIENTIFIC SYSTEMS ANALYST EGFR Routine 03/07/2024 12:50 PM SCIENTIFIC SYSTEMS ANALYST COMPREHENSIVE METABOLIC PANEL Routine 03/07/2024 12:50 PM SCIENTIFIC SYSTEMS ANALYST CBC WITHOUT DIFFERENTIAL Routine 03/07/2024 12:50 PM SCIENTIFIC SYSTEMS ANALYST NC AN PROCEDURE PLACEHOLDER Routine 03/07/2024 7:35 AM SCIENTIFIC SYSTEMS ANALYST NC AN PROCEDURE PLACEHOLDER Routine 03/07/2024 7:18 AM SCIENTIFIC SYSTEMS ANALYST ARTHROPLASTY TOTAL KNEE 03/07/2024 7:16 AM SCIENTIFIC SYSTEMS ANALYST Primary osteoarthritis of right knee DIFFERENTIAL AUTO Routine 02/18/2024 2:0 8 PM SCIENTIFIC SYSTEMS ANALYST Preoperative evaluation to rule out surgical contraindication CBC WITH AUTO DIFFERENTIAL Routine 02/18/2024 2:08 PM SCIENTIFIC SYSTEMS ANALYST Preoperative evaluation to rule out surgical contraindication HEMOGLOBIN A1C Routine 02/18/2024 2:08 PM SCIENTIFIC SYSTEMS ANALYST Preoperative evaluation to rule out surgical contraindication EGFR Routine 02/18/2024 2:07 PM SCIENTIFIC SYSTEMS ANALYST Preoperative evaluation to rule out surgical contraindication COMPREHENSIVE METABOLIC PANEL Routine 02/18/2024 2:07 PM SCIENTIFIC SYSTEMS ANALYST Preoperative evaluation to rule out surgical contraindication DEXA TBS AXIAL SKELETON BONE DENSITY 1 OR MORE SITES Schedule Routine, Read Routine (OP Routine) 02/05/2024 2:18 PM SCIENTIFIC SYSTEMS ANALYST Age-related osteoporosis without current pathological fracture SCREENING MAMMOGRAM BILATERAL W KINGSLEY Schedule Routine, Read Routine (OP Routine) 05/21/2023 11:04 AM SCIENTIFIC SYSTEMS ANALYST Screening mammogram, encounter for from Last 3 Months or Most Recently Relevant to Health Maintenance Results * SCAN - LABS (04/14/2024 12:25 PM SCIENTIFIC SYSTEMS ANALYST) us Saskia Sprague MD Final Result EXTERNAL LAB * eGFR (03/08/2024 6:35 AM SCIENTIFIC SYSTEMS ANALYST) eGFR 88 >=60 mL/min/1. 73 m2 Comment: [...] last reviewed 2021. Blood 03/08/2024 6:35 AM SCIENTIFIC SYSTEMS ANALYST 03/08/2024 6:39 AM SCIENTIFIC SYSTEMS ANALYST us Horace Mack MD LAB BLOOD ORDERABLES Final R esult [facility] [address] [place] [address] * (ABNORMAL) CBC without differential (03/08/2024 6:35 AM SCIENTIFIC SYSTEMS ANALYST) WBC 9.5 3.8 - 9.9 K/cumm Hgb 10.8(L) 11.9 - 15.5 g/dL [facility] Hct 33.2(L) 35.6 - 45.5 % [facility] Plt 154 150 - 400 K/cumm [facility] MPV 9.5 9.1 - 12.3 fL [facility] RBC 3.29(L) 3.90 - 5.20 M/cumm [facility] MCV 100.9(H) 81.3 - 96.4 fL [facility] MCH 32.8 27.1 - 33.3 pg [facility] MCHC 32.5 32.3 - 35.7 g/dL [facility] RDW CV 12.0 11.1 - 14.9 % [facility] RDW SD 44.8 35.7 - 48.1 fL [facility] NRBC abs 0.00 0.00 - 0.01 K/cumm [facility] Blood 03/08/2024 6:35 AM SCIENTIFIC SYSTEMS ANALYST 03/08/2024 6:42 AM SCIENTIFIC SYSTEMS ANALYST Horace Mack MD LAB BLOOD ORDERABLES Final R esult Performing Organization Address City/[facility]/ZIP Co de Phone Number [facility] [address] [place] [address] * (ABNORMAL) Basic metabolic panel (03/08/2024 6:35 AM SCIENTIFIC SYSTEMS ANALYST) Sodium 138 135 - 145 mmol/L Potassium, pl 4.3 3.3 - 4.9 mmol/L [facility] Chloride 108 97 - 110 mmol/L [facility] CO2 18(L) 22 - 32 mmol/L [facility] Anion gap 12 2 - 15 mmol/L [facility] BUN 13 6 - 25 mg/dL [facility] Creatinine 0.71 0.60 - 1.10 mg/dL [facility] Glucose 109 70 - 199 mg/dL [facility] Comment: Interpretive Data Fasting glucose >/= 126 [...] 2022. Calcium 7.8(L) 8.5 - 10.3 mg/dL [facility] Blood 03/08/2024 6:35 AM SCIENTIFIC SYSTEMS ANALYST 03/08/2024 6:39 AM SCIENTIFIC SYSTEMS ANALYST Horace Mack MD LAB BLOOD ORDERABLES Final R esult Performing Organization Address City/[facility]/ZIP Co de Phone Number [facility] [address] [facility] [place] [address] * POCT glucose (03/07/2024 4:16 PM SCIENTIFIC SYSTEMS ANALYST) [facility] Glucose, POC 77 70 - 199 mg/dL Comment: For Glucose values <35 mg/dl when Hematocrit is >60 mg/dl,the test may not accurately detect significant hypoglycemia,and testing in the Laboratory should be considered if clinically indicated. Blood 03/07/2024 4:16 PM SCIENTIFIC SYSTEMS ANALYST 03/07/2024 4:16 PM SCIENTIFIC SYSTEMS ANALYST Horace Mack MD LAB POCT ORDERABLES - DEVICE Final Result Performing Organization Address City/[facility]/ZIP Co de Phone Number [facility] [address] [facility] [place] [address] * POCT glucose (03/07/2024 12:57 PM SCIENTIFIC SYSTEMS ANALYST) [facility] Glucose, POC 86 70 - 199 mg/dL Comment: For Glucose values <35 mg/dl when Hematocrit is >60 mg/dl,the test may not accurately detect significant hypoglycemia,and testing in the Laboratory should be considered if clinically indicated. Blood 03/07/2024 12:5 7 PM SCIENTIFIC SYSTEMS ANALYST 03/07/2024 12:57 PM SCIENTIFIC SYSTEMS ANALYST Horace Mack MD LAB POCT ORDERABLES - DEVICE Final Result Performing Organization Address City/[facility] Co de Phone Number [facility] [address] [facility] [employer] [place], [place] [id number] * eGFR (03/07/2024 12:50 PM SCIENTIFIC SYSTEMS ANALYST) [facility] eGFR 85 >=60 mL/min/1. 73 m2 Comment: [...] reviewed 2021. Blood 03/07/2024 12:5 0 PM SCIENTIFIC SYSTEMS ANALYST 03/07/2024 1:00 PM SCIENTIFIC SYSTEMS ANALYST us Kwadwo Walker DO LAB BLOOD ORDERABLES Fin al Result [facility] [address] [place] [address] * (ABNORMAL) CBC without differential (03/07/2024 12:50 PM SCIENTIFIC SYSTEMS ANALYST) WBC 8.1 3.8 - 9.9 K/cumm Hgb 10.5(L) 11.9 - 15.5 g/dL [facility] Hct 32.2(L) 35.6 - 45.5 % [facility] Plt 185 150 - 400 K/cumm [facility] MPV 8.9(L) 9.1 - 12.3 fL [facility] RBC 3.22(L) 3.90 - 5.20 M/cumm [facility] MCV 100.0(H) 81.3 - 96.4 fL [facility] MCH 32.6 27.1 - 33.3 pg [facility] MCHC 32.6 32.3 - 35.7 g/dL [facility] RDW CV 11.9 11.1 - 14.9 % [facility] RDW SD 43.9 35.7 - 48.1 fL [facility] NRBC abs 0.00 0.00 - 0.01 K/cumm [facility] Blood 03/07/2024 12:5 0 PM SCIENTIFIC SYSTEMS ANALYST 03/07/2024 1:00 PM SCIENTIFIC SYSTEMS ANALYST us Kwadwo Ciriloalka Walker DO LAB BLOOD ORDERABLES Fin al Result [facility] [address] Department [place] [address] * (ABNORMAL) Comprehensive metabolic panel (03/07/2024 12:50 PM SCIENTIFIC SYSTEMS ANALYST) Sodium 143 135 - 145 mmol/L Potassium, pl 4.1 3.3 - 4.9 mmol/L [facility] Chloride 112(H) 97 - 110 mmol/L [facility] CO2 22 22 - 32 mmol/L [facility] Anion gap 9 2 - 15 mmol/L [facility] BUN 16 6 - 25 mg/dL [facility] Creatinine 0.73 0.60 - 1.10 mg/dL [facility] Glucose 88 70 - 199 mg/dL [facility] Comment: Interpretive Data Fasting glucose >/= 126 [...] 2022. Calcium 7.6(L) 8.5 - 10.3 mg/dL [facility] Bilirubin, total 0.2 0.1 - 1.2 mg/dL [facility] Protein, pl 5.7(L) 6.5 - 8.5 g/dL [facility] Albumin 3.9 3.5 - 5.0 g/dL [facility] Alk phos 41 40 - 130 Units/L [facility] ALT 20 7 - 45 Units/L [facility] AST 23 10 - 45 Units/L [facility] Blood 03/07/2024 12:5 0 PM SCIENTIFIC SYSTEMS ANALYST 03/07/2024 1:00 PM SCIENTIFIC SYSTEMS ANALYST Kwadwo Walker DO LAB BLOOD ORDERABLES Fin al Result [facility] [address] Department [place] [address] * NC AN PROCEDURE PLACEHOLDER (03/07/2024 7:35 AM SCIENTIFIC SYSTEMS ANALYST) Narrative Alexandra Taylor CRNA - 03/07/2024 7:35 AM SCIENTIFIC SYSTEMS ANALYST Alexandra Taylor CRNA 03/07/2024 7:35 AM Spinal Block Patient location: pre-op holding Reason for block: primary anesthetic Staff: Placed by: REHABILITATION ENGINEER:Alexandra Taylor CRNA Procedure prep: Preprocedure checklist: [...] DO ANESTHESIA ORDERABLES Fi nal Result * NC AN PROCEDURE PLACEHOLDER (03/07/2024 7:18 AM SCIENTIFIC SYSTEMS ANALYST) Narrative Kwadwo Walker DO - 03/07/2024 7:18 AM SCIENTIFIC SYSTEMS ANALYST Kwadwo Walker DO 03/07/2024 7:18 AM Peripheral [...] Result * Differential, auto (02/18/2024 2:08 PM SCIENTIFIC SYSTEMS ANALYST) Neutrophil abs 2.8 1.5 - 6.5 K/cumm Imm gran abs 0.0 0.0 - 0.1 K/cumm [facility] Lymphocyte abs 2.4 0.8 - 3.3 K/cumm [facility] Monocyte abs 0.5 0.2 - 0.8 K/cumm [facility] Eosinophil abs 0.2 0.0 - 0.5 K/cumm [facility] Basophil abs 0.0 0.0 - 0.1 K/cumm [facility] Neutrophil pct 47.5 % [facility] Comment: Interpretive Data Percent cell count reference ranges are not reported, since discordance with absolute values may lead to misinterpretation of CBC data. Current Interpretive Data was last revised on 2017. Imm gran pct 0.2 % [facility] Comment: Interpretive Data Percent cell count reference ranges are not reported, since discordance with absolute values may lead to misinterpretation of CBC data. Current Interpretive Data was last revised on 2017. Lymphocyte pct 39.9 % [facility] Comment: Interpretive Data Percent cell count reference ranges are not reported, since discordance with absolute values may lead to misinterpretation of CBC data. Current Interpretive Data was last revised on 2017. Monocyte pct 8.4 % [facility] Comment: Interpretive Data Percent cell count reference ranges are not reported, since discordance with absolute values may lead to misinterpretation of CBC data. Current Interpretive Data was last revised on 2017. Eosinophil pct 3.5 % [facility] Comment: Interpretive Data Percent cell count reference ranges are not reported, since discordance with absolute values may lead to misinterpretation of CBC data. Current Interpretive Data was last revised on 2017. Basophil pct 0.5 % [facility] Comment: Interpretive Data Percent cell count reference ranges are not reported, since discordance with absolute values may lead to misinterpretation of CBC data. Current Interpretive Data was last revised on 2017. Blood 02/18/2024 2:08 PM SCIENTIFIC SYSTEMS ANALYST 02/18/2024 2:08 PM SCIENTIFIC SYSTEMS ANALYST us Sirena Tellez SACK FILLER LAB BLOOD ORDERABLES Fin al Result [facility] [address] Department [place] [address] * (ABNORMAL) CBC with auto differential (02/18/2024 2:08 PM SCIENTIFIC SYSTEMS ANALYST) WBC 6.0 3.8 - 9.9 K/cumm Hgb 12.9 11.9 - 15.5 g/dL [facility] Hct 39.6 35.6 - 45.5 % [facility] Plt 232 150 - 400 K/cumm [facility] MPV 9.8 9.1 - 12.3 fL [facility] RBC 3.96 3.90 - 5.20 M/cumm [facility] MCV 100.0(H) 81.3 - 96.4 fL [facility] MCH 32.6 27.1 - 33.3 pg [facility] MCHC 32.6 32.3 - 35.7 g/dL [facility] RDW CV 12.8 11.1 - 14.9 % [facility] RDW SD 46.3 35.7 - 48.1 fL [facility] NRBC abs 0.00 0.00 - 0.01 K/cumm [facility] Blood 02/18/2024 2:08 PM SCIENTIFIC SYSTEMS ANALYST 02/18/2024 2:08 PM SCIENTIFIC SYSTEMS ANALYST Sirena Tellez NP LAB BLOOD ORDERABLES Fin al Result Performing Organization Address [facility] de Phone Number [facility] [address] Department [employer] [place], [place] [id number] * Hemoglobin A1c (02/18/2024 2:08 PM SCIENTIFIC SYSTEMS ANALYST) [facility] Hgb A1C 5.3 4.0 - 5.6 % Estimated Average Glucose 105 mg/dL [facility] Comment: The ADA recommends reporting an estimated Average Glucose (eAG) with all Hemoglobin A1c results using the equation derived from a study of 507 normal and diabetic adults. Minority populations were underrepresented and children were not included. (Diabetes Care 31:7507-6982, 2008). The eAG is not equivalent to a fasting glucose. Blood 02/18/2024 2:08 PM SCIENTIFIC SYSTEMS ANALYST 02/18/2024 2:08 PM SCIENTIFIC SYSTEMS ANALYST Sirena Tellez NP LAB BLOOD ORDERABLES Fin al Result Performing Organization Address [facility] de Phone Number [facility] [address] Department [place] [employer] [place] [address] * eGFR (02/18/2024 2:07 PM SCIENTIFIC SYSTEMS ANALYST) [facility] eGFR 84 >=60 mL/min/1. 73 [...] last reviewed 2021. Blood 02/18/2024 2:07 PM SCIENTIFIC SYSTEMS ANALYST 02/18/2024 2:07 PM SCIENTIFIC SYSTEMS ANALYST us Sirena Tellez NP LAB BLOOD ORDERABLES Fin al Result [facility] [address] Department [place] [address] * Comprehensive metabolic panel (02/18/2024 2:07 PM SCIENTIFIC SYSTEMS ANALYST) Sodium 144 135 - 145 mmol/L Potassium, pl 4.0 3.3 - 4.9 mmol/L [facility] Chloride 109 97 - 110 mmol/L [facility] CO2 23 22 - 32 mmol/L [facility] Anion gap 12 2 - 15 mmol/L [facility] BUN 18 6 - 25 mg/dL [facility] Creatinine 0.74 0.60 - 1.10 mg/dL [facility] Glucose 88 70 - 199 mg/dL [facility] Comment: Interpretive Data Fasting glucose >/= 126 [...] 2022. Calcium 9.1 8.5 - 10.3 mg/dL [facility] Bilirubin, total 0.5 0.1 - 1.2 mg/dL [facility] Protein, pl 6.5 6.5 - 8.5 g/dL [facility] Albumin 4.2 3.5 - 5.0 g/dL [facility] Alk phos 50 40 - 130 Units/L [facility] ALT 29 7 - 45 Units/L [facility] AST 26 10 - 45 Units/L [facility] Blood 02/18/2024 2:07 PM SCIENTIFIC SYSTEMS ANALYST 02/18/2024 2:07 PM SCIENTIFIC SYSTEMS ANALYST us Sirena Tellez NP LAB BLOOD ORDERABLES Fin al Result [facility] [address] [place] [address] * Dexa TBS Axial Skeleton Bone Density 1 or more sites (02/05/2024 2:18 PM SCIENTIFIC SYSTEMS ANALYST) Anatomical Region Laterality Modality Wrist, Body N/A Radiographic Karissa ging Narrative 02/05/2024 9:50 PM SCIENTIFIC SYSTEMS ANALYST Patient Name: Massiel Jordan Date of : 1950 Date of scan: 02/05/2024 Bone mineral density was performed on a HoloC[employer]ion Discovery Densitometer. Based on machine cross-calibration and [...] by the International Society of Clinical Densitometry. [id number] Saskia Sprague MD IMG DXA PROCEDURES Final Resu lt * Screening Mammogram Bilateral W Kingsley (05/21/2023 11:04 AM SCIENTIFIC SYSTEMS ANALYST) Anatomical Region Laterality Modality Breast Bilateral Mammography Narrative 05/22/2023 1:22 PM SCIENTIFIC SYSTEMS ANALYST Mammogram Technique: Bilateral Digital Breast Tomosynthesis, Bilateral C-view 2D Screening mammogram. Views obtained: bilateral craniocaudal and bilateral mediolateral oblique. Computer Aided Detection was performed. Mammogram Findings: The present examination has been compared to prior imaging studies performed at [facility] on 01/09/2020, 03/28/2021 and 05/17/2022. There [...] compared to prior imaging studies performed at [facility] on 01/09/2020, 03/28/2021 and 05/17/2022. There [...] Recently Relevant to Health Maintenance Insurance MEDICARE [facility] Member Subscriber Plan / Payer ( fective 2018-Present) Name:Massiel Jordan Relation to Subscriber:Self Name:Massiel Jordan Payer ID:[id number] Group ID:[id number] Type:COMMERCIAL Address: [place] [id number] MEDICARE [facility] MEDICARE [employer] Advance Directives For more information, please contact: [phone] * Full Code (Latest Code Status on File) Date Activated Date Inactivated Comments 03/07/2024 3:35 PM 03/08/2024 4:40 PM * Full Code Date Activated Date Inactivated Comments 01/03/2021 2:26 PM 01/04/2021 4:18 PM Care Teams Dialer Relationship Specialty [place] [address] [facility] [address] [place] [address] PCP - General Family Medicine 08/02/21 Horace Mack MD [address] [facility] [address] [place] [address] Consulting Physician Orthopedic Surgery 01/04/21
--- OUTSIDE RECORDS SUMMARY | 2024-05-02 23:55 | XMS_ITS | Patient Health Record ---
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 Name Role Phone LANCE ALICIA Unavailable [phone] Allergies Allergen (clinical drug ingredient) Drug/Non Drug Allergy documented on EMR Reaction Allergy Type Onset Date Status fluticasone / salmeterol Advair Diskus throat swelling Drug Allergy Active Keflex rash, itching started after bladder electrode Drug Allergy Active triamcinolone Kenalog local reaction Drug Allergy Active morphine Morphine redness, itching Drug Allergy Active Results Component Value Reference Range Notes Vitamin B12 and Folate-[id number] 0 Reviewed date:11/10/2023 09:47:18 AM Interpretation: Performing Lab:[employer], Phone - [phone], Director - PhDJulio Cesar Notes/Report: Vitamin B12 585 930-9736 pg/mL Folate (Folic Acid), Serum >20.0 >3.0 ng/mL A serum folate concentration of less than 3.1 ng/mL is considered to represent clinical deficiency. Hemoglobin W4u-[id number] Reviewed date:11/10/2023 09:47:19 AM Interpretation: Performing Lab[facility], Phone - [phone], Director - PhDRicpilloi Notes/Report: Hemoglobin A1c 5.7 4.8-5.6 % . Prediabetes: 5.7 - 6.4 Diabetes: >6.4 Glycemic control for adults with diabetes: <7.0 Thyroxine (T4) Free, Direct- [id number] Reviewed date:11/10/2023 09:47:19 AM Interpretation: Performing Lab:[employer], [address] [place] [address], Phone - [phone], [facility] Notes/Report: T4,Free(Direct) 1.42 0.82-1.77 ng/dL Triiodothyronine (T3)-[id number] Reviewed date:11/10/2023 09:47:19 AM Interpretation: Performing Lab:[address], Phone - [phone], [facility] Notes/Report: Triiodothyronine (T3) 74 71-180 ng/dL TSH-[id number] Reviewed date:11/10/2023 09:47:19 AM Interpretation: Performing Lab:[address], Phone - [phone], [facility] Notes/Report: TSH 0.423 0.450-4.500 uIU/mL Insulin-[id number] Reviewed date:11/10/2023 09:47:19 AM Interpretation: Performing Lab:[address], Phone - [phone], [facility] Notes/Report: Insulin 8.9 2.6-24.9 uIU/mL CBC With Differential/Platel et-[id number] Reviewed date:11/10/2023 09:47:19 AM Interpretation: Performing Lab:[address], Phone - [phone], [facility] Notes/Report: WBC 5.3 3.4-10.8 x10E3/uL RBC 3.76 3.77-5.28 x10E6/uL Hemoglobin 12.1 11.1-15.9 g/dL Hematocrit 36.4 34.0-46.6 % MCV 97 79-97 fL MCH 32.2 26.6-33.0 pg MCHC 33.2 31.5-35.7 g/dL RDW 13.1 11.7-15.4 % Platelets 289 150-450 x10E3/uL Neutrophils 42 Not Estab. % Lymphs 51 Not Estab. % Monocytes 5 Not Estab. % Eos 2 Not Estab. % Basos 0 Not Estab. % Neutrophils (Absolute) 2.2 1.4-7.0 x10E3/uL Lymphs (Absolute) 2.7 0.7-3.1 x10E3/uL Monocytes(Absolute) 0.3 0.1-0.9 x10E3/uL Eos (Absolute) 0.1 0.0-0.4 x10E3/uL Baso (Absolute) 0.0 0.0-0.2 x10E3/uL Immature Granulocytes 0 Not Estab. % Immature Grans (Abs) 0.0 0.0-0.1 x10E3/uL Thyroid Peroxidase (TPO) Ab- [id number] Reviewed date:11/10/2023 09:47:19 AM Interpretation: Performing Lab:[address], Phone - [phone], Director - Psychiatric Notes/Report: Thyroid Peroxidase (TPO) Ab 13 0-34 IU/mL C-Peptide, Serum-[id number] Reviewed date:11/10/2023 09:47:20 AM Interpretation: Performing Lab:[address], Phone - [phone], Director - Psychiatric Notes/Report: C-Peptide, Serum 3.0 1.1-4.4 ng/mL C-Peptide reference interval is for fasting patients. Triiodothyronine (T3), Free- [id number] Reviewed date:11/10/2023 09:47:20 AM Interpretation: Performing Lab:[facility], [address] [place], [place] [address], Phone - [phone], [facility] Notes/Report: Triiodothyronine (T3), Free 4.6 2.0-4.4 pg/mL TgAb-Thyroglobulin,ESPINOZA or LC MS-[id number] Reviewed date:11/10/2023 09:47:20 AM Interpretation: Performing Lab:[address], Phone - [phone], [facility] Notes/Report: Thyroglobulin Antibody <1.0 0.0-0.9 IU/mL Thyroglobulin Antibody measured by [employer] Method[employer] . It should be noted that the presence of thyroglobulin antibodies may not be pathogenic nor diagnostic, especially at very low levels. The assay recoater has found that four percent of individuals without evidence of thyroid disease or autoimmunity will have positive TgAb levels up to 4 IU/mL. Thyroglobulin by ESPINOZA 5.5 1.5-38.5 ng/mL According to the National Academy of Clinical Biochemistry, the reference interval for Thyroglobulin (TG) should be related to euthyroid patients and not for patients who underwent thyroidectomy. TG reference intervals for these patients depend on the residual mass of the thyroid tissue left after surgery. Establishing a post-operative baseline is recommended. The assay limit of quantitation is 0.1 ng/mL . Thyroglobulin measured by Gurmeet [place] Immunometric Assay Vitamin D, 87-Viurpgq-[id number] Reviewed date:11/10/2023 09:47:20 AM Interpretation: Performing Lab:[facility], Phone - [phone], Director - PhDSancta Maria Hospitalerwin Notes/Report: Vitamin D, 25-Hydroxy 35.2 30.0-100.0 ng/mL Vitamin D deficiency has been defined by the [place] of Medicine and an Endocrine Society practice guideline as a level of serum 25-OH vitamin D less than 20 ng/mL (1,2). The Endocrine Society went on to further define vitamin D insufficiency as a level between 21 and 29 ng/mL (2). 1. IOM ([place] of Medicine). 2010. Dietary reference intakes for calcium and D. [place]: The National Academies Press. 2. Manda MF, Hayder [place], Yu RAMIREZ, et al. Evaluation, treatment, and prevention of vitamin D deficiency: an Endocrine Society clinical practice guideline. JCEM. 2010; 96(7):1911-30. Lipid Panel-[id number] Reviewed date:11/10/2023 09:47:20 AM Interpretation: Performing Lab:[facility] [employer] [facility], Phone - [phone], Director - PhDSancta Maria Hospitalerwin Notes/Report: Cholesterol, Total 164 100-199 mg/dL Triglycerides 121 0-149 mg/dL HDL Cholesterol 47 >39 mg/dL VLDL Cholesterol Jere 22 5-40 mg/dL LDL Chol Calc (NIH) 95 0-99 mg/dL Comp. Metabolic Panel (14)-3 21206 Reviewed date:11/10/2023 09:47:20 AM Interpretation: Performing Lab:[facility] [place], [place] [facility], Phone - [phone], Director - Psychiatric Notes/Report: Glucose 77 70-99 mg/dL BUN 18 8-27 mg/dL Creatinine 0.95 0.57-1.00 mg/dL eGFR 62 >59 mL/min/1.73 BUN/Creatinine Ratio 19 12-28 Sodium 142 134-144 mmol/L Potassium 4.5 3.5-5.2 mmol/L Chloride 107 96-106 mmol/L Carbon Dioxide, Total 20 20-29 mmol/L Calcium 8.7 8.7-10.3 mg/dL Protein, Total 6.3 6.0-8.5 g/dL Albumin 4.2 3.8-4.8 g/dL Globulin, Total 2.1 1.5-4.5 g/dL Bilirubin, Total 0.4 0.0-1.2 mg/dL Alkaline Phosphatase 56 44-121 IU/L AST (SGOT) 19 0-40 IU/L ALT (SGPT) 19 0-32 IU/L Fe/TIBC/Santi/Transf-[id number] Reviewed date:11/10/2023 09:47:21 AM Interpretation: Performing Lab:[facility], Phone - [phone], Director - Psychiatric Notes/Report: Iron Bind.Cap.(TIBC) 244 250-450 ug/dL UIBC 132 118-369 ug/dL Iron 112 27-139 ug/dL Iron Saturation 46 15-55 % Ferritin 191 15-150 ng/mL Transferrin 207 192-364 mg/dL UA/M w/rflx Culture, Routine -[id number] Reviewed date:11/10/2023 09:47:20 AM Interpretation: Performing Lab:[facility], Phone - [phone], Director - Psychiatric Notes/Report: Specific [place] 1.019 1.005-1.030 pH 6.0 5.0-7.5 Urine-Color Yellow Yellow Appearance Clear Clear WBC Esterase Negative Negative Protein Negative Negative/Trace Glucose Negative Negative Ketones Negative Negative Occult Blood Negative Negative Bilirubin Negative Negative Urobilinogen,Semi-Qn 0.2 0.2-1.0 mg/dL Nitrite, Urine Negative Negative Microscopic Examination Micr oscopic follows if indicated. Microscopic Examination See below: Micr oscopic was indicated and was performed. Urinalysis Reflex This speci men will not reflex to a Urine Culture. WBC None seen 0 - 5 /hpf RBC None seen 0 - 2 /hpf Epithelial Cells (non renal) 0-10 0 - 10 /hpf Casts None seen None seen /lpf Bacteria None seen None seen/Few Reason For Referral No Information Medications Medication SIG (Take, Route, Frequency, Duration) Notes Start Date End Date Status guaiFENesin-Codeine 100-10 MG/5ML 5 milliliters Orally every 4 hrs for 21 days 03/03/2024 Active Zoloft 100 MG 2 tablets Orally Onc e a day for 90 days Active Diclofenac-miSOPROStol 75-0. 2 MG 1 tablet with food Orally Twice a day for 90 days Active clonazePAM 0.5 MG 1 tablet Orally Once a day for 90 days 02/26/2024 Active Methscopolamine [place] 5 MG 1 tablet Or ally Twice a day for 90 days Active Lipitor 40 MG 1 tablet Orally Once a day for 90 days Active methylPREDNISolone 4 MG as directed Oral ly Once a day for 6 days 01/03/2024 Active Montelukast Sodium 10 MG 1 tablet Orally Once a day for 90 days Active Methotrexate 2.5 MG 6 tablets Orally Onc e week for 90 days 07/26/2021 Active Amoxicillin-Pot Clavulanate 875-125 MG 1 tablet Orally Twice a day for 14 days 01/03/2024 Active Imitrex 100 MG 1 tablet at least 2 hours between doses as needed Orally Twice a day for 90 days 07/26/2021 Active Advair Diskus 250-50 MCG/ACT 1 puff Inha lation Twice a day for 90 days 06/01/2023 Active Synthroid 88 MCG 1 tablet in the morning on an empty stomach Orally Once a day for 90 days Active Albuterol Sulfate HFA 108 (9 0 Base) MCG/ACT 1 puff as needed Inhalation every 4 hrs for 90 days 06/01/2023 Active Azithromycin 250 MG 2 tablet on the , then 1 tablet daily for 4 days Orally Once a day for 5 days 02/29/2024 Active Immunizations Vaccine Route Administration Date Status Comme nts Arexvy RSV Unknown 12/24/2022 Administered Flinto Covid-19 Vac cine 1st dose Unknown 05/27/2020 Administered Flinto Covid-19 Vac cine 2nd dose Unknown 06/17/2020 Administered Flinto Covid-19 Vac cine Booster #1 Unknown 03/11/2021 Administered Pfizer Covid Booster Comirnaty Unknown 01/24/2023 Admin istered Pneumococcal conjugate PCV13 Unknown 01/25/2012 Adminis tered Pneumococcal polysaccharide PPV23 Unknown 07/13/2005 Ad ministered Pneumococcal polysaccharide PPV23 Unknown 07/14/2013 Ad ministered Shingrix 1st dose Unknown 02/23/2019 Administered Shingrix 2nd dose Unknown 04/26/2019 Administered Tdap Unknown 03/26/2014 Administered Zostavax Unknown 01/25/2012 Administered Social History Tobacco Use: Social History Observation Description Date Details (start date - stop date) Never Smoker NA - NA Tobacco Use/Smoking Question Answer Notes Tobacco use: nonsmoker Problems Problem Type SNOMED Code ICD Code Onset Dates Problem Status W/U Status Risk Notes Problem Lipoma (92066983) Benign lipomatous neoplasm, unspecified (D17.9) Active confirmed 08/2022-S/p lipoma removal-Back. Dr. Cruz. Problem Hypothyroidism (15379261) Hypothyroidism, unspecified (E03.9) Active confirmed 11/21/2022-Due to increased risk of worsening osteoporosis, stopped Adthyza and started Synthroid 88mcg. 11/08/2023-FT3-4. 6 TFT o/w normal. Problem Hyperlipidemia (89688174) Hyperlipidemia, unspecified (E78.5) Active confirmed Controlled with Lipitor. 10/12/2022-Chol-2 31; TG-156; HDL-70; LDL-132. Suspect elevated levels related to taking Rinvoq (started 07/2022. stopped 11/03/2022). 11/08/2023-Chol-1 64; TG-121; HDL-47; LDL-95. Problem Obstructive sleep apnea syndrome (disorder) (34947219) Obstructive sleep apnea (adult) (pediatric) (G47.33) Active confirmed Doesn't tolerat e Cpap. Problem Carpal tunnel syndrome (86339392) Carpal tunnel syndrome, unspecified upper limb (G56.00) Active confirmed 2013-S/p bilateral CTS repair. Problem Essential hypertension (04328213) Essential (primary) hypertension (I10) Active confirmed GERMAIN inhibitor cough Lisinopril. 10/14/2021-Stoppe d Norvasc due to BP running lower. Problem influenza due to influenza a virus with upper respiratory signs (disorder) (218788573673153) Influenza due to identified novel influenza A virus with other respiratory manifestations (J09.X2) Active confirmed 02/17/2023-Teste d + Influenza A; tx with nebs and albuterol MDI. 03/02/2023-Eval [facility] for worsening sx. Tx with nebs. Problem Viral pneumonia (84695925) Other viral pneumonia (J12.89) Active confirmed 05/14/2023-Eval [facility] ER. Rhinovirus-+; CXR-LLL effusion. Tx with steroids. 2 week h/o chest congestion and cough. Started Zpack and Medrol. Some improvement. Recommend another round of Zpack, Medrol and start Advair and Albuterol. Problem Allergic rhinitis (24927862) Allergic rhinitis, unspecified (J30.9) Active confirmed 07/29/2013-S/p sinus, nasal septal with left cost control specialist graft, partial turbinectomy, UPPP, laser base of tongue. Dr. Owen. 07/05/2015-S/p sinus surgery revision. . 08/02/2021-Eval with -Immuno logist. Problem Asthma (698795966) Other asthma (J45.998) Active confirmed Controlled on Albuterol prn. Problem Gastro-esophageal reflux disease without esophagitis (330313442) Gastro-esophage al reflux disease without esophagitis (K21.9) Active confirmed 03/17/2015-S/p Domenico. . 04/05/2022-EGD-Es ophageal dilation; Colonoscopy-Norm al. On Prilosec 20mg/day and Pepcid 20mg/hs. 2 week h/o epigastric pain. Recommend increasing Prilosec 40mg and Pepcid 40mg/hs. Problem Osteoarthritis of knee (750218091) Osteoarthritis of knee, unspecified (M17.9) Active confirmed 12/27/2020-S/p left TKR. . 01/18/2023-F/u Dr. Mack. [place] ongoing left knee pain after left TKR is due to RA. 01/17/2024-F/u appt Dr. Mack. Problem Localized, primary osteoarthritis of the shoulder region (772525142) Primary osteoarthritis, unspecified shoulder (M19.019) Active confirmed 05/05/2014-S/p left shoulder tendon repair. . Problem Osteoarthritis (203416489) Unspecified osteoarthritis, unspecified site (M19.90) Active confirmed See ROS for full history. 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 Dr. Fang. 04/2020-Loading dose of Simponi Aria infusion. 08/01/2022-Started Rinvoq [address] Fang. 11/03/2022-Due to elevated LFTs, Dr. Fang stopped Rinvoq. 07/2023-Started Orencia. Dr. Fang. Not noticing any difference. 01/30/2024-F/u Dr. Fang. Problem Cervical disc disorder with radiculopathy (522121012) Cervical disc disorder with radiculopathy, cervicothoracic region (M50.13) Active confirmed 03/22/2023-Appt with Dr. Hector for 1 month h/o right neck/shoulder/ba ck pain & left pinky pain. Recommended PT and spint finger. 04/09/2023-MRI right shoulder-Moderat e-severe rotator cuff tendinopathy w/o tear; severe AC and GH jt DJD. [facility]. 04/09/2023-MRI e-mgyuo-Ztsiectz el DJD; moderate C5-C6 stenosis-worsene d from 2021. [facility]. 05/21/2023-Eval Dr. Lorenzana. CT neck. EMG-Negative. Recommend starting PT. 08/23/2023-S/p US right AC injection. Dr. Saldana. 10/01/2023-Eval [facility]. No tx given; f/u 3 months. Problem Pain in right leg (154802940) Pain in right leg (M79.604) Active confirmed 10/2022-Developed sudden right leg pain. 11/20/2022-Right LLE US-Negative. 12/01/2022-MRI right leg-Mild SQ/soft tissue edema; right knee effusion and popliteal cyst; severe DJD foot and ankle. Problem Pain in limb (65288682) Pain in right finger(s) (M79.644) Active confirmed 08/17/2022-Right index finger fx. Splinted. Problem Age-related osteoporosis (026218810) Age-related osteoporosis without current pathological fracture (M81.0) Active confirmed 01/31/2023-DEXA- LS (-1.1); Fem neck (-2.4); Hip (-1.3). [facility]. Dr. Stewart. 02/2023-Started Reclast. 11/08/2023-Vit D-35. Recommend Vit D3 5000IU/day. 02/05/2024-DEXA scheduled. Dr. Stewart. Problem Calculus of kidney (22631618) Calculus of kidney (N20.0) Active confirmed 11/30/2017-S/p left stone lithotripsy. . 12/01/2017-S/p stone extraction with stent placed. Dr.Elizabeth Santos. 02/21/2019-[facility] for left kidney stone. Problem Urge incontinence of urine (67550743) Urge incontinence (N39.41) Active confirmed 08/11/2016-Maury mcleod electrode placement. . 04/2017-Started Pamine Forte BR 5mg BID. 04/23/2020-Replac ed inner stem. Self control. Able to turn on-off and compatible with MRI. 01/30/2023-Impeda nce changed to 4 @ 1.3 (was at 3 @ 3). Started Gemtesa. Stopped due to cost. 08/31/2023-Started with bladder Botox with incredible results. Problem Fibroadenosis of breast (24228293) Fibroadenosis of unspecified breast (N60.29) Active confirmed 05/21/2023-XM M-[facility] rmal. [facility]. Problem Spasm (89863688) Cramp and spasm (R25.2) Active confirmed Chronic hand and foot cramping. Fall 2022-Sx worsened. Will check bloodwork. Problem Jaw pain (205027228) Jaw pain (R68.84) Active confirmed 2 week h/o right zygomatic pain. No trauma or injury. D/w pt that sx could either be early sinusitis, possible parotid stones or soft tissue swelling. Will tx with Augmentin x 2 weeks, Medrol and Diflucan. Problem Impaired fasting glucose (803616559) Impaired fasting glucose (R73.01) Active confirmed 11/08/2023-A1C-5. 7. Suspect related to starting Orencia injections (07/2023). Problem Problem, abnormal examination (19373760) Encounter for general adult medical examination with abnormal findings (Z00.01) Active confirmed Pap-defer. XMM-05/21/2023-No rmal. [facility]. DEXA-01/31/2023-L S (-1.1); Fem neck (-2.4); Hip (-1.3). [facility]. Dr. Stewart. Scheduled 02/05/2024. EGD/Colon- 023--Esophageal dilation; Colonoscopy-Norm al. EKG-done. Occults-defer. Eye exam-once/yr. Dental-dentures. Derm- . Tdap-2015. Shingrix-#1-02/23; #2-04/26/2019. Pneumonia-PCV13- 01/25/2012. PCV #1-07/14/2005; #2-07/13/2013. Covid-Pfizer #1-05/27/2020; #2-06/17/2020; Booster-03/11/20 21; Comirnaty- 023. Arexvy-12/24/2022 . Reviewed 11/08/2023 PE labs-published to portal. Reviewed and updated meds. Problem Family history of malignant neoplasm of gastrointestinal tract (806436541) Family history of malignant neoplasm of digestive organs (Z80.0) Active confirmed 04/05/2022-EGD -Es ophageal dilation; Colonoscopy-norm al. Problem Headache (01490690) Headache, unspecified (R51.9) Active confirmed 03/2021-Started with headache. 03/2021-Hospitali zed for Urosepsis. 03/29/2022-MRI brain/sinuses-Mi ld sinus dz and chronic changes of age. Problem Depression (219581326) Depression, unspecified (F32.A) Active confirmed 05/17/2021-Increa sed Zoloft 150mg/day and added Klonopin. Summer 2022-Multiple family deaths. Problem Low back pain (862914230) Low back pain, unspecified (M54.50) Active confirmed See ROS for full history. 03/2022-New pain management-Dr. Nesbitt. 07/04/2022-Starte d Tramadol 50 mg 1 PRN and Cyclobenzaprine 10 mg. 10/01/2023-Eval Pain Management. No tx given; f/u 3 months. Vital Signs Heart Rate 79 /min 01/03/2024 Temperature 97.3 degrees Fahrenheit 01/03/2024 Blood pressure diastolic 80 mm Hg 01/03/2024 Oximetry 97 % 01/03/2024 Weight-kg 64.73 kg 01/03/2024 Height 64 in 01/03/2024 Blood pressure systolic 126 mm Hg 01/03/2024 Weight 142.7 lbs 01/03/2024 BMI 24.49 kg/m2 01/03/2024 Procedures Procedure Date Ordered Date Performed Result Body Sit e ELECTROCARDIOGRAM, COMPLETE 12/04/2023 12/04/2023 N/A Encounters Encounter Location Date Provider Diagnosis [facility] [address] [place] [id number] 05/17/2023 LANCE RAVIN Unspecified osteoarthritis, unspecified site M19.90 ; Cervical disc disorder with radiculopathy, cervicothoracic region M50.13 ; Fibroadenosis of unspecified breast N60.29 ; Hypothyroidism, unspecified E03.9 ; Urge incontinence N39.41 and Other viral pneumonia J12.89 [facility] [id number] [place] [address] [address] [place] [address] 12/04/2023 LANCE RAVIN Allergic rhinitis, unspecified J30.9 ; Encounter for general adult medical examination with abnormal findings Z00.01 ; Unspecified osteoarthritis, unspecified site M19.90 ; Other asthma J45.998 ; Low back pain, unspecified M54.50 ; Calculus of kidney N20.0 ; Carpal tunnel syndrome, unspecified upper limb G56.00 ; Depression, unspecified F32.A ; Fibroadenosis of unspecified breast N60.29 ; Gastro-esophageal reflux disease without esophagitis K21.9 ; Hyperlipidemia, unspecified E78.5 ; Essential (primary) hypertension I10 ; Hypothyroidism, unspecified E03.9 ; Obstructive sleep apnea (adult) (pediatric) G47.33 ; Age-related osteoporosis without current pathological fracture M81.0 ; Urge incontinence N39.41 ; Primary osteoarthritis, unspecified shoulder M19.019 ; Osteoarthritis of knee, unspecified M17.9 ; Headache, unspecified R51.9 ; Family history of malignant neoplasm of digestive organs Z80.0 ; Pain in right finger(s) M79.644 ; Benign lipomatous neoplasm, unspecified D17.9 ; Pain in right leg M79.604 ; Influenza due to identified novel influenza A virus with other respiratory manifestations J09.X2 ; Cervical disc disorder with radiculopathy, cervicothoracic region M50.13 ; Other viral pneumonia J12.89 and Impaired fasting glucose R73.01 [facility] [address] [address] 01/03/2024 LANCE RAVIN Gastro-esophageal re flux disease without esophagitis K21.9 and Jaw pain R68.84 [facility] [address] [address] 05/10/2023 [facility] [address] [address] 06/01/2023 [facility] [address] [address] 06/25/2023 LANCE [facility] [address] [address] 06/26/2023 LANCE [facility] [address] [address] 07/30/2023 LANCE [facility] [address] [address] 07/31/[facility] [address] [address] 08/27/2023 [facility] [address] [address] 10/10/2023 LANCE [facility] [address] [address] 10/17/2023 LANCE RAVIN Hypothyroidism, unspecified E03.9 ; Hyperlipidemia, unspecified E78.5 ; Essential (primary) hypertension I10 ; Cervical disc disorder with radiculopathy, cervicothoracic region M50.13 ; Age-related osteoporosis without current pathological fracture M81.0 ; Calculus of kidney N20.0 ; Urge incontinence N39.41 and Encounter for general adult medical examination with abnormal findings Z00.01 [facility] [address] [address] 11/09/2023 LANCE [facility] [address] [address] 11/30/2023 LANCE [facility] [address] [address] 01/03/2024 LANCE [facility] [address] [address] 01/29/2024 LANCE RAVIN Jaw pain R68.84 [facility] [address] [address] 02/29/2024 LANCE [facility] [address] [address] 04/10/2024 LANCE [facility] [address] [address] 04/14/2024 LANCE [facility] [address] [address] 04/28/2024 [facility] Assessments Encounter Date Diagnosis (ICD Code) Assessment Notes Treatment Notes Treatment Clinical Notes Section Notes 05/17/2023 Unspecified osteoarthritis, unspecified site (ICD-10 - M19.90) 09/01/2019-Dx with Seronegative RA. Dr. Fang. 04/2020-Loading dose of Simponi Aria infusion. 08/01/2022-Started Rinvoq [address] Fang. 11/03/2022-Due to elevated LFTs, Dr. Fang stopped Rinvoq. 02/08/2023-F/u Dr. Fang. Started with Orencia program assist; bloodwork 2 months. 05/17/2023-F/u Dr. Fang. 40 minutes spent in face to face visit of which 50% of time was spent in medical history review, education and counseling. 05/17/2023 Cervical disc disorder with radiculopathy, cervicothoracic region (ICD-10 - M50.13) 03/22/2023-Appt with Dr. Hector for 1 month h/o right neck/shoulder/back pain & left pinky pain. Recommended PT and spint finger. 04/09/2023-MRI right shoulder-Moderate- severe rotator cuff tendinopathy w/o tear; severe AC and GH jt DJD. [facility]. 04/09/2023-MRI x-qcwym-Tccxfewvfg DJD; moderate C5-C6 stenosis-worsened from 2021. [facility]. 05/21/2023-Eval Dr. Whittington. 40 minutes spent in face to face visit of which 50% of time was spent in medical history review, education and counseling. 10/17/2023 Hypothyroidism, unspecified (ICD-10 - E03.9) 10/17/2023 Hyperlipidemia, unspecified (ICD-10 - E78.5) 10/17/2023 Essential (primary) hypertension (ICD-10 - I10) 10/17/2023 Cervical disc disorder with radiculopathy, cervicothoracic region (ICD-10 - M50.13) 10/17/2023 Age-related osteoporosis without current pathological fracture (ICD-10 - M81.0) 10/17/2023 Calculus of kidney (ICD-10 - N20.0) 10/17/2023 Urge incontinence (ICD-10 - N39.41) 10/17/2023 Encounter for general adult medical examination with abnormal findings (ICD-10 - Z00.01) 12/04/2023 Allergic rhinitis, unspecified (ICD-10 - J30.9) 07/29/2013-S/p sinus, nasal septal with left cost control specialist graft, partial turbinectomy, UPPP, laser base of tongue. Dr. Owen. 07/05/2015-S/p sinus surgery revision. . 08/02/2021-Eval with -Immunolo gist. 12/04/2023 Encounter for general adult medical examination with abnormal findings (ICD-10 - Z00.01) Pap-defer. XMM-05/21/2023-Norm al. [facility]. DEXA-01/31/2023-LS (-1.1); Fem neck (-2.4); Hip (-1.3). [facility]. Dr. Stewart. Scheduled 02/05/2024. EGD/Colon- 3--Esophageal dilation; Colonoscopy-Normal . EKG-done. Occults-defer. Eye exam-once/yr. Dental-dentures. Derm-. Tdap-2015. Shingrix-#1- 019; #2-04/26/2019. Eujvcnfmc-QRB83-13 /1/2012. PCV #1-07/14/2005; #2-07/13/2013. Covid-Pfizer #1-05/27/2020; #2-06/17/2020; Booster-03/11/2021 ; Comirnaty- 3. Arexvy-12/24/2022. Reviewed 11/08/2023 PE labs-published to portal. Reviewed and updated meds. 01/03/2024 Gastro-esophageal reflux disease without esophagitis (ICD-10 - K21.9) 03/17/2015-S/p Domenico. . 04/05/20222030-ELB-Tuow hageal dilation; Colonoscopy-Normal . On Prilosec 20mg/day and Pepcid 20mg/hs. 2 week h/o epigastric pain. Recommend increasing Prilosec 40mg and Pepcid 40mg/hs. Total time: 35 minutes spent in chart preparation prior to patient's appointment and time spent in face to face visit of which 50% of time was spent in medical history review, education and counseling. 01/03/2024 Jaw pain (ICD-10 - R68.84) 2 week h/o right zygomatic pain. No trauma or injury. D/w pt that sx could either be early sinusitis, possible parotid stones or soft tissue swelling. Will tx with Augmentin x 2 weeks, Medrol and Diflucan. Total time: 35 minutes spent in chart preparation prior to patient's appointment and time spent in face to face visit of which 50% of time was spent in medical history review, education and counseling. 01/29/2024 Jaw pain (ICD-10 - R68.84) 2 week h/o right zygomatic pain. No trauma or injury. D/w pt that sx could either be early sinusitis, possible parotid stones or soft tissue swelling. Will tx with Augmentin x 2 weeks, Medrol and Diflucan. 12/04/2023 Unspecified osteoarthritis, unspecified site (ICD-10 - M19.90) See ROS for full history. 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 Dr. Fang. 04/2020-Loading dose of Simponi Aria infusion. 08/01/2022-Started Rinvoq [address] Fang. 11/03/2022-Due to elevated LFTs, Dr. Fang stopped Rinvoq. 07/2023-Started Orencia. Dr. Fang. Not noticing any difference. 01/30/2024-F/u Dr. Fang. 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 05/21/2023-XMM scheduled [facility]. 40 minutes spent in face to face visit of which 50% of time was spent in medical history review, education and counseling. 05/17/2023 Hypothyroidism, unspecified (ICD-10 - E03.9) 11/21/2022-Due to increased risk of worsening osteoporosis, stopped Adthyza and started Synthroid 88mcg. 40 minutes spent in face to face visit of which 50% of time was spent in medical history review, education and counseling. 12/04/2023 Other asthma (ICD-10 - J45.998) Controlled on Albuterol prn. 12/04/2023 Low back pain, unspecified (ICD-10 - M54.50) See ROS for full history. 03/2022-New pain management-Dr. Nesbitt. 07/04/2022-Started Tramadol 50 mg 1 PRN and Cyclobenzaprine 10 mg. 10/01/2023-Eval Pain Management. No tx given; f/u 3 months. 05/17/2023 Urge incontinence (ICD-10 - N39.41) 08/11/2016-Bladder electrode placement. . 04/2017-Started Pamine Forte BR 5mg BID. 04/23/2020-Replaced inner stem. Self control. Able to turn on-off and compatible with MRI. 01/30/2023-F/u Dr. Page. Impedance changed to 4 @ 1.3 (was at 3 @ 3). Started Gemtesa. 40 minutes spent in face to face visit of which 50% of time was spent in medical history review, education and counseling. 05/17/2023 Other viral pneumonia (ICD-10 - J12.89) 05/06/2023-Started with bronchitis sx while in [place]. Tx in ER with [facility]. Sx worsened. 05/14/2023-Eval [facility] ER. Rhinovirus-+; CXR-LLL effusion. Tx with steroids. Sx improving. Reviewed ER records. Continue to monitor sx. To call if sx worsens. 40 minutes spent in face to face visit of which 50% of time was spent in medical history review, education and counseling. 12/04/2023 Calculus of kidney (ICD-10 - N20.0) 11/30/2017-S/p left stone lithotripsy. . 12/01/2017-S/p stone extraction with stent placed. Dr.Elizabeth Santos. 02/21/2019-[facility] ER for left kidney stone. 12/04/2023 Carpal tunnel syndrome, unspecified upper limb (ICD-10 - G56.00) 2013-S/p bilateral CTS repair. 12/04/2023 Depression, unspecified (ICD-10 - F32.A) 05/17/2021-Increase d Zoloft 150mg/day and added Klonopin. Summer 2022-Multiple family deaths. 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 [facility]. 12/04/2023 Gastro-esophageal reflux disease without esophagitis (ICD-10 - K21.9) 03/17/2015-S/p Domenico. . 04/05/20228293-ZOW-Waqr hageal dilation; Colonoscopy-Normal . 12/04/2023 Hyperlipidemia, unspecified (ICD-10 - E78.5) Controlled with Lipitor. 10/12/20224814-Clke-112 ; TG-156; HDL-70; LDL-132. Suspect elevated levels related to taking Rinvoq (started 07/2022. stopped 11/03/2022). 11/08/20230738-Zslk-432 ; TG-121; HDL-47; LDL-95. 12/04/2023 Essential (primary) hypertension (ICD-10 - I10) GERMAIN inhibitor cough Lisinopril. 10/14/2021-Stopped Norvasc due to BP running lower. 12/04/2023 Hypothyroidism, unspecified (ICD-10 - E03.9) 11/21/2022-Due to increased risk of worsening osteoporosis, stopped Adthyza and started Synthroid 88mcg. 11/08/2023-FT3-4.6 TFT o/w normal. 12/04/2023 Obstructive sleep apnea (adult) (pediatric) (ICD-10 - G47.33) Doesn't tolerate Cpap. 12/04/2023 Age-related osteoporosis without current pathological fracture (ICD-10 - M81.0) 01/31/2023-DEXA- LS (-1.1); Fem neck (-2.4); Hip (-1.3). [facility]. Dr. Stewart. 02/2023-Started Reclast. 11/08/2023-Vit D-35. Recommend Vit D3 5000IU/day. 02/05/2024-DEXA scheduled. Dr. Stewart. 12/04/2023 Urge incontinence (ICD-10 - N39.41) 08/11/2016-Bladder electrode placement. . 04/2017-Started Pamine Forte BR 5mg BID. 04/23/2020-Replaced inner stem. Self control. Able to turn on-off and compatible with MRI. 01/30/2023-Impedanc e changed to 4 @ 1.3 (was at 3 @ 3). Started Gemtesa. Stopped due to cost. 08/31/2023-Started with bladder Botox with incredible results. 12/04/2023 Primary osteoarthritis, unspecified shoulder (ICD-10 - M19.019) 05/05/2014-S/p left shoulder tendon repair. . 12/04/2023 Osteoarthritis of knee, unspecified (ICD-10 - M17.9) 12/27/2020-S/p left TKR. . 01/18/2023-F/u Dr. Mack. [place] ongoing left knee pain after left TKR is due to RA. 01/17/2024-F/u appt Dr. Mack. 12/04/2023 Headache, unspecified (ICD-10 - R51.9) 03/2021-Started with headache. 03/2021-Hospitalize d for Urosepsis. 03/29/2022-MRI brain/sinuses-Mild sinus dz and chronic changes of age. 12/04/2023 Family history of malignant neoplasm of digestive organs (ICD-10 - Z80.0) 04/05/20229431-RCR-Nrtp hageal dilation; Colonoscopy-Normal . 12/04/2023 Pain in right finger(s) (ICD-10 - M79.644) 08/17/2022-Right index finger fx. Splinted. 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 Dr. Cruz. 12/04/2023 Pain in right leg (ICD-10 - M79.604) 10/2022-Developed sudden right leg pain. 11/20/2022-Right LLE US-Negative. 12/01/2022-MRI right leg-Mild SQ/soft tissue edema; right knee effusion and popliteal cyst; severe DJD foot and ankle. 12/04/2023 Influenza due to identified novel influenza A virus with other respiratory manifestations (ICD-10 - J09.X2) 02/17/2023-Tested + Influenza A; tx with nebs and albuterol MDI. 03/02/2023-Eval [facility] ER for worsening sx. Tx with nebs. 12/04/2023 Cervical disc disorder with radiculopathy, cervicothoracic region (ICD-10 - M50.13) 03/22/2023-Appt with Dr. Hector for 1 month h/o right neck/shoulder/back pain & left pinky pain. Recommended PT and spint finger. 04/09/2023-MRI right shoulder-Moderate- severe rotator cuff tendinopathy w/o tear; severe AC and GH jt DJD. [facility]. 04/09/2023-MRI t-xohpw-Orvutkqbqu DJD; moderate C5-C6 stenosis-worsened from 2021. [facility]. 05/21/2023-Eval Dr. Lorenzana. CT neck. EMG-Negative. Recommend starting PT. 08/23/2023-S/p US right AC injection. Dr. Saldana. 10/01/2023-Eval Pain Management. No tx given; f/u 3 months. 12/04/2023 Other viral pneumonia (ICD-10 - J12.89) 05/14/2023-Eval [facility] ER. Rhinovirus-+; CXR-LLL effusion. Tx with steroids. 2 week h/o chest congestion and cough. Started Zpack and Medrol. Some improvement. Recommend another round of Zpack, Medrol and start Advair and Albuterol. 12/04/2023 Impaired fasting glucose (ICD-10 - R73.01) 11/08/2023-A1C-5.7. Suspect related to starting Orencia injections (07/2023). 01/03/2024 Other TODAY'S VISIT 01/03/2024: 1. Increase Prilosec 40mg in am and Pepcid 40mg/pm. 2. Take Augmentin, Medrol, Diflucan Total time: 35 minutes spent in chart preparation prior to patient's appointment and time spent in face to face visit of which 50% of time was spent in medical history review, education and counseling. 05/31/2023 minutes s pent in face to face visit of which 50% of time was spent in medical history review, education and counseling. Plan Of Treatment Next Appt Details Provider Name:LANCE QUIÑONEZ, 06/09/2024 12:30:00 PM, [address], [address], [place], [address], Insurance Providers Payer Name Payer Address Payer Phone Subscriber Number Group Number Insured Name Patient Relationship to Insured Coverage Start Date Coverage End Date [employer] of [place] J5 [address] [address] [place], [place] [id number] Massiel Jordan Self - patient is the insured [facility] l [address] [place], [place] [id number] Kendra Jordanara Self - patient is the insured Medical (General) History Medical History History ICD Code *FRACTURES. 1960 surgery rig ht ankle compound fx; September 2011 Nasal fx; 08/17/2022-Right index finger *NO BLOOD TRANSFUSIONS Allergic rhinitis, unspecified J30.9 Unspecified osteoarthritis, unspecified site M19.90 Other asthma J45.998 Low back pain, unspecified M54.50 Synovial cyst of popliteal space [[place]] , unspecified knee M71.20 Calculus of kidney N20.0 Carpal tunnel syndrome, unspecified uppe r limb G56.00 Other cervical disc disorders, unspecifi ed cervical region M50.80 Depression, unspecified F32.A Fibroadenosis of unspecified breast N60. 29 Gastro-esophageal reflux disease without esophagitis K21.9 Hyperlipidemia, unspecified E78.5 Essential (primary) hypertension I10 Hypothyroidism, unspecified E03.9 Obstructive sleep apnea (adult) (pediatr ic) G47.33 Age-related osteoporosis without current pathological fracture M81.0 Urge incontinence N39.41 Primary osteoarthritis, unspecified shou lder M19.019 Surgical History Surgery Date(Month/Year) Bilateral scar tissue removal 01/22/2023 Lipoma removal-back. Dr. Cruz 2022 Left TKR- 01/03/2021 12/28/2020-Left cataract. 01/07/2021-Righ t cataract Knee surgery-Right meniscal repair-Dr.Kr mendieta 10/31/2020 TMJ surgery. broke and set in place 1977 ARABELLA with BSO. severe endometriosis 1976 tonsillectomy and adenoidectomy 9 sinus surgery. 07/29/13 Dr.Cra gil-sinus surgery, nasal septal repair with cost control specialist, UPPP, ablation base of tongue. July 05, 2015--Sinus surgery revision shoulder surgery. Shoulder m anipulation under anesthesia and arthroscopic capular release; 05/15/14 -Left shoulder arthroscopic surgery 2003; 05/15/2014 ankle surgery, 1960 Right co mpound fx; 2007-Right ankle fusion; 09/11/08- removed pins from right ankle; 10/31/11-right ankle addnl fusion, pins inserted, bone taken from right hip and grafted to right ankle; 09/24/12-Pins removed from right ankle. rectal and sphincter repair 2007 parotidectomy. left parotid gland tumor removal 1998 fundoplication -Domenico fo r HH 03/17/2015 liposuction. Sonna Ivory-back and abd fa t removal 06/2017 lasik. unsuccessful 2010 knee surgery. Right open kne e surgery-menical repair; 06/10/15-Left kneemeniscal repair-; Right knee medial/lateral menical repair-11/10/2020. Left TKR-01/03/2021- lithotripsy 05/2008 dental surgery. severe TMJ a nd TMJ broken and reset jaw full dental implants-2018 1977; 2018 cystoscopy. Cystouretero with stone jairo chente 2007 cataract with IOLI. Left -12/28/2020; Rig ht-01/07/2021 carpal tunnel release. Left- 05/20/13 and Right 07/07/13 with right elbow nerve repair bladder surgery. suspension- 1974 with appy; Bladder electrode placed- 08/11/16 shoulder surgery. right shou lder capsular release-for adhesive capsulitis 2003 appendectomy with bladder sling 1974 ankle surgery (contd)-extensive ankle/fo ot surgery-Dr.Joshua Jamil 07/14/2015
--- OUTSIDE RECORDS SUMMARY | 2024-05-02 23:55 | XMS_ITS | Encounter Summary ---
Author Organization [facility] Healthcare Address [address] [place] [address] Care Team Providers Care Recorder [employer]ity [employer] Name Role Phone Sravani Harrisno MD Primary Care Provider [phone] Horace Mack MD Unavailable Sravani Harrison MD Primary Care Provider [phone] Encounter Details Date Type Department Care Team (Late st Contact Info) Description 12/24/2019 Telephone [facility] - Imaging [address] [place] [address] Transcribed Order, Provider Social History Tobacco Use Types Packs/Day Years Used Date Smoking Tobacco: Never Smokeless Tobacco: Never Alcohol Use Standard Drinks/Week Comments No 0 (1 standard drink = 0.6 oz pur e alcohol) Comments Unknown Sex and Gender Information Value Date Recorded Sex Assigned at Not on file Legal Sex Female 12:50 AM JOURNALISM TEACHER Gender Identity Female 12/31/2020 9:01 AM CDT Sexual Orientation Straight 12/31/2020 9: 01 AM CDT documented as of this encounter Plan of Treatment Not on file documented as of this encounter Visit Diagnoses Not on filedocumented in this encounter Additional Health Concerns Infection Onset Date Last Indicated Resolved Time Rhino/Enterovirus 05/14/2023 05/14/2023 05/21/2023 3:05 AM JOURNALISM TEACHER documented as of this encounter Care Teams Recorder [employer]ity [employer] Relationship Specialty Start Date End Date Sravani Harrison MD PCP - General 05/28/08 08/01/21 [place] [id number] [facility] [address] [place] [address] PCP - General Family Medicine 08/02/21 Horace Mack MD [address] [facility] [address] [place] [address] Consulting Physician Orthopedic Surgery 01/04/21 documented as of this encounter
--- OUTSIDE RECORDS SUMMARY | 2024-05-02 23:55 | XMS_ITS | Clinical Summary ---
Author Organization [facility] Address [address] [place] [id number] Phone Care Team Providers Care Disc Pad Grinder Name Role Phone Sravani Harrison MD Primary [...] Department Care Team Description 05/02/2024 2:45 PM FACING MACHINE OPERATOR Ancillary Procedure [address] [address] Jaret Jaramillo MD Foot and ankle pain 05/02/2024 2:15 PM FACING MACHINE OPERATOR Ancillary Procedure [address] [address] Jaret Jaramillo MD Right foot pain from [...] on file Legal Sex Female 4:45 AM FACING MACHINE OPERATOR Gender Identity Not on file Sexual [...] history exists Medical Devices Implanted Type Area Two Way Radio Installer Device Identifier Shelf Expiration Date Model / Serial / Lot Implant Delivery System Distal Biceps Repair Implanted:Qty : 1 on 05/15/2014 by Audrey Ridley MD at [facility] Left: Shoulder [employer] 01/23/2019 AR-2260 / / [id number] Head Fem 4.7cm [id number] - [id number] Implanted:Qty : 1 on 07/14/2015 by Jaret Jaramillo MD at [facility] Right: Foot [employer] 08/02/2015 [id number] / [id number] / Description:req#[id number] Ankle Locking Nail 10 X 150 Mm Implanted:Qty : 1 on 07/14/2015 by Jaret Jaramillo MD at [facility] Nail Right: Foot [employer] 10/24/2023 [id number] / / [id number] Description:All Biomet traum a components are processed on requisition, Stimublast Dbm Putty 5cc Implanted:Qty : 1 on 07/14/2015 by Jaret Jaramillo MD at [facility] Putty Right: Ankle [employer] 11/11/2016 ABS-2003-0 5 / / [id number] Description:All [employer] ankl e components are processed on requisition,[id number]. Stimublast Dbm Putty 5cc Implanted:Qty : 1 on 07/14/2015 by Jaret Jaramillo MD at [facility] Putty Right: Ankle [employer] 02/11/2017 ABS-2003-0 5 / / [id number] 1 4.0 X 26 Mm Cannulated Screw Implanted:Qty : 1 on 07/14/2015 by Jaret Jaramillo MD at [facility] Screw Right: Foot [employer] AR-8740-26 PTS / / [id number] 4.0 X 32 Mm Cannulated Screw Implanted:Qty : 1 on 07/14/2015 by Jaret Jaramillo MD at [facility] Screw Right: Foot [employer] AR-8740-32 PTS / / [id number] Screw Dbl Lead 5.0x24mm [id number] - [id number] Implanted:Qty : 1 on 07/14/2015 by Jaret Jaramillo MD at [facility] Screw Right: Foot [employer] 03/25/2024 [id number] / / [id number] Screw Dbl Lead 5.0x22mm [id number] - [id number] Implanted:Qty : 1 on 07/14/2015 by Jaret Jaramillo MD at [facility] Screw Right: Foot [employer] 01/23/2022 [id number] / / [id number] Screw Dbl Lead 5.0x46mm [id number] - [id number] Implanted:Qty : 1 on 07/14/2015 by Jaret Jaramillo MD at [facility] Screw Right: Foot [employer] [id number] 12/19/2024 [id number] / / [id number] Screw Dbl Lead 5.0x65mm [id number] - [id number] Implanted:Qty : 1 on 07/14/2015 by Jaret Jaramillo MD at [facility] Screw Right: Foot [employer] [id number] 05/30/2025 [id number] / / [id number] Procedures Procedure Name Priority Date/Time Associated Diagnosis Comments CT ANKLE WO CONTRAST RIGHT Routine 05/02/2024 2:02 PM FACING MACHINE OPERATOR Foot and ankle pain CT FOOT WO CONTRAST RIGHT Routine 05/02/2024 2:02 PM FACING MACHINE OPERATOR Right foot pain from Last 3 Months Results * CT ANKLE WO CONTRAST RIGHT (05/02/2024 2:02 PM FACING MACHINE OPERATOR) Anatomical Region Laterality Modality Ankle / Foot Computed Tomogra phy 05/02/2024 2:02 PM FACING MACHINE OPERATOR Impressions 05/02/2024 3:52 PM FACING MACHINE OPERATOR IMPRESSION: 1. Complete bridging bony trabeculae [...] definite associated tear. Narrative 05/02/2024 3:52 PM FACING MACHINE OPERATOR EXAM: CT ANKLE WO CONTRAST RIGHT, [...] a small associated heel spur. There is guxh-no-wnjowlyq. Patchy fatty atrophy of the visible intrathoracic [...] osteoarthritis. There is mild 1st metatarsophalangeal and ucbc-mp-uxadrhql sesamoidometatarsal osteoarthritis. There is mild great toe [...] a small associated heel spur. There is zkva-vb-ogqnjibm. Patchy fatty atrophy of the visible intrathoracic [...] osteoarthritis. There is mild 1st metatarsophalangeal and opeq-vl-mtlfigfj sesamoidometatarsal osteoarthritis. There is mild great toe [...] FOOT WO CONTRAST RIGHT (05/02/2024 2:02 PM FACING MACHINE OPERATOR) Anatomical Region Laterality Modality Ankle / Foot Computed Tomogra phy 05/02/2024 1:51 PM FACING MACHINE OPERATOR Impressions 05/02/2024 3:52 PM FACING MACHINE OPERATOR IMPRESSION: 1. Complete bridging bony trabeculae [...] definite associated tear. Narrative 05/02/2024 3:52 PM FACING MACHINE OPERATOR EXAM: CT ANKLE WO CONTRAST RIGHT, [...] a small associated heel spur. There is aqnv-ay-xhbjafeu. Patchy fatty atrophy of the visible intrathoracic [...] osteoarthritis. There is mild 1st metatarsophalangeal and hxuz-dh-vsxinzwq sesamoidometatarsal osteoarthritis. There is mild great toe [...] a small associated heel spur. There is kzoj-vx-tmcklngl. Patchy fatty atrophy of the visible intrathoracic [...] osteoarthritis. There is mild 1st metatarsophalangeal and pduf-ee-fnczlzjm sesamoidometatarsal osteoarthritis. There is mild great toe [...] Advance Directives For more information, please contact: [phone] * Full Code (Latest Code Status on File) Date Activated Date Inactivated Comments 07/14/2015 3:50 PM 07/15/2015 8:42 PM * Full Code Date Activated Date Inactivated Comments 07/14/2015 8:34 AM 07/14/2015 3:50 PM * Full Code Date Activated Date Inactivated Comments 05/15/2014 9:36 AM 05/15/2014 4:53 PM * Full Code Date Activated Date Inactivated Comments 05/15/2014 8:23 AM 05/15/2014 9:36 AM Care Teams Disc Pad Grinder Relationship Specialty Start Date End Date Sravani Harirson MD PCP - General Internal Medicine 05/13/14
--- OUTSIDE RECORDS SUMMARY | 2024-05-02 23:55 | XMS_ITS | Encounter Summary ---
Author Organization [facility] Healthcare Address [address] [place] [address] Care Team Providers Care Infection Control Rn Name Role Phone Sravani Harrison MD Primary Care Provider [phone] Horace Mack MD Unavailable [phone] Sravani Harrison MD Primary Care Provider [phone] Encounter Details Date Type Department Care Team (Late st Contact Info) Description 04/26/2021 Telephone [facility] Radiology [address] [place] [address] Liz Ventura, ALESSANDRA [address] [place] [address] Social History Tobacco Use Types Packs/Day Years [...] How often do you attend chur or anglican services? 1 to 4 times per year 01/04/2021 Do you belong to any clubs o r organizations such as nondenominational groups, unions, fraternal or athletic groups, or [...] on file Legal Sex Female 12:50 AM KST OPERATOR Gender Identity Female 12/31/2020 9:01 AM [...] on stairs Contact your local community or [facility] for information on exercise, fall prevention programs, or options for improving home safety. documented as of this encounter Visit Diagnoses Not on filedocumented in this encounter Additional Health Concerns Infection Onset Date Last Indicated Resolved Time Rhino/Enterovirus 05/14/2023 05/14/2023 05/21/2023 3:05 AM KST OPERATOR documented as of this encounter Care Teams Infection Control Rn Relationship Specialty Start Date End Date Sravani Harrison MD PCP - General 05/28/08 08/01/21 [place] [address] [facility] [address] [place] [address] PCP - General Family Medicine 08/02/21 Horace Mack MD [address] [place] [address] Consulting Physician Orthopedic Surgery 01/04/21 documented as of this encounter
--- OUTSIDE RECORDS SUMMARY | 2024-05-02 23:56 | XMS_ITS | Encounter Summary ---
Author Organization [facility] Address [address] [facility] [place] [address] Care Team Providers Care Wind Turbine Mechanic Name Role Phone Sravani Harrison MD Primary Care Provider [phone] Reason for Visit * CT Scan (Routine) - Closed Specialty Diagnoses / Procedures Referred By Contac t Referred To Contact Radiology Diagnoses Foot and ankle pain Procedures CT ANKLE WO CONTRAST RIGHT Jaret Jaramillo MD [address] [place] [address] Phone: tel: fax: [facility] [address] [address] Phone: tel: fax: Referral ID Status Reason Start Date Expiration Date Visits Re quested Visits Authorized [id number] Closed 04/28/2024 05/28/2024 1 1 Encounter Details Date Type Department Care Team (Latest Contact Info) Description 05/02/2024 2:45 PM VEHICLE CONTROLS ENGINEER Ancillary Procedure [address] [address] Jaret Jaramillo MD [address] [place] [address] Foot and ankle pain Social History Tobacco Use Types Packs/Day Years Used Date Smoking Tobacco: Never Smokeless Tobacco: Never Alcohol Use Standard Drinks/Week Comments No 0 (1 standard drink = 0.6 oz pur e alcohol) Comments No Sex and Gender Information Value Date Recorded Sex Assigned at Not on file Legal Sex Female 4:45 AM VEHICLE CONTROLS ENGINEER Gender Identity Not on file Sexual Orientation Not on file documented as of this encounter Plan of Treatment Not on file documented as of this encounter Procedures Procedure Name Priority Date/Time Associated Diagnosis Comments CT ANKLE WO CONTRAST RIGHT Routine 05/02/2024 2:02 PM VEHICLE CONTROLS ENGINEER Foot and ankle pain documented in this encounter Results * CT ANKLE WO CONTRAST RIGHT (05/02/2024 2:02 PM VEHICLE CONTROLS ENGINEER) Anatomical Region Laterality Modality Ankle / Foot Computed Tomogra phy 05/02/2024 2:02 PM VEHICLE CONTROLS ENGINEER Impressions 05/02/2024 3:52 PM VEHICLE CONTROLS ENGINEER IMPRESSION: 1. Complete bridging bony trabeculae across [...] definite associated tear. Narrative 05/02/2024 3:52 PM VEHICLE CONTROLS ENGINEER EXAM: CT ANKLE WO CONTRAST RIGHT, CT [...] a small associated heel spur. There is ztqb-mi-adqvtouw. Patchy fatty atrophy of the visible intrathoracic [...] osteoarthritis. 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 There is mild great toe [...] a small associated heel spur. There is fyqa-qe-ertqmnbk. Patchy fatty atrophy of the visible intrathoracic [...] osteoarthritis. There is mild 1st metatarsophalangeal and ribc-ay-cbfkzrip sesamoidometatarsal osteoarthritis. There is mild great toe [...] FOOT WO CONTRAST RIGHT (05/02/2024 2:02 PM VEHICLE CONTROLS ENGINEER) Anatomical Region Laterality Modality Ankle / Foot Computed Tomogra phy 05/02/2024 1:51 PM VEHICLE CONTROLS ENGINEER Impressions 05/02/2024 3:52 PM VEHICLE CONTROLS ENGINEER IMPRESSION: 1. Complete bridging bony trabeculae across [...] definite associated tear. Narrative 05/02/2024 3:52 PM VEHICLE CONTROLS ENGINEER EXAM: CT ANKLE WO CONTRAST RIGHT, CT [...] subtalar arthrodesis is transfixed with an intramedullary chpi extending from the calcaneus through the talus [...] a small associated heel spur. There is cwnm-dm-pnismrwd. Patchy fatty atrophy of the visible intrathoracic [...] osteoarthritis. There is mild 1st metatarsophalangeal and ywah-sn-zparhijg sesamoidometatarsal osteoarthritis. There is mild great toe [...] a small associated heel spur. There is bbgv-lz-uemwqezq. Patchy fatty atrophy of the visible intrathoracic [...] osteoarthritis. There is mild 1st metatarsophalangeal and cpxf-ah-ztoxbblz sesamoidometatarsal osteoarthritis. There is mild great toe [...] limb documented in this encounter Care Teams Wind Turbine Mechanic Relationship Specialty Start Date End Date Sravani Harrison MD PCP - General Internal Medicine 05/13/14 documented as of this encounter
--- OUTSIDE RECORDS SUMMARY | 2024-05-02 23:56 | XMS_ITS | Encounter Summary ---
Author Organization [facility] Address [address] [facility] [place] [address] Care Team Providers Care Paint Technician Name Role Phone Sravani Harrison MD Primary Care Provider [phone]- [phone] Reason for Visit * CT Scan (Routine) - Closed Specialty Diagnoses / Procedures Referred By Contac t Referred To Contact Radiology Diagnoses Right foot pain Procedures CT FOOT WO CONTRAST RIGHT Jaret Jaramillo MD [address] [place] [address] Phone: tel: fax: [address] [address] Phone: tel: fax: Referral ID Status Reason Start Date Expiration Date Visits Re quested Visits Authorized [id number] Closed 04/28/2024 05/28/2024 1 1 Encounter Details Date Type Department Care Team (Latest Contact Info) Description 05/02/2024 2:15 PM BULK SYSTEM OPERATOR Ancillary Procedure [facility] [address] [address] Jaret Jaramillo MD [address] [place] [address] Right foot pain Social History Tobacco Use Types Packs/Day Years Used Date Smoking Tobacco: Never Smokeless Tobacco: Never Alcohol Use Standard Drinks/Week Comments No 0 (1 standard drink = 0.6 oz pur e alcohol) Comments No Sex and Gender Information Value Date Recorded Sex Assigned at Not on file Legal Sex Female 4:45 AM BULK SYSTEM OPERATOR Gender Identity Not on file Sexual Orientation Not on file documented as of this encounter Plan of Treatment Not on file documented as of this encounter Procedures Procedure Name Priority Date/Time Associated Diagnosis Comments CT FOOT WO CONTRAST RIGHT Routine 05/02/2024 2:02 PM BULK SYSTEM OPERATOR Right foot pain documented in this encounter Results * CT ANKLE WO CONTRAST RIGHT (05/02/2024 2:02 PM BULK SYSTEM OPERATOR) Anatomical Region Laterality Modality Ankle / Foot Computed Tomogra phy 05/02/2024 2:02 PM BULK SYSTEM OPERATOR Impressions 05/02/2024 3:52 PM BULK SYSTEM OPERATOR IMPRESSION: 1. Complete bridging bony trabeculae [...] definite associated tear. Narrative 05/02/2024 3:52 PM BULK SYSTEM OPERATOR EXAM: CT ANKLE WO CONTRAST RIGHT, [...] a small associated heel spur. There is hxwt-qe-mexvfzks. Patchy fatty atrophy of the visible intrathoracic [...] osteoarthritis. There is mild 1st metatarsophalangeal and ungo-oq-anvctbsi sesamoidometatarsal osteoarthritis. There is mild great toe [...] a small associated heel spur. There is wrlm-qp-gczfbvgn. Patchy fatty atrophy of the visible intrathoracic [...] osteoarthritis. There is mild 1st metatarsophalangeal and qfnj-qk-gnnkolzu sesamoidometatarsal osteoarthritis. There is mild great toe [...] FOOT WO CONTRAST RIGHT (05/02/2024 2:02 PM BULK SYSTEM OPERATOR) Anatomical Region Laterality Modality Ankle / Foot Computed Tomogra phy 05/02/2024 1:51 PM BULK SYSTEM OPERATOR Impressions 05/02/2024 3:52 PM BULK SYSTEM OPERATOR IMPRESSION: 1. Complete bridging bony trabeculae [...] definite associated tear. Narrative 05/02/2024 3:52 PM BULK SYSTEM OPERATOR EXAM: CT ANKLE WO CONTRAST RIGHT, [...] a small associated heel spur. There is ukij-yc-yzebcobm. Patchy fatty atrophy of the visible intrathoracic [...] osteoarthritis. There is mild 1st metatarsophalangeal and jdfr-cn-wjswrqzf sesamoidometatarsal osteoarthritis. There is mild great toe [...] a small associated heel spur. There is zcic-aj-bhhvxnuc. Patchy fatty atrophy of the visible intrathoracic [...] osteoarthritis. There is mild 1st metatarsophalangeal and aqrg-xc-bevawqys sesamoidometatarsal osteoarthritis. There is mild great toe [...] limb documented in this encounter Care Teams Paint Technician Relationship Specialty Start Date End Date Sravani Harrison MD PCP - General Internal Medicine 05/13/14 documented as of this encounter
[2024-05-03] MEDS: PANTOPRAZOLE SODIUM IV 40 MG VIAL 80 MG IV PUSH (00:18)
[2024-05-03] MEDS: SODIUM CHLORIDE 0.9% IV 50 ML 999 ML (00:36)
--- NOTE | 2024-05-03 00:36 | ECG_ITS ---
Test Date: 2024-05-03 00:36:55 Measurements Intervals Sharon Rate: 75 P: 74 ID: [id number] QRS: 27 QRSD: 76 T: 58 QT: 404 QTc: 454 Interpretive Statements SINUS RHYTHM VOLTAGE CRITERIA FOR LVH MINIMAL Q WAVES- HIGH LATERAL LEADS BASELINE ARTIFACT- I, II, III, AVR, AVL, AVF BORDERLINE ECG Compared to ECG 05/02/2024 19:30:48 NO SIGNIFICANT CHANGE Electronically Signed On 05-03-2024 06:39:54 SHOE PATTERNMAKER by Adolfo Huizar D.O.
[2024-05-03 00:59] VITALS: BP 139/88; PULSE 79; RESP 16; O2SAT 98
[2024-05-03 01:06] LABS: Troponin I < 0.012 ng/mL (0.000-0.034)
[2024-05-03] MEDS: ONDANSETRON INJ 4 MG/2 ML VIAL IV PUSH (02:17)
[2024-05-03 02:52] VITALS: BP 129/93; PULSE 84; RESP 16; O2SAT 97
== END 2024-05-03 02:54 | disposition home or self-care (01) ==
PROVIDERS: Emergency Provider Physician Assistant
DX: R10.13 Epigastric pain (principal); K21.9 Gastro-esophageal reflux disease without esophagitis; J45.909 Unspecified asthma, uncomplicated; I10 Essential (primary) hypertension; E78.5 Hyperlipidemia, unspecified; E03.9 Hypothyroidism, unspecified; Z86.73 Personal history of transient ischemic attack (TIA), and cerebral infarction without residual deficits
CPT/HCPCS: 36415; 71046; 74177; 80053; 83690; 84484; 85025; 85610; 85730; 93005; 96374; 96375; 99284; J2405; J2470; Q9967